=== PATIENT | male | born 1935 | race Caucasian/White ===

== ENCOUNTER → 2018-04-27 13:09 | Outpatient (CLI) | payer OTHER, SELFPAY ==
--- NOTE | 2018-04-27 | DI.RAD.S_ITS ---
PROCEDURE: XR CERVICAL SPINE 4V OR 5V INDICATIONS: PARASTHESISA OF SKIN TECHNIQUE: 5 views of the cervical spine acquired. COMPARISON: None. FINDINGS: Bones: No fractures or dislocations to the C7-T1 level. Degenerative endplate changes are noted at C4-5, C5-6 and C6-7 levels. Oblique images demonstrate bilateral neuroforaminal narrowing at C4-5 level. Soft tissues: No prevertebral soft tissue swelling. IMPRESSION: Degenerative disc disease in mid to lower cervical spine with suggestion of bilateral neuroforaminal narrowing at C4-5 level. No compression fracture or spondylolisthesis. Dictated by: Miah Gaines M.D. on 04/27/2018 at 14:23 Approved by: Miah Gaines M.D. on 04/27/2018 at 14:23
== END ==
PROVIDERS: PCP Internal Medicine; Visit Provider Student in an Organized Health Care Education/Training Program
DX: R20.2 Paresthesia of skin (principal); M50.321 Other cervical disc degeneration at C4-C5 level
CPT/HCPCS: 72050

== ENCOUNTER → 2018-05-25 09:37 | Outpatient (CLI) | payer OTHER, SELFPAY ==
--- NOTE | 2018-05-25 | DI.MRI.S_ITS ---
PROCEDURE: MR CERVICAL SPINE WO CON INDICATIONS: Cervical disc disorder with radiculopathy TECHNIQUE: Noncontrast sagittal T1 spin echo and T2 fast spin echo, sagittal STIR, foraminal oblique sagittal T2 fast spin echo, and axial gradient echo or T2 fast spin echo through the cervical spine. COMPARISON: None. FINDINGS: Image quality: Excellent. Alignment and Curvature: There is loss of normal cervical lordosis. There is mild grade 1 retrolisthesis of C4 on C5. Bone Marrow: Marrow demonstrates normal overall signal. There is mild reactive signal within the endplates adjacent to the C4-C5 and C5-C6 intervertebral discs. Spinal Cord: Visualized spinal cord has normal size and signal. No cerebellar tonsillar herniation. Paraspinous Soft Tissues: No paravertebral masses. Prevertebral soft tissues are normal in thickness. C2-C3: Normal appearance. C3-C4: Congenital canal stenosis. Mild disc desiccation and diffuse disc bulge. Central annular tear. Mild facet and uncovertebral hypertrophy bilaterally. Mild canal stenosis. Mild left and moderate right foraminal stenosis. C4-C5: Congenital canal stenosis. Moderate disc height loss and desiccation. Moderate diffuse disc bulge with superimposed broad-based central protrusion. Mild facet and uncovertebral hypertrophy bilaterally. Moderate to severe canal stenosis. Minimal anterior cord flattening. Mild right and moderate left foraminal stenosis. C5-C6: Congenital canal stenosis. Moderate disc height loss and desiccation. Mild diffuse disc bulge. Mild facet and uncovertebral hypertrophy. Moderate to severe canal stenosis. Mild anterior cord flattening. Moderate left and mild right foraminal stenosis. C6-C7: Mild disc desiccation and diffuse disc bulge with superimposed right paracentral broad-based protrusion. Mild facet and uncovertebral hypertrophy. Mild canal stenosis. Mild foraminal stenosis bilaterally. C7-T1: Normal appearance. IMPRESSION: 1. Multilevel degenerative disc and facet disease, as well as uncovertebral hypertrophy. 2. Multilevel canal stenoses, worst at C4-C5 and C5-C6, where there is mild cord flattening present. 3. Multilevel foraminal stenoses, worst on the right at C3-C4, on the left at C4-C5, and on the left at C5-C6, where there are moderate foraminal stenoses. Dictated by: Reza Caldwell M.D. on 05/25/2018 at 11:00 Approved by: Reza Caldwell M.D. on 05/25/2018 at 11:04
== END ==
PROVIDERS: PCP Internal Medicine; Visit Provider Student in an Organized Health Care Education/Training Program
DX: M50.10 Cervical disc disorder with radiculopathy, unspecified cervical region (principal); M50.11 Cervical disc disorder with radiculopathy, high cervical region; M48.02 Spinal stenosis, cervical region
CPT/HCPCS: 72141

== ENCOUNTER → 2018-12-11 11:48 | Outpatient (CLI) | payer OTHER, SELFPAY ==
[2018-12-11 12:27] LABS: Add Manual Diff / Slide Review NO; Basophils Absolute Auto 100 /uL (0-100); Basophils Percent Auto 0.8 % (0-2); Eosinophils Absolute Auto 200 /uL (0-450); Eosinophils Percent Auto 2.3 % (2-4); Hemoglobin 13.3 g/dL (13.5-17.5); Lymphocytes Absolute Auto 1600 /uL (1100-4500); Lymphocytes Percent Auto 23.5 % (25-40); Mean Corpuscular HGB Conc 33.3 % (30-36); Mean Corpuscular Hemoglobin 35.1 PG (26-34); Mean Corpuscular Volume 105.4 fL (80-100); Monocytes Absolute Auto 700 /uL (0-900); Monocytes Percent Auto 9.7 % (3-14); Neutrophils Absolute Auto 4300 /uL (1500-7000); Neutrophils Percent Auto 63.7 % (50-75); Platelet Count 202 X10^3/uL (150-400); Red Blood Cell Count 3.79 X10^6/uL (4.5-5.9); Red Cell Distribution Width 13.7 % (11.6-14.8); White Blood Cell Count 6.7 X10^3/uL (4.5-11.0)
[2018-12-11 13:44] LABS: Blood Urea Nitrogen 21 mg/dL (9-20); Calcium 9.1 mg/dL (8.4-10.2); Carbon Dioxide 28 mmol/L (22-32); Chloride 103 mmol/L (98-107); Estimated Glomerular Filt Rate > 60.0 mL/min (>60); Glucose 94 mg/dL (80-110); HEMOLYSIS < 15 (0-50); Potassium 4.9 mmol/L (3.4-5.1); Sodium 137 mmol/L (137-145)
== END ==
PROVIDERS: PCP Internal Medicine; Visit Provider Orthopaedic Surgery
DX: Z01.818 Encounter for other preprocedural examination (principal); R73.9 Hyperglycemia, unspecified; E61.1 Iron deficiency; Z51.81 Encounter for therapeutic drug level monitoring
CPT/HCPCS: 36415; 80048; 85025

== ENCOUNTER 2018-12-19 09:15 | Day surgery (SDC) | payer OTHER, SELFPAY ==
[2018-12-15 09:59] VITALS: BMI 26.1
[2018-12-19] VITALS (21 sets, daily range): BP systolic 116–178; BP diastolic 69–103; PULSE 57–102; RESP 8–18; TEMP 35.6–37; O2SAT 93–99; BMI 26.1
--- NOTE | 2018-12-19 | DI.RAD.S_ITS ---
PROCEDURE: XR CERVICAL SPINE 2V OR 3V INDICATIONS: C4-5, 5-6 BRYANNA C ACDF TECHNIQUE: AP and lateral operative view(s) of the cervical spine were acquired. COMPARISON: [facility], , XR CERVICAL SPINE 4V OR 5V, 04/27/2018, 13:19. FINDINGS: Images provided demonstrate presence placement of disc prostheses at C4-C5 and C5-C6. No radiographic evidence of complications. IMPRESSION: Operative imaging utilized for placement of disc prostheses at C4-C5 and C5-C6. Dictated by: German Nix M.D. on 12/19/2018 at 14:04 Approved by: German Nix M.D. on 12/19/2018 at 14:05
[2018-12-19] MEDS: LACTATED RINGERS 1,000 ML 84 ML IV ×2 (09:45→14:06)
--- NOTE | 2018-12-19 10:43 | PM.PREOP ---
Pre-operative Note Interval Note History & Physical reviewed/Exam performed by Physician: Yes Changes to H&P: No
--- NOTE | 2018-12-19 11:19 | SUR.OPER ---
Supine on padded OR bed, head on donut, arm padded and tucked at side, legs uncrossed, safety belt at thigh, tape over blanket over lower legs .
[2018-12-19] MEDS: CEFAZOLIN 2 GM/100 ML FROZ.PIGGY IV ×2 (11:40→17:04)
[2018-12-19] MEDS: SODIUM CHLORIDE 0.9% 1,000 ML, GENTAMICIN 80 MG IRR (12:14)
[2018-12-19] MEDS: BUPIVACAINE 0.25% W/ EPI 30 ML VIAL 60 ML INJ (12:15)
[2018-12-19] MEDS: THROMBIN (RECOMBINANT) 5,000 UNIT VIAL 5000 UNIT TOP (12:15)
--- NOTE | 2018-12-19 12:58 | P.OP_ITS ---
Operative Date/Time/Diagnoses Date of procedure: 12/19/18 Time of procedure: 12:58 Pre-op diagnosis: Cervical stenosis with myelopathy Post-op diagnosis: same Procedure & Clinicians Procedure: C4-5, C5-6 anterior diskectomy an artificial disc replacements Use of microscope Same procedure as scheduled: Yes Indications: [age] year old male with cervical stenosis and myelopathy. They had failed conservative management and requested operative intervention. Risks and benefits of surgery were discussed and appropriate consents were obtained. Surgeon: Arnol Palacio Event Marketing Coordinator: Cheli Ring Anesthesia Type: General Operative Notes Findings: None Closure Type: primary Specimen(s): none sent Prosthetic devices, grafts, tissues, transplants, or devices: Smitha Mobi-C Estimated Blood Loss (mL): 5 Blood products transfused: none Procedure in detail: Patient was brought to the operating room and intubated on the table. A time-out was performed. Preoperative antibiotics were given. The neck was prepped and draped in the standard sterile fashion. Using a skin fold, we made a 3 cm oblique incision on the left side. We used Bovie to go through the platysma and then did a standard anterolateral blunt dissection down to the precervical fascia. Fascia was nicked and elevated up. A marker was placed and x-ray was taken for localization. We then subperiosteally elevated up the longus colli muscles. Self-retaining retractors were placed. Bethesda pins were placed under x-ray guidance to be parallel to the endplates. We then brought in the microscope. A scalpel used to perform an annulotomy. We then used a combination of pituitaries and curettes and Kerrison to perform a complete anterior diskectomy at C5-6. We took down the PLL and used Kerrison to remove any posterior disc material and osteophytes. At the end we could from the nerve hook cephalad caudally and out the foramen and everything was opened. We distracted open with the parallel teacher aide clerical. We then used the horseshoes for sizing. We then used the trials. We then inserted a 17 x 17 x 5 mm size Mobi-C artificial disc replacement under fluoroscopic guidance for positioning. The traction was released and x-ray was checked again. We then went up to C4-5. Again a complete diskectomy was performed with the scalpel, pituitaries, curettes, and Kerrisons. We took down the PLL. Posterior osteophytes were removed until everything was open. We spread with the paddle distractor. We trialed and then inserted a 15 x 15 x 5 mm size Mobi-C ADR under fluoroscopic guidance for positioning. The traction was released. The self- retaining retractors and Bethesda pins were removed and final x-rays taken. The wound was irrigated. There was no bleeding. The carotid was beating nicely. The platysma was closed. The superficial was closed. The skin was closed. A sterile dressing was placed. They were then extubated and brought to recovery room with no complications. Complications: none Post-operative Condition: stable Disposition: PACU Plan for aftercare: Inpatient. Mobilize with therapy.
[2018-12-19] MEDS: HYDROMORPHONE 2 MG INJ 0.5 MG IV ×4 (13:20→14:07)
--- NOTE | 2018-12-19 13:59 | SUR.PHASEI ---
Patient arrived in PACU awake with c/o discomfort. Medicated, repositioned and applied ice bag. Patient currently appears comfortable and states pain has decreased. Will continue to monitor.
--- NOTE | 2018-12-19 15:03 | PC.NURSE ---
Addendum entered by Sole Rangel R.N. 12/19/18 15:35: Patient with bilat skin tears to cheeks, report from Pacu nurse is that the skin tears were from the tape that was used to hold the oxygen tubing in place in the OR. Skin tears currently open to air, with scabbed areas, no drainage, no discomfort per patient. Original Note: Patient alert,oriented, rates pain to neck 3/10, no pain meds given at this time. CMS+, sats on RA97%. Pt oriented to room and call light, alarm on.
[2018-12-19] MEDS: LACTATED RINGERS 1,000 ML 125 ML IV ×2 (15:12→23:41)
--- NOTE | 2018-12-19 16:15 | PT.IIE ---
Current Diagnoses Disease of spinal cord, unspecified (12/19/18) Spinal stenosis, cervical region (12/19/18) Surgery Performed Operation Date: 12/19/18 11:15 Actual Procedures p C45 & C56 anterior discectomy & artificial disc replacement - Arnol Palacio MD Surgical History (Last Updated 12/15/18 @ 10:22 by Marni Loevtt RN) H/O: vasectomy (Acute) History of colonoscopy with polypectomy (Acute ~2016) Hx of arthroscopy of left knee (Acute) Hx of arthroscopy of right knee (Acute) Hx of bilateral cataract extraction (Acute) Status post left unicompartmental knee replacement (Acute ~2011) Status post right unicompartmental knee replacement (Acute ~2015) Medical History (Last Updated 12/15/18 @ 10:37 by Marni Lovett RN) Acid reflux (Acute) Anemia of chronic disease (Acute) BPH (benign prostatic hyperplasia) (Acute) Fragile skin (Acute) Hearing impaired (Acute) Microscopic colitis (Acute ~06/2008) Osteoarthritis (Acute) PSVT (paroxysmal supraventricular tachycardia) (Acute ~2004) RBBB (right bundle branch block) (Acute) Rheumatoid arthritis (Acute) RLS (restless legs syndrome) (Acute) Seasonal allergic rhinitis (Acute) Physical Therapy Inpatient Evaluation/Re-Eval M1 PT/OT-IP Prior Functional Status Start: 12/19/18 17:00 Freq: NEEDED Status: Active Protocol: Document 12/19/18 16:15 AB (Rec: 12/19/18 17:17 AB [id number]) Medical Review Prior Functional Status Medical History Reviewed Yes Communication able to make needs known Mobility and Gait pt stated that he is independent with all mobilities and ambulation without AD Social History Household Members spouse Living Arrangements Apartment/Condo Number of Floors (Floors) Two Floors Number of Stairs To Enter/Railing? 2 steps with L rail to enter has 14 steps with L rail to get to bedroom level Home Environment High Toilet,Walk in Shower Home Equipment Straight Cane,Grab Bars In Shower Additional Social History Comment pt also stated that he has 2 hiking poles M2 PT-IP Current Condition Start: 12/19/18 17:00 Freq: NEEDED Status: Active Protocol: Document 12/19/18 16:15 AB (Rec: 12/19/18 17:17 AB [id number]) Physical Therapy Current Condition Current Condition Evaluation Date 12/19/18 Treatment Diagnosis s/p C4-5, C5-6 ACDF; difficulty in walking Onset Date 12/19/18 Precautions Cervical Spine Precautions Soft Collar for Comfort,No Heavy Lifting,Log Roll M3 PT-IP Subjective Start: 12/19/18 17:00 Freq: NEEDED Status: Active Protocol: Document 12/19/18 16:15 AB (Rec: 12/19/18 17:17 AB [id number]) Subjective Physical Therapy Visit Type Type Initial Evaluation Visit Start Time 16:15 Visit Stop Time 16:53 Total Visit Minutes 43 Number of CENTRAL OFFICE INSPECTOR Visits 0 Physical Therapy Visit Comments Patient Comments pt agreeable to do PT Therapy Pain Assessment Pain When Pain Assessed At Rest Pain Present Pain Present Pain Reported Location Posterior Neck Intensity 3 Scale Used increased with mobility Pain Management Techniques Apply Cold,Re-positioning, Timing of Activity with Medications M4 PT-IP Mobility and Gait Start: 12/19/18 17:00 Freq: NEEDED Status: Active Protocol: Document 12/19/18 16:15 AB (Rec: 12/19/18 17:17 AB [id number]) PT-Bed Mobility Assessment Rolling Type of Rolling Log Rolling Level of Assist Standby Assistance Supine to Sit Supine to Sit Standby Assistance Sit to Supine Sit to Supine Standby Assistance PT-Transfer Assessment Sit to and From Stand Sit to and from Stand Contact Guard Assistance Equipment Transfer Assistive Device None,Gait Belt Orthotic/Prosthetic Devices or Brace: Yes Transfers Transfer Destination Toilet Transfer Technique pt ambulated without AD Transfer Ability Level of Assist Contact Guard Assistance Comments Mobility Comments pt completed bed mobility supine to sit log roll SBA with cues for techniques. BP: 147/79 . pt c/o dizziness. BP in sittin/90. pt completed sit to stand CGA and ambulated towards the sink without AD CGA. educated on soft collar management and completed. pt requested to use the toilet and ambulated without AD CGA. pt was able to do sit to stand using grab bar SBA and pt ambulated towards the sink SBA without AD and was able to maintain standing while doing handwashing SBA. pt requested to go back to bed. ambulated without AD CGA. completed log roll sit to supine SBA and cues. positioned pt in bed. call light and table placed within reach. ice pack provided. Gait Assessment Gait Gait Assistance Required: Contact Guard Assist Distance (Feet) 20 Able to Maintain Weight Bearing Status Yes During Gait Assistive Devices Assistive Device None,Gait Belt Orthotic/Prosthetic Devices or Brace: Yes Gait Deviations General Gait Pattern Antalgic Factors Limiting Gait Function Factors Limiting Gait Function Decreased Activity Tolerance, Decreased Sensation,Decreased Strength,Limited Range of Motion,Pain,Poor Balance,Poor Safety Awareness Comments Gait Comments pt ambulated in room. pls refer to mobility section for details. pt presents with unstead antalgic gait. pt also has chronic numbness on all toes affecting balance. PT-Balance Assessment Sitting Balance and Reactions Static Sitting Balance Ability Normal Dynamic Sitting Balance Ability Good Standing Balance and Reactions Static Standing Balance Ability Good Dynamic Standing Balance Ability Fair Device Used without AD M5 PT-IP Objective Assessments Start: 12/19/18 17:00 Freq: NEEDED Status: Active Protocol: Document 12/19/18 16:15 AB (Rec: 12/19/18 17:17 AB [id number]) Orientation Orientation/Cognition Level of Alertness Alert Orientation Name,Place,Situation Language Function Ability Hard of Hearing Safety Awareness Understands Safety Issues Memory Description No Deficits Noted Gross Range of Motion Lower Extremity ROM Assessment Within Functional Limits Strength Lower Extremity Strength Hip 4-/5 Knee 4-/5 Ankle 4-/5 Coordination Assessment Gross Coordination Gross Coordination WNL Sensation Assessment Sensation Gross Sensation Right LE Impaired,Left LE Impaired Light Touch Impaired Proprioception (Position) Impaired Sensation Description Numbness Comments Sensation Comments numbness on all toes Muscle Tone Muscle Tone WNL Yes M6 PT-IP Treatment Start: 12/19/18 17:00 Freq: NEEDED Status: Active Protocol: Document 12/19/18 16:15 AB (Rec: 12/19/18 17:17 AB [id number]) Physical Therapy Treatment Education Education Provided Precautions,Weight Bearing Status,Post-Op Packet,Safety Brace Education [place],Patient M7 PT-IP Assessment and Plan Start: 12/19/18 17:00 Freq: NEEDED Status: Active Protocol: Document 12/19/18 16:15 AB (Rec: 12/19/18 17:17 AB [id number]) PT Summary Assessment and Plan Potential Rehabilitation Potential Good Status of Condition at Evaluation Stable Summary Impairments Pain,ROM,Strength,Balance, Sensation,Bed Mobility, Transfers,Gait,Activity Tolerance Assessment Summary pt requiring CGA with mobility . pt just had surgery today and will likely improve mobility during hospital stay. pt presents with unsteady gait and will assess further on next tx session and if appropriate will assess safety with use of SPC. pt plans to go home and has his spouse to assist him at home. will also complete stair climbing training prior to d/c. Goals Bed Mobility Goal Independent Transfer Goal Independent,Cane Gait Goal Independent,Cane Gait Distance 250 Other Goals improve ambulation without AD ~ 300 ft SBA up/down 14 steps with L rails ascending SBA Days to Meet Goals 3 Frequency of Treatment Frequency Of Treatment Twice a Day Treatment Plan Physical Therapy Treatment Plan Bed Mobility Training,Transfer Training,Gait Training, Therapeutic Exercise,Balance Retraining,Post Op Education, Discharge Planning,Hot or Cold Pack,Neuromuscular Re-ed, Coordination Retraining,Manual Therapy Other Recommendations and Next Treatment ambulation with SPC if Focus appropriate, stair climbing Recommendations To Nursing Amount of Assist Needed 1 Person Assist Discharge Recommendations PT Discharge Recommendations Home with Assistance
[2018-12-19] MEDS: NAPROXEN 250 MG TABLET 500 MG PO (17:03)
[2018-12-19] MEDS: HYDROCORTISONE 100 MG/2 ML VIAL 25 MG IV (17:03)
[2018-12-19] MEDS: OXYCODONE/ACETAMINOPHEN 5/325 TABLET 1 TAB PO ×2 (17:53→21:10)
[2018-12-19] MEDS: DOCUSATE 100 MG CAPSULE PO (21:09)
[2018-12-19] MEDS: SENNOSIDES 8.6 MG TABLET 17.2 MG PO (21:09)
[2018-12-19] MEDS: GABAPENTIN 300 MG CAPSULE PO (21:10)
[2018-12-19] MEDS: PRAMIPEXOLE 0.25 MG TABLET 0.5 MG PO (21:10)
[2018-12-19] MEDS: INFLUENZA VACCINE 0.5 ML SYRINGE IM (21:41)
[2018-12-20 01:00] VITALS: BP 122/65; PULSE 55; RESP 16; TEMP 36.6; O2SAT 99
[2018-12-20] MEDS: OXYCODONE/ACETAMINOPHEN 5/325 TABLET 1 TAB PO ×2 (01:11→09:00)
[2018-12-20] MEDS: HYDROCORTISONE 100 MG/2 ML VIAL 25 MG IV ×2 (01:13→09:01)
[2018-12-20] MEDS: CEFAZOLIN 2 GM/100 ML FROZ.PIGGY IV (01:14)
--- NOTE | 2018-12-20 05:45 | PC.NURSE ---
Addendum entered by Gisselle Conrad R.N. 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 Soft collar on, gauze dressing with tegaderm CD&I. Original Note: Pt reports mild post surgical neck pain, 4/10. Given 1 tab percocet with good effect. Pt SBA to BTR
[2018-12-20 06:05] VITALS: BP 134/78; PULSE 59; RESP 16; TEMP 36.6; O2SAT 134
[2018-12-20 08:00] VITALS: BP 129/69; PULSE 55; RESP 16; TEMP 36.3; O2SAT 99
--- NOTE | 2018-12-20 08:17 | PM.PNPO.1 ---
Subjective Subjective Date Patient Seen: 12/20/18 Time Patient Seen: 08:17 Interval history: He is doing well. A little bit of ache in the back of the neck. No difficulty swallowing. Exam Vital Signs (past 8 hours): - 12/20/18 01:00 12/20/18 06:05 Temperature 97.8 F 97.9 F Pulse Rate 55 L 59 L Respiratory Rate 16 16 Blood Pressure 122/65 134/78 Pulse Oximetry 99 134 H Oxygen Delivery Method Nasal Cannula Oxygen Flow Rate 2 Const Orientation: alert and oriented x3 Back/Spine/Pelvis Other: CDI. 5/5 motor both upper extremities Assessment & Plan Post-op Postoperative Procedures: Procedures Operation Date: 12/19/18 11:15 Actual Procedures Side Surgeon p C45 & C56 anterior discectomy & artificial disc replacement Arnol Palacio MD he is doing very well. He can be discharged home today after his last dose of IV steroids. He then will switch back to his regular 10 mg prednisone daily. Quality VTE Deep Vein Thrombosis/Pulmonary Embolism Present on Admission: No
[2018-12-20] MEDS: NAPROXEN 250 MG TABLET 500 MG PO (08:59)
[2018-12-20] MEDS: CHOLECALCIFEROL (VITAMIN D3) 1,000 UNIT TABLET 2000 UNIT PO (09:00)
[2018-12-20] MEDS: ASPIRIN EC 81 MG TABLET PO (09:00)
[2018-12-20] MEDS: predniSONE 10 MG TABLET PO (09:00)
[2018-12-20] MEDS: DOCUSATE 100 MG CAPSULE PO (09:01)
[2018-12-20] MEDS: FISH OIL 1,000 MG CAPSULE 1000 MG PO (09:02)
[2018-12-20] MEDS: ATENOLOL 50 MG TABLET PO (09:02)
[2018-12-20] MEDS: ALLOPURINOL 300 MG TABLET 150 MG PO (09:02)
--- NOTE | 2018-12-20 09:06 | PT.IPTN ---
Current Diagnoses Disease of spinal cord, unspecified (12/19/18) Spinal stenosis, cervical region (12/19/18) Surgery Performed Operation Date: 12/19/18 11:15 Actual Procedures p C45 & C56 anterior discectomy & artificial disc replacement - Arnol Palacio MD Physical Therapy Treatment Note M2 PT-IP Current Condition Start: 12/19/18 17:00 Freq: NEEDED Status: Active Protocol: Document 12/19/18 16:15 AB (Rec: 12/19/18 17:17 AB [id number]) Physical Therapy Current Condition Current Condition Evaluation Date 12/19/18 Treatment Diagnosis s/p C4-5, C5-6 ACDF; difficulty in walking Onset Date 12/19/18 Precautions Cervical Spine Precautions Soft Collar for Comfort,No Heavy Lifting,Log Roll M3 PT-IP Subjective Start: 12/19/18 17:00 Freq: NEEDED Status: Active Protocol: Document 12/20/18 09:06 AB (Rec: 12/20/18 11:01 AB [id number]) Subjective Physical Therapy Visit Type Type Treatment Note Visit Start Time 09:06 Visit Stop Time 09:25 Total Visit Minutes 19 Number of ENTERTAINMENT AGENT Visits 0 Physical Therapy Visit Comments Patient Comments pt agreeable to do PT Therapy Pain Assessment Pain When Pain Assessed At Rest Pain Present Pain Present Pain Reported Location Posterior Neck Intensity 2 Scale Used Numeric (1 - 10) Pain Management Techniques Timing of Activity with Medications M4 PT-IP Mobility and Gait Start: 12/19/18 17:00 Freq: NEEDED Status: Active Protocol: Document 12/20/18 09:06 AB (Rec: 12/20/18 11:01 AB [id number]) PT-Bed Mobility Assessment Rolling Type of Rolling Log Rolling Level of Assist Standby Assistance Supine to Sit Supine to Sit Standby Assistance Scooting Scooting to Edge of Bed Standby Assistance PT-Transfer Assessment Sit to and From Stand Sit to and from Stand Standby Assistance Equipment Transfer Assistive Device None,Gait Belt Orthotic/Prosthetic Devices or Brace: Yes Transfers Transfer Destination Chair Transfer Technique pt ambulated without AD Transfer Ability Level of Assist Standby Assistance Gait Assessment Gait Gait Assistance Required: Standby Assistance Distance (Feet) 350 Able to Maintain Weight Bearing Status Yes During Gait Assistive Devices Assistive Device None,Gait Belt Orthotic/Prosthetic Devices or Brace: Yes Gait Deviations General Gait Pattern Lateral Trunk Lean Factors Limiting Gait Function Factors Limiting Gait Function Decreased Sensation,Decreased Strength,Limited Range of Motion,Pain,Poor Balance Comments Gait Comments pt continues to present with antalgic gait but without LOB. increase trunk lean to the L . Stair Climbing Assessment Evaluation Level of Assist On Stairs Standby Assistance Devices Stair Climbing Assistive Devices Left Railing Technique/Endurance Stair Climbing Direction Ascend and Descend Stair Climbing Technique Step Over Step Number of Steps Climbed 3 Stair Climbing Set # Repetitions (reps) 5 M5 PT-IP Objective Assessments Start: 12/19/18 17:00 Freq: NEEDED Status: Active Protocol: Document 12/19/18 16:15 AB (Rec: 12/19/18 17:17 AB [id number]) Orientation Orientation/Cognition Level of Alertness Alert Orientation Name,Place,Situation Language Function Ability Hard of Hearing Safety Awareness Understands Safety Issues Memory Description No Deficits Noted Gross Range of Motion Lower Extremity ROM Assessment Within Functional Limits Strength Lower Extremity Strength Hip 4-/5 Knee 4-/5 Ankle 4-/5 Coordination Assessment Gross Coordination Gross Coordination WNL Sensation Assessment Sensation Gross Sensation Right LE Impaired,Left LE Impaired Light Touch Impaired Proprioception (Position) Impaired Sensation Description Numbness Comments Sensation Comments numbness on all toes Muscle Tone Muscle Tone WNL Yes M6 PT-IP Treatment Start: 12/19/18 17:00 Freq: NEEDED Status: Active Protocol: Document 12/20/18 09:06 AB (Rec: 12/20/18 11:01 [id number]) Physical Therapy Treatment Education Education Provided Precautions,Safety M7 PT-IP Assessment and Plan Start: 12/19/18 17:00 Freq: NEEDED Status: Active Protocol: Document 12/20/18 09:06 AB (Rec: 12/20/18 11:01 [id number]) PT Summary Assessment and Plan Potential Rehabilitation Potential Good Summary Impairments Pain,ROM,Strength,Balance, Sensation,Bed Mobility, Transfers,Gait,Activity Tolerance Progress Towards Goals Progressing Toward Goals Assessment Summary pt is doing well with mobility and requiring SBA for safety. pt is steadier with ambulation today compared to yesterday. pt plans to go home today and spouse will be able to assist him. pt may go home when medically stable. Goals Bed Mobility Goal Independent Transfer Goal Independent,Cane Gait Goal Independent,Cane Gait Distance 250 Other Goals improve ambulation without AD ~ 300 ft SBA up/down 14 steps with L rails ascending SBA Days to Meet Goals 3 Frequency of Treatment Frequency Of Treatment Twice a Day Treatment Plan Physical Therapy Treatment Plan Bed Mobility Training,Transfer Training,Gait Training, Therapeutic Exercise,Balance Retraining,Post Op Education, Discharge Planning,Hot or Cold Pack,Neuromuscular Re-ed, Coordination Retraining,Manual Therapy Other Recommendations and Next Treatment ambulation with SPC if Focus appropriate, stair climbing Recommendations To Nursing Amount of Assist Needed 1 Person Assist Discharge Recommendations PT Discharge Recommendations Home with Assistance
--- NOTE | 2018-12-20 10:02 | OT.IP.EVAL ---
Current Diagnoses Disease of spinal cord, unspecified (12/19/18) Spinal stenosis, cervical region (12/19/18) Surgery Performed Operation Date: 12/19/18 11:15 Actual Procedures p C45 & C56 anterior discectomy & artificial disc replacement - Arnol Palacio MD Past Medical History (Last Updated 12/15/18 @ 10:37 by Marni Lovett, RN) Acid reflux (Acute) Anemia of chronic disease (Acute) BPH (benign prostatic hyperplasia) (Acute) Fragile skin (Acute) Hearing impaired (Acute) Microscopic colitis (Acute ~06/2008) Osteoarthritis (Acute) PSVT (paroxysmal supraventricular tachycardia) (Acute ~2004) RBBB (right bundle branch block) (Acute) Rheumatoid arthritis (Acute) RLS (restless legs syndrome) (Acute) Seasonal allergic rhinitis (Acute) Surgical History (Last Updated 12/15/18 @ 10:22 by Marni Lovett RN) H/O: vasectomy (Acute) History of colonoscopy with polypectomy (Acute ~2016) Hx of arthroscopy of left knee (Acute) Hx of arthroscopy of right knee (Acute) Hx of bilateral cataract extraction (Acute) Status post left unicompartmental knee replacement (Acute ~2011) Status post right unicompartmental knee replacement (Acute ~2015) Occupational Therapy Inpatient Evaluation/Re-Eval M1 PT/OT-IP Prior Functional Status Start: 12/19/18 17:00 Freq: NEEDED Status: Active Protocol: Document 12/20/18 10:02 ROCK (Rec: 12/20/18 16:13 DENISE [id number]) Medical Review Prior Functional Status Medical History Reviewed Yes Diet/Fluid Consistency Regular Communication WNL Mobility and Gait Pt stated that he is independent with ambulation without AD. Activities of Daily Living and IADL's Pt stated he is independent with all self care, shares IADLS with , drives. Social History Household Members spouse Living Arrangements Apartment/Condo Number of Floors (Floors) Two Floors Number of Stairs To Enter/Railing? 2 steps with L rail to enter has 14 steps with L rail to get to bedroom level Home Environment High Toilet,Walk in Shower Home Equipment Straight Cane,Long Handled Sponge,Long Handled Shoe Horn, Moving Van Driver,Grab Bars In Shower Employment Status Retired Additional Social History Comment Pt also stated that he has 2 hiking poles. M2 OT-IP Current Condition Start: 12/20/18 08:24 Freq: Status: Active Protocol: Document 12/20/18 10:02 PJM (Rec: 12/20/18 16:13 PJ [id number]) Occupational Therapy Current Condition Current Condition Evaluation Date 12/20/18 Treatment Diagnosis decreased self care s/p C4-5, C5-6 diskectomy with artificial disks placed Diagnosis Onset Date 12/19/18 Post Operative Precautions Cervical Spine Precautions Soft Collar for Comfort,No Heavy Lifting,Log Roll Other Precautions no lifting >10# for 6 weeks per MD M3 OT- IP Subjective and Pain Start: 12/20/18 08:24 Freq: Status: Active Protocol: Document 12/20/18 10:02 PJM (Rec: 12/20/18 16:13 PJ [id number]) OT- Subjective Occupational Therapy Visit Type Type Initial Evaluation Visit Start Time 09:38 Visit Stop Time 10:02 Total Visit Minutes 24 Occupational Therapy Visit Comments Patient Comments My arms and hands are not numb at all today and I slept last night. Patient/Caregiver Goals to go home today, resume independence in ADLS without numbness in BUE's/hands OT Pain Assessment Pain When Pain Assessed After Treatment Pain Present Pain Present Pain Reported Location Posterior Neck Intensity 2 Scale Used Numeric (1 - 10) Description Aching,Acute M4 OT- IP ADL's Start: 12/20/18 08:24 Freq: Status: Active Protocol: Document 12/20/18 10:02 PJM (Rec: 12/20/18 16:13 PJ [id number]) OT RRV-Rayh-Wdbgomy General Evaluation Self-Feeding Ability Independent Comments OT Self-Feeding Comments pt denies any swallowing difficulties OT ADL-Grooming General Evaluation Grooming Ability Independent Comments OT Grooming Comments after education re: body mechanics OT ADL-Oral Care General Eval Oral Care Ability Independent Comments Oral Care Comments after education re: body mechanics OT ADL-Dressing General Eval Upper Body Dressing Ability Independent Lower Body Dressing Ability Independent Areas Needing Assistance Button-Up Shirt/Blouse, Underpants/Brief,Pants/Shorts, Socks,Shoes Comments OT Dressing Comments after education re: body mechanics OT ADL-Toileting General Evaluation Toileting Ability Independent OT ADL-Bathing Bathing Type Bathing Type Shower Devices Bathing Equipment Long Handled Sponge or Weaver, Grab Bars,Rinse Free Shampoo Cap Comments OT Bathing Comments pt plans to stand to shower, has appropriate AED, provided shampoo cap M5 OT- IP IADL's Start: 12/20/18 08:24 Freq: Status: Active Protocol: Document 12/20/18 10:02 PJM (Rec: 12/20/18 16:13 [facility] [id number]) OT-Instrumental Activities of Daily Living Deficits IADL Deficits Identified Deficits Home Safety Awareness Awareness of Need for Assistance at Home Good Awareness Ability to Problem Solve Emergency Able to Problem Solve Situations Home Safety Comments can assist with all IADLS until pt able Medication Management Medication Management No Deficits Identified Money Management Money Management No Deficits Identified Meal Preparation Meal Preparation Caregiver Provides Assist Pearl Maker Pearl Maker Caregiver Provides Assist Driving Driving Caregiver Provides Assist M6 OT- IP Functional Cognition Start: 12/20/18 08:24 Freq: Status: Active Protocol: Document 12/20/18 10:02 PJM (Rec: 12/20/18 16:13 [facility] [id number]) Cognitive Factors Limiting Selfcare Function Cognitive Ability Level of Alertness Alert Patient Orientation Name,Age,Birthday,Month,Date, Year,Day of Week,Place, Situation Attention Span Ability Capable of Focused Attention, Capable of Sustained Attention Ability to Follow Commands Able to Follow Multi-Step Commands Memory Description No Deficits Noted Safety Awareness No Deficits Noted Problem Solving Ability No deficits Noted Executive Function Ability No Deficits Noted Cognitive Comments Cognitive Assessment Comments Pt verbalizes and demonstrates understanding of all education and C spine precautions. OT- Vision and Hearing OT- Hearing Assessment OT- Hearing Assessment WFL OT- Vision Assessment Visual Acuity WFL M7 OT- IP Mobility and Balance Start: 12/20/18 08:24 Freq: Status: Active Protocol: Document 12/20/18 10:02 PJM (Rec: 12/20/18 16:13 [facility] [id number]) OT-Transfer Assessment Sit to and From Stand Sit to and from Stand Independent Transfers Transfer Ability Independent Technique Transfer Destination Car Transfer Technique Stand Step Pivot Devices Transfer Assistive Devices None OT- Gait Assessment Gait Gait Assistance Required: Independent Distance (Feet) 20 Assistive Devices Assistive Device None Comments Gait Ability Comments pt up ad jone in room this session OT- Balance Assessment Sitting Balance and Reactions Static Sitting Balance Ability Good Dynamic Sitting Balance Ability Good Standing Balance and Reactions Static Standing Balance Ability Good Dynamic Standing Balance Ability Good M8 OT- IP Objective Assessments Start: 12/20/18 08:24 Freq: Status: Active Protocol: Document 12/20/18 10:02 PJM (Rec: 12/20/18 16:13 [facility] [id number]) OT Gross Range of Motion Upper Extremity Range of Motion Assessment Within Functional Limits ROM Impairments end ranges of shoulder motion NT due to recent C spine surgery OT Strength Upper Extremity Strength Assessment Within Functional Limits 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 Strength Hand Dominance Right Comments Strength Comments resistance not given at shoulders due to recent C spine surgery OT- Coordination Assessment Comments Coordination Comments BUE WNL OT-Muscle Tone Assessment Muscle Tone WNL Yes OT Sensation Assessment Comments Summary Comments Pt denies any sensory deficits this session Edema Edema Absent M9 OT- IP Assessment and Plan Start: 12/20/18 08:24 Freq: Status: Active Protocol: Document 12/20/18 10:02 PJM (Rec: 12/20/18 16:13 [facility] [id number]) OT Summary Assessment and Plan Potential Rehabilitation Potential Excellent Analytic Complexity at Evaluation Low Summary Progress Towards Goals Safe For Discharge Assessment Summary Low complexity OT assessment and brief education completed re: adapted ADL techniques and C spine precautions as noted above. Pt independent in self care tasks and functional mobility in room. He has 24 hr assist from supportive, capable at d/c for IADLS. No further OT services needed. Pt plans to d/c home today. Frequency of Treatment Frequency Of Treatment Discharge Discharge Recommendations OT Discharge Recommendations Home with Assistance Home Equipment Needs none
--- NOTE | 2018-12-20 14:23 | PC.NURSE ---
Discharge: Pt feels ready to d/c home. Seen by PT/OT and received there instructions. Seen by MD and received his instructions. Vds w/out diff. Has been up and amb w/PT and had no dizziness or problems. Diet tolerated w/out problems. Po pain meds have been effective for pain. Discussed wound care, ice to the back of the neck, use of cool/cold fluids may be soothing to throat. Denies any problems chewing or swallowing, throat is sore but is eating and no choking seen. Questions answered. D/c home via auto w/spouse. Pt had no concerns when he left.
--- NOTE | 2018-12-20 14:31 | CM.IDA ---
Initial DCP Assessment Note: Pt is an 83 yo male, resident of [place], now POD#1 from spinal surgery w/ Dr Palacio PCP: Dr Ariel Poe: Moris MARKS Reviewed chart, pt discussed in multidisciplinary rounds this morning. Therapy has cleared pt for return home w/family to assist and pt has planned for home, pending stair training, DC order from Ortho PA has already been initiated this morning. Met w/pt very briefly, he was dressed and up in his chair, had his DC instructions and was awaiting his 's arrival for transport home. No needs expected from DC planning team. MAT Rodriguez
== END 2018-12-20 13:20 | disposition home or self-care (01) ==
LOC: OR 09:17 → AC 09:19
PROVIDERS: PCP Internal Medicine; Visit Provider Orthopaedic Surgery
PROC: (CPT 22856; principal; 2018-12-19 11:15)
DX: M48.02 Spinal stenosis, cervical region (principal); G95.9 Disease of spinal cord, unspecified; Z79.52 Long term (current) use of systemic steroids; M06.00 Rheumatoid arthritis without rheumatoid factor, unspecified site
CPT/HCPCS: 22856; 22858; 72040; 76000; 90471; 90656; 97116; 97161; 97165; 97530; C1776; A9270; J0690; J1100; J1170; J1720; J2405; J2704; J3010; Q2038

== ENCOUNTER 2019-03-29 16:18 | Observation (INO) | payer OTHER, SELFPAY ==
[2018-12-19 15:15] VITALS: BMI 26.1
[2019-03-29 16:22] VITALS: BP 122/71; PULSE 65; RESP 16; TEMP 35.9; O2SAT 99; BMI 26.4
--- NOTE | 2019-03-29 16:59 | DI.CT.S_ITS ---
PROCEDURE: CT HEAD/BRAIN WO CON INDICATIONS: stroke symptoms resolved TECHNIQUE: Noncontrast 4.5 mm thick angled axial sections acquired from the foramen magnum to the vertex, with coronal and sagittal reformats. For radiation dose reduction, the following was used: automated exposure control, adjustment of mA and/or kV according to patient size. COMPARISON: None. FINDINGS: Image quality: Excellent. CSF spaces: Basal cisterns are patent. No extra-axial fluid collections. The ventricles are symmetric in size and shape. Brain: No intracranial bleeds or masses. There is cerebral volume loss for age, with resultant ventricular and sulcal prominence. There are periventricular and deep white matter chronic small vessel ischemic changes. There is intracranial internal carotid artery atherosclerosis. Skull and face: Calvarium and visualized facial bones appear intact, without suspicious lesions. Sinuses: Visualized sinuses and mastoids are clear. IMPRESSION: Normal intracranial noncontrast examination for age, without findings of acute hemorrhage. Note is made of age-appropriate brain parenchymal volume loss and chronic small vessel ischemic changes. Dictated by: Johnny Oviedo M.D. on 03/29/2019 at 16:19 Approved by: Johnny Oviedo M.D. on 03/29/2019 at 16:20
--- NOTE | 2019-03-29 17:15 | ED.NEUROSD ---
HPI - Neuro Symptoms/Deficit General Chief Complaint: Neuro Symptoms/Deficit Stated Complaint: episode of talking jibberish Time Seen by Provider: 03/29/19 16:52 Source: patient Mode of arrival: Ambulatory Limitations: no limitations History of Present Illness HPI Narrative: 83-year-old former smoker with history of gout presents with a chief complaint of a 5-10 minute episode of word salad that was witnessed by a neighbor at about 3:30 p.m. today. It has been resolved any denies any other neurologic symptoms such as numbness, tingling or weakness he had an episode of blurred vision along with it. He denies any history of stroke or AFib. He denies any injury or fever. On Anticoagulants: No (1 baby ASA) Related Data Home Medications Medication Instructions Recorded Confirmed cholecalciferol (vitamin D3) 2,000 unit PO DAILY #0 05/13/17 03/29/19 [Vitamin D3] diazepam 2 mg PO QDAYP PRN #0 05/13/17 03/29/19 allopurinol 300 mg PO QAM PRN 12/15/18 03/29/19 aspirin 81 mg PO DAILY 12/15/18 03/29/19 atenolol 50 mg PO DAILY 12/15/18 03/29/19 pramipexole 0.5 mg PO BEDTIME 12/15/18 03/29/19 Fish Oil Capsule 500 mg PO DAILY 03/29/19 03/29/19 cyanocobalamin (vitamin B-12) 1,000 mcg PO DAILY 03/29/19 03/29/19 [Vitamin B-12] fexofenadine [Vivi Allergy] 180 mg PO DAILY PRN 03/29/19 03/29/19 meloxicam 15 mg PO DAILY 03/29/19 03/29/19 potassium chloride 99 mg PO DAILY 03/29/19 03/29/19 prednisone 5 mg PO QPM 03/29/19 03/29/19 Allergies Allergy/AdvReac Type Severity Reaction Status Date / Time No Known Drug Allergies Allergy Verified 03/29/19 16:27 Review of Systems Constitutional Constitutional: Denies chills, Denies fatigue, Denies fever(s), Denies frequent falls, Denies lethargy and Denies weakness Eyes Eyes: Denies change in vision, Denies eye discharge, Denies irritation and Reports loss of vision ENT Ears, Nose, Mouth, and Throat: Denies change in voice, Denies dizziness, Denies neck pain, Denies sore throat and Denies throat swelling Cardiovascular Cardiovascular: Denies chest pain, Denies irregular heart rhythm, Denies lightheadedness, Denies palpitations, Denies dyspnea, Denies dyspnea on exertion and Denies orthopnea Respiratory Respiratory: Denies cough, Denies dyspnea, Denies dyspnea on exertion and Denies wheezing Gastrointestinal Gastrointestinal: Denies abdominal pain, Denies change in bowel habits, Denies diarrhea, Denies nausea and Denies vomiting Genitourinary Genitourinary: Denies hematuria, Denies flank pain, Denies urinary incontinence and Denies urinary urgency Musculoskeletal Musculoskeletal: Denies back pain, Denies muscle weakness, Denies neck pain, Denies numbness and Denies tingling Integumentary/Breasts Skin/Breast: Denies pruritus, Denies erythema, Denies rash and Denies wounds Neurologic Neurologic: Reports abnormal speech, Denies behavioral changes, Denies confusion, Denies dizziness, Denies frequent falls, Reports loss of vision, Denies numbness, Denies tingling and Denies weakness Psychiatric Psychiatric: Denies anxiety, Denies behavioral changes, Denies confusion, Denies depression, Denies homicidal ideation and Denies suicidal ideation Endocrine Endocrine: Denies fatigue, Denies flushing and Denies palpitations Hematologic/Lymphatic Hematologic/Lymphatic: Denies easy bruising Allergic/Immunologic Allergic/Immunologic: Denies urticaria, Denies throat swelling and Denies wheezing Patient History Medical History (Updated 03/29/19 @ 17:50 by Scottie Dia DO) Acid reflux (Acute) Anemia of chronic disease (Acute) BPH (benign prostatic hyperplasia) (Acute) Fragile skin (Acute) Hearing impaired (Acute) Microscopic colitis (Acute ~06/2008) Osteoarthritis (Acute) PSVT (paroxysmal supraventricular tachycardia) (Acute ~2004) RBBB (right bundle branch block) (Acute) Rheumatoid arthritis (Acute) RLS (restless legs syndrome) (Acute) Seasonal allergic rhinitis (Acute) Surgical History (Updated 12/15/18 @ 10:22 by Marni Lovett RN) H/O: vasectomy (Acute) History of colonoscopy with polypectomy (Acute ~2017) Hx of arthroscopy of left knee (Acute) Hx of arthroscopy of right knee (Acute) Hx of bilateral cataract extraction (Acute) Status post left unicompartmental knee replacement (Acute ~2011) Status post right unicompartmental knee replacement (Acute ~2015) Social History household members: spouse Smoking Status: Former smoker alcohol intake: current Smoking Status: Former smoker alcohol intake frequency: 0-2 drinks per day Alcohol type: wine Substance Use Type: does not use Exam Narrative Exam Narrative: GENERAL: [83] year old patient appears stated age. Well-nourished, well-developed patient, in mild distress. HEAD: Atraumatic. Normocephalic. EYES: Pupils equal round and reactive. Extraocular motions intact. No scleral icterus. No injection or drainage. ENT: Nose without bleeding, purulent drainage. Throat without erythema, tonsillar hypertrophy or exudate. Airway patent. NECK: Trachea midline. Non tender CARDIOVASCULAR: Regular rate and rhythm without murmurs, gallops, or rubs. RESPIRATORY: Clear to auscultation. Breath sounds equal bilaterally. No wheezes, rales, or rhonchi. GASTROINTESTINAL: Abdomen soft, non-tender, nondistended. EXTREMITIES: No edema or joint tenderness. BACK: Nontender without deformity or crepitance. No flank tenderness. NEURO: AOx3. SKIN: No rash or erythema of visible areas NIH Stroke Scale 1a. LOC: Patient is alert and keenly responsive (0) 1b. LOC Questions: Patient answers both LOC questions accurately (0) 1c. LOC Commands: Patient performs both tasks correctly (0) 2. Best Gaze: Normal (0) 3. Visual: No visual loss (0) 4. Facial palsy: Normal symmetrical movements (0) 5. Motor arm: No drift (0) 6. Motor leg: No drift (0) 7. Limb ataxia: Absent (0) 8. Sensory: Normal (0) 9. Best language: No aphasia; normal (0) 10. Dysarthria: Normal (0) 11. Extinction and inattention: No abnormality (0) NIHSS: 0 Initial Vital Signs Initial Vital Signs: Vital Signs Temperature 96.6 F L 03/29/19 16:22 Pulse Rate 65 03/29/19 16:22 Respiratory Rate 16 03/29/19 16:22 Blood Pressure 122/71 03/29/19 16:22 Pulse Oximetry 99 03/29/19 16:22 Course Course Course Narrative: Patient had neurologic symptoms concerning for TIA which lasted about 10 minutes. Ongoing NIH is 0. EKG is sinus and notes what may be a new right bundle branch block. He denies any chest pain shortness of breath or other cardiac symptoms. Head CT is unremarkable Orders Ordered: ED Orders 03/29/19 16:59 CT head/brain wo con Stat Urine Drug Screen, Rapid Stat EKG-12 Lead Stat 03/29/19 17:25 Basic Metabolic Panel Stat Complete Blood Count AUTO DIFF Stat Partial Thromboplastin Time Stat Prothrombin Time INR Stat Sodium Chloride (Normal Saline 0.9%) 1,000 mls @ 150 mls/hr IV CONT GERMAN Last Admin: 03/29/19 17:39 Dose: 150 mls/hr Documented by: ASHLEY Vital Signs Vital signs: Vital Signs - 8 hr 03/29/19 16:22 Temperature 96.6 F L Pulse Rate 65 Respiratory Rate 16 Blood Pressure 122/71 Pulse Oximetry 99 MDM - Neuro Symptoms/Deficit Lab Data Result diagrams: 03/29/19 17:25 03/29/19 17:25 Labs: Lab Results 03/29/19 03/29/19 03/29/19 Range/Units 17:25 17:25 17:25 WBC 8.0 (4.5-11.0) X10^3/uL RBC 4.44 L (4.5-5.9) X10^6/uL Hgb 15.0 (13.5-17.5) g/dL Hct 44.5 (41-53) % MCV 100.3 H (80-100) fL MCH 33.9 (26-34) PG MCHC 33.8 (30-36) % RDW 14.9 H (11.6-14.8) % Plt Count 216 (150-400) X10^3/uL Neut % (Auto) 63.2 (50-75) % Lymph % (Auto) 23.9 L (25-40) % Troup % (Auto) 7.9 (3-14) % Eos % (Auto) 4.0 (2-4) % Baso % (Auto) 1.0 (0-2) % Neut # (Auto) 5100 (2160-9115) /uL Lymph # (Auto) 1900 (7140-4146) /uL Troup # (Auto) 600 (0-900) /uL Eos # (Auto) 300 (0-450) /uL Baso # (Auto) 100 (0-100) /uL PT 9.1 L (10.1-12.7) SECONDS INR 0.8 L (0.9-1.3) APTT 31 (26.4-36.2) SECONDS Sodium 138 (137-145) mmol/L Potassium 4.9 (3.4-5.1) mmol/L Chloride 100 (98-107) mmol/L Carbon Dioxide 31 (22-32) mmol/L BUN 23 H (9-20) mg/dL Creatinine 1.00 (0.66-1.25) mg/dL Estimated GFR > 60.0 (>60) mL/min BUN/Creatinine Ratio 23.0 H (6-22) Glucose 100 (80-110) mg/dL Calcium 10.0 (8.4-10.2) mg/dL Point of Care Testing Glucose POC [address] scan - head: Radiologist's Impression: Chart Viewer Diagnostics DATE TYPE STATUS AUTHOR Hx 03/29/19 16:59 Johnny Oviedo 12/19/18 00:00 German Nix 05/25/18 00:00 Reza Caldwell 04/27/18 00:00 Soraya Gainesng Rafal Villalobosankur Thomas 83, [id number] ADM [facility], Main ED R06 185.42cm 90.718kg BMI: 26.4kg/m? Search Chart No Data to Display NF - Not included in interaction checking ONSET Today 18:12 WilfredoJanesVinnie William 83 M 1935 [place] [address] CT Scan Report Signed Patient: Vinnie Villalobos EMR#: [id number] : 7Acct:[id number] Age/Sex: 83 / MDate of Service: 03/29/19 Loc: ED Accession Number: [id number] Procedure: CT head/brain wo con Ordering Provider: Scottie Dia D.O. PROCEDURE: CT HEAD/BRAIN WO CON INDICATIONS: stroke symptoms resolved TECHNIQUE: Noncontrast 4.5 mm thick angled axial sections acquired from the foramen magnum to the vertex, with coronal and sagittal reformats. For radiation dose reduction, the following was used: automated exposure control, adjustment of mA and/or kV according to patient size. COMPARISON: None. FINDINGS: Image quality: Excellent. CSF spaces: Basal cisterns are patent. No extra-axial fluid collections. The ventricles are symmetric in size and shape. Brain: No intracranial bleeds or masses. There is cerebral volume loss for age, with resultant ventricular and sulcal prominence. There are periventricular and deep white matter chronic small vessel ischemic changes. There is intracranial internal carotid artery atherosclerosis. Skull and face: Calvarium and visualized facial bones appear intact, without suspicious lesions. Sinuses: Visualized sinuses and mastoids are clear. IMPRESSION: Normal intracranial noncontrast examination for age, without findings of acute hemorrhage. Note is made of age-appropriate brain parenchymal volume loss and chronic small vessel ischemic changes. Dictated by: Johnny Oviedo M.D. on 03/29/2019 at 16:19 Approved by: Johnny Oviedo M.D. on 03/29/2019 at 16:20 ECG Data Attestation: I personally reviewed and interpreted this ECG as follows: Prior ECG tracings: available for review Interpretation: Sinus rhythm, rate 63. P are 172, QRS 134. No ST segmental elevation or depression. Right bundle branch block noted Discharge Plan Departure Patient Disposition: Admitted as Observation Clinical Impression: Brain TIA Referrals: Nish George MD [Primary Care Provider] - Admit Date/Time: 03/29/19 17:59 Admit Provider: Iris Curry
[2019-03-29 17:36] LABS: Add Manual Diff / Slide Review NO; Basophils Absolute Auto 100 /uL (0-100); Eosinophils Absolute Auto 300 /uL (0-450); Hematocrit 44.5 % (41-53); Lymphocytes Absolute Auto 1900 /uL (1100-4500); Lymphocytes Percent Auto 23.9 % (25-40); Mean Corpuscular HGB Conc 33.8 % (30-36); Mean Corpuscular Hemoglobin 33.9 PG (26-34); Mean Corpuscular Volume 100.3 fL (80-100); Monocytes Absolute Auto 600 /uL (0-900); Monocytes Percent Auto 7.9 % (3-14); Neutrophils Absolute Auto 5100 /uL (1500-7000); Neutrophils Percent Auto 63.2 % (50-75); Platelet Count 216 X10^3/uL (150-400); Red Blood Cell Count 4.44 X10^6/uL (4.5-5.9); Red Cell Distribution Width 14.9 % (11.6-14.8)
[2019-03-29] MEDS: SODIUM CHLORIDE 0.9% 1,000 ML 150 ML IV (17:39)
[2019-03-29 17:43] LABS: INR 0.8 (0.9-1.3); Prothrombin Time 9.1 SECONDS (10.1-12.7)
[2019-03-29 17:46] LABS: PTT Partial Thromboplastin Tim 31 SECONDS (26.4-36.2)
[2019-03-29 17:57] LABS: Blood Urea Nitrogen 23 mg/dL (9-20); Carbon Dioxide 31 mmol/L (22-32); Chloride 100 mmol/L (98-107); Estimated Glomerular Filt Rate > 60.0 mL/min (>60); Glucose 100 mg/dL (80-110); Potassium 4.9 mmol/L (3.4-5.1); Sodium 138 mmol/L (137-145)
[2019-03-29 17:59] LABS: HEMOLYSIS 81 (0-50)
[2019-03-29 18:12] VITALS: BP 115/52; PULSE 62; RESP 18; O2SAT 100
[2019-03-29 18:51] VITALS: BP 116/60; PULSE 66; RESP 16; O2SAT 98
[2019-03-29] MEDS: ASPIRIN 81 MG CHEW TAB 324 MG PO (18:52)
[2019-03-29 19:25] VITALS: BP 135/73; PULSE 59; RESP 18; TEMP 36.6; O2SAT 98
[2019-03-29 19:25] LABS: Creatine Kinase 37 U/L (55-170)
[2019-03-29 19:27] VITALS: BMI 26.4
[2019-03-29 19:37] LABS: Troponin I < 0.012 ng/mL (0.01-0.034)
--- NOTE | 2019-03-29 19:37 | PC.ADMIT ---
[address] Admission Note: The patient,Vinnie Villalobos,83 y/o, was given written information regarding hospital policies, unit procedures and contact persons. Patient's smoking status: Former smoker. Vital Signs - 8 hr 03/29/19 16:22 03/29/19 18:12 03/29/19 18:51 Temperature 96.6 F L Pulse Rate 65 62 66 Respiratory Rate 16 18 16 Blood Pressure 122/71 Blood Pressure [Right Arm] 115/52 L 116/60 Pulse Oximetry 99 100 98 Patient up from ED via stretcher, was able to get off of the stretcher and ambulate on own, gait steady. Patient A&O, calm and cooperative. Tele in place by ED.
[2019-03-29 20:00] VITALS: BP 128/58; PULSE 60; RESP 18; TEMP 36.3; O2SAT 99
--- NOTE | 2019-03-29 20:14 | P.HP_ITS ---
History of Present Illness History of Present Illness Date Patient Seen: 03/29/19 Time Patient Seen: 20:14 Chief complaint: episode of talking jibberish Narrative: The patient is an 83-year-old male with PMH of RA (seronegative, with history of prednisone dependence), osteoarthritis, inflammatory bowel disease, paroxysmal supraventricular tachycardia, R-BBB, RLS, hyperuricemia / gout, BPH, anemia of chronic disease, and cervical stenosis w/ myelopathy. Patient presented to the ED via EMS out of concern for an acute neurological change. Specifically, he was witnessed (by a neighbor) to have indiscernable speech (approximately 5-10 minutes). The event was noted on 03/29/2019 at 3:30 pm. Associated symptoms included change in vision black spots in peripheral vision (brief duration). There was no associated headache, chest pain, palpitations, dyspnea, dizziness, lightheadedness, paresthesia of extremities, unilateral weakness, or facial droop. Patient reports feeling well and did not feel any different from his baseline. No similar events in the past. No prior known history of TIA or CVA. Patient has a history of paroxysmal supraventr icular tachycardia, diagnosed 18 years ago. This was initially felt to be AFib, but then the diagnosis was changed to PSVT. Patient is on ASA 81 mg daily. Symptoms resolved on EMS arrival. Patient reports SBP of 78 mmHg, but he is not entirely sure. He did not endorse any symptoms of hypotension at the time. On presentation to the ED he has had a stable blood pressure. Patient is on atenolol 50 mg daily for PSVT. Notes baseline heart rate to range between 50 and 60 beats per minute. Patient has a history of rheumatoid arthritis for which he was on prednisone for number of years and was weaned off. Patient has been having issues with his cervical spine (stenosis and myelopathy) with associated paresthesia of bilateral upper extremities (right worse than left) and in December of 2018 had C4-5 and C5-C6 anterior diskectomy and artificial disc replacement. His symptoms did not entirely resolve after surgery. Patient continues to have paresthesia in his upper extremities which is worse at night and according to his description seems to be position dependent. At some point he was treated with a tapering course of prednisone. Patient reports discomfort and trouble sleeping. For this reason, in the past 3 weeks, patient (on his own accord) decided to restart the prednisone at a 10 mg daily dose. Patient has done so without discussing this with his PCP or orthopedic surgeon. ED Presentation & Work-Up Patient was triaged in the ED at 4:22 pm. Initial VS unremarkable, T 96.6F BP 122/71 HR 65 RR 16 SpO2 99% on RA. Initial NIHSS score was 0. CT HEAD was negative for intracranial bleeds or masses. Age appropriate brain parenchymal volume loss and chronic small vessel ischemic changes noted. Intracranial internal carotid artery atherosclerosis noted. EKGs EKG #1, 03/29/19 1728. SR (v-rate 63). R-BBB, ST elevation, consider inferior in jury (ST elevation w/o normally inflected T wave in leads II / aVF). QTc 435. EKG #2, 03/29/19 1905. SR (v-rate 64). R-BBB. QTc 431. Initial labs... WBC 8.0 Hgb 15 Hct 44.5 Plt 216 PT 9.1 INR 0.8 aPTT 31 Na 138 K 4.9 Cl 100 Ca 10.0 BUN 23 Cr 1.0 CK 37 Trop < 0.012 In ED patient was given ASA 324 mg and 1L of NS. Patient History Medical History Acid reflux (Acute) Anemia of chronic disease (Acute) BPH (benign prostatic hyperplasia) (Acute) Fragile skin (Acute) Hearing impaired (Acute) Microscopic colitis (Acute ~06/2008) Osteoarthritis (Acute) PSVT (paroxysmal supraventricular tachycardia) (Acute ~2004) RBBB (right bundle branch block) (Acute) Rheumatoid arthritis (Acute) RLS (restless legs syndrome) (Acute) Seasonal allergic rhinitis (Acute) Surgical History H/O: vasectomy (Acute) History of colonoscopy with polypectomy (Acute ~2017) Hx of arthroscopy of left knee (Acute) Hx of arthroscopy of right knee (Acute) Hx of bilateral cataract extraction (Acute) Status post left unicompartmental knee replacement (Acute ~2011) Status post right unicompartmental knee replacement (Acute ~2016) Family & Social History Social History: household members spouse Prior Living Arrangements Apartment/Condo Safety & Behavioral: Feels Safe in Current Yes Environment Been Physically Hurt or No Threatened By a Person Suicidal Ideation Description None Suicide Plan Description No Plan Tobacco & Substance use: Tobacco type cigarettes Smoking Status Former smoker alcohol intake current alcohol intake frequency 1 glass of wine daily w/ dinner Substance Use Type does not use Meds Home Medications and Allergies Home Medications Medication Instructions Recorded Confirmed Type cholecalciferol (vitamin D3) 2,000 unit PO DAILY #0 05/13/17 03/29/19 History [Vitamin D3] diazepam 2 mg PO QDAYP PRN #0 05/13/17 03/29/19 History allopurinol 300 mg PO QAM PRN 12/15/18 03/29/19 History aspirin 81 mg PO DAILY 12/15/18 03/29/19 History atenolol 50 mg PO DAILY 12/15/18 03/29/19 History pramipexole 0.5 mg PO BEDTIME 12/15/18 03/29/19 History Fish Oil Capsule 500 mg PO DAILY 03/29/19 03/29/19 History cyanocobalamin (vitamin B-12) 1,000 mcg PO DAILY 03/29/19 03/29/19 History [Vitamin B-12] fexofenadine [Vivi Allergy] 180 mg PO DAILY PRN 03/29/19 03/29/19 History meloxicam 15 mg PO DAILY 03/29/19 03/29/19 History potassium chloride 99 mg PO DAILY 03/29/19 03/29/19 History prednisone 5 mg PO QPM 03/29/19 03/29/19 History Allergies Allergy/AdvReac Type Severity Reaction Status Date / Time No Known Drug Allergies Allergy Verified 03/29/19 16:27 Review of Systems Review of Systems ROS Unobtainable: All systems reviewed & are unremarkable except as noted in HPI and below Exam Vital Signs (past 8 hours): - 03/29/19 16:22 03/29/19 18:12 03/29/19 18:51 Temperature 96.6 F L Pulse Rate 65 62 66 Respiratory Rate 16 18 16 Blood Pressure 122/71 Blood Pressure [Right Arm] 115/52 L 116/60 Pulse Oximetry 99 100 98 03/29/19 19:25 Temperature 97.9 F Pulse Rate 59 L Respiratory Rate 18 Blood Pressure 135/73 Blood Pressure [Right Arm] Pulse Oximetry 98 Oxygen Delivery Method Room Air Oxygen Flow Rate 0 Narrative Exam Narrative: Constitutional: NAD Neurologic: AOx3, no focal neurological deficits Head: NC, AT Eyes: PERRL, EOMI, Ears: external ears normal, no otorrhea Nose: external nose normal, no rhinorrhea or epistaxis Throat: MMM, oropharynx w/o exudate Neck: no masses, lymphadenopathy, or JVD Chest / Respiratory: equal chest rise, unlabored respiratory effort, no tachypnea CTAB no rrw Heart / CV: S1S2, no murmur Abdomen / GI: round, NT, ND, + BS, no organomegaly : no suprapubic tenderness, no CVA Peripheral / Vascular: warm to touch, DP and PT pulses palpable, no edema Musc: full ROM of upper and lower extremities, adequate muscle tone and bulk Skin: no ecchymosis or suspicious lesions / ulcers Objective Labs Result Diagrams: 03/29/19 17:25 03/29/19 17:25 Labs: Laboratory Results - last 24 hr 03/29/19 03/29/19 03/29/19 17:25 17:25 17:25 WBC 8.0 RBC 4.44 L Hgb 15.0 Hct 44.5 MCV 100.3 H MCH 33.9 MCHC 33.8 RDW 14.9 H Plt Count 216 Neut % (Auto) 63.2 Lymph % (Auto) 23.9 L [place] % (Auto) 7.9 Eos % (Auto) 4.0 Baso % (Auto) 1.0 Neut # (Auto) 5100 Lymph # (Auto) 1900 [place] # (Auto) 600 Eos # (Auto) 300 Baso # (Auto) 100 PT 9.1 L INR 0.8 L APTT 31 Sodium 138 Potassium 4.9 Chloride 100 Carbon Dioxide 31 BUN 23 H Creatinine 1.00 Estimated GFR > 60.0 BUN/Creatinine Ratio 23.0 H Glucose 100 Calcium 10.0 Total Creatine Kinase CK-MB (CK-2) CK-MB (CK-2) Rel Index Troponin I 03/29/19 19:08 WBC RBC Hgb Hct MCV MCH MCHC RDW Plt Count Neut % (Auto) Lymph % (Auto) [place] % (Auto) Eos % (Auto) Baso % (Auto) Neut # (Auto) Lymph # (Auto) [place] # (Auto) Eos # (Auto) Baso # (Auto) PT INR APTT Sodium Potassium Chloride Carbon Dioxide BUN Creatinine Estimated GFR BUN/Creatinine Ratio Glucose Calcium Total Creatine Kinase 37 L CK-MB (CK-2) TNP CK-MB (CK-2) Rel Index TNP Troponin I < 0.012 Assessment & Plan Assessment & Plan narrative: Patient is being admitted to the acute care floor under observation status for a TIA work-up TIA, acute, present on admission, active - NIHSS on presentation to unit, then QShift until discontinued. Neuro checks per protocol. - Telemetry monitoring to monitor for an arrhythmia - MR Stroke Protocol - Echo w/ bubble study to assess PFO / cardiac shunting - Received ASA 325 in ED, continue 81 mg daily - Risk Stratify: A1C, FLP (goal LDL < 70) - Additional Labs: trend troponin, TSH, Mg - Received 1L IVF bolus in ED, no need for further hydration, will re-evaluate hydration status in am - Stroke education - DVT prophylaxis: SCDs, heparin extermination inspector systemic steroid use, subacute, present on admission, active - h/o seronegative RA, steroid dependent on number of years, but was weaned - patient recently restarted steroids 3 weeks ago (prednisone) due to issues w/ cervical spine - will continue prednisone 10 mg daily w/ plan to wean Discussed with patient in details need to discuss with PCP prior to starting and stopping any prescribed medication, specifically steroids. Risks associated wi th steroid use discussed in detail. Paroxysmal ventricular tachycardia, chronic condition, present on admission, active - No PSVT events - Continue atenolol 50 mg daily Restless Leg, chronic condition, present on admission, active / controlled - continue - patient would benefit from an outpatient sleep study Full Code. Spouse is the designated DPOA. VTE prophylaxis: SCDs Heparin Home medications reviewed and reconciled accordingly Quality VTE Deep Vein Thrombosis/Pulmonary Embolism Present on Admission: No
--- NOTE | 2019-03-29 21:14 | DI.MRI.S_ITS ---
PROCEDURE: MR STROKE Pre- and post-contrast brain MRI, non-contrast brain MR angiogram, pre- and postcontrast neck MR angiogram INDICATIONS: TIA event TECHNIQUE: Brain: Noncontrast axial T1 spin echo, axial T2 fast spin echo, sagittal and axial FLAIR, coronal T2 fast spin echo, axial gradient echo, axial diffusion and ADC through the brain. After the administration of contrast, axial 3D VIBE of the cranial vasculature and brain. Brain MRA: Non-contrast 3-D time of flight MR angiogram, with multiple koarqdi-ovymnfoks-ptxwuulpfs (MIP) reformats performed. Neck MRA: Axial and sagittal TruFISP through the neck. Coronal dynamic MR angiogram during administration of contrast in the arterial and venous phases, with 3-dimenstional uezemct-ocfvxbpks-lxwducrtso (MIP) reformats constructed from subtraction images. COMPARISON: None. FINDINGS: Image quality: Excellent. BRAIN: CSF spaces: Ventricles are normal in size and shape. Basal cisterns are patent. No extra-axial fluid collections. Brain: No intracranial bleeds or mass effects. Cloud-white matter interface is normal. Diffusion weighted images show no acute ischemic insults. Brainstem appears normal. Normal intravascular flow voids are present. No abnormal intracranial enhancement. Skull and face: Calvarial marrow signal is normal. Orbits appear normal. Note is made of bilateral lens replacements. Sinuses: Sinuses and mastoids are clear. The right rishi bullosa is incidentally noted. Mild rightward nasal septal deviation can be seen. BRAIN MR ANGIOGRAM: Anterior circulation: Intracranial internal carotid arteries are normal in size and enhancement. The flow within the paired anterior cerebral arteries is considered to be within normal limits. The right anterior cerebral artery is larger than the left. The flow within the middle cerebral arteries is normal and symmetric. The anterior communicating artery is only faintly seen. No stenoses, occlusions, or aneurysms. Posterior circulation: The right vertebral artery is dominant to the left. The left vertebral artery largely terminates in the left. There is cerebral artery, although a portion of the joints with the left vertebral artery to form a normal appearing basilar artery. The flow within the posterior cerebral arteries is normal and symmetric. No stenoses, occlusions, or aneurysms. NECK MR ANGIOGRAM: Carotids: Incidental note is made of a common origin of the right brachiocephalic artery and the left common carotid artery (bovine type arch). This is considered to be a developmental variant of no clinical consequence. The origins of the common carotid arteries appear patent. The calibers and courses of both common carotid arteries are normal. The bifurcation regions appear normal bilaterally. The internal carotid arteries demonstrate normal course and caliber. Posterior circulation: The origins of the vertebral arteries appear patent. More superior portions of both vertebral arteries demonstrate normal course and caliber, with a right vertebral artery dominance of the left. Miscellaneous: Subclavian arteries appear patent. Pre-contrast images through the neck show no soft tissue abnormalities. IMPRESSION: BRAIN MRI: No findings of acute or subacute infarction can be seen. Note is made of age-appropriate brain parenchymal volume loss and chronic small vessel ischemic changes. No masses or abnormal enhancement can be seen. BRAIN MR ANGIOGRAM: The distal left vertebral artery largely terminates in the left posterior inferior cerebellar artery. The right anterior cerebral artery is larger than the left. NECK MR ANGIOGRAM: Within the arteries of the neck, no hemodynamically significant stenosis can be seen. The right vertebral artery is dominant to the left. 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 Dictated by: Johnny Oviedo M.D. on 03/30/2019 at 8:16 Approved by: Johnny Oviedo M.D. on 03/30/2019 at 8:22
[2019-03-29 22:16] LABS: Magnesium 1.8 mg/dL (1.6-2.3)
[2019-03-29 22:16] LABS: TSH w/ Reflex to FT4 2.87 uIU/mL (0.47-4.68)
[2019-03-29 22:28] LABS: Troponin I < 0.012 ng/mL (0.01-0.034)
--- NOTE | 2019-03-29 22:51 | PC.NURSE ---
NIH=0. No focal or gross deficits noted. Passed bedside swallow eval. Given foods and fluids as requested. IV heplocked as ordered. Standby assistance to bathroom and returned to bed. Oriented to bed and call light and pt encouraged to call for needs.
[2019-03-29 23:30] VITALS: BP 114/62; PULSE 60; RESP 16; TEMP 36.4; O2SAT 97
[2019-03-30 00:22] LABS: Hemoglobin A1C% w Est Avg Glu 5.1 % (4.0-6.0)
--- NOTE | 2019-03-30 01:26 | PC.NURSE ---
Addendum entered by Deja Mauro R.N. 03/30/19 06:23: Slept at intervals. Up to bathroom earlier with SBA and urine sent to lab for tox screen. Denies any pain. Second telemetry reading was SB w/1st degree AVB + BBB. Original Note: Patient is alert and oriented. NIH is 0. Breath sounds CTA with RA sat of 97%; on continuous oximetry. HRR with telemetry reading of SR w/BBB. Do note that HR drops frequently into 50's and per monitor in room had 1 reading of 48; patient states HR is normally in 50's. Denies nausea. BT present and abdomen is soft; passing flatus. Denies dysuria, frequency or urgency. Able to turn self in bed. Request patient to call for assistance when needing to get out of bed; verbalizes understanding. Reports no weakness or balance problems. Denies pain. Fall risk score is moderate; bed alarm is activated.
[2019-03-30 03:00] VITALS: BP 136/75; PULSE 69; RESP 16; TEMP 36.7; O2SAT 99
[2019-03-30 03:12] LABS: Ur Creatinine 20 (Normal); Ur Specific Gravity 20 (Normal); Urine pH 5 (Normal)
[2019-03-30 03:13] LABS: UR Morphine/Opiate cutoff 300 Negative (Negative); Urine Amphetamines Negative (Negative); Urine Barbiturates Negative (Negative); Urine Benzodiazepines Positive (Negative); Urine Cocaine Negative (Negative); Urine MDMA Negative (Negative); Urine Methadone Negative (Negative); Urine Methamphetamines Negative (Negative); Urine Phencyclidine Negative (Negative); Urine Tetrahydrocannabinol Negative (Negative); Urine Tricyclic Antidepressant Negative (Negative)
[2019-03-30 04:32] VITALS: BMI 26.4
[2019-03-30 05:30] LABS: Urine Oxycodone Negative (Negative)
[2019-03-30 06:41] LABS: Add Manual Diff / Slide Review NO; Basophils Absolute Auto 100 /uL (0-100); Basophils Percent Auto 0.9 % (0-2); Eosinophils Absolute Auto 400 /uL (0-450); Eosinophils Percent Auto 5.9 % (2-4); Hematocrit 39.3 % (41-53); Hemoglobin 13.1 g/dL (13.5-17.5); Lymphocytes Absolute Auto 1700 /uL (1100-4500); Lymphocytes Percent Auto 26.8 % (25-40); Mean Corpuscular HGB Conc 33.3 % (30-36); Mean Corpuscular Hemoglobin 33.6 PG (26-34); Mean Corpuscular Volume 101.1 fL (80-100); Monocytes Absolute Auto 600 /uL (0-900); Monocytes Percent Auto 9.2 % (3-14); Neutrophils Absolute Auto 3700 /uL (1500-7000); Neutrophils Percent Auto 57.2 % (50-75); Platelet Count 170 X10^3/uL (150-400); Red Blood Cell Count 3.89 X10^6/uL (4.5-5.9); Red Cell Distribution Width 14.9 % (11.6-14.8); White Blood Cell Count 6.4 X10^3/uL (4.5-11.0)
[2019-03-30 06:48] LABS: Cholesterol 185 mg/dL (140-199); HDL Cholesterol 68 mg/dL (40-60); LDL Cholesterol Calculated 102 mg/dL (<100); Triglycerides 75 mg/dL (35-150)
[2019-03-30 06:49] LABS: BUN Creatinine Ratio 21.1 (6-22); Blood Urea Nitrogen 19 mg/dL (9-20); Calcium 8.8 mg/dL (8.4-10.2); Carbon Dioxide 30 mmol/L (22-32); Chloride 100 mmol/L (98-107); Estimated Glomerular Filt Rate > 60.0 mL/min (>60); Glucose 101 mg/dL (80-110); HEMOLYSIS < 15 (0-50); Potassium 4.5 mmol/L (3.4-5.1); Sodium 135 mmol/L (137-145)
[2019-03-30 07:00] LABS: Troponin I < 0.012 ng/mL (0.01-0.034)
[2019-03-30 07:49] VITALS: BP 136/70; PULSE 57; RESP 16; TEMP 36.2; O2SAT 99
[2019-03-30] MEDS: LORazepam 2 MG/ML INJ 0.5 MG IV (08:21)
[2019-03-30] MEDS: CHOLECALCIFEROL (VITAMIN D3) 1,000 UNIT TABLET 2000 UNIT PO (08:22)
[2019-03-30] MEDS: ASPIRIN EC 81 MG TABLET PO (08:22)
[2019-03-30] MEDS: CYANOCOBALAMIN (VITAMIN B-12) 500 MCG TABLET 1000 MCG PO (08:22)
[2019-03-30] MEDS: SODIUM CHLORIDE 0.9% FLUSH 10 ML IV (08:25)
[2019-03-30] MEDS: ATENOLOL 50 MG TABLET PO (08:27)
--- NOTE | 2019-03-30 08:31 | ST.IPIE ---
ST IP Initial Evaulation Report MARKETING AND COMMUNICATIONS OFFICER Language Evaluation Start: 03/30/19 08:20 Freq: Status: Active Protocol: Document 03/30/19 08:20 TLC (Rec: 03/30/19 08:31 TLC [email or web address]) Language Evaluation Session Time Visit Start Time 08:00 Visit Stop Time 08:20 Total Visit Minutes 20 Visit Information Visit Number 1 Next Note Type Next Note Type Treatment Note Referral Referring Physician IZAIAH Lee Reason for Referral TIA Past Medical History Patient History Patient was brought in by EMS after experience 5-6 minute episode of word salad yesterday afternoon. Stroke protocol was activated. CT was negative for acute hemorrhage . Occupational Status Occupation Status Retired Previous Therapy Previous Speech-Language Therapy No Oral Motor Examination Oral Motor Exam Completed No - Informal Assessment Receptive Language Normal Yes Expressive Language Normal Yes Articulation Normal Yes Assessment Findings Patient's receptive and expressive language were within normal limits for answering questions related to recent medical events and in conversation. Speech was intelligible without signs of dysarthria. Patient scored 21/ 30 on the SLUMs this am indicated mild neurocognitive impairments. He lost 1 point for divergent naming, 3 points for short term recall, 1 point for reverse digit span and 4 points for answering questions about details from a short story read aloud. When discussing results, patient reports he has some short term memory impairments at baseline, but functions normally at home and is involved in the community. He reports this score is consistent with his baseline and does not feel he has had changes to cognition since yesterday's events. He lives at home with his . Recommendations No apparent acute changes to speech, language or cognition. Discharge from speech therapy at this time. Provided education regarding memory class offered by the hospital for the community and recommended patient look into this. He verbalized understanding.
--- NOTE | 2019-03-30 11:09 | PT.IIE ---
Surgical History (Last Reviewed 03/30/19 @ 03:41 by IZAIAH Lee) H/O: vasectomy (Acute) History of colonoscopy with polypectomy (Acute ~2016) Hx of arthroscopy of left knee (Acute) Hx of arthroscopy of right knee (Acute) Hx of bilateral cataract extraction (Acute) Status post left unicompartmental knee replacement (Acute ~2011) Status post right unicompartmental knee replacement (Acute ~2015) Medical History (Last Reviewed 03/30/19 @ 03:41 by IZAIAH Lee) Acid reflux (Acute) Anemia of chronic disease (Acute) BPH (benign prostatic hyperplasia) (Acute) Fragile skin (Acute) Hearing impaired (Acute) Microscopic colitis (Acute ~06/2008) Osteoarthritis (Acute) PSVT (paroxysmal supraventricular tachycardia) (Acute ~2004) RBBB (right bundle branch block) (Acute) Rheumatoid arthritis (Acute) RLS (restless legs syndrome) (Acute) Seasonal allergic rhinitis (Acute) Physical Therapy Inpatient Evaluation/Re-Eval M1 PT/OT-IP Prior Functional Status Start: 03/30/19 08:18 Freq: NEEDED Status: Active Protocol: Document 03/30/19 09:50 HH (Rec: 03/30/19 11:09 [email or web address]) Medical Review Prior Functional Status Medical History Reviewed Yes Diet/Fluid Consistency Regular Communication no deficits noted. able to make needs known Mobility and Gait independent at all time without AD. Participate stregnth and balance class at [facility] few times a week . Activities of Daily Living and IADL's independent for all ADLs and IADLs. able to drive as well Social History Household Members spouse Living Arrangements Apartment/Condo Number of Floors (Floors) Two Floors Number of Stairs To Enter/Railing? 2 GARY to front door with L rail 16 steps to 2nd floor with L rail Home Environment High Toilet,Walk in Shower Home Equipment Straight Cane,Hand Held Shower Employment Status Retired Additional Social History Comment Pt lives with his spouse in [facility]. 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 Pt had a cervical disk replacement in Dec. M2 PT-IP Current Condition Start: 03/30/19 08:18 Freq: NEEDED Status: Active Protocol: Document 03/30/19 09:50 HH (Rec: 03/30/19 11:09 [email or web address]) Physical Therapy Current Condition Current Condition Evaluation Date 03/30/19 Treatment Diagnosis Possible TIA, difficulties finding words and vision loss Onset Date 03/29/19 Weight Bearing Status Weight Bearing Status Full Weight Bearing M3 PT-IP Subjective Start: 03/30/19 08:18 Freq: NEEDED Status: Active Protocol: Document 03/30/19 09:50 (Rec: 03/30/19 11:09 [email or web address]) Subjective Physical Therapy Visit Type Type Initial Evaluation Visit Start Time 09:50 Visit Stop Time 10:05 Total Visit Minutes 15 Notes Pt went to have MRI screen early this morning. Result pending. CT scan =-ve Number of MOTORCYCLE MECHANIC APPRENTICE Visits 0 Physical Therapy Visit Comments Patient Comments I feel normal right now Patient Goals to return home Therapy Pain Assessment Pain Present Pain Present Denied Pain M4 PT-IP Mobility and Gait Start: 03/30/19 08:18 Freq: NEEDED Status: Active Protocol: Document 03/30/19 09:50 (Rec: 03/30/19 11:09 [email or web address]) PT-Bed Mobility Assessment Rolling Type of Rolling Roll to Left Level of Assist Independent Supine to Sit Supine to Sit Independent Sit to Supine Sit to Supine Independent Scooting Scooting to Edge of Bed Independent PT-Transfer Assessment Sit to and From Stand Sit to and from Stand Independent Equipment Transfer Assistive Device None Orthotic/Prosthetic Devices or Brace: No Transfers Transfer Destination Bed,Chair Transfer Technique Stand Step Pivot Transfer Ability Level of Assist Independent Comments Mobility Comments Pt was in bed upon assessment. Able to roll and sit up at EOB I without using UEs. He completed STS from low level bed I as well. He then amb with PT to half AC unit without AD and returned to bedside chair. no signs of LOB / weakness. Gait Assessment Gait Gait Assistance Required: Independent Distance (Feet) 200 Able to Maintain Weight Bearing Status Yes During Gait Assistive Devices Assistive Device None Orthotic/Prosthetic Devices or Brace: Yes Gait Deviations General Gait Pattern Within Normal Limits Comments Gait Comments no deficits noted. Stair Climbing Assessment Evaluation Level of Assist On Stairs Independent Devices Stair Climbing Assistive Devices Left Railing Technique/Endurance Stair Climbing Direction Ascend and Descend Stair Climbing Technique Step Over Step Number of Steps Climbed 12 Query Text: Stair Climbing Set # Repetitions (reps) 2 Comments Stair Climbing Comments no deficits noted. PT-Balance Assessment Sitting Balance and Reactions Static Sitting Balance Ability Normal Dynamic Sitting Balance Ability Normal Standing Balance and Reactions Static Standing Balance Ability Normal Dynamic Standing Balance Ability Normal Balance Tests Single Limb Standing 3s M5 PT-IP Objective Assessments Start: 03/30/19 08:18 Freq: NEEDED Status: Active Protocol: Document 03/30/19 09:50 (Rec: 03/30/19 11:09 [email or web address]) Orientation Orientation/Cognition Level of Alertness Alert Orientation Name,Age,Birthday,Month,Date, Year,Day of Week,Place, Situation Language Function Ability No Deficits Noted Safety Awareness Understands Safety Issues Memory Description No Deficits Noted Gross Range of Motion Upper Extremity ROM Assessment Within Functional Limits Lower Extremity ROM Assessment Within Functional Limits Strength Upper Extremity Strength Assessment Within Functional Limits Shoulder 5/5 Elbow 5/5 Wrist 5/5 Hand 5/5 Lower Extremity Strength Assessment Within Functional Limits Hip 5/5 Knee 5/5 Ankle 5/5 Coordination Assessment Gross Coordination Gross Coordination WNL Assessment Finger to Nose Test Normal Performance Pronation/Supination Test Normal Performance Foot Tapping Test Normal Performance Heel on Grant Test Normal Performance Sensation Assessment Sensation Gross Sensation WNL Light Touch Intact Proprioception (Position) Intact Muscle Tone Muscle Tone WNL Yes Other Assessments Other Other Assessments peripheral field = intact M7 PT-IP Assessment and Plan Start: 03/30/19 08:18 Freq: NEEDED Status: Active Protocol: Document 03/30/19 09:50 (Rec: 03/30/19 11:09 [email or web address]) PT Summary Assessment and Plan Potential Rehabilitation Potential Excellent Status of Condition at Evaluation Stable Summary Progress Towards Goals Safe For Discharge Assessment Summary Pt is a 83 yo male admitted to ER for possible TIA due to sudden visual field loss and word finding difficulties yesterday but it was resolved within minutes. PT order received for further evaluation. upon assessment, pt's visual field, VOR, vestibular, sensation to LT and pressure, coordination, gross/ fine motor skills, ROM and strength are intact. He was able to perform all mobility independently. He is currently safe to be d/c from PT. Frequency of Treatment Frequency Of Treatment Discharge Recommendations To Nursing Amount of Assist Needed Independent Discharge Recommendations PT Discharge Recommendations Home
--- NOTE | 2019-03-30 11:16 | PC.NURSE ---
Day Shift- Pt A&OX4, able to make needs known using call light, low to moderate fall risk, bed alarm on, pt aware ot call, steady gait with ambulation. NIH score is 0. Pt agrees with assessment, no deficit noted. Pt given IV Ativan 0.5mg X1 at 0820 prior to MRI. Pt left for MRI via wheelchair at 0830 and back at 0935. Pt stated MRI went well, no ill side effects from previous given Ativan. Awaiting ECHO study. No other voiced concerns by pt at this time
[2019-03-30] MEDS: HEPARIN 5,000 UNIT/ML VIAL 5000 UNIT SUBCUT (11:31)
--- NOTE | 2019-03-30 11:53 | OT.IP.EVAL ---
Past Medical History (Last Reviewed 03/30/19 @ 03:41 by IZAIAH Lee) Acid reflux (Acute) Anemia of chronic disease (Acute) BPH (benign prostatic hyperplasia) (Acute) Fragile skin (Acute) Hearing impaired (Acute) Microscopic colitis (Acute ~06/2008) Osteoarthritis (Acute) PSVT (paroxysmal supraventricular tachycardia) (Acute ~2004) RBBB (right bundle branch block) (Acute) Rheumatoid arthritis (Acute) RLS (restless legs syndrome) (Acute) Seasonal allergic rhinitis (Acute) Surgical History (Last Reviewed 03/30/19 @ 03:41 by IZAIAH Lee) H/O: vasectomy (Acute) History of colonoscopy with polypectomy (Acute ~2016) Hx of arthroscopy of left knee (Acute) Hx of arthroscopy of right knee (Acute) Hx of bilateral cataract extraction (Acute) Status post left unicompartmental knee replacement (Acute ~2011) Status post right unicompartmental knee replacement (Acute ~2015) Occupational Therapy Inpatient Evaluation/Re-Eval M1 PT/OT-IP Prior Functional Status Start: 03/30/19 08:18 Freq: NEEDED Status: Active Protocol: Document 03/30/19 13:36 CGR (Rec: 03/30/19 13:46 CGR [id number]) Medical Review Prior Functional Status Medical History Reviewed Yes Diet/Fluid Consistency Regular Communication no deficits noted. able to make needs known Mobility and Gait independent at all time without AD. Participate stregnth and balance class at [facility] few times a week . Activities of Daily Living and IADL's independent for all ADLs and IADLs. able to drive as well Social History Household Members spouse Living Arrangements Apartment/Condo Number of Floors (Floors) Two Floors Number of Stairs To Enter/Railing? 2 GARY to front door with L rail 16 steps to 2nd floor with L rail Home Environment High Toilet,Walk in Shower Home Equipment Straight Cane,Hand Held Shower Employment Status Retired Additional Social History Comment Pt lives with his spouse in [facility]. 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 Pt had a cervical disk replacement in Dec. M2 OT-IP Current Condition Start: 03/30/19 13:35 Freq: Status: Active Protocol: Document 03/30/19 13:36 CGR (Rec: 03/30/19 13:46 CGR [id number]) Occupational Therapy Current Condition Current Condition Evaluation Date 03/30/19 Treatment Diagnosis CVA vs TIA Diagnosis Onset Date 03/29/19 M3 OT- IP Subjective and Pain Start: 03/30/19 13:35 Freq: Status: Active Protocol: Document 03/30/19 13:36 CGR (Rec: 03/30/19 13:46 CGR [id number]) OT- Subjective Occupational Therapy Visit Type Type Initial Evaluation Visit Start Time 11:35 Visit Stop Time 11:53 Total Visit Minutes 18 Occupational Therapy Visit Comments Patient Comments I feel much better. OT Pain Assessment Pain When Pain Assessed At Rest Pain Present Pain Present Denied Pain M4 OT- IP ADL's Start: 03/30/19 13:35 Freq: Status: Active Protocol: Document 03/30/19 13:36 CGR (Rec: 03/30/19 13:46 CGR [id number]) OT [id number] Comments OT Self-Feeding Comments Not meal time OT ADL-Grooming General Evaluation Grooming Ability Independent Areas Needing Assistance Combing/Brushing Hair,Face Washing Comments OT Grooming Comments Standing at sink OT ADL-Oral Care General Eval Oral Care Ability Independent Areas of Assistance Brushing Teeth Comments Oral Care Comments Standing at sink OT ADL-Dressing General Eval Lower Body Dressing Ability Independent Areas Needing Assistance Socks Comments OT Dressing Comments seated in chair without difficulty OT ADL-Toileting General Evaluation Toileting Ability Independent Comments OT Toileting Comments seated on toilet OT ADL-Bathing Comments OT Bathing Comments not performed in this session. M5 OT- IP IADL's Start: 03/30/19 13:35 Freq: Status: Active Protocol: Document 03/30/19 13:36 CGR (Rec: 03/30/19 13:46 CGR [id number]) OT-Instrumental Activities of Daily Living Deficits IADL Deficits Identified No Deficits Home Safety Awareness Awareness of Need for Assistance at Home Good Awareness Ability to Problem Solve Emergency Able to Problem Solve Situations Medication Management Medication Management No Deficits Identified Money Management Money Management Caregiver Provides Assistance Meal Preparation Meal Preparation No Deficits Identified Database Report Writer Database Report Writer No Deficits Identified Driving Driving Comments 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 M6 OT- IP Functional Cognition Start: 03/30/19 13:35 Freq: Status: Active Protocol: Document 03/30/19 13:36 CGR (Rec: 03/30/19 13:46 CGR [id number]) Cognitive Factors Limiting Selfcare Function Cognitive Ability Level of Alertness Alert Patient Orientation Name,Age,Birthday,Month,Date, Year,Day of Week,Place, Situation Attention Span Ability Capable of Focused Attention, Capable of Sustained Attention Ability to Follow Commands Able to Follow Multi-Step Commands OT- Vision and Hearing OT- Hearing Assessment OT- Hearing Assessment WFL OT- Vision Assessment Visual Acuity WFL Visual Attentiveness WFL Occular Pursuits WFL Visual Convergence WFL Visual Castillo WFL M7 OT- IP Mobility and Balance Start: 03/30/19 13:35 Freq: Status: Active Protocol: Document 03/30/19 13:36 CGR (Rec: 03/30/19 13:46 CGR [id number]) OT- Bed Mobility Assessment Rolling Level of Assistance Independent Supine to Sit Supine to Sit Assist Independent Sit to Supine Sit to Supine Assist Independent Scooting Scooting to Edge of Bed Independent Scooting Up and Down in Bed Independent OT-Transfer Assessment Sit to and From Stand Sit to and from Stand Independent Transfers Transfer Ability Independent Technique Transfer Destination Bed,Chair,Toilet Transfer Technique Stand Step Pivot Devices Transfer Assistive Devices Gait Belt OT- Gait Assessment Gait Gait Assistance Required: Independent Assistive Devices Assistive Device Gait Belt OT- Balance Assessment Sitting Balance and Reactions Static Sitting Balance Ability Normal Dynamic Sitting Balance Ability Normal M8 OT- IP Objective Assessments Start: 03/30/19 13:35 Freq: Status: Active Protocol: Document 03/30/19 13:36 CGR (Rec: 03/30/19 13:46 CGR [id number]) OT Gross Range of Motion Upper Extremity Range of Motion Assessment Within Functional Limits OT Strength Upper Extremity Strength Assessment Within Functional Limits OT- Coordination Assessment Upper Extremity Finger to Nose Test Within Functional Limits Finger Tapping Test Within Functional Limits OT-Muscle Tone Assessment Muscle Tone WNL Yes OT Sensation Assessment Edema Edema Absent M9 OT- IP Assessment and Plan Start: 03/30/19 13:35 Freq: Status: Active Protocol: Document 03/30/19 13:36 CGR (Rec: 03/30/19 13:46 CGR [id number]) OT Summary Assessment and Plan Potential Rehabilitation Potential Excellent Analytic Complexity at Evaluation Low Summary Progress Towards Goals Goals Met Assessment Summary Pt presents as a low complexity evaluation. Pt appears at his baseline. No further OT needs at this time. Frequency of Treatment Frequency Of Treatment Discharge Discharge Recommendations OT Discharge Recommendations Home
[2019-03-30 12:20] VITALS: BP 130/75; PULSE 58; RESP 16; TEMP 36.7; O2SAT 99
--- NOTE | 2019-03-30 13:54 | CM.DPNOTE ---
Initial Discharge Planning Assessment Note: SCREEN EXAMINER reviewed EMR and information obtained during team rounds. PCP: Dr. George. Payor: Moris Reddy. Pt presented to the ED yesterday with a chief complaint of acute neurological change and vision changes. He was noted by his neighbor to have an episode of about 10-minutes where pt was only able to speak jibberish, was seeing black spots, which resolved by the time EMS arrived. CT head was negative for intracranial bleeds or masses. He was admitted for TIA work-up. Pt states that he is feeling much improved, and is waiting for pending results of MR and echo prior to discharge, which is anticipated for later today. He declines the need for any in-home services, resources or community based support. Dischage planning will continue to monitor. Discharge Planning/Care Management CM Discharge Assessment Start: 03/30/19 13:32 Freq: Status: Active Protocol: Document 03/30/19 13:47 DPL (Rec: 03/30/19 13:54 DPL [id number]) Discharge Planning Assessment Assigned Java Oracle Developer Milka Tomas [facility] DPOA/Assigned Designee Name Merissa Villalobos Contact Information in EMR Advance Directives? Yes: on file Advance Directives on File Yes History Provided By Patient Expected Length of Stay 1 Has Patient been admitted in last 30 No days? Prior Living Arrangements Apartment/Condo Household Members spouse Type of transporation used prior to Drives own vehicle admit Independent with ADL's Yes Is patient alert and oriented? Yes Comment N/A. Pt remains independent in all ADL's. Caregiver for Another No Comment N/A Comment N/A Comment Pt is anticipated to be discharged today, pending results of the echo and MR. Pt declines the need for any in- home support, resources or services post-discharge. Barriers to Discharge No Discharge Plan Home Transportation Arrangement Pt's will be driving pt home. Additional Comment N/A
[2019-03-30 16:10] VITALS: BP 148/58; PULSE 55; RESP 18; TEMP 36.6; O2SAT 99
--- NOTE | 2019-03-30 17:39 | PC.NURSE ---
At beginning of evening shift, pt calls automatic typewriter inspector into room to request discharge to home prior to darkness when spouse can no longer drive. States will follow up as outpatient as needed for echo. Dr. Torres was informed and states acceptable and will discharge to home tonight. it field technician was informed. Dr. Torres in to see patient and provide discharge discussion to pt and pt's spouse. Pt fully dressed and waiting at doorway of room 210 for discharge. States all personal belongings accounted for. Pt given scripts and written and verbal discharge instructions. Offered to print teaching information on new meds, but pt states will receive detailed information on new meds from pharmacist when these are picked up. Tele dc'd after informing ICU of discharge. Heplock removed by [employer] student nurse, with this automatic typewriter inspector's oversight. Pt prefers to ambulate to private vehicle where spouse awaits behind the wheel. Was escorted in stable condition by [employer] student nurse, to private vehicle.
--- NOTE | 2019-03-30 18:25 | PM.DS.1 ---
History of Present Illness History of Present Illness Date Patient Seen: 03/29/19 Chief complaint: episode of talking jibberish Narrative: Written Shivani BLISS: The patient is an 83-year-old male with PMH of RA (seronegative, with history of prednisone dependence), osteoarthritis, inflammatory bowel disease, paroxysmal supraventricular tachycardia, R-BBB, RLS, hyperuricemia / gout, BPH, anemia of chronic disease, and cervical stenosis w/ myelopathy. Patient presented to the ED via EMS out of concern for an acute neurological change. Specifically, he was witnessed (by a neighbor) to have indiscernable speech (approximately 5-10 minutes). The event was noted on 03/29/2019 at 3:30 pm. Associated symptoms included change in vision black spots in peripheral vision (brief duration). There was no associated headache, chest pain, palpitations, dyspnea, dizziness, lightheadedness, paresthesia of extremities, unilateral weakness, or facial droop. Patient reports feeling well and did not feel any different from his baseline. No similar events in the past. No prior known history of TIA or CVA. Patient has a history of paroxysmal supraventricular tachycardia, diagnosed 18 years ago. This was initially felt to be AFib, but then the diagnosis was changed to PSVT. Patient is on ASA 81 mg daily. Symptoms resolved on EMS arrival. Patient reports SBP of 78 mmHg, but he is not entirely sure. He did not endorse any symptoms of hypotension at the time. On presentation to the ED he has had a stable blood pressure. Patient is on atenolol 50 mg daily for PSVT. Notes baseline heart rate to range between 50 and 60 beats per minute. Patient has a history of rheumatoid arthritis for which he was on prednisone for number of years and was weaned off. Patient has been having issues with his cervical spine (stenosis and myelopathy) with associated paresthesia of bilateral upper extremities (right worse than left) and in December of 2018 had C4-5 and C5-C6 anterior diskectomy and artificial disc replacement. His symptoms did not entirely resolve after surgery. Patient continues to have paresthesia in his upper extremities which is worse at night and according to his description seems to be position dependent. At some point he was treated with a tapering course of prednisone. Patient reports discomfort and trouble sleeping. For this reason, in the past 3 weeks, patient (on his own accord) decided to restart the prednisone at a 10 mg daily dose. Patient has done so without discussing this with his PCP or orthopedic surgeon. ED Presentation & Work-Up Patient was triaged in the ED at 4:22 pm. Initial VS unremarkable, T 96.6F BP 122/71 HR 65 RR 16 SpO2 99% on RA. Initial NIHSS score was 0. CT HEAD was negative for intracranial bleeds or masses. Age appropriate brain parenchymal volume loss and chronic small vessel ischemic changes noted. Intracranial internal carotid artery atherosclerosis noted. EKGs EKG #1, 03/29/19 1728. SR (v-rate 63). R-BBB, ST elevation, consider inferior injury (ST elevation w/o normally inflected T wave in leads II / aVF). QTc 435. EKG #2, 03/29/19 1905. SR (v-rate 64). R-BBB. QTc 431. Initial labs... WBC 8.0 Hgb 15 Hct 44.5 Plt 216 PT 9.1 INR 0.8 aPTT 31 Na 138 K 4.9 Cl 100 Ca 10.0 BUN 23 Cr 1.0 CK 37 Trop < 0.012 In ED patient was given ASA 324 mg and 1L of NS. Discharge Providers Provider Date of admission: 03/29/19 17:59 Discharge Date: 03/30/19 Primary care physician: Nish George MD Consults: 03/29/19 21:14 Consult to Discharge Planning Routine Comment: Consult to Occupational Therapy Evaluate & Treat Comment: Physician Instructions: Evaluate and treat Consult to Physical Therapy Evaluate & Treat Comment: Physician Instructions: Evaluate and Treat Consult to Speech Therapy Evaluate & Treat Comment: Physician Instructions: Evaluate and treat Discharge provider: Marietta Torres DO Summary Hospital Course Discharge Diagnosis: 1. Acute TIA, present on admission. Resolved. 2. custodial systemic steroid use, subacute, present on admission, active 3. Paroxysmal ventricular tachycardia, chronic, present on admission. Stable. 4. Restless leg, chronic, present on admission. Stable. 5. Gout, chronic, present on admission. Stable. Hospital Course: Vinnie Villalobos is an 83-year-old male with past medical history significant for RA (seronegative, with history of prednisone dependence), osteoarthritis, inflammatory bowel disease, paroxysmal supraventricular tachycardia, R-BBB, RLS, hyperuricemia / gout, BPH, anemia of chronic disease, and cervical stenosis w/ myelopathy who presented to the ED via EMS out of concern for dysarthria. 1. Acute TIA, present on admission. Resolved. -Patient presented with less than 10 minute episode of dysarthria with word salad. -Initial and repeat NIH 0. Continued to monitor neuro status closely. -CT brain without contrast did not demonstrate any acute intracranial abnormalities. -EKG demonstrated sinus rhythm with right bundle branch block and nonspecific ST elevation in inferior leads. Repeat EKG demonstrated sinus rhythm with right bundle-branch block and resolution of ST changes. Trended troponin which was normal at < 0.012 x 3. TSH normal at 2.87. Continued to monitor closely on telemetry. Patient remained in normal sinus rhythm/bradycardia (50's) without abberancy. -Risk stratified with hemoglobin A1c normal at 5.1% and asting lipid panel demonstrated fair lipid control: Total cholesterol 185, triglycerides 75, LDL 102 (goal < 70), and HDL 68. -Received 1L NS bolus in ED. No need for further hydration. -Allowed for permissive hypertension for 24 hours. -MR stroke protocol demonstrated no findings of acute or subacute infarction can be seen. Note is made of age-appropriate brain parenchymal volume loss and chronic small vessel ischemic changes. No masses or abnormal enhancement can be seen. The distal left vertebral artery largely terminates in the left posterior inferior cerebellar artery. The right anterior cerebral artery is larger than the left. No hemodynamically significant stenosis in arteries of the neck. The right vertebral artery is dominant to the left. 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 -Patient would like to defer echocardiogram to outpatient per PCP due to exam not being able to be performed until late in the evening and he did not want his to drive in the dark. -Received ASA 325 mg x1 in ED. Continued aspirin 81 mg daily and added Plavix 75 mg daily x 30 days and rosuvastatin 20 mg daily at bedtime for stroke prophylaxis. 2. superintendent terminal systemic steroid use, subacute, present on admission, active -Patient has a history of seronegative RA that was steroid dependent for a number of years then he was weaned off successfully. -Patient reports recently restarting prednisone 5-10 mg daily at bedtime from previous prescription (not currently prescribed by PCP and not under direct MD supervision) several weeks ago due to issues with cervical spine. -Recommended discontinuing prednisone as BP stable throughout hospitalization and instructed him to continue to monitor BP closely for next several days with at least 4 measurements a day in which he was taught correct BP technique. If his BP is trending down with SBP < 100 mmHg recommended he take a dose of prednisone and seek medical attention or call 911. Discussed with patient in details need to discuss with PCP prior to starting and stopping any prescribed medication, specifically steroids. Risks associated with steroid use discussed in detail. 3. Paroxysmal ventricular tachycardia, chronic, present on admission. Stable. -Continued to monitor closely on telemetry. Patient remained in normal sinus rhythm/bradycardia (50's) without abberancy. -Continued atenolol 50 mg daily. 4. Restless leg, chronic, present on admission. Stable. -Continued pramipexole 0.5 mg daily at bedtime. -Recommended outpatient sleep study per PCP. 5. Gout, chronic, present on admission. Stable. -Patient reports he intermittently takes his allopurinol and recommended he take this continuously to prevent uric acid accumulation and gout flares. -Discussed joint pain in detail and recommended rheumatology evaluation for possible gouty arthritis versus previous seronegative rheumatoid arthritis versus osteoarthritis. Discussed pain management and recommended further discussion with invasive manager if inflammatory joint pain and/or PCP if not inflammatory joint pain. Exam Vital Signs (past 8 hours): - 03/30/19 12:20 03/30/19 16:10 Temperature 98.0 F 97.8 F Pulse Rate 58 L 55 L Respiratory Rate 16 18 Blood Pressure 130/75 148/58 H Pulse Oximetry 99 99 Oxygen Delivery Method Room Air Oxygen Flow Rate 0 Narrative Exam Narrative: General: Elderly gentleman sitting in bed and in no acute distress, well-developed, well-nourished, appropriately interactive. HEENT: Normocephalic, atraumatic. External ears without defect. Pupils equal, round, and reactive to light. Anicteric sclerae, moist conjunctivae, and no lid lag. Oropharynx free of erythema and cobble stoning with moist mucosa. Neck: Supple with full range of motion. No jugular venous distension. No bruits. No lymphadenopathy or thyromegaly. Cardiovascular: Regular rate and rhythm without murmurs, rubs, or gallops appreciated. Pulmonary: Clear to auscultation bilaterally without crackles, wheezes, or rhonchi. Normal respiratory effort with no use of accessory muscles. Abdomen: Soft, bowel sounds present, nontender, nondistended. No hepatosplenomegaly or masses appreciated. Extremities: No clubbing, cyanosis, or edema. Skin: Normal temperature, turgor, and texture; no rash, ulcers, or subcutaneous nodules appreciated. Neurological: Cranial nerves grossly intact. Normal muscle strength, tone, and bulk. Reflexes, coordination, and sensory function within normal limits. No known gait impairment. No slurred speech or facial droop. Psychiatric: Normal mood and affect. Alert and oriented to person, place, and time. Objective Labs Result Diagrams: 03/30/19 05:55 03/30/19 05:55 Labs: Laboratory Results - last 24 hr 03/29/19 03/29/19 03/29/19 17:25 19:08 21:55 WBC RBC Hgb Hct MCV MCH MCHC RDW Plt Count Neut % (Auto) Lymph % (Auto) [place] % (Auto) Eos % (Auto) Baso % (Auto) Neut # (Auto) Lymph # (Auto) [place] # (Auto) Eos # (Auto) Baso # (Auto) Sodium Potassium Chloride Carbon Dioxide BUN Creatinine Estimated GFR BUN/Creatinine Ratio Glucose Hemoglobin A1c 5.1 Calcium Magnesium Total Creatine Kinase 37 L CK-MB (CK-2) TNP CK-MB (CK-2) Rel Index TNP Troponin I < 0.012 Triglycerides Cholesterol LDL Cholesterol, Calc HDL Cholesterol TSH 2.87 U Opiates 300ng/mL cut Ur Oxycodone Screen Urine Methadone Screen Ur Barbiturates Screen U Tricyclic Antidepress Ur Phencyclidine Scrn Ur Amphetamines Screen U Methamphetamines Scrn Ur MDMA Scrn (Ecstasy) U Benzodiazepines Scrn Urine Cocaine Screen U Marijuana (THC) Screen 03/29/19 03/29/19 03/30/19 21:55 21:55 02:25 WBC RBC Hgb Hct MCV MCH MCHC RDW Plt Count Neut % (Auto) Lymph % (Auto) [place] % (Auto) Eos % (Auto) Baso % (Auto) Neut # (Auto) Lymph # (Auto) [place] # (Auto) Eos # (Auto) Baso # (Auto) Sodium Potassium Chloride Carbon Dioxide BUN Creatinine Estimated GFR BUN/Creatinine Ratio Glucose Hemoglobin A1c Calcium Magnesium 1.8 Total Creatine Kinase CK-MB (CK-2) CK-MB (CK-2) Rel Index Troponin I < 0.012 Triglycerides Cholesterol LDL Cholesterol, Calc HDL Cholesterol TSH U Opiates 300ng/mL cut Negative Ur Oxycodone Screen Negative Urine Methadone Screen Negative Ur Barbiturates Screen Negative U Tricyclic Antidepress Negative Ur Phencyclidine Scrn Negative Ur Amphetamines Screen Negative U Methamphetamines Scrn Negative Ur MDMA Scrn (Ecstasy) Negative U Benzodiazepines Scrn Positive H Urine Cocaine Screen Negative U Marijuana (THC) Screen Negative 03/30/19 03/30/19 03/30/19 05:55 05:55 05:55 WBC 6.4 RBC 3.89 L Hgb 13.1 L Hct 39.3 L MCV 101.1 H MCH 33.6 MCHC 33.3 RDW 14.9 H Plt Count 170 Neut % (Auto) 57.2 Lymph % (Auto) 26.8 [place] % (Auto) 9.2 Eos % (Auto) 5.9 H Baso % (Auto) 0.9 Neut # (Auto) 3700 Lymph # (Auto) 1700 [place] # (Auto) 600 Eos # (Auto) 400 Baso # (Auto) 100 Sodium 135 L Potassium 4.5 Chloride 100 Carbon Dioxide 30 BUN 19 Creatinine 0.90 Estimated GFR > 60.0 BUN/Creatinine Ratio 21.1 Glucose 101 Hemoglobin A1c Calcium 8.8 Magnesium Total Creatine Kinase CK-MB (CK-2) CK-MB (CK-2) Rel Index Troponin I Triglycerides 75 Cholesterol 185 LDL Cholesterol, Calc 102 H HDL Cholesterol 68 H TSH U Opiates 300ng/mL cut Ur Oxycodone Screen Urine Methadone Screen Ur Barbiturates Screen U Tricyclic Antidepress Ur Phencyclidine Scrn Ur Amphetamines Screen U Methamphetamines Scrn Ur MDMA Scrn (Ecstasy) U Benzodiazepines Scrn Urine Cocaine Screen U Marijuana (THC) Screen 03/30/19 05:55 WBC RBC Hgb Hct MCV MCH MCHC RDW Plt Count Neut % (Auto) Lymph % (Auto) [place] % (Auto) Eos % (Auto) Baso % (Auto) Neut # (Auto) Lymph # (Auto) [place] # (Auto) Eos # (Auto) Baso # (Auto) Sodium Potassium Chloride Carbon Dioxide BUN Creatinine Estimated GFR BUN/Creatinine Ratio Glucose Hemoglobin A1c Calcium Magnesium Total Creatine Kinase CK-MB (CK-2) CK-MB (CK-2) Rel Index Troponin I < 0.012 Triglycerides Cholesterol LDL Cholesterol, Calc HDL Cholesterol TSH U Opiates 300ng/mL cut Ur Oxycodone Screen Urine Methadone Screen Ur Barbiturates Screen U Tricyclic Antidepress Ur Phencyclidine Scrn Ur Amphetamines Screen U Methamphetamines Scrn Ur MDMA Scrn (Ecstasy) U Benzodiazepines Scrn Urine Cocaine Screen U Marijuana (THC) Screen Discharge Plan Discharge Plan Patient Disposition: Home Discharge comment: You are being discharged home. Your MRI was normal and did not show any evidence of stroke. You likely had a TIA. You have been prescribed aspirin 81 mg daily, Plavix 75 mg daily, and rosuvastatin 20 mg daily at bedtime to help prevent stroke. Please do not take prednisone unless prescribed by and under the supervision of a physician. Please keep track of your blood pressure very closely for the next 2-3 days since discontinuing prednisone. If your blood pressure is trending low and/or you top number is less than 100 or you are symptomatic i.e. lightheaded, dizzy, faint, pass out, word salad, etc. call 911 immediately. Please follow-up with your primary care provider, Dr. George, in the next 1 week regarding your hospitalization. Recommend you be referred to rheumatology to assure you have no inflammatory joint disease. If there is no inflammatory joint disease present then you may discuss continued treatment for your osteoarthritis joint pain with your PCP. You may have an echocardiogram completed as an outpatient by your PCP to check for a hole in your heart that would predispose you to blood clot driven stroke. However, you did not have any evidence of abnormal heartbeat during your hospitalization that would predispose you to blood clots and may not be necessary. Discharge orders & Medications Prescriptions: New clopidogrel 75 mg Tablet 75 mg PO DAILY Qty: 30 RF: 0 rosuvastatin 20 mg tablet 20 mg PO DAILY Qty: 30 RF: 0 Continued cholecalciferol (vitamin D3) [Vitamin D3] 2,000 unit Capsule 2,000 unit PO DAILY Qty: 0 RF: 0 diazepam 2 MG tablet 2 mg PO QDAYP PRN (Reason: Muscle cramping) Qty: 0 RF: 0 prednisone 5 mg Tablet 5 mg PO QPM RF: 0 cyanocobalamin (vitamin B-12) [Vitamin B-12] 1,000 mcg Tablet 1,000 mcg PO DAILY RF: 0 fexofenadine [Vivi Allergy] 180 mg Tablet 180 mg PO DAILY PRN (Reason: Allergy Symptoms) RF: 0 Fish Oil Capsule 500 mg 500 mg PO DAILY RF: 0 potassium chloride 99 mg 99 mg PO DAILY RF: 0 pramipexole 0.5 mg Tablet 0.5 mg PO BEDTIME RF: 0 allopurinol 300 mg Tablet 300 mg PO QAM PRN (Reason: Gout flare-up) RF: 0 atenolol 50 mg Tablet 50 mg PO DAILY RF: 0 aspirin 81 MG tablet,delayed release (DR/EC) 81 mg PO DAILY RF: 0 Discontinued meloxicam 15 mg Tablet 15 mg PO DAILY RF: 0 Follow up/Referrals: Nish George MD [Primary Care Provider] - 1 Week Diet/Activity/Treatments Diet: Diet as Tolerated, Low-fat, Low-sodium and Low-cholesterol Activity: Activity as tolerated Visit Report/Discharge Packet Instructions: The Mediterranean Diet and Good Health, Adrenal Crisis, DI for Transient Ischemic Attack, How to Prevent Falls Discharge Data Primary Care Provider: Nish George Attending Provider: Iris Curry Admit Date/Time: 03/29/19 17:59 Discharges patient from system. Discharge Date/Time: 03/30/19 17:47 Quality VTE Deep Vein Thrombosis/Pulmonary Embolism Present on Admission: No
== END 2019-03-30 17:47 | disposition home or self-care (01) ==
LOC: ED 17:50 → AC 17:59
PROVIDERS: Nurse Practitioner Gerontology; Admitting Provider Internal Medicine; Emergency Provider Emergency Medicine; Family Provider Internal Medicine; PCP Internal Medicine; Visit Provider Internal Medicine
DX: G45.9 Transient cerebral ischemic attack, unspecified (principal); R29.818 Other symptoms and signs involving the nervous system; R47.1 Dysarthria and anarthria; Z87.891 Personal history of nicotine dependence; Z79.52 Long term (current) use of systemic steroids; I47.2 Ventricular tachycardia; M1A.9XX0 Chronic gout, unspecified, without tophus (tophi); G25.81 Restless legs syndrome
CPT/HCPCS: 36415; 70450; 70548; 70553; 80048; 80061; 80305; 82550; 82962; 83036; 83735; 84443; 84484; 85025; 85610; 85730; 92522; 93005; 96361; 96372; 96374; 97161; 97165; 99285; G0378; J1644; J2060

== ENCOUNTER → 2019-05-08 08:18 | Outpatient (CLI) | payer OTHER, SELFPAY ==
[2019-05-08 10:37] LABS: Alanine Aminotransferase 18 IU/L (<50); Albumin 3.7 g/dL (3.5-5.0); Albumin Globulin Ratio 1.1 (1.0-2.8); Alkaline Phosphatase 84 U/L (38-126); Aspartate Aminotransferase 34 IU/L (17-59); Bilirubin Total 0.6 mg/dL (0.2-1.3); Blood Urea Nitrogen 18 mg/dL (9-20); Calcium 9.3 mg/dL (8.4-10.2); Carbon Dioxide 27 mmol/L (22-32); Chloride 96 mmol/L (98-107); Cholesterol 110 mg/dL (140-199); Estimated Glomerular Filt Rate > 60.0 mL/min (>60); Globulin 3.3 g/dL (1.7-4.1); Glucose 93 mg/dL (80-110); HDL Cholesterol 44 mg/dL (40-60); HEMOLYSIS < 15 (0-50); LDL Cholesterol Calculated 50 mg/dL (<100); Potassium 4.9 mmol/L (3.4-5.1); Sodium 130 mmol/L (137-145); Triglycerides 78 mg/dL (35-150)
== END ==
PROVIDERS: Family Provider Internal Medicine; PCP Internal Medicine; Referring Provider Internal Medicine; Visit Provider Internal Medicine
DX: E78.2 Mixed hyperlipidemia (principal)
CPT/HCPCS: 36415; 80053; 80061

== ENCOUNTER → 2019-05-30 10:50 | Outpatient (CLI) | payer OTHER, SELFPAY ==
--- NOTE | 2019-05-30 | DI.CT.S_ITS ---
PROCEDURE: CT CERVICAL SPINE WO CON INDICATIONS: Disease of spinal cord, unspecified TECHNIQUE: Noncontrast 3 mm thick sections acquired from the skull base to the T4 level. Sagittal and coronal reformats were then constructed. For radiation dose reduction, the following was used: automated exposure control, adjustment of mA and/or kV according to patient size. COMPARISON: [facility], CR, XR CERVICAL SPINE 2V OR 3V, 12/19/2018, 12:04. [facility], CR, XR CERVICAL SPINE 4V OR 5V, 04/27/2018, 13:19. [facility], CR, XR CERVICAL SPINE 2 OR 3 VIEWS, 01/01/2019, 15:05. [facility], CR, XR CERVICAL SPINE 2 OR 3 VIEWS, 03/06/2019, 10:37. [facility], CR, XR CERVICAL SPINE 2 OR 3 VIEWS, 05/23/2019, 10:42. FINDINGS: Image quality: Excellent. Bones: No fractures or dislocations. Straightening of the normal lordotic curvature. Post surgical changes related to prosthetic discs at C4-C5 and C5-C6. Hardware appears intact. There is expected postoperative alignment. No evidence of hardware loosening. Trace residual anterolisthesis of C4 on C5 and C5 on C6. Mild bilateral diffuse facet arthropathy. Visualized superior ribs are intact. No definite bony canal or foraminal stenosis seen although partially obscured by hardware artifact from prosthetic discs. Soft tissues: Prevertebral soft tissues are normal in thickness. No paravertebral hematomas. No apical pneumothoraces. Mild left maxillary sinus disease. Ill-defined patchy groundglass opacities within the upper lobes, technically non-specific. Carotid atherosclerotic plaques incidentally noted. IMPRESSION: Postsurgical changes at C4-C5 and C5-C6 related to prosthetic discs. Unchanged, expected postoperative alignment. No evidence of hardware failure or loosening. Dictated by: Leonard Tanner M.D. on 05/30/2019 at 13:56 Approved by: Leonard Tanner M.D. on 05/30/2019 at 14:05
[2019-05-30 12:15] LABS: BUN Creatinine Ratio 19.6 (6-22); Blood Urea Nitrogen 18 mg/dL (9-20); Calcium 9.1 mg/dL (8.4-10.2); Carbon Dioxide 28 mmol/L (22-32); Chloride 96 mmol/L (98-107); Estimated Glomerular Filt Rate > 60.0 mL/min (>60); Glucose 72 mg/dL (80-110); HEMOLYSIS < 15 (0-50); Potassium 4.5 mmol/L (3.4-5.1); Sodium 130 mmol/L (137-145)
== END ==
PROVIDERS: Family Provider Internal Medicine; PCP Internal Medicine; Referring Provider Orthopaedic Surgery; Visit Provider Orthopaedic Surgery
DX: G95.9 Disease of spinal cord, unspecified (principal); M47.812 Spondylosis without myelopathy or radiculopathy, cervical region; M54.2 Cervicalgia; E87.1 Hypo-osmolality and hyponatremia; J32.0 Chronic maxillary sinusitis; I65.29 Occlusion and stenosis of unspecified carotid artery
CPT/HCPCS: 36415; 72125; 80048

== ENCOUNTER → 2019-06-20 11:40 | Outpatient (CLI) | payer OTHER, SELFPAY ==
[2019-06-20 13:35] LABS: Add Manual Diff / Slide Review NO; Basophils Absolute Auto 100 /uL (0-100); Basophils Percent Auto 0.8 % (0-2); Eosinophils Absolute Auto 100 /uL (0-450); Eosinophils Percent Auto 1.4 % (2-4); Hematocrit 39.3 % (41-53); Hemoglobin 13.1 g/dL (13.5-17.5); Lymphocytes Absolute Auto 1900 /uL (1100-4500); Lymphocytes Percent Auto 21.5 % (25-40); Mean Corpuscular HGB Conc 33.2 % (30-36); Mean Corpuscular Hemoglobin 32.8 PG (26-34); Mean Corpuscular Volume 98.8 fL (80-100); Monocytes Absolute Auto 800 /uL (0-900); Monocytes Percent Auto 9.3 % (3-14); Neutrophils Absolute Auto 5900 /uL (1500-7000); Platelet Count 203 X10^3/uL (150-400); Red Blood Cell Count 3.98 X10^6/uL (4.5-5.9); Red Cell Distribution Width 13.7 % (11.6-14.8); White Blood Cell Count 8.7 X10^3/uL (4.5-11.0)
[2019-06-20 13:51] LABS: HEMOLYSIS < 15 (0-50); Iron 83 ug/dL (49-181)
[2019-06-20 13:54] LABS: BUN Creatinine Ratio 22.1 (6-22); Blood Urea Nitrogen 21 mg/dL (9-20); Calcium 9.2 mg/dL (8.4-10.2); Carbon Dioxide 27 mmol/L (22-32); Chloride 105 mmol/L (98-107); Estimated Glomerular Filt Rate > 60.0 mL/min (>60); Glucose 93 mg/dL (80-110); HEMOLYSIS < 15 (0-50); Potassium 4.5 mmol/L (3.4-5.1); Sodium 137 mmol/L (137-145)
[2019-06-20 14:02] LABS: Percent Iron Saturation 26 % (20-50); Total Iron Binding Capacity 319 ug/dL (261-462); Transferrin 254 mg/dL (206-381)
== END ==
PROVIDERS: Family Provider Internal Medicine; PCP Internal Medicine; Referring Provider Internal Medicine; Visit Provider Internal Medicine
DX: M50.10 Cervical disc disorder with radiculopathy, unspecified cervical region (principal); E87.1 Hypo-osmolality and hyponatremia; G47.00 Insomnia, unspecified; D64.9 Anemia, unspecified
CPT/HCPCS: 36415; 80048; 83540; 83550; 85025

== ENCOUNTER → 2019-08-15 13:48 | Outpatient (CLI) | payer OTHER, SELFPAY ==
--- NOTE | 2019-08-15 | DI.RAD.S_ITS ---
PROCEDURE: XR CHEST 2V INDICATIONS: Cough TECHNIQUE: 2 views of the chest were acquired. COMPARISON: [facility], , CHEST 2 VIEW, 04/09/2016, 10:31. FINDINGS: Surgical changes and devices: None. Lungs and pleura: Lungs are clear. No pleural effusions or pneumothorax. Mediastinum: Mediastinal contours are normal. Heart size is normal. Bones and chest wall: No suspicious bony abnormalities. Soft tissues appear unremarkable. IMPRESSION: No acute cardiopulmonary findings. Dictated by: Erum Melendez M.D. on 08/15/2019 at 17:10 Approved by: Erum Melendez M.D. on 08/15/2019 at 17:10
[2019-08-15 14:57] LABS: Add Manual Diff / Slide Review NO; Basophils Absolute Auto 100 /uL (0-100); Basophils Percent Auto 0.7 % (0-2); Eosinophils Absolute Auto 200 /uL (0-450); Eosinophils Percent Auto 1.9 % (2-4); Hematocrit 39.4 % (41-53); Hemoglobin 13.4 g/dL (13.5-17.5); Lymphocytes Absolute Auto 2600 /uL (1100-4500); Lymphocytes Percent Auto 26.6 % (25-40); Mean Corpuscular HGB Conc 34.1 % (30-36); Mean Corpuscular Hemoglobin 33.5 PG (26-34); Mean Corpuscular Volume 98.4 fL (80-100); Monocytes Absolute Auto 700 /uL (0-900); Monocytes Percent Auto 7.5 % (3-14); Neutrophils Absolute Auto 6300 /uL (1500-7000); Neutrophils Percent Auto 63.3 % (50-75); Platelet Count 196 X10^3/uL (150-400); Red Cell Distribution Width 14.5 % (11.6-14.8); White Blood Cell Count 9.9 X10^3/uL (4.5-11.0)
[2019-08-15 15:31] LABS: BUN Creatinine Ratio 15.2 (6-22); Blood Urea Nitrogen 17 mg/dL (9-20); Calcium 9.3 mg/dL (8.4-10.2); Carbon Dioxide 28 mmol/L (22-32); Chloride 100 mmol/L (98-107); Estimated Glomerular Filt Rate > 60.0 mL/min (>60); Glucose 105 mg/dL (80-110); HEMOLYSIS < 15 (0-50); Magnesium 1.8 mg/dL (1.6-2.3); Potassium 4.2 mmol/L (3.4-5.1); Sodium 135 mmol/L (137-145)
== END ==
PROVIDERS: Family Provider Internal Medicine; PCP Internal Medicine; Referring Provider Internal Medicine; Visit Provider Internal Medicine
DX: I47.1 Supraventricular tachycardia (principal); R05 Cough
CPT/HCPCS: 36415; 71046; 80048; 83735; 85025

== ENCOUNTER → 2019-09-03 12:01 | Outpatient (CLI) | payer OTHER, SELFPAY ==
[2019-09-04 08:53] LABS: COVID19 Sendout Not Detected (Not Detect)
== END ==
PROVIDERS: Family Provider Internal Medicine; PCP Internal Medicine; Visit Provider Physician Assistant
DX: Z01.812 Encounter for preprocedural laboratory examination (principal)
CPT/HCPCS: 87635

== ENCOUNTER → 2019-09-06 13:40 | Outpatient (CLI) | payer OTHER, SELFPAY ==
--- NOTE | 2019-09-12 09:49 | PM.PFT.1 ---
Pulmonary Function Test Referral & Results Date Patient Seen: 09/06/19 Requesting provider: Nish George Results: The spirometry demonstrates an FVC of 4.04 L which is 90% of predicted. The FEV1 was measured at 2.79 L which is 87% of predicted. The FEV1/FVC ratio was 69 which is 97% of predicted. Following the administration of bronchodilator there was a 45% improvement in FEF 25-75%. Lung volumes show an SVC of 4.10 L which is 85% of predicted. The diffusing capacity was measured at 16.57 which is 45% of predicted. The maximum voluntary ventilation was normal Interpretation: This study demonstrates probably normal spirometry. There may be very minimal obstructive lung disease based on very minimal reduction in FEV1 and improvement in small airway flow based on improvement in FEF 25-75% after bronchodilator. Shape of flow volume loop also suggests very minimal obstructive lung disease Diffusing capacity is more severely affected suggesting more significant disease at the capillary alveolar level Clinical correlation suggested
== END ==
PROVIDERS: Family Provider Internal Medicine; PCP Internal Medicine; Referring Provider Internal Medicine; Visit Provider Internal Medicine
DX: R05 Cough (principal); J98.8 Other specified respiratory disorders
CPT/HCPCS: 94060; 94726; 94729

== ENCOUNTER → 2019-09-24 11:38 | Outpatient (CLI) | payer OTHER, SELFPAY ==
--- NOTE | 2019-09-24 | DI.CT.S_ITS ---
PROCEDURE: CT CHEST HIGH RESOLUTION INDICATIONS: Dyspnea TECHNIQUE: Noncontrast 1.0 and 5.0 mm thick contiguous axial sections from the pulmonary apex to the posterior costophrenic angles, with 7 mm thick coronal and sagittal MIP reformats. 1 mm thick dynamic expiratory images acquired through the upper, mid, and lower lungs. 1.0 mm thick axial sections acquired from the eas to the posterior costophrenic angles in the prone end-inspiration position. For radiation dose reduction, the following was used: automated exposure control, adjustment of mA and/or kV according to patient size. COMPARISON: [facility], CR, XR CHEST 2V, 08/15/2019, 13:46. FINDINGS: Image quality: Excellent. Lungs: There is mild subpleural septal thickening bilaterally, predominantly involving upper lobes. Multiple small subpleural nodules is noted in the right middle lobe. For instance, there is a 3 mm nodule , which is partially calcified (series 3 image 203). A 6 mm groundglass nodule is seen (series 3 image 174). Another groundglass density measures 8 mm (series 3 image 178). There is a former nodule in the right lower lobe (series 3 image 248). There is mild centrilobular emphysema. No acute airspace opacity. Pleura: No pleural effusions or pneumothorax. Mediastinum: Heart size is normal. No pericardial effusion. Mild coronary artery calcification. Thoracic aorta and central pulmonary arteries are normal in size. Esophagus is normal in caliber. Bones and chest wall: No suspicious bony lesions. No vertebral body compression fractures. Abdomen: Small indeterminate low density nodule is noted in liver. Visualized upper abdominal solid organs and bowel loops appear normal. IMPRESSION: 1. Multiple pulmonary nodules. A similar followup CT is suggested. 2. Mild centrilobular emphysema. 3. Subpleural septal thickening suggests mild interstitial lung disease. 4. Small indeterminate hepatic hypodensities are most likely cysts. Fleischner Society criteria for SOLID lung nodule followup. Nodule size (mm)Low-risk patientHigh-risk patient?4No follow-up neededFollow-up at 12 mo; if no change, no further follow-up>6-2Fibiqa-nt CT at 12 mo; if no change, no further follow-up needed.Initial follow-up CT at 6-12 mo, then 18-24 mo if no change. >6-8Initial follow-up CT at 6-12 mo, then 18-24 mo if no change. Initial follow-up CT at 3-6 mo, then 9-12 mo and 24 mo if no change. >8Follow-up CT at 3, 9, 24 mo. Or PET and/or biopsy.Same as for low-risk pts. Fleischner Society criteria for SUB-SOLID lung nodule followup. Solitary pure ground-glass nodules5 mm or lessNo followup needed. >5 mm3 mo follow-up CT to confirm persistence. Then annual CT for 3 years. Part-solid nodules3 mo follow-up CT to confirm persistence. If persistent with solid component <5 mm, annual CT for at least 3 years. If solid component is 5 mm or more, biopsy or surgical resection. Consider PET-CT for lesions > 10 mm. Multiple sub-solid nodulesPure ground glass nodules [address] at 2 and 4 years. Pure ground glass nodules >5 mm without dominant lesion. [address] to confirm persistence, then annual followup CT for at least 3 years. Dominant nodule(s) with part-solid or solid component. [address] to confirm persistence. If persistent, consider biopsy or surgical resection, teodora if lesions have >5 mm solid component. Dictated by: Nidhi Delarosa M.D. on 09/24/2019 at 17:26 Approved by: Nidhi Delarosa M.D. on 09/24/2019 at 18:38
== END ==
PROVIDERS: Family Provider Internal Medicine; PCP Internal Medicine; Referring Provider Internal Medicine; Visit Provider Internal Medicine
DX: R06.00 Dyspnea, unspecified (principal); R91.8 Other nonspecific abnormal finding of lung field; J43.2 Centrilobular emphysema; I25.10 Atherosclerotic heart disease of native coronary artery without angina pectoris
CPT/HCPCS: 71250

== ENCOUNTER → 2019-10-12 09:20 | Outpatient (CLI) | payer OTHER, SELFPAY ==
[2019-10-13 23:10] LABS: COVID19 Sendout Not Detected (Not Detect)
== END ==
PROVIDERS: Family Provider Internal Medicine; PCP Internal Medicine; Visit Provider Physician Assistant
DX: Z01.818 Encounter for other preprocedural examination (principal)
CPT/HCPCS: 87635

== ENCOUNTER → 2019-10-15 13:00 | Outpatient (CLI) | payer OTHER, SELFPAY ==
--- NOTE | 2019-10-15 | DI.CT.S_ITS ---
PROCEDURE: CT CHEST WO CON INDICATIONS: DYSPNEA, UNSPECIFIED TECHNIQUE: Noncontrast 5 mm thick sections acquired from the pulmonary apices to the posterior costophrenic angles. 1 mm lung window, 5 mm thick coronal and sagittal and 7 mm axial MIP reformats were then acquired. For radiation dose reduction, the following was used: automated exposure control, adjustment of mA and/or kV according to patient size. COMPARISON: [facility], CT, ABDOMEN/PELVIS WITH CONTRAST, 07/12/2011, 12:14. [facility], CT, CT CHEST HIGH RESOLUTION, 09/24/2019, 11:55. FINDINGS: Image quality: Excellent. Lungs and pleura: No acute air space opacities. Previously present small pulmonary nodules are again seen within the lung parenchyma, generally peripheral, and no change has occurred with reference to the high-resolution chest CT scan performed 09/24/19, only 21 days ago. No pleural effusions or pneumothorax. Central and peripheral airways are patent and normal in caliber. Mediastinum: Heart size is normal. No pericardial effusion. No mediastinal adenopathy by size criteria. Thoracic aorta and central pulmonary arteries are normal in size. Esophagus is normal in caliber. No hiatal hernia. Bones and chest wall: No suspicious bony lesions. No vertebral body compression fractures. No axillary or supraclavicular adenopathy by size criteria. Thyroid gland appears normal where well seen. . Abdomen: Visualized upper abdominal solid organs and bowel loops appear normal in the absence of contrast. IMPRESSION: This follow-up CT is performed only 21 days after a high-resolution CT was performed which identified several small pulmonary nodules. One of these nodules at the right lung base laterally was included on a prior CT of the abdomen from 2011 and has not changed. A follow-up noncontrast pulmonary nodule CT scan should be obtained in 6 months to assess for interval chemical cell changer time. By appearance these small areas of nodule and/or scarring most likely represent sequela of old granulomatous disease. Dictated by: Shekhar Hebert M.D. on 10/15/2019 at 14:07 Approved by: Shekhar Hebert M.D. on 10/15/2019 at 15:28
== END ==
PROVIDERS: Family Provider Internal Medicine; PCP Internal Medicine; Referring Provider Internal Medicine; Visit Provider Internal Medicine
DX: R06.00 Dyspnea, unspecified (principal); R91.8 Other nonspecific abnormal finding of lung field; G47.33 Obstructive sleep apnea (adult) (pediatric)
CPT/HCPCS: 71250; 95810

== ENCOUNTER → 2019-11-13 09:29 | Outpatient (CLI) | payer OTHER, SELFPAY ==
[2019-11-14 09:53] LABS: COVID19 Sendout Not Detected (Not Detect)
== END ==
PROVIDERS: Family Provider Internal Medicine; PCP Internal Medicine; Visit Provider Physician Assistant
DX: Z11.59 Encounter for screening for other viral diseases (principal)
CPT/HCPCS: 87635

== ENCOUNTER → 2020-10-02 09:05 | Outpatient (CLI) | payer OTHER, SELFPAY ==
--- NOTE | 2020-10-02 | DI.MRI.S_ITS ---
PROCEDURE: MR ANKLE LT WO CON INDICATIONS: Strain of left Achilles tendon, initial encounter TECHNIQUE: Noncontrast sagittal T1 spin echo and T2 fast spin echo with fat saturation, axial proton density fast spin echo and T2 fast spin echo with fat saturation, coronal T1 spin echo and T2 fast spin echo with fat saturation through the ankle/hindfoot. COMPARISON: [facility], CR, XR ANKLE 1 OR 2 VIEWS WEIGHT BEARING LEFT, 09/18/2020, 14:01. FINDINGS: Image quality: Excellent. Bones and joints: No bone marrow contusions or fractures. No hindfoot coalitions. No osteochondral injuries of the talar dome. No pathologic joint effusions. Medial structures: The deep and superficial layers of the deltoid ligament appear intact. The spring ligament components are intact. The posterior tibialis, flexor digitorum longus, and flexor hallucis longus tendons are intact. The posterior tibial neurovascular bundle appears normal within the tarsal tunnel, without extrinsic mass effect. Lateral structures: Mild thickening of the anterior talofibular ligament is compatible with a remote prior low-grade sprain. The calcaneofibular and posterior talofibular ligaments are intact. The anterior and posterior tibiofibular ligaments appear intact. The peroneus longus and brevis tendons demonstrate normal location and morphology. The sinus tarsi demonstrates normal fatty signal, without edema, fibrosis, or cyst formation. Anterior structures: The tibialis anterior, extensor hallucis longus, and extensor digitorum longus tendons appear intact. The dorsal talonavicular ligament appears intact. Posterior and plantar structures: There is complete tearing of the Achilles tendon located approximately 5.5 cm above the calcaneal insertion with proximal retraction of the proximal tendon stump by up to 5.8 cm. A small amount of fluid or hemorrhage is seen within the tendon sheath and overlying soft tissues. The plantaris tendon is not well visualized. There is thickening of the proximal plantar fascia without associated edema, compatible with chronic moderate plantar fasciitis. No abductor digiti quinti muscle atrophy to suggest Morocho neuropathy. IMPRESSION: 1. Complete tearing of the Achilles tendon approximately 5-6 cm above the calcaneal insertion with proximal tendon retraction and separation of tendon stumps by up to 5.8 cm. 2. Moderate chronic plantar fasciitis. 3. Remote prior low-grade sprain of the anterior talofibular ligament. Dictated by: Efrem Olvera M.D. on 10/02/2020 at 13:09 Approved by: Efrem Olvera M.D. on 10/02/2020 at 13:17
== END ==
PROVIDERS: Family Provider Internal Medicine; PCP Internal Medicine; Referring Provider Orthopaedic Surgery Foot and Ankle Surgery; Visit Provider Orthopaedic Surgery Foot and Ankle Surgery
DX: S86.012A Strain of left Achilles tendon, initial encounter (principal); S93.492A Sprain of other ligament of left ankle, initial encounter; M72.2 Plantar fascial fibromatosis
CPT/HCPCS: 73721

== ENCOUNTER → 2020-12-03 10:24 | Outpatient (CLI) | payer OTHER, SELFPAY ==
[2020-12-03 13:10] LABS: COVID19 -Nasal RAPID Negative (Negative)
== END ==
PROVIDERS: Family Provider Internal Medicine; PCP Internal Medicine; Visit Provider Nurse Practitioner Family
DX: Z20.822 Contact with and (suspected) exposure to COVID-19 (principal)
CPT/HCPCS: 87635

== ENCOUNTER 2020-12-06 10:20 | Observation (INO) | payer OTHER, SELFPAY ==
[2020-12-04 07:28] VITALS: BMI 26.9
[2020-12-05] VITALS (18 sets, daily range): BP systolic 104–148; BP diastolic 59–85; PULSE 60–88; RESP 10–21; TEMP 35.4–37.1; O2SAT 94–100; BMI 26.9
[2020-12-05] MEDS: LACTATED RINGERS 1,000 ML 42 ML IV ×2 (12:15→16:13)
[2020-12-05] MEDS: ACETAMINOPHEN 325 MG TABLET 975 MG PO ×2 (12:19→20:16)
--- NOTE | 2020-12-05 12:20 | PM.PREOP ---
Pre-operative Note COVID-19 COVID-19 status: Negative Result date/Date tested (Pos, Neg/Pending): 12/03/20 Interval Note History & Physical reviewed/Exam performed by Physician: Yes Changes to H&P: No
--- NOTE | 2020-12-05 12:29 | P.OP_ITS ---
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 Left Achilles tendon reconstruction, secondary CPT code 59467 2. FHL transfer CPT code 10932 left 3. V-Y lengthening Achilles tendon left Same procedure as scheduled: Yes Indications: Patient is a 85-year-old male that presents with a chronic left Achilles tendon rupture. He has continued dysfunction and weakness and is unhappy with his leg. He has been indicated for surgery to repair his chronic rupture we discussed this will require debridement and likley V-Y lengthening and flexor hallucis longus transfer. We discussed the recovery with the patient. We discussed alternatives to surgery including bracing. He has elected to proceed with surgery. He does not smoke he does not have diabetes he is otherwise healthy. The risks and benefits of the procedure have been discussed with the patient even opportunity to ask questions. The risks of surgery include but are not limited to infection, re-rupture, persistence of pain, damage to nerves and blood vessels, posttraumatic arthritis, amputation, need for additioanl procedures, DVT, PE, cardiopulmonary complications and . The patient expressed a thorough understanding of the risks and benefits of surgery and has elected to proceed. Consent was signed in the office. Surgeon: Amy Cooney Click Yes if Unassisted: Yes Anesthesia Type: General, Peripheral nerve block and Local Operative Notes Findings: There is a chronic midsubstance rupture of the left Achilles tendon that was encountered approximately 3 cm above the insertion. There was thick scar tissue present after debridement a gap of 5 cm was present. Due to the poor quality of the tissue presence of gap and length of time fracture and FA EHL transfer was performed. Additionally to bridge the gap V-Y lengthening was performed. Closure Type: primary Specimen(s): none sent Prosthetic devices, grafts, tissues, transplants, or devices: 7 x 23 mm peek tenodesis screw Arthrex Estimated Blood Loss (mL): 20 Blood products transfused: none Tourniquet time (min): 93 Procedure in detail: Procedure in detail: The patient was seen in the preoperative area informed consent was confirmed and the patient's side and site of surgery was marked. patient was then brought to the operating room and a regional block was placed by the anesthesia team for postoperative pain control- Patient was then placed under general anesthesia in the supine position. tourniquet was placed on the upper aspect of the left leg and was well-padded. Patient was then moved into the prone position on the operative table. Left lower extremities prepped in the standard sterile fashion. Formal time-out procedure was performed confirming the patient's side and site of surgery administration of appropriate preoperative antibiotics. All were in agreement. After exsanguination with an Esmarch the tourniquet was inflated to 250 mm of mercury and stayed there for 93 minutes. At that time a longitudinal incision was made over the Achilles tendon had curving medially to stay just off the Achilles tendon distally. no dissection was carried out superficial to the paratenon. The paratenon was then incised and the tendon was explored. There is noted to be a chronic tear with large amount of scar tissue at the rupture site. rupture site was approximately 3 cm from the calcaneal insertion. The tendon was mobilized in the scar tissue was excised there was noted to be approximately 5.5 cm gap between the tendon ends. Based on the poor quality of the tendon and size of the gap and patient's age it was decided that would be necessary to perform the FHL transfer. Additionally this gap remained after longitudinal traction on the proximal tendon for muscle relaxation therefore a V-Y gastrocsoleus lengthening was also determined necessary to bridge the gap. The incision was extended proximally in the calf with care to protect the sural nerve to the myotendinous junction. An inverted V shaped incision was drawn out on the myotendinous junction with approximately 8 cm limbs for 1-1/2 times the length of the gap. FHL transfer: Posterior fascia was incised deep in the calf and the FHL muscle belly and tendon were isolated the FHL was traced deep medially and retracted. isolation of the tendon was tested with mobilization of the great toe. Then the tendon was cut deep into the tunnel and brought out of the wound. This was sized to be a 7 and the fiber loop was placed in the tendon end. Next is the Beath pin was placed just anterior to the Achilles surgeon in the calcaneus and was drilled through the calcaneus in line with the Achilles insertion. Pin position was confirmed on fluoroscopy. This was then overdrilled with the 4mm Reamer then the 7 mm Reamer. Tendon was passed out the calcaneus with the Beath pin out the plantar foot. next the ankle was held in approximately 20? of plantar flexion to match the resting tension on the contralateral side and the FHL was brought into the tunnel and secured with the 7 x 23 mm Arthrex bio tenodesis screw. this achieved excellent fixation and held the ankle in the appropriate resting tension equal to the contralateral side. Attention was then returned to the Achilles tendon repair. The V-Y lengthening was mobilized to allow the tendon ends to be approximated maintaining the pre establish the resting tension with the FHL transfer. The tendon ends were then repaired in a standard fashion using 2. Fibertape Krackow sutures for a 2 strand repair. this was oversewn with 0 Vicryl sutures. next the V-Y tendon lengthening was repaired with 2-0 fiber tape adn 0-Vicryl sutures. once this was completed the tourniquet was let down and hemostasis was obtained and irrigation was performed. there was good tension on the Achilles and a [place] test restored plantar flexion. at this time the paratenon was repaired with 4 0 Monocryl suture. skin was then closed with 4 0 Monocryl and 3 O nylon suture. 10 cc of local was infiltrated. bulky dressing and splint were applied in plantar flexion. patient was awoken from anesthesia and taken to the recovery room. there were no immediate complications from this procedure. All counts were correct. Plan for aftercare: Patient will be strict elevation and strict nonweightbearing. He will be on aspirin 325 mg daily for DVT prophylaxis and encouraged to wiggle his toes and mobilized the other extremity to help with blood flow. Patient will follow up in 2 weeks time for suture removal. Patient will then be placed into a boot with heel lifts or cast based on wound healing. once in a boot the patient will be instructed to do gentle active range of motion exercises. Complications: none Post-operative Condition: stable Disposition: PACU Plan for aftercare: Plan for aftercare: Patient will be strict elevation and strict nonweightbearing. He will be on aspirin 325 mg daily for DVT prophylaxis and encouraged to wiggle his toes and mobilized the other extremity to help with blood flow. Patient will follow up in 2 weeks time for suture removal. Patient will then be placed into a boot with heel lifts or cast based on wound healing. once in a boot the patient will be instructed to do gentle active range of motion exercises. Prescriptions for oxycodone, Zofran and the higher dose of aspirin have been sent to his pharmacy. Encouraged to supervisor opening and picking [id number] Colace for a stool softener to prevent constipation. May also take Tylenol up to 3000 mg a 24 hour.
[2020-12-05] MEDS: CEFAZOLIN 1 GM VIAL 2 GM IV ×2 (14:09→18:06)
--- NOTE | 2020-12-05 14:14 | SUR.OPER ---
Prone on padded OR bed, head in foam head support, gel chest rolls, gel pad under knees, pillow under lower legs, toes free of pressure, arms secured on padded arm boards at <90 degrees abduction. Safety belt across back. Nonoperative leg secured to bed with tape.
[2020-12-05] MEDS: BUPIVACAINE 0.25% (PF) VIAL 30 ML INJ (14:20)
[2020-12-05] MEDS: EPINEPHrine 1 MG/ML 0.15 MG INJ (14:21)
--- NOTE | 2020-12-05 16:58 | P.PN_ITS ---
Subjective Subjective Date Patient Seen: 12/05/20 Time Patient Seen: 16:58 Interval history: Postop day 0 left chronic Achilles rupture repair with FHL transfer and V-Y lengthening Exam Vital Signs (past 8 hours): - 12/05/20 11:53 12/05/20 13:12 Temperature 98.2 F 98.7 F Pulse Rate 64 69 Respiratory Rate 18 16 Blood Pressure 135/81 114/64 Pulse Oximetry 97 100 Oxygen Delivery Method Room Air [facility] Medical History Acid reflux Anemia of chronic disease BPH (benign prostatic hyperplasia) Centrilobular emphysema Cervical radiculopathy COPD (chronic obstructive pulmonary disease) Fragile skin Hearing impaired Hx of transient ischemic attack (TIA) Impaired fasting glucose Insomnia Interstitial lung disease Microscopic colitis (~06/2008) SUSAN on CPAP Osteoarthritis PSVT (paroxysmal supraventricular tachycardia) (~2004) RBBB (right bundle branch block) Rheumatoid arthritis 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 RLS (restless legs syndrome) Seasonal allergic rhinitis Surgical History H/O: vasectomy History of colonoscopy with polypectomy (~2016) Hx of arthroscopy of left knee Hx of arthroscopy of right knee Hx of bilateral cataract extraction 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 Nonweightbearing left lower extremity. Stay in plantar flexion splint. Keep splint dry. Discharge home on postoperative day 1. Prescriptions for oxycodone and Zofran were sent to his pharmacy as well as a prescription for aspirin. He will take aspirin 325 mg daily starting postop day 1 for DVT prophylaxis. Follow-up in 2 weeks as scheduled in Orthopedic Clinic with Dr. Cooney 12/18/20 11AM [facility] Can also take [id number] Colace for a stool softener Continue your other medications. May take Tylenol up to 3000 mg per day in divided doses. May also take anti-inflammatories Postoperative day: 0 Time Spent With Patient Time with patient: less than 15 minutes
[2020-12-05] MEDS: OXYCODONE IR 5 MG TABLET PO (17:08)
[2020-12-05] MEDS: LACTATED RINGERS 1,000 ML 84 ML IV (18:07)
[2020-12-05] MEDS: predniSONE 5 MG TABLET 10 MG PO (18:07)
--- NOTE | 2020-12-05 18:11 | SUR.PHASEI ---
[id number] Pt transferred to room 220 in bed by this RN. SBAR report at bedside given to Tolu HATCH. Warm blankets given on arrival. Bed in low position, Call light in reach. Pt alert and oriented and stating pain is improving.
[2020-12-05] MEDS: ALBUTEROL 2.5 MG/3 ML NEB (ADULT) INH (18:23)
[2020-12-05] MEDS: BUDESONIDE 0.5 MG/2 ML NEB INH (18:24)
[2020-12-05] MEDS: FISH OIL 1,000 MG CAPSULE 1000 MG PO (18:31)
[2020-12-05] MEDS: OXYCODONE IR 10 MG TABLET PO (19:31)
[2020-12-05] MEDS: PRAMIPEXOLE 0.25 MG TABLET 0.5 MG PO (20:16)
[2020-12-05] MEDS: DOCUSATE 100 MG CAPSULE PO (20:16)
[2020-12-05] MEDS: ZOLPIDEM 5 MG TABLET 10 MG PO (23:04)
[2020-12-06] MEDS: CEFAZOLIN 1 GM VIAL 2 GM IV (01:40)
[2020-12-06 04:15] VITALS: BP 108/67; PULSE 72; RESP 18; TEMP 36.4; O2SAT 97
[2020-12-06] MEDS: LACTATED RINGERS 1,000 ML 84 ML IV (06:21)
[2020-12-06 07:07] VITALS: BP 117/69; PULSE 58; RESP 16; TEMP 36.1; O2SAT 99
[2020-12-06] MEDS: OXYCODONE IR 10 MG TABLET PO ×2 (07:19→13:01)
[2020-12-06] MEDS: ALBUTEROL 2.5 MG/3 ML NEB (ADULT) INH ×2 (08:41→13:19)
[2020-12-06] MEDS: BUDESONIDE 0.5 MG/2 ML NEB INH (08:41)
[2020-12-06 08:43] VITALS: PULSE 88; RESP 18; O2SAT 99
[2020-12-06] MEDS: atenoloL 50 MG TABLET 25 MG PO (09:22)
[2020-12-06] MEDS: ASPIRIN EC 81 MG TABLET 325 MG PO (09:22)
[2020-12-06] MEDS: ACETAMINOPHEN 325 MG TABLET 975 MG PO ×2 (09:25→14:29)
[2020-12-06] MEDS: LORATADINE 10 MG TABLET PO (09:25)
[2020-12-06] MEDS: CYANOCOBALAMIN (VITAMIN B-12) 500 MCG TABLET 1000 MCG PO (09:25)
[2020-12-06] MEDS: CHOLECALCIFEROL (VITAMIN D3) 1,000 UNIT TABLET 2000 UNIT PO (09:25)
[2020-12-06] MEDS: ATORVASTATIN 20 MG TABLET 40 MG PO (09:25)
[2020-12-06] MEDS: VERAPAMIL 120 MG TABLET PO (09:26)
[2020-12-06] MEDS: DOCUSATE 100 MG CAPSULE PO (09:26)
--- NOTE | 2020-12-06 09:28 | CM.DANOTE ---
DCP: Case received, EMR reviewed and met with patient. Introduced self and role. Was able to obtain information from patient regarding his baseline activity level prior to his surgery. DCP assessment completed with information currently available. Patient is an 85 year old male who admitted yesterday morning to the care of the orthopedic team. PCP: Dr. George. Payer: confirmed: [facility] Ad[facility]age. Patient came to the hospital via private vehicle for a surgical procedure. He had left achilles tendon reconstruction. Patient had chronic achilles tendon rupture. He had also been given a prescription for a knee scooter, and will be wearing a boot, since he will need elevation and non weight bearing to the extremity. Met with patient in his room. He was sitting up in bed, pleasant. He resides with his , Merissa, in [facility]. At baseline, he has been using a cane, and has been driving. He indicated that his injury occurred in Apr, when he was exercising. Patient indicated that he has the boot, and purchased a knee scooter, in hopes of getting reimbursed once his primary care provider puts in the referral. He will be working with P.T. P: DCP to continue to follow. Plan is for home when stable, and cleared by P.T. He indicated that his should be able to assist him when he goes home. Discharge Planning/Care Management Pre-Anesthesia Assessment Start: 12/03/20 15:10 Freq: Status: Complete Protocol: Document 12/04/20 07:28 [facility] (Rec: 12/03/20 15:23 [facility] [id number]) Pre-Anesthesia Assessment Preferred Name Janes Patient Information Reviewed Via Chart Review Primary Care Provider Nish George Medical Clearance Received Yes Seen Specialist in Last 12 Months Yes Specialist Seen Horse Doctor,Orthopedist, Military Personnel Specialist Comment PCP pre-op 11/04/20 & clearance , Pulmonary visit, CT scanned Primary Language Latvian Preferred Language Latvian Studio Operations Engineer In Charge Required No Height 6 ft 1 in Weight 204 lb Body Mass Index (BMI) 26.9 Hearing Ability Hard of Hearing,Use of Hearing Aid Visual Assist Contacts Dentition Type Teeth, Natural Present Barriers to Learning None Comment Contact left eye only for reading Hx Anesthesia Reactions No Hx Family Anesthesia Reaction No Hx Malignant Hyperthermia No Hx Blood Transfusions No Anesthesia Review Requested No Android Platform Developer No alcohol intake current alcohol intake frequency 0-2 drinks per day Smoking Status Former smoker Tobacco type cigarettes how long ago did patient quit smoking Quit 1977 Substance Use Type does not use Musculoskeletal Symptoms Difficulty Walking,Limited Range of Motion,Muscle Cramps, Muscle Weakness History of Falling (Recent or History of No ) Patient is completely paralyzed or No completely immobile Mental Status Oriented to own ability Is patient on oxygen? No Does patient have PROCTOR/SOB Yes: PROCTOR Hx Sleep Apnea No Comment Hx COPD, ILD. cough Currently Taking a Beta Jamin Yes: Atenolol for PSVT Can You Climb a Flight of Stairs Without Yes SOB Hx Chest Pain No Hx SOB Yes: PROCTOR Hx Syncope or Dizziness No Anti-Coagulant Therapy Yes: Plavix-on med list in computer, not on PCP or Cardio list-unknown if taking Has a Horse Doctor Yes: Dr. Toledo-last visit Cardiac Testing No: Echo 01/14/20, Zio patch @ [facility] Hx Pacemaker/ICD No Pacemaker Rep Required? No Comment Cardiac records scanned Diet Type At Home Regular dysphagia No Genitourinary Symptoms Non-Menses Vaginal Bleeding Urinary Catheter Present No Hx Urinary Self Catheterization No Diabetes No Hx Drug Resistant Organism No Presence of External or Internal Medical Yes: Knee prosthesis, bilat Devices eye IOLs, Marital Status Lives With spouse Prior Living Arrangements Apartment/Condo Patient Discharge Plan Description Return Home Do You Have Any Spiritual Beliefs That No May Affect Your HC Choices? Do You Have Any Cultural Practices That No May Affect Your HC Choices? Emergency Contact Name Merissa () Emergency Contact Advance Directives? Yes: on file Advance Directives on File Yes Power of Pelt Inspector Yes Power of Pelt Inspector Name Merissa Villalobos Power of Pelt Inspector
--- NOTE | 2020-12-06 09:36 | P.DS_ITS ---
History of Present Illness History of Present Illness Date Patient Seen: 12/06/20 Time Patient Seen: 09:36 Chief complaint: Left leg pain Narrative: Patient states pain is mild. Denies fever or chills. No nausea or vomiting. Patient has his home to assist him. Discharge Providers Provider Discharge Date: 12/06/20 Primary care physician: Nish George MD Consults: 12/05/20 17:36 Consult to Physical Therapy Evaluate & Treat Comment: nwb LLE (has knee scooter at home) Physician Instructions: Evaluate and Treat Consult to Respiratory Therapy Evaluate & Treat Comment: Physician Instructions: Evaluate and treat Discharge provider: Rashid Munoz PA-C Summary Hospital Course Discharge Diagnosis: Chronic Achilles tendon rupture, left, sequela ICD 10 S86.012s Hospital Course: Procedure:? 1. Left Achilles tendon reconstruction, secondary CPT code 58657 2. FHL transfer CPT code 52928 left 3. V-Y lengthening Achilles tendon left Same procedure as scheduled: Yes Indications: Patient is a 85-year-old male that presents with a chronic left Achilles tendon rupture.? He has continued dysfunction and weakness and is unhappy with his leg.? He has been indicated for surgery to repair his chronic rupture we discussed this will require debridement and likley V-Y lengthening and flexor hallucis longus transfer.? We discussed the recovery with the patient.? We discussed alternatives to surgery including bracing.? He has elected to proceed with surgery.? He does not smoke he does not have diabetes he is otherwise healthy.? The risks and benefits of the procedure have been discussed with the patient even opportunity to ask questions.? The risks of surgery include but are not limited to infection, re-rupture, persistence of pain, damage to nerves and blood vessels, posttraumatic arthritis, amputation, need for additioanl procedures, DVT, PE, cardiopulmonary complications and .? The patient expressed a thorough understanding of the risks and benefits of surgery and has elected to proceed.? Consent was signed in the office. Surgeon: Amy Cooney Click Yes if Unassisted: Yes Anesthesia Type: General, Peripheral nerve block and Local Patient admitted to the hospital for the above-mentioned procedure. Patient consented to the same. Patient taken to the operating room underwent procedure on December 05, 2020. Patient back in his room recovering well as in stable condition. Patient will be discharged home today after physical therapy if safe for home environment. Status at Discharge Cognitive/behavioral status at discharge: at baseline, oriented Functional status at discharge: uses cane/walker Overall status at discharge: patient is progressing back to baseline Exam Vital Signs (past 8 hours): - 12/06/20 04:15 12/06/20 07:07 12/06/20 08:43 Temperature 97.5 F L 97.0 F L Pulse Rate 72 58 L 88 Respiratory Rate 18 16 18 Blood Pressure 108/67 117/69 Pulse Oximetry 97 99 99 Oxygen Delivery Method Room Air Oxygen Flow Rate 0 Narrative Exam Narrative: 85-year-old male sitting up in bed in no apparent distress. Splint is in place. Good capillary refill to the left toes. The toes are warm. 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 Stay in plantar flexion splint.? Keep splint dry. Discharge home today after physical therapy if safe for home environment. Prescriptions for oxycodone and Zofran were sent to his pharmacy as well as a prescription for aspirin.? He will take aspirin 325 mg daily starting postop day 1 for DVT prophylaxis. Follow-up in 2 weeks as scheduled in [facility] with Dr. Cooney 12/18/20 11AM [facility] Can also take diay-gdr-wpxyxwi Colace for a stool softener Continue your other medications.? May take Tylenol up to 3000 mg per day in divided doses.? Discharge Plan Discharge Plan Patient Disposition: Home Discharge orders & Medications Discharge Orders: Discharge (Order); Ordered 12/06/20 Ordered By: Rashid Munoz Prescriptions: New oxycodone 5 mg tablet 5 - 10 mg PO Q4H PRN (Reason: pain) Qty: 42 RF: 0 ondansetron HCl [Zofran] 4 mg tablet 4 mg PO Q8H PRN (Reason: nausea and vomiting) Qty: 7 RF: 0 aspirin 325 mg tablet 325 mg PO DAILY Qty: 42 RF: 0 Continued cholecalciferol (vitamin D3) [Vitamin D3] 2,000 unit Capsule 2,000 unit PO DAILY Qty: 0 RF: 0 diazepam 2 MG tablet 2 mg PO QDAYP PRN (Reason: Muscle cramping) Qty: 0 RF: 0 prednisone 5 mg Tablet 10 mg PO QPM RF: 0 cyanocobalamin (vitamin B-12) [Vitamin B-12] 1,000 mcg Tablet 1,000 mcg PO DAILY RF: 0 fexofenadine [Vivi Allergy] 180 mg Tablet 180 mg PO DAILY PRN (Reason: Allergy Symptoms) RF: 0 omega-3 fatty acids-vitamin E 1,000 mg Capsule 1 cap PO DAILY Qty: 0 RF: 0 rosuvastatin 20 mg tablet 20 mg PO DAILY Qty: 30 RF: 0 pramipexole 0.5 mg Tablet 0.5 mg PO BEDTIME RF: 0 allopurinol 300 mg Tablet 300 mg PO QAM PRN (Reason: Gout flare-up) RF: 0 atenolol 50 mg Tablet 25 mg PO DAILY RF: 0 verapamil 120 mg Tablet 120 mg PO DAILY RF: 0 fluticasone propion-salmeterol [Advair Diskus] 100-50 mcg/dose Blister With Device 1 inh INHALATION BID RF: 0 zolpidem 10 mg Tablet 10 mg PO BEDTIME PRN (Reason: Sleep) RF: 0 Discontinued aspirin 81 MG tablet,delayed release (DR/EC) 81 mg PO DAILY RF: 0 Follow up/Referrals: Amy Cooney MD [Physician] - Nish George MD [Primary Care Provider] - Diet/Activity/Treatments Diet: Diet as Tolerated Activity: NWB LLE Other treatments: At-Home Instructions - Dr. Cooney Surgery: left Achilles repair Cast/Splint/Dressing Care Instructions 1) Keep cast/dressing clean and dry. 2) May bathe - but cast/dressing must remain dry. 3) Should the cast become wet, you need to come into emergency department or call your physician's clinic immediately for cast removal and replacement. Moisture can cause skin breakdown and lead to infection if left untreated. 4) Do not stick any sharp object down the cast to itch, as this can cause scrapes/cuts/punctures which can lead to infection. 6) Observe for increasing pain in the extremity with the cast, finger/toe-tips turning blue/purple, or numbness and tingling in your toes/fingers. Should any of these symptoms arise, you need to be seen immediately for evaluation of swelling and increasing compartment pressures within your affected extremity. 7) Keep your affected extremity elevated - Toes Above your Nose? - This is membreno in the first two weeks after surgery to minimize swelling. 8) You may ice your extremity, being careful to prevent melting ice from saturating into the splint/cast. Activity No heavy lifting greater than 10 pounds. No [address] while on narcotic pain medication. Do not get your dressing/cast/splint wet! You must remain non-weight bearing on your operative extremity. Use crutches or a walker for ambulation. No driving until you are otherwise instructed by your physician. This will be addressed at your first follow-up appointment. Discharge Pain Medications You will be given a prescription for pain medication. You should start taking this the same day after your surgery. Wean off as tolerated. Do not wait to take the pain medication until the pain is severe, as it will be difficult to catch up once this occurs. The pain medication usually reaches its full effect ~1 hour after ingesting. If you have been sent home on Colace, this medication should be taken until you are off all narcotic (i.e. Vicodin, Percocet, Oxycodone, etc) pain medications, to prevent constipation. You may also obtain this or another stool softener over the counter to prevent or alleviate constipation. Percocet or Vicodin have Tylenol in their ingredient lists. You must be careful not to exceed 3,000mg (3 grams) of Tylenol, from all sources, within a single 24-hr period. This means that you may not take more than 10 pills within a 24- hr period. Do NOT take Regular or Extra Strength Tylenol when taking your Percocet or Vicodin medications. -IF you have been given a Toradol/ketorolac prescription, this is a very strong anti-inflammatory. Do not take llcc-uut-eshhudk anti-inflammatories (ibuprofen, Aleve, Advil, Motrin) while taking the Toradol/ketorolac. Once you are finished with this prescription, then you can resume xuqo-ocr-imzeupv anti- inflammatories. You can still take your narcotic pain medication and Tylenol while taking the Toradol/ketorolac. -Some common side effects of the narcotic pain medications (Percocet, Oxycodone, Vicodin, etc.) include nausea and itching. Benadryl is a great over the counter medication that helps calm your stomach, decreases your anxiety levels, and minimizes the itching. You can easily purchase this at your local pharmacy as an vrza-nhm-eyxlzwg medication. Please abide by the instructions as printed on the bottle. If your nausea persists, make sure to take small amounts of cracker s or other patient centered care specialist foods. Follow-Up/Emergency Contacts Please call for an appointment in either [place] or [place], if one has not been scheduled. Follow up 2 weeks after surgery. [phone] Contact the office if you have any of the following: ? Painful swelling or numbness ? Unrelenting pain ? Fever (over 101?- it is normal to have a low grade fever for the first day or two following surgery) or chills ? Redness around the incisions ? Color changes ? Continuous bleeding or drainage from the incision (a small amount is expected) ? Excessive nausea or vomiting ? Difficulty breathing If you have an emergency that requires immediate attention, proceed to the nearest emergency room. Blood Clot Prophylaxis You will need to complete a total 6-week (42 days) course of Aspirin (325 mg daily) after surgery, to minimize the risk of blood clots following surgery. You may alternatively purchase or use yduc-kne-ohkfiks generic equivalent Aspirin. If you already have ?baby? Aspirin (81mg) at home, you can take 4 ?baby? Aspirin to total 324mg for the equivalent dose. Pain Medications: It is the policy of [facility] that narcotic medications will only be refilled during office hours. Additionally, due to the alarming rate of narcotic pain medication abuse/dependence, it has become necessary for physician practices to closely manage patient use of prescription narcotic pain relievers, such as Vicodin ([place]), Percocet, and Oxycodone products. Narcotic pain management in the postoperative period may not exceed 6 weeks. If narcotic pain management is required beyond 90 days, then a referral to a Chronic Pain Specialist will be made. If a request for a medication prescription has been made, the physician must review your chart prior to authorizing the request. Please be patient with office staff. If you call during patient hours, your call may not be returned until the end of the day. Dr. Amy Cooney [address] [email or web address] Skin/Wound/Dressing Care Report to your healthcare provider any signs of infection, such as:: chills, fever, night sweats, increased pain, unusual drainage and unusual redness Dressing: keep in place Visit Report/Discharge Packet Stand Alone Forms: Surgery Discharge Discharge Data Primary Care Provider: Nish George Attending Provider: Amy Cooney VTE Deep Vein Thrombosis/Pulmonary Embolism Present on Admission: No
--- NOTE | 2020-12-06 09:51 | PC.NURSE ---
Patient has a cast to his l.leg. 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 Given two percolone earlier for discomfort and he states that this has been helpful. Patient is non weight bearing at this time. He is going to work with physical therapy and then will be able to be discharged home if everything goes well after his therapy session. Patients pulse to l.foot is wnl, and foot is not swollen, cant fit two fingers for feeling.
--- NOTE | 2020-12-06 10:41 | PT.IIE ---
Current Diagnoses Strain of left Achilles tendon, initial encounter (12/05/20) Surgery Performed Operation Date: 12/05/20 12:45 Actual Procedures p Achilles Tendon Repair, flexor hallucis longus transfer, VY lengthening(Left) - Amy Cooney MD Medical History (Last Reviewed 12/05/20 @ 11:50 by Stewart Mendoza RN) Acid reflux Anemia of chronic disease BPH (benign prostatic hyperplasia) Centrilobular emphysema Cervical radiculopathy COPD (chronic obstructive pulmonary disease) Fragile skin Hearing impaired Hx of transient ischemic attack (TIA) Impaired fasting glucose Insomnia Interstitial lung disease Microscopic colitis (~06/2008) SUSAN on CPAP Osteoarthritis PSVT (paroxysmal supraventricular tachycardia) (~2004) RBBB (right bundle branch block) Rheumatoid arthritis 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 RLS (restless legs syndrome) Seasonal allergic rhinitis Physical Therapy Inpatient Evaluation/Re-Eval M1 PT/OT-IP Prior Functional Status Start: 12/06/20 12:47 Freq: NEEDED Status: Active Protocol: Document 12/06/20 10:41 AB (Rec: 12/06/20 13:07 [email or web address]) Medical Review Prior Functional Status Medical History Reviewed Yes Communication able to make needs known Mobility and Gait pt stated that he si independent with all mobilities and ambulation without AD Social History Household Members spouse Living Arrangements Apartment/Condo Number of Floors (Floors) Two Floors Number of Stairs To Enter/Railing? 2 steps with L rail to enter has 16 steps to get to bedroom level house: has first 2 steps without rails and then has a chair lift to use Home Environment High Toilet,Walk in Shower Home Equipment Front Wheel Walker,Four Wheel Walker,Quad Cane,Crutches, Raised Toilet Seat Without Armrests,Shower Seat without Backrest,Hand Held Shower,Grab Bars In Shower Additional Social History Comment pt has an adjustable bed pt has a knee scooter stated that spouse will not be able to assist him much with lifting M2 PT-IP Current Condition Start: 12/06/20 12:47 Freq: NEEDED Status: Active Protocol: Document 12/06/20 10:41 AB (Rec: 12/06/20 13:07 AB [email or web address]) Physical Therapy Current Condition Current Condition Evaluation Date 12/06/20 Treatment Diagnosis s/p L achilles tendon reconstruction; difficulty in walking Onset Date 12/05/20 Weight Bearing Status Weight Bearing Status Non-Weight Bearing Allowed Weight Bearing Amount (enter % LLE NWB or #) (%) M3 PT-IP Subjective Start: 12/06/20 12:47 Freq: NEEDED Status: Active Protocol: Document 12/06/20 10:41 AB (Rec: 12/06/20 13:07 AB [email or web address]) Subjective Physical Therapy Visit Type Type Initial Evaluation Visit Start Time 10:41 Visit Stop Time 12:05 Total Visit Minutes 65 Number of [employer] SETTER Visits 0 Physical Therapy Visit Comments Patient Comments agreeable to do PT M4 PT-IP Mobility and Gait Start: 12/06/20 12:47 Freq: NEEDED Status: Active Protocol: Document 12/06/20 10:41 AB (Rec: 12/06/20 13:07 AB [email or web address]) PT-Bed Mobility Assessment Supine to Sit Supine to Sit Standby Assistance,Head of Bed Elevated Sit to Supine Sit to Supine Standby Assistance,Head of Bed Elevated PT-Transfer Assessment Sit to and From Stand Sit to and from Stand Minimal Assistance,Moderate Assistance,1 Person Assistance ,Use of Upper Extremities Equipment Transfer Assistive Device Gait Belt,Front Wheeled Walker Orthotic/Prosthetic Devices or Brace: Yes Transfers Transfer Destination Bed,Chair Transfer Technique ambulated using FWW Transfer Ability Level of Assist Minimal Assistance,Moderate Assistance,1 Person Assistance ,Use of Upper Extremities Comments Mobility Comments educated on NWB on LLE. completed supine to sit HOB elevated SBA. pt was able to sit on EOB SBA. completed sit to stand mod A and cues and ambulated ~ 3 ft using FWW mod A and cues and has to sit back down. pt agreed to stand again and completed mod A and ambulated towards [facility] chair using FWW mod A and cues. pt rested. educated on equipement needs. informed pt that he will need a w/c for long distance mobility. pt stated that he has a knee scooter but prefers FWW. pt completed ambulated out in the hallway ~ 15 ft using FWW CGA to min A and cues. pt sat on chair. educated on options to be able to do stairs while maintaining NWB on LLE. attempted to use crutches. pt completed sit to stand max A and unable to maintain standing balance using crutches needed max A for standing balance with crutches . pt stated that he will not be able to go up the stairs. informed pt that he will need a ramp for the 2 steps to enter the townhouse. pt stated that he has 2 person lined up to assist him to enter the house. informed pt to rent a w/c or get a w/c and the 2 persons he has can be able to assist him up the 2 steps on a w/c for safety. pt also stated that he might be able to put a foldable bed in the first level of the house for now. pt ambulated back to his room using FWW CGA to min A. completed sit to supine SBA. positioned pt in bed. call light and table placed within reach. caregiver training set up for the afternoon. informed rn field case manager regarding pt's mobility, equipement needs and pt trying to acquire a w/c. le Gait Assessment Gait Gait Assistance Required: Minimum Assistance,Moderate Assistance Distance (Feet) 12 Able to Maintain Weight Bearing Status Yes During Gait Assistive Devices Assistive Device Gait Belt,Front Wheeled Walker Orthotic/Prosthetic Devices or Brace: No Gait Deviations General Gait Pattern Decreased Feet Clearance Factors Limiting Gait Function Factors Limiting Gait Function Decreased Activity Tolerance, Decreased Strength,Limited Range of Motion,Pain,Poor Balance Stair Climbing Assessment Comments Stair Climbing Comments attempted but unable to complete PT-Balance Assessment Sitting Balance and Reactions Static Sitting Balance Ability Normal Dynamic Sitting Balance Ability Normal Standing Balance and Reactions Static Standing Balance Ability Fair Dynamic Standing Balance Ability Fair Device Used FWW M5 PT-IP Objective Assessments Start: 12/06/20 12:47 Freq: NEEDED Status: Active Protocol: Document 12/06/20 10:41 AB (Rec: 12/06/20 13:07 [email or web address]) Orientation Orientation/Cognition Level of Alertness Alert Orientation Name,Age,Birthday,Month,Date, Year,Day of Week,Place, Situation Language Function Ability No Deficits Noted Safety Awareness Understands Safety Issues Memory Description No Deficits Noted Gross Range of Motion Lower Extremity ROM Impairments L ankel NT Strength Lower Extremity Strength Assessment Left Impaired Ankle NT Coordination Assessment Gross Coordination Gross Coordination WNL Sensation Assessment Sensation Light Touch Impaired Sensation Description Numbness Comments Sensation Comments 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 with numbness Muscle Tone Muscle Tone WNL Yes M6 PT-IP Treatment Start: 12/06/20 12:47 Freq: NEEDED Status: Active Protocol: Document 12/06/20 10:41 AB (Rec: 12/06/20 13:07 AB [email or web address]) Physical Therapy Treatment Education Education Provided Precautions,Weight Bearing Status,Safety M7 PT-IP Assessment and Plan Start: 12/06/20 12:47 Freq: NEEDED Status: Active Protocol: Document 12/06/20 10:41 AB (Rec: 12/06/20 13:07 AB [email or web address]) PT Summary Assessment and Plan Potential Rehabilitation Potential Fair Status of Condition at Evaluation Evolving Summary Impairments Pain,ROM,Strength,Balance, Coordination,Sensation,Bed Mobility,Transfers,Gait, Activity Tolerance Assessment Summary pt requiring min to mod A with mobility using FWW. pt is unable to do stair climbing and has steps to enter the house and to get to bedroom level. Pt is NWB on LLE at this time and is the main limiting factor. educated pt on safety and equipement needs : ramp to enter the house and w/c for long distance mobility . caregiver training also set up and will be conducted later this afternoon. informed rn field case manager regarding pt's mobility and needs for safe d/c. will continue to assess pt's progress. Goals Bed Mobility Goal Independent Transfer Goal Independent,Front Wheeled Walker Gait Goal Independent,Front Wheel Walker Gait Distance 50 Other Goals up/down 2 steps L + crutch/[employer] mod A Days to Meet Goals 10 Frequency of Treatment Frequency Of Treatment Twice a Day Treatment Plan Physical Therapy Treatment Plan Bed Mobility Training,Transfer Training,Gait Training, Therapeutic Exercise,Balance Retraining,Post Op Education, Discharge Planning,Hot or Cold Pack,Neuromuscular Re-ed, Coordination Retraining,Manual Therapy Precautions Other Precautions LLE NWB Recommendations To Nursing Amount of Assist Needed 1 Person Assist Discharge Recommendations PT Discharge Recommendations Home with 24/ Assist Available,Home Health Transportation Needs at Discharge Wheelchair/Cabulance
[2020-12-06 11:32] VITALS: BP 125/70; PULSE 60; RESP 16; TEMP 36.2; O2SAT 97
[2020-12-06 13:21] VITALS: O2SAT 93
--- NOTE | 2020-12-06 15:25 | PT.IPTN ---
Current Diagnoses Strain of left Achilles tendon, initial encounter (12/05/20) Surgery Performed Operation Date: 12/05/20 12:45 Actual Procedures p Achilles Tendon Repair, flexor hallucis longus transfer, VY lengthening(Left) - Amy Cooney MD Physical Therapy Treatment Note M2 PT-IP Current Condition Start: 12/06/20 12:47 Freq: NEEDED Status: Discharge Protocol: Document 12/06/20 10:41 AB (Rec: 12/06/20 13:07 AB [id number]) Physical Therapy Current Condition Current Condition Evaluation Date 12/06/20 Treatment Diagnosis s/p L achilles tendon reconstruction; difficulty in walking Onset Date 12/05/20 Weight Bearing Status Weight Bearing Status Non-Weight Bearing Allowed Weight Bearing Amount (enter % LLE NWB or #) (%) M3 PT-IP Subjective Start: 12/06/20 12:47 Freq: NEEDED Status: Discharge Protocol: Document 12/06/20 15:25 AB (Rec: 12/06/20 17:05 AB [id number]) Subjective Physical Therapy Visit Type Type Treatment Note Visit Start Time 15:25 Visit Stop Time 15:51 Total Visit Minutes 26 Number of CAR HOP Visits 0 Physical Therapy Visit Comments Patient Comments agreed to do PT; spouse in room with pt M4 PT-IP Mobility and Gait Start: 12/06/20 12:47 Freq: NEEDED Status: Discharge Protocol: Document 12/06/20 15:25 AB (Rec: 12/06/20 17:05 AB [id number]) PT-Bed Mobility Assessment Supine to Sit Supine to Sit Standby Assistance,Head of Bed Elevated Sit to Supine Sit to Supine Standby Assistance,Head of Bed Elevated PT-Transfer Assessment Sit to and From Stand Sit to and from Stand Contact Guard Assistance, Minimal Assistance,1 Person Assistance,Use of Upper Extremities Equipment Transfer Assistive Device Gait Belt,Front Wheeled Walker Orthotic/Prosthetic Devices or Brace: Yes Comments Mobility Comments spouse in room with pt. pt stated that he was able to get a walker/w/c combo that he can use at this time until they get a manual w/c through a [employer]. stated that they tried that walker/w/c before on the stairs and is safe to get up the steps with him on it and that he has 3 of his friends that will be assisting him to get him into the house. pt will also has HHPT. caregiver training conducted. educated spouse on how to use safety belt and how to assist pt. spouse was able to put safety belt on pt. assisted pt with sit to stand and PT providing instructions on how to assist pt. pt ambulated in room using FWW NWB on LLE and sposue assisting. spouse initially nervous of assisting pt. pt sat on EOB and rested . Pt agreed to walk again with spouse assisting and PT not cuing pt and spouse. spouse was able to assist pt safely. educated on safety and NWB restriction. using manual w/c for mobility and ambulate as tolerated but safely and maintaining NWB restriction. pt and spouse understood and have no further concerns. left pt in bed. call light within reach. informed nurse that pt is awaiting dc. Gait Assessment Gait Gait Assistance Required: Contact Guard Assist,Minimum Assistance Distance (Feet) 12 Able to Maintain Weight Bearing Status Yes During Gait Assistive Devices Assistive Device Gait Belt,Front Wheeled Walker Orthotic/Prosthetic Devices or Brace: Yes Gait Deviations General Gait Pattern Decreased Stride Length, Decreased Feet Clearance Factors Limiting Gait Function Factors Limiting Gait Function Decreased Activity Tolerance, Decreased Strength,Limited Range of Motion,Pain,Poor Balance,Poor Safety Awareness M5 PT-IP Objective Assessments Start: 12/06/20 12:47 Freq: NEEDED Status: Discharge Protocol: Document 12/06/20 10:41 AB (Rec: 12/06/20 13:07 AB [id number]) Orientation Orientation/Cognition Level of Alertness Alert Orientation Name,Age,Birthday,Month,Date, Year,Day of Week,Place, Situation Language Function Ability No Deficits Noted Safety Awareness Understands Safety Issues Memory Description No Deficits Noted Gross Range of Motion Lower Extremity ROM Impairments L ankel NT Strength Lower Extremity Strength Assessment Left Impaired Ankle NT Coordination Assessment Gross Coordination Gross Coordination WNL Sensation Assessment Sensation Light Touch Impaired Sensation Description Numbness Comments Sensation Comments 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 with numbness Muscle Tone Muscle Tone WNL Yes M6 PT-IP Treatment Start: 12/06/20 12:47 Freq: NEEDED Status: Discharge Protocol: Document 12/06/20 15:25 AB (Rec: 12/06/20 17:05 AB [id number]) Physical Therapy Treatment Education Education Provided Weight Bearing Status,Safety M7 PT-IP Assessment and Plan Start: 12/06/20 12:47 Freq: NEEDED Status: Discharge Protocol: Document 12/06/20 15:25 AB (Rec: 12/06/20 17:05 AB [id number]) PT Summary Assessment and Plan Potential Rehabilitation Potential Good Summary Impairments Pain,ROM,Strength,Balance, Coordination,Sensation,Tone, Cognition,Bed Mobility, Transfers,Gait,Activity Tolerance Progress Towards Goals Slow Progress due to Medical Issues,Slow Progress due to Activity Tolerance Assessment Summary caregiver training conducted and spouse was able to assist pt with transfers and ambulation using FWW. pt will have friends to assist him into the house and has a walker/w/c combo to use for now until they can get a manual w/c. pt will need HHPT. Pt and spouse educated on pt 's weight bearing restrictions and use of w/c for mobility for safety and not doing stair climbing until cleared by HHPT. pt and spouse understood. Goals Bed Mobility Goal Independent Transfer Goal Independent,Front Wheeled Walker Gait Goal Independent,Front Wheel Walker Gait Distance 50 Other Goals up/down 2 steps L + crutch/CUSH[employer]KER mod A Days to Meet Goals 10 Frequency of Treatment Frequency Of Treatment Twice a Day Treatment Plan Physical Therapy Treatment Plan Bed Mobility Training,Transfer Training,Gait Training, Therapeutic Exercise,Balance Retraining,Post Op Education, Discharge Planning,Hot or Cold Pack,Neuromuscular Re-ed, Coordination Retraining,Manual Therapy Precautions Other Precautions LLE NWB Recommendations To Nursing Amount of Assist Needed 1 Person Assist Discharge Recommendations PT Discharge Recommendations Home with 11/10 Assist Available,Home Health Transportation Needs at Discharge Wheelchair/Cabulance
== END 2020-12-06 16:14 | disposition home or self-care (01) ==
LOC: OR 12-07 11:18 → AC 12-07 11:18
PROVIDERS: Admitting Provider Orthopaedic Surgery Foot and Ankle Surgery; Family Provider Internal Medicine; PCP Internal Medicine; Referring Provider Orthopaedic Surgery Foot and Ankle Surgery; Visit Provider Orthopaedic Surgery Foot and Ankle Surgery
PROC: (CPT 27650; principal; 2020-12-05 12:45)
DX: S86.012S Strain of left Achilles tendon, sequela (principal); N40.0 Benign prostatic hyperplasia without lower urinary tract symptoms; I47.1 Supraventricular tachycardia; G25.81 Restless legs syndrome; M06.9 Rheumatoid arthritis, unspecified; K21.9 Gastro-esophageal reflux disease without esophagitis; G47.33 Obstructive sleep apnea (adult) (pediatric); J43.2 Centrilobular emphysema; Z86.73 Personal history of transient ischemic attack (TIA), and cerebral infarction without residual deficits; Z87.891 Personal history of nicotine dependence
CPT/HCPCS: 27654; 27691; 94640; 97162; 97530; G0378; A9270; J0171; J0330; J0690; J2250; J2704; J3010; J7613

== ENCOUNTER → 2021-06-30 11:08 | Outpatient (CLI) | payer OTHER, SELFPAY ==
[2020-12-05 17:53] VITALS: BMI 26.9
== END ==
PROVIDERS: Family Provider Internal Medicine; PCP Internal Medicine; Referring Provider Internal Medicine; Visit Provider Internal Medicine
DX: Z79.52 Long term (current) use of systemic steroids (principal); Z13.820 Encounter for screening for osteoporosis
CPT/HCPCS: 77080; 77086

== ENCOUNTER 2022-01-11 11:51 | Inpatient (IN) | payer OTHER, SELFPAY ==
[2020-12-05 17:53] VITALS: BMI 26.9
[2022-01-11] VITALS (10 sets, daily range): BP systolic 120–161; BP diastolic 64–83; PULSE 66–81; RESP 13–25; TEMP 36.6–37.1; O2SAT 97–99; BMI 26.4
--- NOTE | 2022-01-11 12:05 | DI.CT.S_ITS ---
PROCEDURE: CT ANGIO HEAD AND NECK INDICATIONS: Possible stroke TECHNIQUE: Pre-contrast 4.5 mm thick sections acquired from the foramen magnum to the vertex. After the administration of intravenous contrast, 1 mm thick sections acquired from the aortic arch through the [place] of [place]. Post-contrast 4.5 mm thick sections then re-acquired from the foramen magnum to the vertex. 3-dimensional ojimyap-lckickzjc-kwjgfzcfeg (MIP) and/or volume rendering reformats were acquired of the central intracranial vasculature and neck separately. For radiation dose reduction, the following was used: automated exposure control, adjustment of mA and/or kV according to patient size. COMPARISON: [facility], CT, CT CERVICAL SPINE WO CON, 05/30/2019, 11:11. [facility], CR, XR CHEST 1V, 01/11/2022, 12:19. [facility], CT, CT HEAD/BRAIN WO CON, 03/29/2019, 17:05. FINDINGS: Image quality: Mild streak artifact can be seen through the skull base. There is artifact associated with the metallic hardware. BRAIN: CSF spaces: Ventricles are normal in size and shape. Basal cisterns are patent. No extra-axial fluid collections. Brain: No midline shift. No intracranial bleeds or masses. Cloud-white matter interface appears intact. Skull and face: Calvarium and facial bones appear intact, without suspicious lesions. Orbits appear normal. Sinuses: Sinuses and mastoids are clear. HEAD CT ANGIOGRAPHY: Anterior circulation: Intracranial internal carotid arteries are normal in size and flow. The flow within the paired anterior cerebral arteries is normal and symmetric. The flow within the middle cerebral arteries is normal and symmetric. The anterior communicating artery is seen. No aneurysms are seen. Posterior circulation: The left V4 segment largely terminates in the left posterior inferior cerebellar artery. The right V4 segment is within normal limits. There is a normal appearing basilar artery. Flow within the posterior cerebral arteries is normal and symmetric. No aneurysms are seen. NECK CT ANGIOGRAPHY: Carotid system: Incidental note is made of a common origin of the right brachiocephalic artery and the left common carotid artery (bovine type arch). This is considered to be a developmental variant of no clinical consequence. The origins of the common carotid arteries appear patent. The common carotid arteries demonstrate normal caliber and courses. The right bifurcation region demonstrates focal atherosclerotic calcification and irregularity, with approximately 50% narrowing seen involving the origin of the right internal carotid artery. The left carotid bifurcation region is within normal limits, without a significant stenosis. The more distal internal carotid arteries demonstrate normal course and caliber. Posterior circulation: There is focal calcification seen involving the origin left vertebral artery. No significant stenosis can be seen involving the origin of the right vertebral artery. The right vertebral artery is dominant to the left. The more superior extracranial portions of both vertebral arteries also demonstrate normal courses. Soft tissues: Visualized neck soft tissues demonstrate no suspicious abnormalities. Bones: No suspicious bony lesions. Visualized cervical spine appears normally aligned. IMPRESSION: Approximately 50% narrowing seen involving the origin of the right internal carotid artery. No acute intracranial hemorrhage is seen. No acute intracranial process is seen. No significant intracranial arterial abnormality is seen. If there is strong clinical suspicion for an acute stroke, please consider a brain MRI for further evaluation, as it is more sensitive (assuming that there is no contraindication to MRI). Incidental note is made of: Cervical spine fixation hardware Right vertebral artery dominant to the left. Bovine type arch branching pattern Any quantitative measurements of stenosis were performed using NASCET criteria. Dictated by: Johnny Oviedo M.D. on 01/11/2022 at 12:33 Approved by: Johnny Oviedo M.D. on 01/11/2022 at 12:39
--- NOTE | 2022-01-11 12:05 | DI.RAD.S_ITS ---
PROCEDURE: XR CHEST 1V INDICATIONS: Possible stroke TECHNIQUE: One view of the chest was acquired. COMPARISON: [facility], CR, XR CHEST 2V, 08/15/2019, 13:46. FINDINGS: Surgical changes and devices: None. Lungs and pleura: Lungs are clear. No pleural effusions or pneumothorax. Mediastinum: Mediastinal contours appear normal. Heart size is normal. Bones and chest wall: No suspicious bony lesions. Overlying soft tissues appear unremarkable. IMPRESSION: No acute cardiopulmonary abnormality. Dictated by: Franki Mariano M.D. on 01/11/2022 at 12:50 Approved by: Franki Mariano M.D. on 01/11/2022 at 12:51
[2022-01-11 12:22] LABS: Add Manual Diff / Slide Review NO; Basophils Absolute Auto 100 /uL (0-100); Basophils Percent Auto 0.7 % (0-2); Eosinophils Absolute Auto 2600 /uL (0-450); Hematocrit 36.7 % (41-53); Hemoglobin 12.6 g/dL (13.5-17.5); Lymphocytes Absolute Auto 900 /uL (1100-4500); Lymphocytes Percent Auto 9.8 % (25-40); Mean Corpuscular HGB Conc 34.4 % (30-36); Mean Corpuscular Hemoglobin 32.8 PG (26-34); Mean Corpuscular Volume 95.3 fL (80-100); Monocytes Absolute Auto 600 /uL (0-900); Monocytes Percent Auto 6.3 % (3-14); Neutrophils Absolute Auto 5100 /uL (1500-7000); Neutrophils Percent Auto 54.7 % (50-75); Platelet Count 202 X10^3/uL (150-400); Red Blood Cell Count 3.86 X10^6/uL (4.5-5.9); Red Cell Distribution Width 13.7 % (11.6-14.8); White Blood Cell Count 9.2 X10^3/uL (4.5-11.0)
[2022-01-11 12:35] LABS: Alanine Aminotransferase 27 IU/L (<50); Albumin 3.8 g/dL (3.5-5.0); Albumin Globulin Ratio 1.1 (1.0-2.8); Alkaline Phosphatase 79 U/L (38-126); Aspartate Aminotransferase 32 IU/L (17-59); BUN Creatinine Ratio 21.2 (6-22); Bilirubin Total 1.1 mg/dL (0.2-1.3); Blood Urea Nitrogen 18 mg/dL (9-20); Calcium 8.4 mg/dL (8.4-10.2); Carbon Dioxide 23 mmol/L (22-32); Chloride 96 mmol/L (98-107); Creatine Kinase 75 U/L (55-170); Estimated Glomerular Filt Rate > 60 mL/min (>60); Globulin 3.6 g/dL (1.7-4.1); Glucose 104 mg/dL (80-110); HEMOLYSIS 23 (0-50); Potassium 3.9 mmol/L (3.4-5.1); Sodium 129 mmol/L (137-145); Total Protein 7.4 g/dL (6.3-8.2)
[2022-01-11 12:36] LABS: Prothrombin Time 11.4 SECONDS (10.1-12.7)
[2022-01-11 12:42] LABS: Eosinophils Percent Auto 28.5 % (2-4)
[2022-01-11 12:46] LABS: Troponin I < 0.012 ng/mL (0.01-0.034)
--- NOTE | 2022-01-11 12:52 | ED_ITS ---
HPI - Neuro Symptoms/Deficit General Chief Complaint: Neuro Symptoms/Deficit Stated Complaint: TIA Time Seen by Provider: 01/11/22 12:06 Source: patient and EMS Mode of arrival: EMS Limitations: no limitations History of Present Illness HPI Narrative: This is an 86-year-old male with history of SVT, dyslipidemia, cervical radiculopathy gout,, prior TIA on an aspirin 81 mg daily with complaint of right-sided vision loss and expressive aphasia at about 10:00 a.m. this morning that lasted for approximately 5 minutes and then resolved. Patient states approximately 2 years ago he had a TIA with his speech was ?gibberish? and resolved after about 10 or 15 minutes. He denies any new weakness or loss of sensation, he does have some chronic cervical radiculopathy and has chronic tingling in his hands bilaterally but did not appreciate any today and states it is better than it normally is. He denies any issues with gait or ambulation, no facial droop. He states his speech has normalized and his vision as well. He noted that he was reading the newspaper and he could see the 1st half of words but not the 2nd half on the right side. Patient states he has had prior cervical fusion but denies other surgical intervention. Patient has never had any cardiac stents or ablations. He is did not take his aspirin 81 mg today. No allergies to medications. Quit using alcohol in 1977, no current tobacco, no illicit. His primary care is Dr. Michele. On Anticoagulants: No (Aspiring 325mg daily) Related Data Home Medications Medication Instructions Recorded Confirmed cholecalciferol (vitamin D3) 50 2,000 unit PO DAILY PRN other ##0 05/13/17 01/11/22 mcg (2,000 unit) capsule (Vitamin D3) diazepam 2 mg tablet 2 mg PO QDAYP PRN Muscle cramping 05/13/17 01/11/22 ##0 allopurinol 300 mg tablet 300 mg PO QAM 12/15/18 01/11/22 atenolol 50 mg tablet 25 mg PO DAILY 12/15/18 01/11/22 pramipexole 0.5 mg tablet 1 mg PO BEDTIME PRN Restless Leg(S) 12/15/18 01/11/22 cyanocobalamin (vitamin B-12) 1,000 mcg PO DAILY PRN other 03/29/19 01/11/22 1,000 mcg tablet (Vitamin B-12) prednisone 5 mg tablet 5 mg PO QPM 03/29/19 01/11/22 fluticasone 100 mcg-salmeterol 50 1 inh inhalation BID 12/04/20 01/11/22 mcg/dose blistr powdr for inhalation (Advair Diskus) verapamil 120 mg tablet 120 mg PO DAILY 12/04/20 01/11/22 zolpidem 10 mg tablet 10 mg PO BEDTIME PRN Sleep 12/04/20 01/11/22 flunisolide 25 mcg (0.025 %) nasal 1 spray intranasal BID PRN 01/11/22 01/11/22 spray Congestion omega 4-[id number]-fish oil 120 1 cap PO PRN PRN other 01/11/22 01/11/22 mg-180 mg-500 mg capsule (Fish Oil) Previous Rx's Medication Instructions Recorded rosuvastatin 20 mg tablet 20 mg PO DAILY #30 tabs 03/30/19 aspirin 81 mg tablet,delayed 81 mg PO DAILY 90 days #90 tabs 01/12/22 release Allergies Allergy/AdvReac Type Severity Reaction Status Date / Time No Known Drug Allergies Allergy Verified 01/05/22 11:26 Review of Systems Review of Systems ROS Unobtainable: All systems reviewed & are unremarkable except as noted in HPI and below Hematologic/Lymphatic On Anticoagulants: No (Aspiring 325mg daily) Patient History Medical History Acid reflux Anemia of chronic disease BPH (benign prostatic hyperplasia) Centrilobular emphysema Cervical radiculopathy COPD (chronic obstructive pulmonary disease) Fragile skin Hearing impaired Hx of transient ischemic attack (TIA) Impaired fasting glucose Insomnia Interstitial lung disease Microscopic colitis (~06/2008) SUSAN on CPAP Osteoarthritis PSVT (paroxysmal supraventricular tachycardia) (~2004) RBBB (right bundle branch block) Rheumatoid arthritis 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 RLS (restless legs syndrome) Seasonal allergic rhinitis Surgical History H/O: vasectomy History of colonoscopy with polypectomy (~2016) Hx of arthroscopy of left knee Hx of arthroscopy of right knee Hx of bilateral cataract extraction Status post left unicompartmental knee replacement (~2011) Status post right unicompartmental knee replacement (~2016) Social History household members: spouse Smoking Status: Former smoker alcohol intake: current Smoking Status: Former smoker alcohol intake frequency: 0-2 drinks per day Alcohol type: wine Substance Use Type: does not use Exam Narrative Exam Narrative: GEN: well nourished, well appearing male, alert and oriented x 3, patient appears to be in mild distress. HEENT: Atraumatic, pupils are equal round reactive to light, extraocular movements are intact, nares are clear, TMs are clear with no fluid, there is no conjunctival pallor. Throat is clear without any exudates, erythema, tonsillar enlargement or uvular deviation, no facial droop HEART: Regular rate and rhythm without murmur, clicks, rubs. Pulses are equal in upper and lower extremities LUNGS:Lungs clear to auscultation, no wheezes, rales, crackles, chest moves symmetrically, no tachypnea accessory muscle use ABD:bowel sounds normal, soft, non-tender, no guarding, rebound, rigidity, no masses noted, no hepatosplenomegaly :No CVA tenderness MSCL: Non-tender, no muscle atrophy, muscles strength 5/5 upper and lower extremities, full range of motion NEURO:CN 2-12 intact, sensation normal, finger nose finger test normal, heel mcgee test normal, no dysarthria expressive aphasia SKIN: Rash, erythema or other skin changes Initial Vital Signs Initial Vital Signs: Vital Signs Pulse Rate 81 01/11/22 11:57 Pulse Oximetry 99 01/11/22 11:57 Scores NIH Stroke Scale Level of Conciousness: Alert, keenly responsive Ask month/age: Answers both questions correctly. Open/close eyes, close hand: Performs both tasks correctly Best gaze horizontal: Normal Visual euceda: No visual loss Facial palsy: Normal symetrical movement Left arm drift: No drift for full 10 sec Right arm drift: No drift for full 10 sec Left leg drift: No drift for full 5 sec Right leg drift: No drift for full 5 sec Limb ataxia: Absent Sensory on face/arms/legs: Normal, no sensory loss Best language: No aphasia, normal Dysarthria: Normal Extinction or inattention: No abnormality Total NIH Stroke scale score: 0 Course Orders Ordered: ED Orders 01/13/22 05:00 BMP [Basic Metabolic Panel] DAILY CBC Auto Diff [Complete Blood Count AUTO DIFF] DAILY 01/14/22 05:00 BMP [Basic Metabolic Panel] DAILY CBC Auto Diff [Complete Blood Count AUTO DIFF] DAILY Acetaminophen (Acetaminophen 325 Mg Tablet) 650 mg PO Q6H PRN PRN Reason: Fever/Mild Pain (1-3) Allopurinol (Allopurinol 300 Mg Tablet) 300 mg PO DAILY [facility] Last Admin: 01/12/22 08:32 Dose: 300 mg Documented By: FLAKO Atorvastatin Calcium (Atorvastatin 20 Mg Tablet) 40 mg PO BEDTIME [facility] Last Admin: 01/11/22 20:52 Dose: 40 mg Documented By: ORESTES Labetalol HCl (Labetalol 20 Mg/4 Ml Syringe) 10 mg IV Q5H PRN PRN Reason: SBP >220 or DBP >110 Naloxone HCl (Naloxone 0.4 Mg/Ml Vial) 0.2 mg IV Q2MIN PRN PRN Reason: Opiate Reversal Polyethylene Glycol (Polyethylene Glycol 3350 17 Gm Powd.Pack) 17 gm PO DAILY P RN PRN Reason: Constipation Pramipexole Dihydrochloride (Pramipexole 1 Mg Tablet) 1 mg PO BEDTIME [facility] Last Admin: 01/11/22 20:52 Dose: 1 mg Documented By: ORESTES Prednisone (Prednisone 5 Mg Tablet) 5 mg PO QPM [facility] Last Admin: 01/12/22 18:10 Dose: Not Given Documented By: Admin: 01/11/22 16:26 Dose: 5 mg Documented By: SAY Sennosides (Sennosides 8.6 Mg Tablet) 8.6 mg PO BID PRN PRN Reason: Constipation Zolpidem Tartrate (Zolpidem 5 Mg Tablet) 10 mg PO BEDTIME PRN PRN Reason: Sleep Discontinued Medications Aspirin (Aspirin 81 Mg Chew Tab) 324 mg PO NOW ONE Stop: 01/11/22 13:45 Last Admin: 01/11/22 14:06 Dose: 324 mg Documented By: BK Aspirin (Aspirin Ec 81 Mg Tablet) 81 mg PO DAILY [facility] Last Admin: 01/12/22 08:32 Dose: 81 mg Documented By: FLAKO Diazepam (Diazepam 2 Mg Tablet) 2 mg PO NOW ONE Stop: 01/11/22 21:33 Last Admin: 01/11/22 22:01 Dose: 2 mg Documented By: CHANO Enoxaparin Sodium (Enoxaparin 40 Mg/0.4 Ml Syringe) 40 mg SUBCUT DAILY [facility] Last Admin: 01/12/22 08:30 Dose: Not Given Documented By: Admin: 01/11/22 15:19 Dose: 40 mg Documented By: CW Lidocaine HCl (Lidocaine 2% (Glydo) 6 Ml Gel) 6 ml TOP NOW ONE Stop: 01/12/22 12:43 Last Admin: 01/12/22 13:30 Dose: 6 ml Documented By: LDV Lorazepam (Lorazepam 1 Mg Tablet) 1 mg PO NOW ONE Stop: 01/11/22 14:18 Last Admin: 01/11/22 14:26 Dose: 1 mg Documented By: AT Melatonin (Melatonin 3 Mg Tablet) 6 mg PO BEDTIME PRN PRN Reason: Insomnia Vital Signs Vital signs: Vital Signs - 8 hr 01/11/22 12:00 01/11/22 11:57 01/11/22 12:00 Temperature 97.9 F Pulse Rate 76 81 77 Respiratory Rate 18 13 Blood Pressure Pulse Oximetry 99 99 99 Oxygen Delivery Method Room Air Room Air 01/11/22 12:05 01/11/22 12:05 01/11/22 12:30 Temperature Pulse Rate 78 70 Respiratory Rate 15 17 Blood Pressure 142/74 H Pulse Oximetry 99 98 Oxygen Delivery Method Room Air 01/11/22 13:00 01/11/22 13:30 01/11/22 13:31 Temperature Pulse Rate 77 80 81 Respiratory Rate 25 H Blood Pressure Pulse Oximetry 98 97 98 Oxygen Delivery Method Room Air Room Air Room Air 01/11/22 13:31 Temperature Pulse Rate Respiratory Rate Blood Pressure 161/78 H Pulse Oximetry Oxygen Delivery Method MDM - Neuro Symptoms/Deficit Lab Data Result diagrams: 01/12/22 11:40 01/12/22 05:45 Labs: Lab Results 01/11/22 01/11/22 01/11/22 Range/Units 12:10 12:10 12:10 WBC 9.2 (4.5-11.0) X10^3/uL RBC 3.86 L (4.5-5.9) X10^6/uL Hgb 12.6 L (13.5-17.5) g/dL Hct 36.7 L (41-53) % MCV 95.3 (80-100) fL MCH 32.8 (26-34) PG MCHC 34.4 (30-36) % RDW 13.7 (11.6-14.8) % Plt Count 202 (150-400) X10^3/uL Neut % (Auto) 54.7 (50-75) % Lymph % (Auto) 9.8 L (25-40) % Starr % (Auto) 6.3 (3-14) % Eos % (Auto) 28.5 H (2-4) % Baso % (Auto) 0.7 (0-2) % Neut # (Auto) 5100 (6795-1003) /uL Lymph # (Auto) 900 L (2498-6695) /uL Starr # (Auto) 600 (0-900) /uL Eos # (Auto) 2600 H (0-450) /uL Baso # (Auto) 100 (0-100) /uL PT 11.4 (10.1-12.7) SECONDS INR 1.0 (0.9-1.3) APTT 30 (26-36) SECONDS Sodium 129 L (137-145) mmol/L Potassium 3.9 (3.4-5.1) mmol/L Chloride 96 L (98-107) mmol/L Carbon Dioxide 23 (22-32) mmol/L BUN 18 (9-20) mg/dL Creatinine 0.85 (0.66-1.25) mg/dL Estimated GFR > 60 (>60) mL/min BUN/Creatinine Ratio 21.2 (6-22) Glucose 104 (80-110) mg/dL Hemoglobin A1c (4.0-6.0) % Calcium 8.4 (8.4-10.2) mg/dL Magnesium 2.0 (1.6-2.3) mg/dL Total Bilirubin 1.1 (0.2-1.3) mg/dL AST 32 (17-59) IU/L ALT 27 (<50) IU/L Alkaline Phosphatase 79 (38-126) U/L Total Creatine Kinase 75 (55-170) U/L CK-MB (CK-2) TNP CK-MB (CK-2) Rel Index TNP Troponin I < 0.012 (0.01-0.034) ng/mL Total Protein 7.4 (6.3-8.2) g/dL Albumin 3.8 (3.5-5.0) g/dL Globulin 3.6 (1.7-4.1) g/dL Albumin/Globulin Ratio 1.1 (1.0-2.8) Triglycerides (35-150) mg/dL Cholesterol (140-199) mg/dL LDL Cholesterol, Calc (<100) mg/dL HDL Cholesterol (40-60) mg/dL Urine RBC (0-5/HPF) Urine WBC (0-5/HPF) Urine Bacteria (None) Ur Culture Indicated? U Opiates 300ng/mL cut (Negative) Ur Oxycodone Screen (Negative) Urine Methadone Screen (Negative) Ur Barbiturates Screen (Negative) U Tricyclic Antidepress (Negative) Ur Phencyclidine Scrn (Negative) Ur Amphetamines Screen (Negative) U Methamphetamines Scrn (Negative) Ur MDMA Scrn (Ecstasy) (Negative) U Benzodiazepines Scrn (Negative) Urine Cocaine Screen (Negative) U Marijuana (THC) Screen (Negative) SARS-CoV-2 (PCR) (Negative) 01/11/22 01/11/22 01/11/22 Range/Units 12:10 12:10 13:03 WBC (4.5-11.0) X10^3/uL RBC (4.5-5.9) X10^6/uL Hgb (13.5-17.5) g/dL Hct (41-53) % MCV (80-100) fL MCH (26-34) PG MCHC (30-36) % RDW (11.6-14.8) % Plt Count (150-400) X10^3/uL Neut % (Auto) (50-75) % Lymph % (Auto) (25-40) % Starr % (Auto) (3-14) % Eos % (Auto) (2-4) % Baso % (Auto) (0-2) % Neut # (Auto) (0642-2958) /uL Lymph # (Auto) (2678-9558) /uL Starr # (Auto) (0-900) /uL Eos # (Auto) (0-450) /uL Baso # (Auto) (0-100) /uL PT (10.1-12.7) SECONDS INR (0.9-1.3) APTT (26-36) SECONDS Sodium (137-145) mmol/L Potassium (3.4-5.1) mmol/L Chloride (98-107) mmol/L Carbon Dioxide (22-32) mmol/L BUN (9-20) mg/dL Creatinine (0.66-1.25) mg/dL Estimated GFR (>60) mL/min BUN/Creatinine Ratio (6-22) Glucose (80-110) mg/dL Hemoglobin A1c 5.2 (4.0-6.0) % Calcium (8.4-10.2) mg/dL Magnesium (1.6-2.3) mg/dL Total Bilirubin (0.2-1.3) mg/dL AST (17-59) IU/L ALT (<50) IU/L Alkaline Phosphatase (38-126) U/L Total Creatine Kinase (55-170) U/L CK-MB (CK-2) CK-MB (CK-2) Rel Index Troponin I (0.01-0.034) ng/mL Total Protein (6.3-8.2) g/dL Albumin (3.5-5.0) g/dL Globulin (1.7-4.1) g/dL Albumin/Globulin Ratio (1.0-2.8) Triglycerides 113 (35-150) mg/dL Cholesterol 141 (140-199) mg/dL LDL Cholesterol, Calc 59 (<100) mg/dL HDL Cholesterol 59 (40-60) mg/dL Urine RBC (0-5/HPF) Urine WBC (0-5/HPF) Urine Bacteria (None) Ur Culture Indicated? U Opiates 300ng/mL cut (Negative) Ur Oxycodone Screen (Negative) Urine Methadone Screen (Negative) Ur Barbiturates Screen (Negative) U Tricyclic Antidepress (Negative) Ur Phencyclidine Scrn (Negative) Ur Amphetamines Screen (Negative) U Methamphetamines Scrn (Negative) Ur MDMA Scrn (Ecstasy) (Negative) U Benzodiazepines Scrn (Negative) Urine Cocaine Screen (Negative) U Marijuana (THC) Screen (Negative) SARS-CoV-2 (PCR) Negative (Negative) 01/11/22 01/11/22 Range/Units 13:38 13:38 WBC (4.5-11.0) X10^3/uL RBC (4.5-5.9) X10^6/uL Hgb (13.5-17.5) g/dL Hct (41-53) % MCV (80-100) fL MCH (26-34) PG MCHC (30-36) % RDW (11.6-14.8) % Plt Count (150-400) X10^3/uL Neut % (Auto) (50-75) % Lymph % (Auto) (25-40) % Starr % (Auto) (3-14) % Eos % (Auto) (2-4) % Baso % (Auto) (0-2) % Neut # (Auto) (7292-5392) /uL Lymph # (Auto) (6516-3146) /uL Starr # (Auto) (0-900) /uL Eos # (Auto) (0-450) /uL Baso # (Auto) (0-100) /uL PT (10.1-12.7) SECONDS INR (0.9-1.3) APTT (26-36) SECONDS Sodium (137-145) mmol/L Potassium (3.4-5.1) mmol/L Chloride (98-107) mmol/L Carbon Dioxide (22-32) mmol/L BUN (9-20) mg/dL Creatinine (0.66-1.25) mg/dL Estimated GFR (>60) mL/min BUN/Creatinine Ratio (6-22) Glucose (80-110) mg/dL Hemoglobin A1c (4.0-6.0) % Calcium (8.4-10.2) mg/dL Magnesium (1.6-2.3) mg/dL Total Bilirubin (0.2-1.3) mg/dL AST (17-59) IU/L ALT (<50) IU/L Alkaline Phosphatase (38-126) U/L Total Creatine Kinase (55-170) U/L CK-MB (CK-2) CK-MB (CK-2) Rel Index Troponin I (0.01-0.034) ng/mL Total Protein (6.3-8.2) g/dL Albumin (3.5-5.0) g/dL Globulin (1.7-4.1) g/dL Albumin/Globulin Ratio (1.0-2.8) Triglycerides (35-150) mg/dL Cholesterol (140-199) mg/dL LDL Cholesterol, Calc (<100) mg/dL HDL Cholesterol (40-60) mg/dL Urine RBC >100/hpf H (0-5/HPF) Urine WBC None seen (0-5/HPF) Urine Bacteria None seen (None) Ur Culture Indicated? Cult not indicated U Opiates 300ng/mL cut Negative (Negative) Ur Oxycodone Screen Negative (Negative) Urine Methadone Screen Negative (Negative) Ur Barbiturates Screen Negative (Negative) U Tricyclic Antidepress Negative (Negative) Ur Phencyclidine Scrn Negative (Negative) Ur Amphetamines Screen Negative (Negative) U Methamphetamines Scrn Negative (Negative) Ur MDMA Scrn (Ecstasy) Negative (Negative) U Benzodiazepines Scrn Negative (Negative) Urine Cocaine Screen Negative (Negative) U Marijuana (THC) Screen Negative (Negative) SARS-CoV-2 (PCR) (Negative) Point of Care Testing Glucose POC 128 Urine Dip Bedside Urine Glucose Negative Bedside Urine Bilirubin - Negative Bedside Urine Ketone - Negative Urine Specific [place] 1.010 Bedside Urine Occult Blood +++ Bedside Urine pH 7.0 Bedside Urine Protein +/- 15 Bedside Urine Urobilinogen - Negative Bedside Urine Nitrite - Negative Bedside Urine Leukocytes - Negative Esterase Imaging Data CTA - brain/neck: Radiologist's Impression: [place] [address] CT Scan Report Signed Patient: Vinnie Villalobos MR#: [id number] : 1935 Acct:[id number] Age/Sex: 86 / M Date of Service: 01/11/22 Loc: ED Accession Number: [id number] ?? Procedure: CT angio head and neck Ordering Provider: Pushpa Mendez D.O. PROCEDURE:? CT ANGIO HEAD AND NECK ? INDICATIONS:? Possible stroke ? TECHNIQUE:? Pre-contrast 4.5 mm thick sections acquired from the foramen magnum to the vertex.? After the administration of intravenous contrast, 1 mm thick sections acquired from the aortic arch through the [place] of [place].? Post-contrast 4.5 mm thick sections then re- acquired from the foramen magnum to the vertex.? 3-dimensional ajukrsl-tbweczvsp-cxbkbgjfdy (MIP) and/or volume rendering reformats were acquired of the central intracranial vasculature and neck separately. For radiation dose reduction, the following was used:? automated exposure control, adjustment of mA and/or kV according to patient size.? ? COMPARISON:? [facility], CT, CT CERVICAL SPINE WO CON, 05/30/2019, 11:11.? [facility], CR, XR CHEST 1V, 01/11/2022, 12:19.? [facility], CT, CT HEAD/BRAIN WO CON, 03/29/2019, 17:05. ? FINDINGS:? Image quality:? Mild streak artifact can be seen through the skull base. There is artifact associated with the metallic hardware. ? ? BRAIN:? CSF spaces:? Ventricles are normal in size and shape.? Basal cisterns are patent.? No extra-axial fluid collections.? ? Brain:? No midline shift.? No intracranial bleeds or masses.? Cloud-white matter interface appears intact.? ? Skull and face:? Calvarium and facial bones appear intact, without suspicious lesions.? Orbits appear normal.? ? Sinuses:? Sinuses and mastoids are clear.? ? HEAD CT ANGIOGRAPHY:? Anterior circulation:? Intracranial internal carotid arteries are normal in size and flow.? The flow within the paired anterior cerebral arteries is normal and symmetric.? The flow within the middle cerebral arteries is normal and symmetric.? The anterior communicating artery is seen.? No aneurysms are seen.? ? Posterior circulation:? The left V4 segment largely terminates in the left posterior inferior cerebellar artery.? The right V4 segment is within normal limits.? There is a normal appearing basilar artery.? Flow within the posterior cerebral arteries is normal and symmetric.? No aneurysms are seen.? ? NECK CT ANGIOGRAPHY:? Carotid system:? Incidental note is made of a common origin of the right brachiocephalic artery and the left common carotid artery (bovine type arch). This is considered to be a developmental variant of no clinical consequence. ? The origins of the common carotid arteries appear patent.? The common carotid arteries demonstrate normal caliber and courses.? ? The right bifurcation region demonstrates focal atherosclerotic calcification and irregularity, with approximately 50% narrowing seen involving the origin of the right internal carotid artery.? The left carotid bifurcation region is within normal limits, without a significant stenosis. The more distal internal carotid arteries demonstrate normal course and caliber.? ? Posterior circulation:? There is focal calcification seen involving the origin left vertebral artery.? No significant stenosis can be seen involving the origin of the right vertebral artery.? The right vertebral artery is dominant to the left.? The more superior extracranial portions of both vertebral arteries also demonstrate normal courses.? ? Soft tissues:? Visualized neck soft tissues demonstrate no suspicious abnormalities.? ? Bones:? No suspicious bony lesions.? Visualized cervical spine appears normally aligned.? IMPRESSION:? Approximately 50% narrowing seen involving the origin of the right internal carotid artery. ? No acute intracranial hemorrhage is seen.? ? No acute intracranial process is seen.? ? No significant intracranial arterial abnormality is seen.? ? If there is strong clinical suspicion for an acute stroke, please consider a brain MRI for further evaluation, as it is more sensitive (assuming that there is no contraindication to MRI). ? Incidental note is made of: Cervical spine fixation hardware Right vertebral artery dominant to the left. Bovine type arch branching pattern ? ? Any quantitative measurements of stenosis were performed using NASCET criteria.? ? ? Dictated by: Johnny Oviedo M.D. on 01/11/2022 at 12:33 ? ? Approved by: Johnny Oviedo M.D. on 01/11/2022 at 12:39?? ECG Data Attestation: I personally reviewed and interpreted this ECG as follows: Prior ECG tracings: available for review Interpretation: Sinus rhythm, rate of 70 6p are 194, QRS of [address]TC [address] No acute ST elevation patient does have right bundle-branch block. Patient has prior from 03/29/2019 it does not show any acute changes. MDM Narrative Medical decision making narrative: This is an 86-year-old male with TIA symptoms that have resolved, patient is not tPA candidate, CT angio shows 50% stenosis but node code IR changes. Patient has mild hyponatremia. Had aspirin 324 mg here in the emergency department spoke with hospitalist who accepts for TIA workup. Discharge Plan Departure Patient Disposition: Admitted as Observation Clinical Impression: TIA (transient ischemic attack), Hyponatremia Admit Date/Time: 01/11/22 14:16 Admit Provider: Dinesh Thomas
[2022-01-11 12:59] LABS: PTT Partial Thromboplastin Tim 30 SECONDS (26-36)
[2022-01-11 13:32] LABS: COVID19 -Nasal RAPID Negative (Negative)
[2022-01-11 13:51] LABS: UR Morphine/Opiate cutoff 300 Negative (Negative); Ur Creatinine Normal (Normal); Ur Specific Gravity Normal (Normal); Urine Amphetamines Negative (Negative); Urine Barbiturates Negative (Negative); Urine Benzodiazepines Negative (Negative); Urine Cocaine Negative (Negative); Urine MDMA Negative (Negative); Urine Methadone Negative (Negative); Urine Methamphetamines Negative (Negative); Urine Oxycodone Negative (Negative); Urine Phencyclidine Negative (Negative); Urine Tetrahydrocannabinol Negative (Negative); Urine Tricyclic Antidepressant Negative (Negative); Urine pH Normal (Normal)
[2022-01-11 13:53] LABS: Bacteria Urine None Seen; Culture Indicated Urine Cult Not Indicated; RBC Urine >100/HPF (0-5/HPF); WBC Urine None Seen (0-5/HPF)
[2022-01-11] MEDS: ASPIRIN 81 MG CHEW TAB 324 MG PO (14:06)
--- NOTE | 2022-01-11 14:07 | DI.MRI.S_ITS ---
PROCEDURE: MR HEAD/BRAIN WO CON INDICATIONS: TIA workup TECHNIQUE: Non-contrast axial T1 spin echo, axial T2 fast spin echo, sagittal and axial FLAIR, coronal T2 fast spin echo, axial gradient echo, axial diffusion and ADC through the brain. COMPARISON: [facility], MR, MR STROKE, 03/30/2019, 8:26. [facility], CT, CT ANGIO HEAD AND NECK, 01/11/2022, 12:35. FINDINGS: Image quality: Excellent. CSF spaces: Ventricles appear symmetric in size and shape. Basal cisterns are patent. No extra-axial fluid collections. Brain: No intracranial bleeds or mass effects. There is cerebral volume loss for age. There are periventricular and deep white matter chronic small vessel ischemic changes. Linear changes of increased FLAIR signal are noted within the leo suggestive of chronic microvascular ischemic change. Diffusion-weighted images show no acute ischemic insults. No chronic ischemic insults. Normal intravascular flow voids are present. Skull and face: Calvarial bone marrow is normal in signal. Orbits are normal. Sinuses: Sinuses demonstrate a mucous retention cyst vs polyp in the left maxillary sinus. Mild fluid is present in the left mastoid air cells. IMPRESSION: 1. No acute intracranial process. No acute ischemia. 2. Moderate atrophy and chronic microvascular ischemic changes. Dictated by: Rosalba Luna M.D. on 01/11/2022 at 14:59 Approved by: Rosalba Luna M.D. on 01/11/2022 at 15:04
--- NOTE | 2022-01-11 14:07 | DI.ECHO.S_ITS ---
[place] [facility]---------+ [facility] +---------+ : : [address] : [address] : : : : [id number] : : : : Phone: [phone]+ Echocardiogram Report + + :Name: MEGAN SALGUERO Study Date: 01/11/2022 Height: 72 in : :[facility] ReadingLocation: Weight: 195 lb : : Gender: Male BSA: 2.1 m2 : :: 1935 Age: 86 yrs BP: 154/83 mmHg: :Reason For Study: TIA : :Ordering Physician: JAM ZAVALETA : :Robyn Campos Performed By: Meena Collado : :Referring: JAM ZAVALETA D.O. : + + Interpretation Summary Normal left ventricle size with ejection fraction 60-65%. Borderline dilated right ventricle with normal right ventricular systolic function. Mild biatrial enlargement. The aortic valve is mildly calcified. Mild aortic regurgitation. Moderate mitral annular calcification. Mild mitral regurgitation. The ascending aorta is mild-moderately enlarged. Comparison is made with the echocardiogram of 01/14/2020, there has been no significant change. Procedure: A two-dimensional transthoracic echocardiogram with color flow and Doppler was performed. The study quality was technically adequate. Comparison is made with the echocardiogram of 01/14/2020. The patient was in sinus rhythm with heart rates between 64-76 bpm during the exam. Left Ventricle: The left ventricle is normal in size and wall thickness. The ejection fraction is estimated to be 60-65%. There are no focal wall motion abnormalities. Diastolic function could not be accurately assessed due to confounding valvular disease. Right Ventricle: The right ventricle is borderline dilated. The right ventricular systolic function is normal. Atria: There is mild biatrial enlargement. There is no Doppler evidence for an interatrial shunt. Mitral Valve: The mitral valve leaflets appear mildly thickened, but open well. There is moderate mitral annular calcification. There is mild mitral regurgitation. Aortic Valve: The aortic valve is trileaflet. The aortic valve opens well. The aortic valve is mildly calcified. There is no aortic valve stenosis. There is mild aortic regurgitation. Tricuspid Valve: The tricuspid valve is normal in structure and function. There is mild tricuspid regurgitation. The right ventricular systolic pressure is estimated to be at least 22 mmHg based on an estimated right atrial pressure of 3 mm Hg. Pulmonic Valve: The pulmonic valve is not well visualized. There is trace pulmonic regurgitation. Great Vessels: The aortic root is normal size. The ascending aorta is mild- moderately enlarged. The IVC is of normal diameter and collapses greater than 50% with a sniff. This suggests a low right atrial pressure of 3 mm Hg. Pericardium/ Pleura There is no pericardial effusion. There is no pleural effusion. MMode/2D Measurements & Calculations LVIDd: 4.7 cm LVOT diam: 2.1 cm LVIDs: 2.9 cm Ao root diam: 3.4 cm FS: 39.7 % asc Aorta Diam: 4.2 cm IVSd: 0.90 cm Ao Arch Diam (Prox Trans): 2.7 cm LVPWd: 0.85 cm LV joel. diameter/BSA (cm/m^2): 2.2 LV sys. diameter/BSA (cm/m^2): 1.4 LA A2 area: 28.0 cm2 RA long axis: 6.1 cm LA A4 area: 24.6 cm2 RA area: 23.1 cm2 LA length (vol): 6.5 cm RA vol: 74.4 ml LA vol: 89.8 ml RA : 35.3 ml/m2 LA vol index: 42.6 ml/m2 IVC diam: 1.6 cm RVD1 (basal): 4.1 cm RVD2 (mid): 3.4 cm TAPSE: 2.1 cm Doppler Measurements & Calculations Ao V2 max: 171.7 cm/sec LVOT Max Jeff: 97.8 cm/sec Ao V2 mean: 126.7 cm/sec LV V1 max P.8 mmHg Ao max P.8 mmHg LV V1 VTI: 21.8 cm Ao mean P.0 mmHg GIGI(I,D): 1.8 cm2 Ao V2 VTI: 39.7 cm GIGI(V,D): 1.9 cm2 sev ratio: 0.55 GIGI indexed to BSA (cm^2/m^2): 0.86 MV E max jeff: 107.7 cm/sec TR max jeff: 220.1 cm/sec MV A max jeff: 122.7 cm/sec TR max P.4 mmHg MV E/A: 0.88 PA V2 max: 88.8 cm/sec Med Peak E' Jeff: 4.6 cm/sec PA V2 mean: 62.7 cm/sec E/E' med: 23.5 PA mean P.8 mmHg Lat Peak E' Jeff: 8.5 cm/sec PA pr(Accel): 32.8 mmHg E/E' lat: 12.7 E/e' average: 18.1 MV dec time: 0.33 sec MVA(VTI): 1.6 cm2 MV V2 mean: 81.6 cm/sec SV(LVOT): 72.1 ml MV mean P.1 mmHg MV V2 VTI: 45.2 cm Electronically signed by: Jesus Kaur on Reading Physician:01/11/2022 04:39 PM
--- NOTE | 2022-01-11 14:11 | P.HP_ITS ---
History of Present Illness History of Present Illness Chief complaint: TIA Narrative: Janes Villalobos is an 86 yo M with PMH of TIA, BPH, RLS, SUSAN on CPAP, gout, RA on prednisone, ILD, RLS and microscopic colitis who presents with acute onset hemianopsia and expressive aphasia lasting 5 minutes with the concern for TIA. Was reading and noticed he could not see the right sides of the words and had difficulty speaking to his . Denied any facial droop or extremity weakness. Patient had a similar episode about 2 years ago where he was speaking with his neighbor and suddenly had word salad speech which lasted several minutes. Workup for TIA at that time was negative. He has taken 325 mg aspirin daily since then. Takes 5mg prednisone nightly for his RA. Denies smoking history or alcohol use. No chest pain, SOB, cough, NV, abd pain or diarrhea. Patient History Medical History Acid reflux Anemia of chronic disease BPH (benign prostatic hyperplasia) Centrilobular emphysema Cervical radiculopathy COPD (chronic obstructive pulmonary disease) Fragile skin Hearing impaired Hx of transient ischemic attack (TIA) Impaired fasting glucose Insomnia Interstitial lung disease Microscopic colitis (~06/2008) SUSAN on CPAP Osteoarthritis PSVT (paroxysmal supraventricular tachycardia) (~2004) RBBB (right bundle branch block) Rheumatoid arthritis 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 RLS (restless legs syndrome) Seasonal allergic rhinitis Surgical History H/O: vasectomy History of colonoscopy with polypectomy (~2016) Hx of arthroscopy of left knee Hx of arthroscopy of right knee Hx of bilateral cataract extraction Status post left unicompartmental knee replacement (~2011) Status post right unicompartmental knee replacement (~2015) Family & Social History Social History: household members spouse Safety & Behavioral: Feels Safe in Current Yes Environment Been Physically Hurt or No Threatened By a Person Tobacco & Substance use: Tobacco type cigarettes Smoking Status Former smoker alcohol intake current alcohol intake frequency 0-2 drinks per day Substance Use Type does not use Meds Home Medications and Allergies Home Medications Medication Instructions Recorded Confirmed Type cholecalciferol (vitamin D3) 50 2,000 unit PO DAILY PRN other ##0 05/13/17 01/11/22 History mcg (2,000 unit) capsule (Vitamin D3) diazepam 2 mg tablet 2 mg PO QDAYP PRN Muscle cramping 05/13/17 01/11/22 History ##0 allopurinol 300 mg tablet 300 mg PO QAM 12/15/18 01/11/22 History atenolol 50 mg tablet 25 mg PO DAILY 12/15/18 01/11/22 History pramipexole 0.5 mg tablet 1 mg PO BEDTIME PRN Restless Leg(S) 12/15/18 01/11/22 History cyanocobalamin (vitamin B-12) 1,000 mcg PO DAILY PRN other 03/29/19 01/11/22 History 1,000 mcg tablet (Vitamin B-12) prednisone 5 mg tablet 5 mg PO QPM 03/29/19 01/11/22 History rosuvastatin 20 mg tablet 20 mg PO DAILY #30 tabs 03/30/19 01/11/22 Rx fluticasone 100 mcg-salmeterol 50 1 inh inhalation BID 12/04/20 01/11/22 History mcg/dose blistr powdr for inhalation (Advair Diskus) verapamil 120 mg tablet 120 mg PO DAILY 12/04/20 01/11/22 History zolpidem 10 mg tablet 10 mg PO BEDTIME PRN Sleep 12/04/20 01/11/22 History aspirin 325 mg tablet 325 mg PO DAILY #42 tabs 12/05/20 01/11/22 Rx flunisolide 25 mcg (0.025 %) nasal 1 spray intranasal BID PRN 01/11/22 01/11/22 History spray Congestion omega 0-[id number]-jkt-fish oil 120 1 cap PO PRN PRN other 01/11/22 01/11/22 History mg-180 mg-500 mg capsule (Fish Oil) Allergies Allergy/AdvReac Type Severity Reaction Status Date / Time No Known Drug Allergies Allergy Verified 01/05/22 11:26 Review of Systems Review of Systems Narrative: All other systems reviewed with the patient and are negative unless otherwise stated. Exam Vital Signs (past 8 hours): - 01/11/22 12:00 01/11/22 11:57 01/11/22 12:00 Temperature 97.9 F Pulse Rate 76 81 77 Respiratory Rate 18 13 Blood Pressure Pulse Oximetry 99 99 99 Oxygen Delivery Method Room Air Room Air 01/11/22 12:05 01/11/22 12:05 01/11/22 12:30 Temperature Pulse Rate 78 70 Respiratory Rate 15 17 Blood Pressure 142/74 H Pulse Oximetry 99 98 Oxygen Delivery Method Room Air 01/11/22 13:00 01/11/22 13:30 01/11/22 13:31 Temperature Pulse Rate 77 80 81 Respiratory Rate 25 H Blood Pressure Pulse Oximetry 98 97 98 Oxygen Delivery Method Room Air Room Air Room Air 01/11/22 13:31 Temperature Pulse Rate Respiratory Rate Blood Pressure 161/78 H Pulse Oximetry Oxygen Delivery Method Oxygen Delivery Method Room Air Narrative Exam Narrative: GEN: no acute distress, elderly male HEENT: moist mucous membranes, PERRL NECK: trachea midline, no JVD CV: regular rate and rhythm, no murmurs PULM: clear bilaterally ABD: soft, nontender, nondistended, no organomegaly EXT: warm and well perfused with no edema NEURO: awake, alert, oriented, no focal deficits Objective Labs Result Diagrams: 01/11/22 12:10 01/11/22 12:10 Labs: Laboratory Results - last 24 hr 01/11/22 01/11/22 01/11/22 12:10 12:10 12:10 WBC 9.2 RBC 3.86 L Hgb 12.6 L Hct 36.7 L MCV 95.3 MCH 32.8 MCHC 34.4 RDW 13.7 Plt Count 202 Neut % (Auto) 54.7 Lymph % (Auto) 9.8 L [place] % (Auto) 6.3 Eos % (Auto) 28.5 H Baso % (Auto) 0.7 Neut # (Auto) 5100 Lymph # (Auto) 900 L [place] # (Auto) 600 Eos # (Auto) 2600 H Baso # (Auto) 100 PT 11.4 INR 1.0 APTT 30 Sodium 129 L Potassium 3.9 Chloride 96 L Carbon Dioxide 23 BUN 18 Creatinine 0.85 Estimated GFR > 60 BUN/Creatinine Ratio 21.2 Glucose 104 Calcium 8.4 Magnesium 2.0 Total Bilirubin 1.1 AST 32 ALT 27 Alkaline Phosphatase 79 Total Creatine Kinase 75 CK-MB (CK-2) TNP CK-MB (CK-2) Rel Index TNP Troponin I < 0.012 Total Protein 7.4 Albumin 3.8 Globulin 3.6 Albumin/Globulin Ratio 1.1 Urine RBC Urine WBC Urine Bacteria Ur Culture Indicated? U Opiates 300ng/mL cut Ur Oxycodone Screen Urine Methadone Screen Ur Barbiturates Screen U Tricyclic Antidepress Ur Phencyclidine Scrn Ur Amphetamines Screen U Methamphetamines Scrn Ur MDMA Scrn (Ecstasy) U Benzodiazepines Scrn Urine Cocaine Screen U Marijuana (THC) Screen SARS-CoV-2 (PCR) 01/11/22 01/11/22 01/11/22 13:03 13:38 13:38 WBC RBC Hgb Hct MCV MCH MCHC RDW Plt Count Neut % (Auto) Lymph % (Auto) [place] % (Auto) Eos % (Auto) Baso % (Auto) Neut # (Auto) Lymph # (Auto) [place] # (Auto) Eos # (Auto) Baso # (Auto) PT INR APTT Sodium Potassium Chloride Carbon Dioxide BUN Creatinine Estimated GFR BUN/Creatinine Ratio Glucose Calcium Magnesium Total Bilirubin AST ALT Alkaline Phosphatase Total Creatine Kinase CK-MB (CK-2) CK-MB (CK-2) Rel Index Troponin I Total Protein Albumin Globulin Albumin/Globulin Ratio Urine RBC >100/hpf H Urine WBC None seen Urine Bacteria None seen Ur Culture Indicated? Cult not indicated U Opiates 300ng/mL cut Negative Ur Oxycodone Screen Negative Urine Methadone Screen Negative Ur Barbiturates Screen Negative U Tricyclic Antidepress Negative Ur Phencyclidine Scrn Negative Ur Amphetamines Screen Negative U Methamphetamines Scrn Negative Ur MDMA Scrn (Ecstasy) Negative U Benzodiazepines Scrn Negative Urine Cocaine Screen Negative U Marijuana (THC) Screen Negative SARS-CoV-2 (PCR) Negative Assessment & Plan Assessment & Plan narrative: # possible TIA -patient had 5 minutes of right-sided hemianopsia and expressive aphasia which then resolved -CTA head and neck show no acute stroke but 50% right carotid stenosis, will evaluate further with carotid ultrasound -NIH of 0 in ED, ABCD2 score of 3 -patient takes 325mg aspirin and Crestor daily, will continue but lower to 81mg daily due to patient reported easy bruising -MRI brain and echo ordered -telemetry -check lipids and A1c -labetalol as needed for SBP greater than 220 or DBP greater than 110 # HTN, chronic -hold home BP meds for 24 hours # RLS, chronic -continue home mirapex nightly # RA, chronic -continue home prednisone 5mg daily # insomnia, chronic -continue home ambien nightly PRN # gout, chronic -continue home allopurinol Code status is full code. COVID negative. DVT prophylaxis with Lovenox. Proxy is Merissa. I have reviewed home meds and used all available resources to reconcile the home meds. This patient will be admitted as observation and will require less than 2 midnights of hospital time to treat TIA workup. Time Spent With Patient Critical Care time: I spent a total of [] minutes of critical care time on this patient's care today; this time is exclusive of procedural time.
--- NOTE | 2022-01-11 14:17 | DI.US.S_ITS ---
PROCEDURE: US CAROTID DOPPLER BI INDICATIONS: carotid stenosis on CTA, TIA symptoms TECHNIQUE: Color and pulse Doppler interrogation was performed of both carotid systems, with image documentation and velocity measurements. COMPARISON: [facility], CT, CT ANGIO HEAD AND NECK, 01/11/2022, 12:35. [facility], MR, MR HEAD/BRAIN WO CON, 01/11/2022, 14:17. FINDINGS: Stenosis calculations are based on SRU (Society of Radiologists in Ultrasound) criteria. The flow velocities and the arterial waveforms are normal within both carotid arterial systems. Atherosclerotic plaque is seen on both sides. The estimated degree of internal carotid artery stenosis is less than 50%. Antegrade flow is confirmed within both vertebral arteries. IMPRESSION: No hemodynamically significant stenosis is seen, including at the origin of the right internal carotid artery, where mild stenosis can be seen on the accompanying CT scan. Atherosclerotic plaque is noted bilaterally. Dictated by: Johnny Oviedo M.D. on 01/11/2022 at 17:11 Approved by: Johnny Oviedo M.D. on 01/11/2022 at 17:13
[2022-01-11] MEDS: LORazepam 1 MG TABLET PO (14:26)
[2022-01-11 14:31] LABS: Hemoglobin A1C% w Est Avg Glu 5.2 % (4.0-6.0)
[2022-01-11 14:42] LABS: Cholesterol 141 mg/dL (140-199); HDL Cholesterol 59 mg/dL (40-60); LDL Cholesterol Calculated 59 mg/dL (<100); Triglycerides 113 mg/dL (35-150)
[2022-01-11] MEDS: ENOXAPARIN 40 MG/0.4 ML SYRINGE SUBCUT (15:19)
[2022-01-11] MEDS: predniSONE 5 MG TABLET PO (16:26)
--- NOTE | 2022-01-11 17:04 | PC.NURSE ---
1455 Pt arrived per WC from MRI to rm 228. Admission assessment, skin assessment and initial physical assessment completed. NIHSS =0 - Pt oriented to environment, Swallow screen completed and general diet offered. VSS, IV saline locked.
[2022-01-11 19:16] LABS: Appearance Urine UA CLOUDY; Bilirubin Urine UA NEGATIVE (NEGATIVE); Color Urine UA RED; Glucose Urine UA NEGATIVE (Negative); Ketones Urine UA NEGATIVE (NEGATIVE); Leukocyte Esterase Urine UA NEGATIVE (NEGATIVE); Nitrite Urine UA NEGATIVE (Negative); Occult Blood Urine UA 3+ (Negative); Protein Urine UA TRACE (Negative); Specific Gravity Urine UA <=1.005 (1.000-1.035); Urobilinogen Urine UA 0.2 E.U./dL (0.2); pH Urine UA 6.5 (4.5-8.0)
[2022-01-11 19:19] LABS: Bacteria Urine None Seen; RBC Urine >100/HPF (0-5/HPF); WBC Urine 1-5/HPF (0-5/HPF)
[2022-01-11 19:20] LABS: Culture Indicated Urine Cult Not Indicated
[2022-01-11] MEDS: PRAMIPEXOLE 1 MG TABLET PO (20:52)
[2022-01-11] MEDS: ATORVASTATIN 20 MG TABLET 40 MG PO (20:52)
[2022-01-11] MEDS: diazePAM 2 MG TABLET PO (22:01)
[2022-01-12] VITALS: BP 120/67; PULSE 72; RESP 18; TEMP 37.2; O2SAT 98
[2022-01-12 04:00] VITALS: BP 127/63; PULSE 78; RESP 19; TEMP 37.1; O2SAT 98
[2022-01-12 06:33] LABS: Hemoglobin 13.3 g/dL (13.5-17.5); Mean Corpuscular Hemoglobin 32.4 PG (26-34); Mean Corpuscular Volume 95.3 fL (80-100); Platelet Count 212 X10^3/uL (150-400); Red Cell Distribution Width 13.7 % (11.6-14.8); White Blood Cell Count 9.4 X10^3/uL (4.5-11.0)
[2022-01-12 06:35] LABS: Add Manual Diff / Slide Review YES
[2022-01-12 06:37] LABS: BUN Creatinine Ratio 19.6 (6-22); Blood Urea Nitrogen 18 mg/dL (9-20); Calcium 8.7 mg/dL (8.4-10.2); Carbon Dioxide 29 mmol/L (22-32); Chloride 96 mmol/L (98-107); Estimated Glomerular Filt Rate > 60 mL/min (>60); Glucose 105 mg/dL (80-110); HEMOLYSIS 42 (0-50); Potassium 4.5 mmol/L (3.4-5.1); Sodium 131 mmol/L (137-145)
[2022-01-12 07:11] LABS: Neutrophils Absolute Manual 5452 /uL (3000-5900); RBC Morphology Normal Morphology; Total Cells Counted 100
--- NOTE | 2022-01-12 07:33 | P.DS_ITS ---
History of Present Illness History of Present Illness Date Patient Seen: 01/12/22 Time Patient Seen: 08:00 Chief complaint: TIA Narrative: Janes Villalobos is an 86 yo M with PMH of TIA, BPH, RLS, SUSAN on CPAP, gout, RA on prednisone, ILD, RLS and microscopic colitis who presents with acute onset hemianopsia and expressive aphasia lasting 5 minutes with the concern for TIA. Was reading and noticed he could not see the right sides of the words and had difficulty speaking to his . Denied any facial droop or extremity weakness. Patient had a similar episode about 2 years ago where he was speaking with his neighbor and suddenly had word salad speech which lasted several minutes. Workup for TIA at that time was negative. He has taken 325 mg aspirin daily since then. Takes 5mg prednisone nightly for his RA. Denies smoking history or alcohol use. No chest pain, SOB, cough, NV, abd pain or diarrhea. Discharge Providers Provider Date of admission: 01/11/22 14:16 Discharge Date: 01/12/22 Primary care physician: Nawaf Michele MD Discharge provider: Dinesh Thomas DO Summary Hospital Course Discharge Diagnosis: # possible TIA -patient had 5 minutes of right-sided neglect while reading words on a page and expressive aphasia which then resolved -CTA head and neck show no acute stroke but 50% right carotid stenosis, will evaluate further with carotid ultrasound -NIH of 0 in ED, ABCD2 score of 3 -patient takes 325mg aspirin and Crestor daily, will continue but lower to 81mg daily due to patient reported easy bruising and studies indicating baby aspirin just as effective for stroke prevention as higher dose -MRI brain normal, echo with EF 60-65% and no interatrial shunt -telemetry showed no arrythmias -lipids with LDL 59 and A1c 5.2% -resumed home BP meds on dc after 24 hours of permissive HTN # HTN, chronic -hold home BP meds for 24 hours -resume on dc # RLS, chronic -continue home mirapex nightly # RA, chronic -continue home prednisone 5mg daily # insomnia, chronic -continue home ambien nightly PRN # gout, chronic -continue home allopurinol Hospital Course: Admitted for possible TIA due to inability to read right sides of words and expressive aphasia which lasted 5 minutes then resolved. All workup including MRI brain, echo and carotid US showed no evidence of stroke, shunt or significant stenosis. His home aspirin was changed from 325mg to 81mg daily and crestor continued. ABDC2 score <4 so plavix was not added. Home BP meds held for 24 hours then resumed on discharge. Time Spent with Patient Time spent: Greater than 30 minutes Exam Vital Signs (past 8 hours): - 01/12/22 00:00 01/12/22 04:00 Temperature 98.9 F 98.7 F Pulse Rate 72 78 Respiratory Rate 18 19 Blood Pressure 120/67 127/63 Pulse Oximetry 98 98 Oxygen Delivery Method Room Air Oxygen Flow Rate 0 Narrative Exam Narrative: GEN: no acute distress, elderly male HEENT: moist mucous membranes, PERRL NECK: trachea midline, no JVD CV: regular rate and rhythm, no murmurs PULM: clear bilaterally ABD: soft, nontender, nondistended, no organomegaly EXT: warm and well perfused with no edema NEURO: awake, alert, oriented, no focal deficits Objective Labs Result Diagrams: 01/12/22 05:45 01/12/22 05:45 Labs: Laboratory Results - last 24 hr 01/11/22 01/11/22 01/11/22 12:10 12:10 12:10 WBC 9.2 RBC 3.86 L Hgb 12.6 L Hct 36.7 L MCV 95.3 MCH 32.8 MCHC 34.4 RDW 13.7 Plt Count 202 Neut % (Auto) 54.7 Lymph % (Auto) 9.8 L [place] % (Auto) 6.3 Eos % (Auto) 28.5 H Baso % (Auto) 0.7 Neut # (Auto) 5100 Lymph # (Auto) 900 L [place] # (Auto) 600 Eos # (Auto) 2600 H Baso # (Auto) 100 Total Counted Seg Neutrophils % Band Neutrophils % Lymphocytes % (Manual) Atypical Lymphs % Monocytes % (Manual) Eosinophils % (Manual) Neutrophils # (Manual) RBC Morphology PT 11.4 INR 1.0 APTT 30 Sodium 129 L Potassium 3.9 Chloride 96 L Carbon Dioxide 23 BUN 18 Creatinine 0.85 Estimated GFR > 60 BUN/Creatinine Ratio 21.2 Glucose 104 Hemoglobin A1c Calcium 8.4 Magnesium 2.0 Total Bilirubin 1.1 AST 32 ALT 27 Alkaline Phosphatase 79 Total Creatine Kinase 75 CK-MB (CK-2) TNP CK-MB (CK-2) Rel Index TNP Troponin I < 0.012 Total Protein 7.4 Albumin 3.8 Globulin 3.6 Albumin/Globulin Ratio 1.1 Triglycerides Cholesterol LDL Cholesterol, Calc HDL Cholesterol Urine Color Urine Appearance Urine pH Ur Specific [place] Urine Protein Urine Glucose (UA) Urine Ketones Urine Occult Blood Urine Nitrate Urine Bilirubin Urine Urobilinogen Ur Leukocyte Esterase Urine RBC Urine WBC Urine Bacteria Ur Culture Indicated? Nasal Screen MRSA (PCR) U Opiates 300ng/mL cut Ur Oxycodone Screen Urine Methadone Screen Ur Barbiturates Screen U Tricyclic Antidepress Ur Phencyclidine Scrn Ur Amphetamines Screen U Methamphetamines Scrn Ur MDMA Scrn (Ecstasy) U Benzodiazepines Scrn Urine Cocaine Screen U Marijuana (THC) Screen SARS-CoV-2 (PCR) 01/11/22 01/11/22 01/11/22 12:10 12:10 13:03 WBC RBC Hgb Hct MCV MCH MCHC RDW Plt Count Neut % (Auto) Lymph % (Auto) [place] % (Auto) Eos % (Auto) Baso % (Auto) Neut # (Auto) Lymph # (Auto) [place] # (Auto) Eos # (Auto) Baso # (Auto) Total Counted Seg Neutrophils % Band Neutrophils % Lymphocytes % (Manual) Atypical Lymphs % Monocytes % (Manual) Eosinophils % (Manual) Neutrophils # (Manual) RBC Morphology PT INR APTT Sodium Potassium Chloride Carbon Dioxide BUN Creatinine Estimated GFR BUN/Creatinine Ratio Glucose Hemoglobin A1c 5.2 Calcium Magnesium Total Bilirubin AST ALT Alkaline Phosphatase Total Creatine Kinase CK-MB (CK-2) CK-MB (CK-2) Rel Index Troponin I Total Protein Albumin Globulin Albumin/Globulin Ratio Triglycerides 113 Cholesterol 141 LDL Cholesterol, Calc 59 HDL Cholesterol 59 Urine Color Urine Appearance Urine pH Ur Specific [place] Urine Protein Urine Glucose (UA) Urine Ketones Urine Occult Blood Urine Nitrate Urine Bilirubin Urine Urobilinogen Ur Leukocyte Esterase Urine RBC Urine WBC Urine Bacteria Ur Culture Indicated? Nasal Screen MRSA (PCR) U Opiates 300ng/mL cut Ur Oxycodone Screen Urine Methadone Screen Ur Barbiturates Screen U Tricyclic Antidepress Ur Phencyclidine Scrn Ur Amphetamines Screen U Methamphetamines Scrn Ur MDMA Scrn (Ecstasy) U Benzodiazepines Scrn Urine Cocaine Screen U Marijuana (THC) Screen SARS-CoV-2 (PCR) Negative 01/11/22 01/11/22 01/11/22 13:38 13:38 15:07 WBC RBC Hgb Hct MCV MCH MCHC RDW Plt Count Neut % (Auto) Lymph % (Auto) [place] % (Auto) Eos % (Auto) Baso % (Auto) Neut # (Auto) Lymph # (Auto) [place] # (Auto) Eos # (Auto) Baso # (Auto) Total Counted Seg Neutrophils % Band Neutrophils % Lymphocytes % (Manual) Atypical Lymphs % Monocytes % (Manual) Eosinophils % (Manual) Neutrophils # (Manual) RBC Morphology PT INR APTT Sodium Potassium Chloride Carbon Dioxide BUN Creatinine Estimated GFR BUN/Creatinine Ratio Glucose Hemoglobin A1c Calcium Magnesium Total Bilirubin AST ALT Alkaline Phosphatase Total Creatine Kinase CK-MB (CK-2) CK-MB (CK-2) Rel Index Troponin I Total Protein Albumin Globulin Albumin/Globulin Ratio Triglycerides Cholesterol LDL Cholesterol, Calc HDL Cholesterol Urine Color Urine Appearance Urine pH Ur Specific [place] Urine Protein Urine Glucose (UA) Urine Ketones Urine Occult Blood Urine Nitrate Urine Bilirubin Urine Urobilinogen Ur Leukocyte Esterase Urine RBC >100/hpf H Urine WBC None seen Urine Bacteria None seen Ur Culture Indicated? Cult not indicated Nasal Screen MRSA (PCR) Negative for mrsa U Opiates 300ng/mL cut Negative Ur Oxycodone Screen Negative Urine Methadone Screen Negative Ur Barbiturates Screen Negative U Tricyclic Antidepress Negative Ur Phencyclidine Scrn Negative Ur Amphetamines Screen Negative U Methamphetamines Scrn Negative Ur MDMA Scrn (Ecstasy) Negative U Benzodiazepines Scrn Negative Urine Cocaine Screen Negative U Marijuana (THC) Screen Negative SARS-CoV-2 (PCR) 01/11/22 01/12/22 01/12/22 18:20 05:45 05:45 WBC 9.4 RBC 4.10 L Hgb 13.3 L Hct 39.0 L MCV 95.3 MCH 32.4 MCHC 34.0 RDW 13.7 Plt Count 212 Neut % (Auto) Not Reportable Lymph % (Auto) Not Reportable [place] % (Auto) Not Reportable Eos % (Auto) Not Reportable Baso % (Auto) Not Reportable Neut # (Auto) Lymph # (Auto) Not Reportable [place] # (Auto) Not Reportable Eos # (Auto) Baso # (Auto) Not Reportable Total Counted 100 Seg Neutrophils % 57.0 Band Neutrophils % 1.0 L Lymphocytes % (Manual) 11.0 L Atypical Lymphs % 2.0 H Monocytes % (Manual) 2.0 Eosinophils % (Manual) 27.0 H Neutrophils # (Manual) 5452 RBC Morphology Normal morphology PT INR APTT Sodium 131 L Potassium 4.5 Chloride 96 L Carbon Dioxide 29 BUN 18 Creatinine 0.92 Estimated GFR > 60 BUN/Creatinine Ratio 19.6 Glucose 105 Hemoglobin A1c Calcium 8.7 Magnesium Total Bilirubin AST ALT Alkaline Phosphatase Total Creatine Kinase CK-MB (CK-2) CK-MB (CK-2) Rel Index Troponin I Total Protein Albumin Globulin Albumin/Globulin Ratio Triglycerides Cholesterol LDL Cholesterol, Calc HDL Cholesterol Urine Color Red Urine Appearance Cloudy Urine pH 6.5 Ur Specific [place] <=1.005 Urine Protein Trace H Urine Glucose (UA) Negative Urine Ketones Negative Urine Occult Blood 3+ H Urine Nitrate Negative Urine Bilirubin Negative Urine Urobilinogen 0.2 Ur Leukocyte Esterase Negative Urine RBC >100/hpf H Urine WBC 1-5/hpf Urine Bacteria None seen Ur Culture Indicated? Cult not indicated Nasal Screen MRSA (PCR) U Opiates 300ng/mL cut Ur Oxycodone Screen Urine Methadone Screen Ur Barbiturates Screen U Tricyclic Antidepress Ur Phencyclidine Scrn Ur Amphetamines Screen U Methamphetamines Scrn Ur MDMA Scrn (Ecstasy) U Benzodiazepines Scrn Urine Cocaine Screen U Marijuana (THC) Screen SARS-CoV-2 (PCR) PFSH Medical History Acid reflux Anemia of chronic disease BPH (benign prostatic hyperplasia) Centrilobular emphysema Cervical radiculopathy COPD (chronic obstructive pulmonary disease) Fragile skin Hearing impaired Hx of transient ischemic attack (TIA) Impaired fasting glucose Insomnia Interstitial lung disease Microscopic colitis (~06/2008) SUSAN on CPAP Osteoarthritis PSVT (paroxysmal supraventricular tachycardia) (~2004) RBBB (right bundle branch block) Rheumatoid arthritis 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 All workup including MRI brain, echo of heart and US of carotid arteries were normal. You may continue taking aspirin but at the lower 81mg dose as it has been shown to be just as effective as taking the higher 325mg dose. Your cholesterol numbers l ooked great and you do not have diabetes. Continue the rest of your meds as you take them. Discharge orders & Medications Prescriptions: New aspirin 81 mg Tablet,Delayed Release (Dr/Ec) 81 mg PO DAILY 90 Days Qty: 90 0RF Continued cholecalciferol (vitamin D3) [Vitamin D3] 2,000 unit Capsule 2,000 unit PO DAILY PRN (Reason: other) Qty: 0 diazepam 2 MG tablet 2 mg PO QDAYP PRN (Reason: Muscle cramping) Qty: 0 prednisone 5 mg Tablet 5 mg PO QPM cyanocobalamin (vitamin B-12) [Vitamin B-12] 1,000 mcg Tablet 1,000 mcg PO DAILY PRN (Reason: other) rosuvastatin 20 mg tablet 20 mg PO DAILY Qty: 30 0RF Fish Oil 120-180-500 mg Capsule 1 cap PO PRN PRN (Reason: other) flunisolide 25 mcg (0.025 %) Mack,Non-Aerosol 1 spray INTRANASAL BID PRN (Reason: Congestion) pramipexole 0.5 mg Tablet 1 mg PO BEDTIME PRN (Reason: Restless Leg(S)) allopurinol 300 mg Tablet 300 mg PO QAM atenolol 50 mg Tablet 25 mg PO DAILY verapamil 120 mg Tablet 120 mg PO DAILY fluticasone propion-salmeterol [Advair Diskus] 100-50 mcg/dose Blister With Device 1 inh INHALATION BID zolpidem 10 mg Tablet 10 mg PO BEDTIME PRN (Reason: Sleep) Discontinued aspirin 325 mg tablet 325 mg PO DAILY Qty: 42 0RF Rx Instructions: for dvt prophylaxis postop Follow up/Referrals: Nawaf Michele MD [Primary Care Provider] - 2 Weeks Discharge Data Primary Care Provider: Nawaf Michele Attending Provider: Dinesh Thomas
[2022-01-12 08:05] VITALS: BP 130/77; PULSE 68; RESP 18; TEMP 36.6; O2SAT 98
[2022-01-12] MEDS: allopurinoL 300 MG TABLET PO (08:32)
[2022-01-12] MEDS: ASPIRIN EC 81 MG TABLET PO (08:32)
--- NOTE | 2022-01-12 08:32 | DI.CT.S_ITS ---
PROCEDURE: CT KIDNEY URETER BLADDER (KUB) INDICATIONS: gross hematuria TECHNIQUE: Axial sections were acquired from the lung bases to the pubic symphysis. Coronal and sagittal reformats were performed. For radiation dose reduction, the following was used: automated exposure control, adjustment of mA and/or kV according to patient size. COMPARISON: [facility], CT, CT CHEST WITHOUT CONTRAST, 05/02/2020, 10:06. [facility], CT, CT CHEST WO CON, 10/15/2019, 13:04. FINDINGS: Image quality: Excellent. Lung bases: 7 mm subpleural right posterolateral lower lobe part solid nodule, stable compared to prior study. Otherwise clear lung bases. Heart: Dense mitral annular calcification. Normal size heart. No pericardial effusion. URINARY: Right Kidney: No hydronephrosis. There is no hydronephrosis. Within the collecting system upper pole and pelvis, there is mild relative hyperdensity without mass effect filling calices and pelvis. No calcification. Right Ureter: No hydroureter or ureteral calculi. Left Kidney: Tiny exophytic hyperdense nodule arises from the lateral left upper pole measuring 7 mm, stable. No intrarenal calculi or hydronephrosis. Trace hyperdensity seen in the nondistended renal pelvis. Left Ureter: No hydroureter or ureteral calculi. Bladder: Normal wall thickness. The urinary bladder is distended and contains mildly hyperdense lobulated material, likely hematoma. No calculi. ABDOMEN: Liver: Small stable cysts in the left hepatic lobe. Gallbladder: Decompressed. No calcifications. Biliary ducts: Nondilated. Pancreas: Normal. Spleen: Normal size. Adrenal Glands: No masses. Stomach and Bowel: Mild sigmoid colon diverticulosis. Normal appendix. Stomach, small bowel loops, and colon are otherwise unremarkable. Peritoneum: No abnormal intraperitoneal fluid. No free air. Ventral Wall: No hernia. Abdominal Nodes: No enlarged retroperitoneal or mesenteric lymph nodes. Vessels: Aorta and inferior vena cava are normal in size. Moderate abdominal aortic atherosclerotic calcification. PELVIS: Pelvic Organs: Mild prostatomegaly. Pelvic Nodes: Unremarkable. Miscellaneous: No inguinal hernias are seen. Bones: Multilevel disc degeneration throughout the spine. No suspicious bone lesions. IMPRESSION: 1. Probable hemorrhage in the right (possibly left) renal collecting system without distension or obstruction. No visible calcifications or suspicious mass. 2. No evidence of urinary obstruction. 3. Hyperdense material in the urinary bladder suggestive of clot. 4. Colonic diverticulosis without acute diverticulitis. Dictated by: Joyce Guzman M.D. on 01/12/2022 at 9:01 Approved by: Joyce Guzman M.D. on 01/12/2022 at 9:14
--- NOTE | 2022-01-12 09:18 | PM.PN.1 ---
Subjective Subjective Date Patient Seen: 01/12/22 Exam Vital Signs (past 8 hours): - 01/13/22 04:00 01/13/22 08:05 Temperature 98.6 F 98 F Pulse Rate 104 H 116 H Respiratory Rate 17 17 Blood Pressure 133/75 98/53 L Pulse Oximetry 99 98 Oxygen Flow Rate 0 Oxygen Delivery Method Room Air Oxygen Flow Rate 0 Narrative Exam Narrative: GEN: no acute distress, elderly male HEENT: moist mucous membranes, PERRL NECK: trachea midline, no JVD CV: regular rate and rhythm, no murmurs PULM: clear bilaterally ABD: soft, nontender, nondistended, no organomegaly EXT: warm and well perfused with no edema NEURO: awake, alert, oriented, no focal deficits Objective Labs Result Diagrams: 01/13/22 04:00 01/13/22 04:00 Labs: Laboratory Results - last 24 hr 01/12/22 01/12/22 01/12/22 11:40 19:51 23:45 WBC RBC Hgb 12.3 L 11.1 L 11.1 L Hct 32.6 L MCV MCH MCHC RDW Plt Count Neut % (Auto) Lymph % (Auto) [place] % (Auto) Eos % (Auto) Baso % (Auto) Neut # (Auto) Lymph # (Auto) [place] # (Auto) Eos # (Auto) Baso # (Auto) Sodium Potassium Chloride Carbon Dioxide BUN Creatinine Estimated GFR BUN/Creatinine Ratio Glucose Calcium 01/13/22 01/13/22 04:00 04:00 WBC 13.5 H RBC 3.47 L Hgb 11.0 L Hct 32.7 L MCV 94.1 MCH 31.7 MCHC 33.7 RDW 13.6 Plt Count 197 Neut % (Auto) 70.7 Lymph % (Auto) 5.7 L [place] % (Auto) 6.6 Eos % (Auto) 16.5 H Baso % (Auto) 0.5 Neut # (Auto) 9500 H Lymph # (Auto) 800 L [place] # (Auto) 900 Eos # (Auto) 2200 H Baso # (Auto) 100 Sodium 127 L Potassium 4.6 Chloride 96 L Carbon Dioxide 24 BUN 21 H Creatinine 0.87 Estimated GFR > 60 BUN/Creatinine Ratio 24.1 H Glucose 128 H Calcium 8.4 PFSH Medical History Acid reflux Anemia of chronic disease BPH (benign prostatic hyperplasia) Centrilobular emphysema Cervical radiculopathy COPD (chronic obstructive pulmonary disease) Fragile skin Hearing impaired Hx of transient ischemic attack (TIA) Impaired fasting glucose Insomnia Interstitial lung disease Microscopic colitis (~06/2008) SUSAN on CPAP Osteoarthritis PSVT (paroxysmal supraventricular tachycardia) (~2004) RBBB (right bundle branch block) Rheumatoid arthritis 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 RLS (restless legs syndrome) Seasonal allergic rhinitis Surgical History H/O: vasectomy History of colonoscopy with polypectomy (~2016) Hx of arthroscopy of left knee Hx of arthroscopy of right knee Hx of bilateral cataract extraction Status post left unicompartmental knee replacement (~2011) Status post right unicompartmental knee replacement (~2015) Social History household members: spouse Smoking Status: Former smoker alcohol intake: current Assessment & Plan Assessment & Plan narrative: # Hematuria -Found incidentally on UA with large occult blood and >100 RBC -durring admission, patient then began passing clots and grossly blood urine, only received 1 dose of 40mg lovenox -CT KUB showed bilateral renal hemorrhage without stones or masses -consulted urology who stated to place goodwin, monitor Hgb and if stable can dc for outpatient urology f/u with CT IVP as scanning now would lower sensitivity due to bleeding # Hyponatremia, acute -129 on admission, improved to 131 -previous history of low sodium, not on offending medications -will have patient drink less water and f/u with PCP for recheck # possible TIA -patient had 5 minutes of right-sided neglect while reading words on a page and expressive aphasia which then resolved -CTA head and neck show no acute stroke but 50% right carotid stenosis, will evaluate further with carotid ultrasound -NIH of 0 in ED, ABCD2 score of 3 -patient takes 325mg aspirin and Crestor daily, will continue but lower to 81mg daily due to patient reported easy bruising and studies indicating baby aspirin just as effective for stroke prevention as higher dose -MRI brain normal, echo with EF 60-65% and no interatrial shunt -telemetry showed no arrythmias -lipids with LDL 59 and A1c 5.2% -resumed home BP meds after 24 hours # HTN, chronic -hold home BP meds for 24 hours -resume on dc # RLS, chronic -continue home mirapex nightly # RA, chronic -continue home prednisone 5mg daily # insomnia, chronic -continue home ambien nightly PRN # gout, chronic -continue home allopurinol Time Spent With Patient Critical Care time: I spent a total of [] minutes of critical care time on this patient's care today; this time is exclusive of procedural time.
--- NOTE | 2022-01-12 09:21 | CM.DANOTE ---
DCP Assessment: Payor confirmed: Moris PCP confirmed: Nawaf Michele MD Pt is a 86 y.o. M who presented to the ER with complaints of right sided vision loss and expressive aphasia. Pt being worked up for TIA and hyponatremia. Pt admitted to the ICU under observation for further management and evaluation of symptoms. DCP met with pt this morning to discuss discharge needs. Pt sitting up in chair. DCP introduced herself and role. Pt states he lives in [place] with his spouse, Merissa, in a double story house. Pt states he is independent at baseline and was building a fence just last week. Pt denies DME use but states he owns a walker and cane. Pt states that he still drives POV. Pt confirms that his will pick him up from the hospital when ready. Pt denies any home health use. Pt states he just came back from a CT because he experienced blood and clots in his urine last night. Awaiting those results. No discharge needs at this time. White board updated and instructed to call. Pt thankful for discussion. P: Pt awaiting CT results and further plan from . Once medically stable for discharge, pt to discharge home via spouse POV. Chichi Tse RN/JAGRUTI Discharge Planning/Care Management CM Discharge Assessment Start: 01/12/22 08:24 Freq: Status: Active Protocol: Document 01/12/22 09:13 KD (Rec: 01/12/22 09:14 KD [id number]) Discharge Planning Assessment Assigned Protection Engineer Chichi Tse RN/JAGRUTI Advance Directives? Yes Advance Directives on File Yes History Provided By Patient,Medical Record Prior Living Arrangements House Household Members spouse Type of transporation used prior to Drives own vehicle admit Independent with ADL's Yes Is patient alert and oriented? Yes Caregiver for Another No DME Already Rented / Owned FWW / Walker,Cane Discharge Plan Home Transportation Arrangement Spouse POV Referrals Initiated None needed Whiteboard Updated in Patient Room with Yes name and ext. # of Protection Engineer Comment Instructed to call Review Status In Process Please Provide Date Initial DC 01/12/22 Assessment Was Performed Next Review Type Continued Stay Review
[2022-01-12 12:04] LABS: Hemoglobin 12.3 g/dL (13.5-17.5)
[2022-01-12 13:15] VITALS: BP 130/74; PULSE 100; RESP 18; TEMP 37.1; O2SAT 94
[2022-01-12] MEDS: LIDOCAINE 2% (GLYDO) 6 ML GEL TOP (13:30)
[2022-01-12 17:41] VITALS: BP 103/57; PULSE 98; RESP 16; TEMP 36.5; O2SAT 98
[2022-01-12 20:00] VITALS: BP 107/61; PULSE 91; RESP 18; TEMP 36.7; O2SAT 99
[2022-01-12] MEDS: ATORVASTATIN 20 MG TABLET 40 MG PO (20:10)
[2022-01-12] MEDS: predniSONE 5 MG TABLET PO (20:10)
[2022-01-12] MEDS: PRAMIPEXOLE 1 MG TABLET PO (20:10)
[2022-01-12] MEDS: ZOLPIDEM 5 MG TABLET 10 MG PO (20:11)
[2022-01-12] MEDS: ACETAMINOPHEN 325 MG TABLET 650 MG PO (20:18)
[2022-01-12 20:23] LABS: Hemoglobin 11.1 g/dL (13.5-17.5)
[2022-01-13] VITALS (10 sets, daily range): BP systolic 97–133; BP diastolic 53–75; PULSE 94–126; RESP 10–25; TEMP 36.5–37.1; O2SAT 97–99
--- NOTE | 2022-01-13 | DI.CT.S_ITS ---
PROCEDURE: CT IVP A/P W/WO INDICATIONS: bilateral renal hemorrhage TECHNIQUE: Optional 5 mm thick noncontrast images acquired from the diaphragm to the symphysis pubis. After the administration of intravenous contrast, 5 mm thick images acquired from the diaphragm to the symphysis pubis after a 10-minute delay. 2 mm thick coronal and sagittal reformats were then performed of the kidneys and ureters. For radiation dose reduction, the following was used: automated exposure control, adjustment of mA and/or kV according to patient size. COMPARISON: [facility], CT, CT KIDNEY URETER BLADDER (KUB), 01/12/2022, 8:39. FINDINGS: Image quality: Diagnostic Lung bases: Bibasilar atelectasis. Redemonstration of 7 mm subpleural right posterolateral lower lobe nodule. Heart size is normal. Dense mitral annular calcifications as before. No pericardial effusion. Urinary system: Both kidneys are normal in size, without hydronephrosis or nephrolithiasis on pre-contrast images. Previously seen hyperdense material in the bilateral upper renal collecting system is not appreciated on today's exam. Redemonstration of previously described 7 mm partially exophytic hyperdense nodule in the lateral left upper renal pole. No significant perinephric fat stranding compared to prior study. No ureteral stone identified. No urinary bladder stones seen. There is normal bilateral renal enhancement. Renal calyces appear normal in morphology when filled with contrast. Opacified portions of both ureters demonstrate normal caliber. Bladder wall thickness is normal for degree of distension. No calcified bladder stones. Nonenhancing minimally hyperdense material within the urinary bladder compatible with clots with intervening excreted contrast in the urinary bladder. Multiple locules of air noted throughout the urinary bladder compatible with placement of Biswas catheter. Urinary bladder is not significantly decompressed secondary to presence of multiple clots. No evidence to suggest abnormal wall thickening or enhancement. Other solid organs: Liver is normal in size and enhancement. Multiple scattered hepatic hypodensities compatible with hepatic cysts. These are not significantly changed. Gallbladder is unremarkable . Biliary system is non dilated. Pancreas enhances normally. Spleen is normal in size and enhancement. No adrenal nodules. Peritoneum and bowel: Bowel loops demonstrate normal wall thickness and caliber. Redemonstration of numerous scattered colonic diverticulosis most pronounced in the distal descending and sigmoid colon. No evidence for acute diverticulitis. No free fluid or air. Nodes and vessels: Scattered atherosclerotic calcifications of the abdominal aorta and iliac vessels without aneurysmal dilatation. The inferior vena cava appears patent. No pathologically enlarged lymph nodes. Abdominal wall: Tiny fat containing umbilical hernia without acute inflammation. Pelvis: No pathologic free pelvic fluid. No inguinal hernias or adenopathy. Mild prostatomegaly. Bones: No acute vertebral body compression fractures. Multilevel spondylitic changes throughout the imaged spine. No suspicious osseous lesions. IMPRESSION: 1. Multiple nonenhancing mildly hyperdense material within the urinary bladder compatible with clots. The clots present decompression of the urinary bladder by interval placement of Biswas catheter. No abnormal urinary bladder wall enhancement or asymmetric thickening. No evidence for urolithiasis or obstructive uropathy. No abnormal filling defects identified in the upper renal collecting system to suggest urothelial lesion. 2. Other chronic findings as above. Dictated by: Nader Khan M.D. on 01/13/2022 at 20:49 Approved by: Nader Khan M.D. on 01/13/2022 at 21:06
[2022-01-13 00:03] LABS: Hematocrit 32.6 % (41-53); Hemoglobin 11.1 g/dL (13.5-17.5)
[2022-01-13 04:34] LABS: Add Manual Diff / Slide Review NO; Basophils Absolute Auto 100 /uL (0-100); Basophils Percent Auto 0.5 % (0-2); Eosinophils Absolute Auto 2200 /uL (0-450); Eosinophils Percent Auto 16.5 % (2-4); Hematocrit 32.7 % (41-53); Lymphocytes Absolute Auto 800 /uL (1100-4500); Lymphocytes Percent Auto 5.7 % (25-40); Mean Corpuscular HGB Conc 33.7 % (30-36); Mean Corpuscular Hemoglobin 31.7 PG (26-34); Mean Corpuscular Volume 94.1 fL (80-100); Monocytes Absolute Auto 900 /uL (0-900); Monocytes Percent Auto 6.6 % (3-14); Neutrophils Absolute Auto 9500 /uL (1500-7000); Neutrophils Percent Auto 70.7 % (50-75); Platelet Count 197 X10^3/uL (150-400); Red Blood Cell Count 3.47 X10^6/uL (4.5-5.9); Red Cell Distribution Width 13.6 % (11.6-14.8); White Blood Cell Count 13.5 X10^3/uL (4.5-11.0)
[2022-01-13 04:45] LABS: BUN Creatinine Ratio 24.1 (6-22); Blood Urea Nitrogen 21 mg/dL (9-20); Calcium 8.4 mg/dL (8.4-10.2); Carbon Dioxide 24 mmol/L (22-32); Chloride 96 mmol/L (98-107); Estimated Glomerular Filt Rate > 60 mL/min (>60); Glucose 128 mg/dL (80-110); HEMOLYSIS < 15 (0-50); Potassium 4.6 mmol/L (3.4-5.1); Sodium 127 mmol/L (137-145)
[2022-01-13] MEDS: allopurinoL 300 MG TABLET PO (08:06)
[2022-01-13] MEDS: SODIUM CHLORIDE 0.9% 500 ML IV (09:46)
--- NOTE | 2022-01-13 10:55 | CM.DPC ---
DCP Cont: Spoke to patient. Introduced self and role. Asked him if he was interested in home health services, as he most likely will go home with catheter. Stated, he may be, would like to look over the Medicare Choice List. Explained how home health works, nursing may be able to assess catheter, labs if needed, and if weak, P.T, may also benefit. P: DCP to continue to follow. If patient discharges today, will see if he has decided upon home health agency. Sil Hines RN/Beauty Culturist
--- NOTE | 2022-01-13 12:43 | DI.RAD.S_ITS ---
PROCEDURE: XR CHEST 1V INDICATIONS: new leukocytosis TECHNIQUE: One view of the chest was acquired. COMPARISON: [facility], , XR CHEST 1V, 01/11/2022, 12:19. [facility], CR, XR CHEST 2V, 08/15/2019, 13:46. FINDINGS: Surgical changes and devices: None. Lungs and pleura: Lungs are clear. No pleural effusions or pneumothorax. Mediastinum: Mediastinal contours appear normal. Heart size is normal. Bones and chest wall: No suspicious bony lesions. Overlying soft tissues appear unremarkable. IMPRESSION: No acute radiographic abnormality. Dictated by: Augie Bower M.D. on 01/13/2022 at 13:40 Approved by: Augie Bower M.D. on 01/13/2022 at 13:42
[2022-01-13] MEDS: SODIUM CHLORIDE 0.9% 1,000 ML 1000 ML IV ×2 (12:53→20:27)
[2022-01-13] MEDS: CEFEPIME 2 GM in SODIUM CHLORIDE 0.9% 100 ML IV (12:57)
[2022-01-13 13:19] LABS: Add Manual Diff / Slide Review NO; Basophils Absolute Auto 100 /uL (0-100); Basophils Percent Auto 0.5 % (0-2); Eosinophils Absolute Auto 2500 /uL (0-450); Eosinophils Percent Auto 18.4 % (2-4); Hematocrit 32.5 % (41-53); Hemoglobin 11.3 g/dL (13.5-17.5); Lymphocytes Absolute Auto 900 /uL (1100-4500); Lymphocytes Percent Auto 6.9 % (25-40); Mean Corpuscular HGB Conc 34.6 % (30-36); Mean Corpuscular Hemoglobin 32.5 PG (26-34); Monocytes Absolute Auto 900 /uL (0-900); Monocytes Percent Auto 6.5 % (3-14); Neutrophils Absolute Auto 9300 /uL (1500-7000); Neutrophils Percent Auto 67.7 % (50-75); Platelet Count 231 X10^3/uL (150-400); Red Blood Cell Count 3.46 X10^6/uL (4.5-5.9); Red Cell Distribution Width 13.6 % (11.6-14.8); White Blood Cell Count 13.7 X10^3/uL (4.5-11.0)
[2022-01-13 13:38] LABS: Alanine Aminotransferase 23 IU/L (<50); Albumin 3.7 g/dL (3.5-5.0); Albumin Globulin Ratio 1.1 (1.0-2.8); Alkaline Phosphatase 80 U/L (38-126); Aspartate Aminotransferase 28 IU/L (17-59); BUN Creatinine Ratio 20.9 (6-22); Bilirubin Total 0.8 mg/dL (0.2-1.3); Blood Urea Nitrogen 19 mg/dL (9-20); Calcium 8.5 mg/dL (8.4-10.2); Carbon Dioxide 26 mmol/L (22-32); Chloride 94 mmol/L (98-107); Estimated Glomerular Filt Rate > 60 mL/min (>60); Globulin 3.3 g/dL (1.7-4.1); Glucose 118 mg/dL (80-110); HEMOLYSIS < 15 (0-50); Potassium 4.1 mmol/L (3.4-5.1); Sodium 127 mmol/L (137-145)
[2022-01-13] MEDS: VANCOMYCIN 1,500 MG/300 ML PIGGYBACK 200 MG IV (13:49)
[2022-01-13 14:19] LABS: Bacteria Urine None Seen; Culture Indicated Urine Specimen Cultured; RBC Urine >100/HPF (0-5/HPF); WBC Urine 1-5/HPF (0-5/HPF)
--- NOTE | 2022-01-13 16:32 | PM.PN.1 ---
Subjective Subjective Date Patient Seen: 01/13/22 Time Patient Seen: 09:00 Interval history: Patient now with goodwin and very dark blood filling the bag. He says he feels more tired today. Otherwise no complaints. Exam Vital Signs (past 8 hours): - 01/13/22 12:43 01/13/22 12:43 01/13/22 15:46 Temperature 98.8 F 97.7 F Pulse Rate 104 H 98 H Respiratory Rate 16 17 Blood Pressure 107/67 104/53 L Pulse Oximetry 97 97 Oxygen Flow Rate 0 0 Oxygen Delivery Method Room Air Oxygen Flow Rate 0 Narrative Exam Narrative: GEN: appears fatigued, elderly male HEENT: moist mucous membranes, PERRL NECK: trachea midline, no JVD CV: regular rate and rhythm, no murmurs PULM: clear bilaterally ABD: soft, nontender, nondistended, no organomegaly EXT: warm and well perfused with no edema NEURO: awake, alert, oriented, no focal deficits Goodwin bag with dark bloody urine Objective Labs Result Diagrams: 01/13/22 13:04 01/13/22 13:04 Labs: Laboratory Results - last 24 hr 01/12/22 01/12/22 01/13/22 19:51 23:45 04:00 WBC 13.5 H RBC 3.47 L Hgb 11.1 L 11.1 L 11.0 L Hct 32.6 L 32.7 L MCV 94.1 MCH 31.7 MCHC 33.7 RDW 13.6 Plt Count 197 Neut % (Auto) 70.7 Lymph % (Auto) 5.7 L [place] % (Auto) 6.6 Eos % (Auto) 16.5 H Baso % (Auto) 0.5 Neut # (Auto) 9500 H Lymph # (Auto) 800 L [place] # (Auto) 900 Eos # (Auto) 2200 H Baso # (Auto) 100 Sodium Potassium Chloride Carbon Dioxide BUN Creatinine Estimated GFR BUN/Creatinine Ratio Glucose Calcium Total Bilirubin AST ALT Alkaline Phosphatase Total Protein Albumin Globulin Albumin/Globulin Ratio Urine Color Urine Appearance Urine pH Ur Specific [place] Urine Protein Urine Glucose (UA) Urine Ketones Urine Occult Blood Urine Nitrate Urine Bilirubin Urine Urobilinogen Ur Leukocyte Esterase Urine RBC Urine WBC Urine Bacteria Ur Culture Indicated? 01/13/22 01/13/22 01/13/22 04:00 13:04 13:04 WBC 13.7 H RBC 3.46 L Hgb 11.3 L Hct 32.5 L MCV 94.0 MCH 32.5 MCHC 34.6 RDW 13.6 Plt Count 231 Neut % (Auto) 67.7 Lymph % (Auto) 6.9 L [place] % (Auto) 6.5 Eos % (Auto) 18.4 H Baso % (Auto) 0.5 Neut # (Auto) 9300 H Lymph # (Auto) 900 L [place] # (Auto) 900 Eos # (Auto) 2500 H Baso # (Auto) 100 Sodium 127 L 127 L Potassium 4.6 4.1 Chloride 96 L 94 L Carbon Dioxide 24 26 BUN 21 H 19 Creatinine 0.87 0.91 Estimated GFR > 60 > 60 BUN/Creatinine Ratio 24.1 H 20.9 Glucose 128 H 118 H Calcium 8.4 8.5 Total Bilirubin 0.8 AST 28 ALT 23 Alkaline Phosphatase 80 Total Protein 7.0 Albumin 3.7 Globulin 3.3 Albumin/Globulin Ratio 1.1 Urine Color Urine Appearance Urine pH Ur Specific [place] Urine Protein Urine Glucose (UA) Urine Ketones Urine Occult Blood Urine Nitrate Urine Bilirubin Urine Urobilinogen Ur Leukocyte Esterase Urine RBC Urine WBC Urine Bacteria Ur Culture Indicated? 01/13/22 13:05 WBC RBC Hgb Hct MCV MCH MCHC RDW Plt Count Neut % (Auto) Lymph % (Auto) [place] % (Auto) Eos % (Auto) Baso % (Auto) Neut # (Auto) Lymph # (Auto) [place] # (Auto) Eos # (Auto) Baso # (Auto) Sodium Potassium Chloride Carbon Dioxide BUN Creatinine Estimated GFR BUN/Creatinine Ratio Glucose Calcium Total Bilirubin AST ALT Alkaline Phosphatase Total Protein Albumin Globulin Albumin/Globulin Ratio Urine Color TNP Urine Appearance TNP Urine pH TNP Ur Specific [place] TNP Urine Protein TNP Urine Glucose (UA) TNP Urine Ketones TNP Urine Occult Blood TNP Urine Nitrate TNP Urine Bilirubin TNP Urine Urobilinogen TNP Ur Leukocyte Esterase TNP Urine RBC >100/hpf H Urine WBC 1-5/hpf Urine Bacteria None seen Ur Culture Indicated? 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 RLS (restless legs syndrome) Seasonal allergic rhinitis Surgical History H/O: vasectomy History of colonoscopy with polypectomy (~2016) Hx of arthroscopy of left knee Hx of arthroscopy of right knee Hx of bilateral cataract extraction Status post left unicompartmental knee replacement (~2011) Status post right unicompartmental knee replacement (~2015) Social History household members: spouse Smoking Status: Former smoker alcohol intake: current Assessment & Plan Assessment & Plan narrative: # Hematuria with acute blood loss anemia -Found incidentally on UA with large occult blood and >100 RBC -durring admission, patient then began passing clots and grossly blood urine, only received 1 dose of 40mg lovenox -CT KUB showed bilateral renal hemorrhage without stones or masses -Hgb dropped 13.3 to 11.3, will trend -consulted urology who stated to place goodwin, monitor Hgb and if stable can dc for outpatient urology f/u with CT IVP as scanning now would lower sensitivity due to bleeding -spoke with nephro at [facility] who recommended trending INR, obtaining CT IVP to try to get more information despite bleeding -trend INR's # Hyponatremia, acute -129 on admission, now 127 -previous history of low sodium, not on offending medications -will give IVF # possible TIA -patient had 5 minutes of right-sided neglect while reading words on a page and expressive aphasia which then resolved -CTA head and neck show no acute stroke but 50% right carotid stenosis, will evaluate further with carotid ultrasound -NIH of 0 in ED, ABCD2 score of 3 -patient takes 325mg aspirin and Crestor daily, will continue but lower to 81mg daily due to patient reported easy bruising and studies indicating baby aspirin just as effective for stroke prevention as higher dose -MRI brain normal, echo with EF 60-65% and no interatrial shunt -telemetry showed no arrythmias -lipids with LDL 59 and A1c 5.2% -resumed home BP meds after 24 hours # HTN, chronic -continue home verapemil and atenolol # RLS, chronic -continue home mirapex nightly # RA, chronic -continue home prednisone 5mg daily # insomnia, chronic -continue home ambien nightly PRN # gout, chronic -continue home allopurinol Code status is full code. COVID negative. DVT prophylaxis with SCDs. Proxy is Merissa. I have reviewed home meds and used all available resources to reconcile the home meds. This patient will be admitted as inpatient and will require greater than 2 midnights of hospital time to treat hematuria and blood loss anemia. Time Spent With Patient Critical Care time: I spent a total of [] minutes of critical care time on this patient's care today; this time is exclusive of procedural time.
--- NOTE | 2022-01-13 19:45 | PC.NURSE ---
Patient went into SVT with HR's 150-160's. BILLING AND QUALITY TECHNICIAN Melvin notified. Adenosine ordered, however HR went back to ST with HR 100-110's. Adenosine held at this time.
[2022-01-13] MEDS: ATORVASTATIN 20 MG TABLET 40 MG PO (20:11)
[2022-01-13] MEDS: PRAMIPEXOLE 1 MG TABLET PO (20:11)
[2022-01-14] VITALS: BP 101/57; PULSE 107; RESP 16; TEMP 36.4; O2SAT 99
[2022-01-14] MEDS: CEFEPIME 2 GM in SODIUM CHLORIDE 0.9% 100 ML IV (01:26)
[2022-01-14 04:00] VITALS: BP 101/56; PULSE 96; RESP 12; TEMP 36.6; O2SAT 97
[2022-01-14] MEDS: VANCOMYCIN 1,250 MG/250 ML PIGGYBACK 250 MG IV (05:12)
[2022-01-14 06:00] LABS: Hematocrit 30.5 % (41-53); Hemoglobin 10.5 g/dL (13.5-17.5); Mean Corpuscular HGB Conc 34.3 % (30-36); Mean Corpuscular Hemoglobin 32.5 PG (26-34); Mean Corpuscular Volume 94.6 fL (80-100); Platelet Count 199 X10^3/uL (150-400); Red Blood Cell Count 3.23 X10^6/uL (4.5-5.9); Red Cell Distribution Width 13.8 % (11.6-14.8); White Blood Cell Count 11.5 X10^3/uL (4.5-11.0)
[2022-01-14 06:01] LABS: Add Manual Diff / Slide Review YES
[2022-01-14 06:11] LABS: BUN Creatinine Ratio 18.4 (6-22); Blood Urea Nitrogen 16 mg/dL (9-20); Calcium 8.3 mg/dL (8.4-10.2); Carbon Dioxide 21 mmol/L (22-32); Chloride 102 mmol/L (98-107); Estimated Glomerular Filt Rate > 60 mL/min (>60); Glucose 112 mg/dL (80-110); HEMOLYSIS < 15 (0-50); Potassium 3.7 mmol/L (3.4-5.1); Sodium 130 mmol/L (137-145)
[2022-01-14 08:00] VITALS: BP 103/63; PULSE 97; RESP 16; TEMP 37.2; O2SAT 100
[2022-01-14 08:34] LABS: Neutrophils Absolute Manual 7590 /uL (3000-5900); Total Cells Counted 100
[2022-01-14 08:35] LABS: RBC Morphology Norm
[2022-01-14] MEDS: allopurinoL 300 MG TABLET PO (08:42)
[2022-01-14] MEDS: POTASSIUM CHLORIDE 20 MEQ TAB 40 MEQ PO (08:42)
--- NOTE | 2022-01-14 09:14 | PM.DS.1 ---
History of Present Illness History of Present Illness Date Patient Seen: 01/14/22 Time Patient Seen: 12:00 Chief complaint: TIA Narrative: Janes Villalobos is an 86 yo M with PMH of TIA, BPH, RLS, SUSAN on CPAP, gout, RA on prednisone, ILD, RLS and microscopic colitis who presents with acute onset hemianopsia and expressive aphasia lasting 5 minutes with the concern for TIA. Was reading and noticed he could not see the right sides of the words and had difficulty speaking to his . Denied any facial droop or extremity weakness. Patient had a similar episode about 2 years ago where he was speaking with his neighbor and suddenly had word salad speech which lasted several minutes. Workup for TIA at that time was negative. He has taken 325 mg aspirin daily since then. Takes 5mg prednisone nightly for his RA. Denies smoking history or alcohol use. No chest pain, SOB, cough, NV, abd pain or diarrhea. Discharge Providers Provider Date of admission: 01/11/22 14:16 Discharge Date: 01/13/22 Primary care physician: Nawaf Diego MD Discharge provider: Dinesh Thomas DO Summary Hospital Course Discharge Diagnosis: # Hematuria with acute blood loss anemia -Found incidentally on UA with large occult blood and >100 RBC -durring admission, patient then began passing clots and grossly blood urine, only received 1 dose of 40mg lovenox -CT KUB showed bilateral renal hemorrhage without stones or masses -Hgb dropped 13.3 to 11.3, will trend -consulted urology who stated to place goodwin, monitor Hgb and if stable can dc for outpatient urology f/u with CT IVP as scanning now would lower sensitivity due to bleeding -spoke with nephro at [facility] who recommended trending INR, obtaining CT IVP which came back showing clots in bladder but normal kidneys and no source of bleeding identified -patient's Hgb was stable so he was discharged with folely in place to obtain referral from PCP to [facility] urology for ongoing management # Hyponatremia, acute -129 on admission, now 130 -previous history of low sodium, not on offending medications -improved some with IVF # possible TIA -patient had 5 minutes of right-sided neglect while reading words on a page and expressive aphasia which then resolved -CTA head and neck show no acute stroke but 50% right carotid stenosis, will evaluate further with carotid ultrasound -NIH of 0 in ED, ABCD2 score of 3 -patient takes 325mg aspirin and Crestor daily, will continue but lower to 81mg daily due to patient reported easy bruising and studies indicating baby aspirin just as effective for stroke prevention as higher dose -MRI brain normal, echo with EF 60-65% and no interatrial shunt -telemetry showed no arrythmias -lipids with LDL 59 and A1c 5.2% -resumed home BP meds after 24 hours # SVT, not present on admission -patient has history of SVT and while atenolol and verapamil were held he developed runs of SVT which improved with adenosine -resumed home meds # HTN, chronic -continue home verapamil and atenolol # RLS, chronic -continue home mirapex nightly # RA, chronic -continue home prednisone 5mg daily # insomnia, chronic -continue home ambien nightly PRN # gout, chronic -continue home allopurinol Hospital Course: Admitted for possible TIA due to inability to read right sides of words and expressive aphasia which lasted 5 minutes then resolved. All workup including MRI brain, echo and carotid US showed no evidence of stroke, shunt or significant stenosis. His home aspirin was changed from 325mg to 81mg daily and crestor continued. During the admission he developed gross bloody urine with clots (only received baby aspirin and one dose of [address] KUB showed right and possibly left renal collecting system hemorrage with clots in bladder, but no masses or kidney stones. urology advised placing a goodwin to irrigate and monitoring Hgb and if stable to dc to see outpatient urology for CT IVP. Patient's Hgb trended down from 13 to 10.5 but was stable around 10-11 for a full day. All anticoag was held including aspirin. Spoke with [facility] nephfabricio who advised getting the CT IVP inpatient to see if it shows anything, which was obtained but only showed clots in the bladder and no other findings. Patient felt well, therefore was discharged to f/u with his PCP Dr. Diego the same day for stat outpatient urology referral. Time Spent with Patient Time spent: Greater than 30 minutes Exam Vital Signs (past 8 hours): - 01/13/22 04:00 01/13/22 08:05 Temperature 98.6 F 98 F Pulse Rate 104 H 116 H Respiratory Rate 17 17 Blood Pressure 133/75 98/53 L Pulse Oximetry 99 98 Oxygen Flow Rate 0 Oxygen Delivery Method Room Air Oxygen Flow Rate 0 Narrative Exam Narrative: GEN: no acute distress, elderly male HEENT: moist mucous membranes, PERRL NECK: trachea midline, no JVD CV: regular rate and rhythm, no murmurs PULM: clear bilaterally ABD: soft, nontender, nondistended, no organomegaly EXT: warm and well perfused with no edema NEURO: awake, alert, oriented, no focal deficits Goodwin bag in place with gross dark bloody urine, no visible clots Objective Labs Result Diagrams: 01/14/22 05:50 01/14/22 05:50 Labs: Laboratory Results - last 24 hr 01/12/22 01/12/22 01/12/22 11:40 19:51 23:45 WBC RBC Hgb 12.3 L 11.1 L 11.1 L Hct 32.6 L MCV MCH MCHC RDW Plt Count Neut % (Auto) Lymph % (Auto) [place] % (Auto) Eos % (Auto) Baso % (Auto) Neut # (Auto) Lymph # (Auto) [place] # (Auto) Eos # (Auto) Baso # (Auto) Sodium Potassium Chloride Carbon Dioxide BUN Creatinine Estimated GFR BUN/Creatinine Ratio Glucose Calcium 01/13/22 01/13/22 04:00 04:00 WBC 13.5 H RBC 3.47 L Hgb 11.0 L Hct 32.7 L MCV 94.1 MCH 31.7 MCHC 33.7 RDW 13.6 Plt Count 197 Neut % (Auto) 70.7 Lymph % (Auto) 5.7 L [place] % (Auto) 6.6 Eos % (Auto) 16.5 H Baso % (Auto) 0.5 Neut # (Auto) 9500 H Lymph # (Auto) 800 L [place] # (Auto) 900 Eos # (Auto) 2200 H Baso # (Auto) 100 Sodium 127 L Potassium 4.6 Chloride 96 L Carbon Dioxide 24 BUN 21 H Creatinine 0.87 Estimated GFR > 60 BUN/Creatinine Ratio 24.1 H Glucose 128 H Calcium 8.4 PFSH Medical History Acid reflux Anemia of chronic disease BPH (benign prostatic hyperplasia) Centrilobular emphysema Cervical radiculopathy COPD (chronic obstructive pulmonary disease) Fragile skin Hearing impaired Hx of transient ischemic attack (TIA) Impaired fasting glucose Insomnia Interstitial lung disease Microscopic colitis (~06/2008) SUSAN on CPAP Osteoarthritis PSVT (paroxysmal supraventricular tachycardia) (~2004) RBBB (right bundle branch block) Rheumatoid arthritis 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 All workup including MRI brain, echo of heart and US of carotid arteries were normal. While admitted you developed bloody urine. Scans didn't show a definitive source, but somewhere present in the urinary system possibly near the kidneys. A goodwin catheter was placed to prevent the clots from clogging your urinary system. Your blood counts remained stable so you were deemed safe enough to discharge home with the goodwin to see your PCP and receive a stat referral to urology as outpatient. Discharge orders & Medications Prescriptions: Continued cholecalciferol (vitamin D3) [Vitamin D3] 2,000 unit Capsule 2,000 unit PO DAILY PRN (Reason: other) Qty: 0 diazepam 2 MG tablet 2 mg PO QDAYP PRN (Reason: Muscle cramping) Qty: 0 prednisone 5 mg Tablet 5 mg PO QPM cyanocobalamin (vitamin B-12) [Vitamin B-12] 1,000 mcg Tablet 1,000 mcg PO DAILY PRN (Reason: other) rosuvastatin 20 mg tablet 20 mg PO DAILY Qty: 30 0RF Fish Oil 120-180-500 mg Capsule 1 cap PO PRN PRN (Reason: other) flunisolide 25 mcg (0.025 %) [place],Non-Aerosol 1 spray INTRANASAL BID PRN (Reason: Congestion) pramipexole 0.5 mg Tablet 1 mg PO BEDTIME PRN (Reason: Restless Leg(S)) allopurinol 300 mg Tablet 300 mg PO QAM atenolol 50 mg Tablet 25 mg PO DAILY verapamil 120 mg Tablet 120 mg PO DAILY fluticasone propion-salmeterol [Advair Diskus] 100-50 mcg/dose Blister With Device 1 inh INHALATION BID zolpidem 10 mg Tablet 10 mg PO BEDTIME PRN (Reason: Sleep) Discontinued aspirin 325 mg tablet 325 mg PO DAILY Qty: 42 0RF Rx Instructions: for dvt prophylaxis postop Follow up/Referrals: Nawaf Diego MD [Primary Care Provider] - 01/14/22 2:45 pm (appt: TODAY 01/14 @ 2:[address] DIEGO ) Visit Report/Discharge Packet Instructions: How to Care for Your Goodwin Catheter -- Male, Blood in Urine Discharge Data Primary Care Provider: Nawaf Diego
--- NOTE | 2022-01-14 10:26 | CM.DPC ---
DCP Cont: Spoke to patient, after speaking to the hospitalist, he is opened to home health. Stated, he would like the local one, is ok with [facility]. Patient feels he only needs nursing for the catheter. Called Lucian at [facility] and gave him information on patient, as he can look up on [employer]. Placed the orders for RN. Completed face to face, and gave to Darshana to scan, so this will be in the system as well. P: Patient should be discharging home today with [facility] RN. Patient also has a follow up appointment today at approximately 1400 with primary care provider, for possible urology referral. Sil Hines RN/Computer Software Engineer
[2022-01-14] MEDS: atenoloL 50 MG TABLET 25 MG PO (11:04)
[2022-01-14 11:45] VITALS: BP 101/57; PULSE 90; RESP 16; TEMP 37; O2SAT 99
== END 2022-01-14 14:20 | disposition home health service (06) | DRG 69 ==
LOC: ED 14:00 → AC 14:29 → ICU 01-12 07:35 → AC 01-13 10:42
PROVIDERS: Nurse Practitioner Family; Admitting Provider Student in an Organized Health Care Education/Training Program; Emergency Provider Emergency Medicine; Family Provider Internal Medicine; PCP Internal Medicine; Referring Provider Emergency Medicine; Visit Provider Student in an Organized Health Care Education/Training Program
DX: G45.9 Transient cerebral ischemic attack, unspecified (principal); E87.1 Hypo-osmolality and hyponatremia; D62 Acute posthemorrhagic anemia; I47.1 Supraventricular tachycardia; N28.89 Other specified disorders of kidney and ureter; G25.81 Restless legs syndrome; M06.9 Rheumatoid arthritis, unspecified; F51.04 Psychophysiologic insomnia; M1A.9XX0 Chronic gout, unspecified, without tophus (tophi); I10 Essential (primary) hypertension; Z87.891 Personal history of nicotine dependence; Z20.822 Contact with and (suspected) exposure to COVID-19
CPT/HCPCS: 36415; 70496; 70498; 70551; 71045; 74176; 74178; 80048; 80053; 80061; 80305; 81001; 81003; 81015; 82550; 82962; 83036; 83735; 84484; 85007; 85014; 85018; 85025; 85610; 85730; 87040; 87086; 87635; 87797; 93005; 93306; 93880; 99285; C9803; J0692; J1650; Q9967

== ENCOUNTER 2022-01-15 17:35 | Emergency (ER) | payer OTHER, SELFPAY ==
[2022-01-11 14:19] VITALS: BMI 26.4
[2022-01-15 17:48] VITALS: BP 102/58; PULSE 77; RESP 17; TEMP 36.6; O2SAT 99
--- NOTE | 2022-01-15 19:02 | ED.MALEGU ---
HPI - Male Genitourinary General Chief complaint: Urogenital-Male Stated complaint: Cath passing blood t-1, Now not passing anything Time Seen by Provider: 01/15/22 18:10 Source: patient Mode of arrival: Ambulatory History of Present Illness HPI Narrative: Patient here for painless hematuria. Started 5 days ago. He was seen here on Tuesday and admitted for TIA. After admission later in the day developed some bloody urine. Painless. No dizziness. No abdominal pain. No previous history of renal cancer. No kidney stones. No bladder cancer. I spoke with Dr. Thomas, hospitalist here, he states patient did have CT scan done and noted bleeding in the kidneys. He spoke with [facility] nephrology and was instructed for follow up outpatient. Patient did contact his family doctor for urgent outpatient Urology referral. No contact with Urology and Nephrology has not been done yet. His hemoglobin was stable. He was discharged home. Again, not on any blood thinners Hospital Course: Admitted for possible TIA due to inability to read right sides of words and expressive aphasia which lasted 5 minutes then resolved. All workup including MRI brain, echo and carotid US showed no evidence of stroke, shunt or significant stenosis. His home aspirin was changed from 325mg to 81mg daily and crestor continued. During the admission he developed gross bloody urine with clots (only received baby aspirin and one dose of [address] KUB showed right and possibly left renal collecting system hemorrage with clots in bladder, but no masses or kidney stones. urology advised placing a goodwin to irrigate and monitoring Hgb and if stable to dc to see outpatient urology for CT IVP. Patient's Hgb trended down from 13 to 10.5 but was stable around 10-11 for a full day. All anticoag was held including aspirin. Spoke with [facility] nephro who advised getting the CT IVP inpatient to see if it shows anything, which was obtained but only showed clots in the bladder and no other findings. Patient felt well, therefore was discharged to /u with his PCP Dr. Michele the same day for stat outpatient urology referral. Related Data Home Medications Medication Instructions Recorded Confirmed cholecalciferol (vitamin D3) 50 2,000 unit PO DAILY PRN other ##0 05/13/17 01/11/22 mcg (2,000 unit) capsule (Vitamin D3) diazepam 2 mg tablet 2 mg PO QDAYP PRN Muscle cramping 05/13/17 01/11/22 ##0 allopurinol 300 mg tablet 300 mg PO QAM 12/15/18 01/11/22 atenolol 50 mg tablet 25 mg PO DAILY 12/15/18 01/11/22 pramipexole 0.5 mg tablet 1 mg PO BEDTIME PRN Restless Leg(S) 12/15/18 01/11/22 cyanocobalamin (vitamin B-12) 1,000 mcg PO DAILY PRN other 03/29/19 01/11/22 1,000 mcg tablet (Vitamin B-12) prednisone 5 mg tablet 5 mg PO QPM 03/29/19 01/11/22 fluticasone 100 mcg-salmeterol 50 1 inh inhalation BID 12/04/20 01/11/22 mcg/dose blistr powdr for inhalation (Advair Diskus) verapamil 120 mg tablet 120 mg PO DAILY 12/04/20 01/11/22 zolpidem 10 mg tablet 10 mg PO BEDTIME PRN Sleep 12/04/20 01/11/22 flunisolide 25 mcg (0.025 %) nasal 1 spray intranasal BID PRN 01/11/22 01/11/22 spray Congestion omega 3-[id number]-[id number]-fish oil 120 1 cap PO PRN PRN other 01/11/22 01/11/22 mg-180 mg-500 mg capsule (Fish Oil) Previous Rx's Medication Instructions Recorded rosuvastatin 20 mg tablet 20 mg PO DAILY #30 tabs 03/30/19 Allergies Allergy/AdvReac Type Severity Reaction Status Date / Time No Known Drug Allergies Allergy Verified 01/05/22 11:26 Review of Systems Review of Systems Narrative: GENERAL: Denies chills, fatigue, malaise, fever, sweats. HEENT: Denies sinus pain, ear pain, sore throat RESPIRATORY: Denies dyspnea, cough CARDIOVASCULAR: Denies chest pain, palpitations GASTROINTESTINAL: Denies nausea, vomiting, abdominal pain : Denies dysuria, frequency, positive hematuria MUSCULOSKELETAL: denies muscle or bony pain SKIN: Denies rash, skin lesions NEUROLOGIC: Denies weakness, numbness, negative dizziness ROS Unobtainable: All systems reviewed & are unremarkable except as noted in HPI and below Patient History Medical History Acid reflux Anemia of chronic disease BPH (benign prostatic hyperplasia) Centrilobular emphysema Cervical radiculopathy COPD (chronic obstructive pulmonary disease) Fragile skin Hearing impaired Hx of transient ischemic attack (TIA) Impaired fasting glucose Insomnia Interstitial lung disease Microscopic colitis (~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) SUSAN on CPAP Osteoarthritis PSVT (paroxysmal supraventricular tachycardia) (~2004) RBBB (right bundle branch block) Rheumatoid arthritis 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 RLS (restless legs syndrome) Seasonal allergic rhinitis Surgical History H/O: vasectomy History of colonoscopy with polypectomy (~2016) Hx of arthroscopy of left knee Hx of arthroscopy of right knee Hx of bilateral cataract extraction 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 EYES: Pupils equal round No scleral icterus. No pale conjunctiva ENT: Mucous membranes moist. NECK: Trachea midline. CARDIOVASCULAR: Regular rate and rhythm without murmurs RESPIRATORY: Clear to auscultation. Breath sounds equal bilaterally. No wheezes, rales, or rhonchi. GASTROINTESTINAL: Abdomen soft, non-tender, no suprapubic tenderness. EXTREMITIES: No gross deformities. BACK: No flank tenderness. NEURO: AOx4. SKIN: Warm and dry PSYCH: Not anxious, is cooperative Initial Vital Signs Initial Vital Signs: Vital Signs Temperature 98 F 01/15/22 17:48 Pulse Rate 77 01/15/22 17:48 Respiratory Rate 17 01/15/22 17:48 Blood Pressure 102/58 L 01/15/22 17:48 Pulse Oximetry 99 01/15/22 17:48 Oxygen Delivery Method 01/15/22 17:48 Course Course Course Narrative: No new issues during course of stay Orders Ordered: ED Orders 01/15/22 19:09 CT kidney ureter bladder (KUB) Stat 01/15/22 22:40 Complete Blood Count AUTO DIFF Stat Comprehensive Metabolic Panel Stat PT [Prothrombin Time INR] Stat PTT [Partial Thromboplastin Time] Stat Reevaluation(s) Reevaluation #1: Reviewed results with patient and . They do desire discharge home. He states the blood in the urine bag is much better than previous. He has no concerns at this time regarding pain. No dizziness no syncope no near syncope. Return precautions reviewed with them. They desire discharge home. Time: 23:09 Vital Signs Vital signs: Vital Signs - 8 hr 01/15/22 17:48 01/15/22 23:13 Temperature 98 F Pulse Rate 77 65 Respiratory Rate 17 16 Blood Pressure 102/58 L 142/77 H Pulse Oximetry 99 99 Oxygen Delivery Method Room Air Room Air MDM - Male Genitourinary Differential Diagnosis Differential diagnosis: Likely urinary tract infection, acute retention of urine and other (Clogged Goodwin catheter. Hematuria.) Lab Data Result diagrams: 01/15/22 22:40 01/15/22 22:40 Labs: Lab Results 01/15/22 01/15/22 01/15/22 Range/Units 22:40 22:40 22:40 WBC 9.3 (4.5-11.0) X10^3/uL RBC 2.81 L (4.5-5.9) X10^6/uL Hgb 9.3 L (13.5-17.5) g/dL Hct 26.5 L (41-53) % MCV 94.2 (80-100) fL MCH 33.0 (26-34) PG MCHC 35.0 (30-36) % RDW 13.5 (11.6-14.8) % Plt Count 218 (150-400) X10^3/uL Neut % (Auto) Not Reportable Lymph % (Auto) Not Reportable Wilson % (Auto) Not Reportable Eos % (Auto) Not Reportable Baso % (Auto) Not Reportable Lymph # (Auto) Not Reportable Wilson # (Auto) Not Reportable Baso # (Auto) Not Reportable Total Counted 100 Seg Neutrophils % 58.0 (38-70) % Lymphocytes % (Manual) 10.0 L (25-45) % Monocytes % (Manual) 7.0 (2-11) % Eosinophils % (Manual) 24.0 H (2-4) % Basophils % (Manual) 1.0 (0-1) % Neutrophils # (Manual) 5394 (9723-5495) /uL RBC Morphology Normal morphology PT 11.9 (10.1-12.7) SECONDS INR 1.0 (0.9-1.3) APTT 32 (26-36) SECONDS Sodium 130 L (137-145) mmol/L Potassium 3.9 (3.4-5.1) mmol/L Chloride 101 (98-107) mmol/L Carbon Dioxide 23 (22-32) mmol/L BUN 14 (9-20) mg/dL Creatinine 0.87 (0.66-1.25) mg/dL Estimated GFR > 60 (>60) mL/min BUN/Creatinine Ratio 16.1 (6-22) Glucose 99 (80-110) mg/dL Calcium 8.0 L (8.4-10.2) mg/dL Total Bilirubin 0.5 (0.2-1.3) mg/dL AST 37 (17-59) IU/L ALT 32 (<50) IU/L Alkaline Phosphatase 80 (38-126) U/L Total Protein 6.5 (6.3-8.2) g/dL Albumin 3.3 L (3.5-5.0) g/dL Globulin 3.2 (1.7-4.1) g/dL Albumin/Globulin Ratio 1.0 (1.0-2.8) Imaging Data CT scan - abdomen/pelvis: Radiologist's Impression: [address] [address] [address] Scan Report Signed Patient: Vinnie Villalobos MR#: [id number] : 1935 Acct:[id number] Age/Sex: 86 / M Date of Service: 01/15/22 Loc: ED Accession Number: [id number] ?? Procedure: CT kidney ureter bladder (KUB) Ordering Provider: Arnol Blevins MD PROCEDURE:? CT KIDNEY URETER BLADDER (KUB) ? INDICATIONS:? Hematuria ? TECHNIQUE:? Axial sections were acquired from the lung bases to the pubic symphysis.? Coronal and sagittal reformats were performed.? For radiation dose reduction, the following was used: ?automated exposure control, adjustment of mA and/or kV according to patient size.? ? COMPARISON:? [facility], CT, CT IVP A/P W/WO, 01/13/2022, 17:42.? [facility], CT, CT CHEST WO CON, 10/15/2019, 13:04.? [facility], CT, CT KIDNEY URETER BLADDER (KUB), 01/12/2022, 8:39. ? FINDINGS:? Image quality:? Excellent.? ? Lung bases:? Within the visualized right lower lobe, there is a subpleural nodule measuring 0.6 cm on series 3, image 12 which appears similar in size compared to the prior studies dating back to 10/15/2019.? There is minimal atelectasis and scarring in the lung bases.? ? Heart:? Heart is normal in size.? There is a small hiatal hernia. ? URINARY: Right Kidney and Ureter: ? No stones or hydronephrosis.? There is nonspecific perinephric stranding redemonstrated bilaterally.? No hydroureter.? ? Left Kidney and Ureter: ? No stones or hydronephrosis.? There is nonspecific perinephric stranding redemonstrated bilaterally.? No hydroureter. ? Bladder:? There is a Goodwin catheter within the urinary bladder.? The bladder demonstrates moderate distention with internal high density consistent with blood product. ? ABDOMEN: Liver:? There are a few scattered small hypodense foci redemonstrated within the liver likely representing cysts. Gallbladder:? Within normal limits without calcified gallstones.? ? Biliary ducts:? No biliary ductal dilatation.? ? Pancreas:? Unremarkable.? ? Spleen:? Normal in size.? ? Adrenal Glands:? No adrenal nodules.? ? ? Stomach and Bowel:? Stomach, small bowel loops, and colon are normal in caliber and wall thickness.? The appendix is normal in appearance.? Peritoneum:? No abnormal intraperitoneal fluid.? No free air.? ? Ventral Wall: ? No hernia.? Abdominal Nodes:? No retroperitoneal or mesenteric adenopathy by size criteria.? Vessels:? Aorta and inferior vena cava are normal in size.? ? PELVIS: Pelvic Organs:? Unremarkable.? ? Pelvic Nodes: No enlarged lymph nodes.? Miscellaneous: No inguinal hernias identified. ? ? ? Bones:? Visualized osseous structures demonstrate no suspicious focal lesions. IMPRESSION:? ? 1.? Persistent blood product demonstrated within the bladder, with a Goodwin catheter in place. ? 2. No evidence of hydronephrosis. ? ? Dictated by: Jones Bishop M.D. on 01/15/2022 at 21:41 ? ? Approved by: Jones Bishop M.D. on 01/15/2022 at 21:47 ? MDM Narrative Medical decision making narrative: Appropriate for discharge home. Patient is asymptomatic regarding no dizziness no syncope no fainting no dyspnea no palpitations. Blood count noted on CBC. Slightly lower than previous from discharge from hospital here. However, I did review with patient and and they do desire discharge home and follow up with urgent referral for family doctor to Urology and Nephrology. Return precautions reviewed with them. They do desire discharge home. I did review with hospitalist here today that took care of patient. At this time appropriate for discharge home if no significant change in hemoglobin. As well as CT imaging. Discharge Plan Departure Patient Disposition: Home Clinical Impression: Hematuria Instructions: DI for Hematuria Activity Restrictions/Additional Instructions: Return immediately if any questions or concerns. Return immediately if any dizziness or trouble breathing or any near fainting. Return if increased bleeding and your catheter bag. Please do continue with her family doctor getting urgent referral to Nephrology as well as Urology. Prescriptions: No Action cholecalciferol (vitamin D3) [Vitamin D3] 2,000 unit Capsule 2,000 unit PO DAILY PRN (Reason: other) Qty: 0 diazepam 2 MG tablet 2 mg PO QDAYP PRN (Reason: Muscle cramping) Qty: 0 prednisone 5 mg Tablet 5 mg PO QPM cyanocobalamin (vitamin B-12) [Vitamin B-12] 1,000 mcg Tablet 1,000 mcg PO DAILY PRN (Reason: other) rosuvastatin 20 mg tablet 20 mg PO DAILY Qty: 30 0RF Fish Oil 120-180-500 mg Capsule 1 cap PO PRN PRN (Reason: other) flunisolide 25 mcg (0.025 %) [place],Non-Aerosol 1 spray INTRANASAL BID PRN (Reason: Congestion) pramipexole 0.5 mg Tablet 1 mg PO BEDTIME PRN (Reason: Restless Leg(S)) allopurinol 300 mg Tablet 300 mg PO QAM atenolol 50 mg Tablet 25 mg PO DAILY verapamil 120 mg Tablet 120 mg PO DAILY fluticasone propion-salmeterol [Advair Diskus] 100-50 mcg/dose Blister With Device 1 inh INHALATION BID zolpidem 10 mg Tablet 10 mg PO BEDTIME PRN (Reason: Sleep) Referrals: Nwaaf Michele MD [Primary Care Provider] - Visit Report Forms: Patient Portal/API
--- NOTE | 2022-01-15 19:09 | DI.CT.S_ITS ---
PROCEDURE: CT KIDNEY URETER BLADDER (KUB) INDICATIONS: Hematuria TECHNIQUE: Axial sections were acquired from the lung bases to the pubic symphysis. Coronal and sagittal reformats were performed. For radiation dose reduction, the following was used: automated exposure control, adjustment of mA and/or kV according to patient size. COMPARISON: [facility], CT, CT IVP A/P W/WO, 01/13/2022, 17:42. [facility], CT, CT CHEST WO CON, 10/15/2019, 13:04. [facility], CT, CT KIDNEY URETER BLADDER (KUB), 01/12/2022, 8:39. FINDINGS: Image quality: Excellent. Lung bases: Within the visualized right lower lobe, there is a subpleural nodule measuring 0.6 cm on series 3, image 12 which appears similar in size compared to the prior studies dating back to 10/15/2019. There is minimal atelectasis and scarring in the lung bases. Heart: Heart is normal in size. There is a small hiatal hernia. URINARY: Right Kidney and Ureter: No stones or hydronephrosis. There is nonspecific perinephric stranding redemonstrated bilaterally. No hydroureter. Left Kidney and Ureter: No stones or hydronephrosis. There is nonspecific perinephric stranding redemonstrated bilaterally. No hydroureter. Bladder: There is a Biswas catheter within the urinary bladder. The bladder demonstrates moderate distention with internal high density consistent with blood product. ABDOMEN: Liver: There are a few scattered small hypodense foci redemonstrated within the liver likely representing cysts. Gallbladder: Within normal limits without calcified gallstones. Biliary ducts: No biliary ductal dilatation. Pancreas: Unremarkable. Spleen: Normal in size. Adrenal Glands: No adrenal nodules. Stomach and Bowel: Stomach, small bowel loops, and colon are normal in caliber and wall thickness. The appendix is normal in appearance. Peritoneum: No abnormal intraperitoneal fluid. No free air. Ventral Wall: No hernia. Abdominal Nodes: No retroperitoneal or mesenteric adenopathy by size criteria. Vessels: Aorta and inferior vena cava are normal in size. PELVIS: Pelvic Organs: Unremarkable. Pelvic Nodes: No enlarged lymph nodes. Miscellaneous: No inguinal hernias identified. Bones: Visualized osseous structures demonstrate no suspicious focal lesions. IMPRESSION: 1. Persistent blood product demonstrated within the bladder, with a Biswas catheter in place. 2. No evidence of hydronephrosis. Dictated by: Jones Bishop M.D. on 01/15/2022 at 21:41 Approved by: Jones Bishop M.D. on 01/15/2022 at 21:47
[2022-01-15 22:55] LABS: Prothrombin Time 11.9 SECONDS (10.1-12.7)
[2022-01-15 22:57] LABS: Hematocrit 26.5 % (41-53); Hemoglobin 9.3 g/dL (13.5-17.5); Mean Corpuscular Volume 94.2 fL (80-100); Platelet Count 218 X10^3/uL (150-400); Red Blood Cell Count 2.81 X10^6/uL (4.5-5.9); Red Cell Distribution Width 13.5 % (11.6-14.8); White Blood Cell Count 9.3 X10^3/uL (4.5-11.0)
[2022-01-15 22:58] LABS: Add Manual Diff / Slide Review YES; PTT Partial Thromboplastin Tim 32 SECONDS (26-36)
[2022-01-15 22:59] LABS: Alanine Aminotransferase 32 IU/L (<50); Albumin 3.3 g/dL (3.5-5.0); Alkaline Phosphatase 80 U/L (38-126); Aspartate Aminotransferase 37 IU/L (17-59); BUN Creatinine Ratio 16.1 (6-22); Bilirubin Total 0.5 mg/dL (0.2-1.3); Blood Urea Nitrogen 14 mg/dL (9-20); Carbon Dioxide 23 mmol/L (22-32); Chloride 101 mmol/L (98-107); Estimated Glomerular Filt Rate > 60 mL/min (>60); Globulin 3.2 g/dL (1.7-4.1); Glucose 99 mg/dL (80-110); HEMOLYSIS < 15 (0-50); Potassium 3.9 mmol/L (3.4-5.1); Sodium 130 mmol/L (137-145); Total Protein 6.5 g/dL (6.3-8.2)
[2022-01-15 23:13] VITALS: BP 142/77; PULSE 65; RESP 16; O2SAT 99
[2022-01-15 23:16] LABS: Neutrophils Absolute Manual 5394 /uL (3000-5900); Total Cells Counted 100
[2022-01-15 23:17] LABS: RBC Morphology Normal Morphology
== END 2022-01-15 23:14 | disposition home or self-care (01) ==
PROVIDERS: Emergency Provider Emergency Medicine; Family Provider Internal Medicine; PCP Internal Medicine
DX: R31.9 Hematuria, unspecified (principal); Z86.73 Personal history of transient ischemic attack (TIA), and cerebral infarction without residual deficits
CPT/HCPCS: 51798; 74176; 80053; 85007; 85025; 85610; 85730; 99283; 99284

== ENCOUNTER 2022-01-16 12:32 | Emergency (ER) | payer OTHER, SELFPAY ==
[2022-01-11 14:19] VITALS: BMI 26.4
[2022-01-16 12:35] VITALS: BP 107/55; PULSE 74; RESP 15; TEMP 36.1; O2SAT 100; BMI 27.1
--- NOTE | 2022-01-16 13:28 | PC.NURSE ---
catheter appears to be draining. Bladder scan shows zero in bladder. Pt has been keeping goodwin bag elevated . Pt educated on keeping it lower to drain to gravity.
[2022-01-16] MEDS: LIDOCAINE 2% (GLYDO) 6 ML GEL TOP (14:07)
--- NOTE | 2022-01-16 14:21 | ED.MALEGU ---
HPI - Male Genitourinary <Nilda Lundberg, [facility] - Last Filed: 01/16/22 17:34> General Chief complaint: Urogenital-Male Stated complaint: cath plugged here last night Time Seen by Provider: 01/16/22 12:49 Source: patient Mode of arrival: Ambulatory History of Present Illness HPI Narrative: This is an 86-year-old gentleman who presents to the emergency department for the 2nd time in 24 hours for hematuria, without drainage from his Biswas catheter this morning. He denies any suprapubic pain, fullness, or bladder spasm. He states that he was here last night for complications with his bladder and a Biswas catheter was flushed. Patient's primary care provider is Dr. Michele, he has yet to see Urology, states that his primary care provider has put in a referral. Patient states that he is had hematuria for the last 5 days, states that it was not draining this morning. Patient was admitted to the hospital on 01/11/2022 with hyponatremia, a Biswas catheter was placed at that time. He is not on anticoagulants, taking baby aspirin daily. Patient was seen in the emergency department last evening, his lab work reveals hemoglobin of 9.3, hematocrit 26.5, INR of 1.0. He was admitted on the for hyponatremia, yesterday his sodium was 130 which was stable from his prior level the day before. Patient was discharged on the , return for a clogged catheter last night, had a CT completed which showed blood in his bladder with a Biswas catheter in place, no evidence of hydronephrosis. He has taylor blood in the tubing of his catheter without urine draining currently. Related Data Home Medications Medication Instructions Recorded Confirmed cholecalciferol (vitamin D3) 50 2,000 unit PO DAILY PRN other ##0 05/13/17 01/11/22 mcg (2,000 unit) capsule (Vitamin D3) diazepam 2 mg tablet 2 mg PO QDAYP PRN Muscle cramping 05/13/17 01/11/22 ##0 allopurinol 300 mg tablet 300 mg PO QAM 12/15/18 01/11/22 atenolol 50 mg tablet 25 mg PO DAILY 12/15/18 01/11/22 pramipexole 0.5 mg tablet 1 mg PO BEDTIME PRN Restless Leg(S) 12/15/18 01/11/22 cyanocobalamin (vitamin B-12) 1,000 mcg PO DAILY PRN other 03/29/19 01/11/22 1,000 mcg tablet (Vitamin B-12) prednisone 5 mg tablet 5 mg PO QPM 03/29/19 01/11/22 fluticasone 100 mcg-salmeterol 50 1 inh inhalation BID 12/04/20 01/11/22 mcg/dose blistr powdr for inhalation (Advair Diskus) verapamil 120 mg tablet 120 mg PO DAILY 12/04/20 01/11/22 zolpidem 10 mg tablet 10 mg PO BEDTIME PRN Sleep 12/04/20 01/11/22 flunisolide 25 mcg (0.025 %) nasal 1 spray intranasal BID PRN 01/11/22 01/11/22 spray Congestion omega [id number] oil 120 1 cap PO PRN PRN other 01/11/22 01/11/22 mg-180 mg-500 mg capsule (Fish Oil) Previous Rx's Medication Instructions Recorded rosuvastatin 20 mg tablet 20 mg PO DAILY #30 tabs 03/30/19 cefdinir 300 mg capsule 300 mg PO Q12H 10 days #20 caps 01/16/22 phenazopyridine 200 mg tablet 200 mg PO TID bladder spasm/pain 6 01/16/22 (Pyridium) doses #7 tabs Allergies Allergy/AdvReac Type Severity Reaction Status Date / Time No Known Drug Allergies Allergy Verified 01/16/22 12:37 Review of Systems <IZAIAH Aguirre - Last Filed: 01/16/22 17:34> Review of Systems Narrative: Review of systems is negative for acute abnormalities unless otherwise noted in HPI Patient History <IZAIAH Aguirre - Last Filed: 01/16/22 17:34> Medical History Acid reflux Anemia of chronic disease BPH (benign prostatic hyperplasia) Centrilobular emphysema Cervical radiculopathy COPD (chronic obstructive pulmonary disease) Fragile skin Hearing impaired Hx of transient ischemic attack (TIA) Impaired fasting glucose Insomnia Interstitial lung disease Microscopic colitis (~06/2008) SUSAN on CPAP Osteoarthritis PSVT (paroxysmal supraventricular tachycardia) (~2004) RBBB (right bundle branch block) Rheumatoid arthritis 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 RLS (restless legs syndrome) Seasonal allergic rhinitis Surgical History H/O: vasectomy History of colonoscopy with polypectomy (~2016) Hx of arthroscopy of left knee Hx of arthroscopy of right knee Hx of bilateral cataract extraction 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 General: cooperative, comfortable, in no acute distress, well groomed HEENT: symmetrical facial expressions, dry mucous membranes Cardiovascular: regular rate and rhythm, no peripheral edema, warm extremities GI: abdomen soft, nontender to palpation, no suprapubic tenderness, nondistended, without masses, rebound tenderness or exquisite tenderness with exam. : Biswas catheter with taylor blood in tubing, not currently draining, manipulated and a mild amount of urine started draining again, dark red. Third port with 2 way is clogged with a piece of plastic, this has broke off inside, unable to flush through this, Biswas catheter will need to be removed When RN removed catheter, there was 90 cc in a 30 cc balloon of the catheter the 20 [place] Biswas catheter. This was removed, patient tolerated removal well, glide was used for placement of new 16 [place] Biswas catheter. No draining from urethral meatus at this time. Bladder irrigation started approximately 14 30, currently urine is pink tinged and clear with 1.5 L of irrigation patient complains of mild discomfort. 1700 patient's urine is clearing Skin: brisk capillary refill, without pallor Neuro: normal speech and cognition, A&O x3, ambulatory, clear speech Psych: mental status is grossly normal, congruent mood, normal affect, pleasant and cooperative Initial Vital Signs Initial Vital Signs: Vital Signs Temperature 97.0 F L 10/29/22 12:35 Pulse Rate 74 01/16/22 12:35 Respiratory Rate 15 01/16/22 12:35 Blood Pressure 107/55 L 01/16/22 12:35 Pulse Oximetry 100 01/16/22 12:35 Oxygen Delivery Method 01/16/22 12:35 <Scottie Dia DO - Last Filed: 01/17/22 08:35> Initial Vital Signs Initial Vital Signs: Vital Signs Temperature 97.0 F L 01/16/22 12:35 Pulse Rate 74 01/16/22 12:35 Respiratory Rate 15 01/16/22 12:35 Blood Pressure 107/55 L 01/16/22 12:35 Pulse Oximetry 100 01/16/22 12:35 Oxygen Delivery Method 01/16/22 12:35 Course <IZAIAH Aguirre - Last Filed: 01/16/22 17:34> Orders Ordered: Discontinued Medications Acetaminophen (Acetaminophen 325 Mg Tablet) 650 mg PO NOW ONE Stop: 01/16/22 14:57 Last Admin: 01/16/22 15:09 Dose: 650 mg Documented By: SB Ceftriaxone Sodium 1,000 mg/ (Sodium Chloride) 100 mls @ 200 mls/hr IV NOW ONE Stop: 01/16/22 16:53 Last Infusion: 01/16/22 17:55 Dose: 0 mls/hr Documented By: Admin: 01/16/22 17:19 Dose: 200 mls/hr Documented By: SB Ketorolac Tromethamine (Ketorolac 10 Mg Tablet) 10 mg PO NOW ONE Stop: 01/16/22 14:57 Last Admin: 01/16/22 15:08 Dose: 10 mg Documented By: SB Lidocaine HCl (Lidocaine 2% (Glydo) 6 Ml Gel) 6 ml TOP NOW ONE Stop: 01/16/22 13:49 Last Admin: 01/16/22 14:07 Dose: 6 ml Documented By: NR Oxybutynin (Oxybutynin 5 Mg Tablet) 5 mg PO BID [facility] Reevaluation(s) Reevaluation #1: RN states patient's 20 [place] Biswas catheter with a 30 cc balloon had 90 mL of fluid in the balloon, hematuria remains present, fully was removed due to impaired function, broken piece of plastic in [address] Time: 14:00 Reevaluation #2: RN will place new Biswas catheter, irrigate bladder until clear with normal saline, achieved pink with clear after 1.5 L Reevaluation #3: Rechecked patient's irrigation, urine is mostly clear, slightly pink tinged, patient states he is doing well. Time: 15:50 Vital Signs Vital signs: Vital Signs - 8 hr 01/16/22 12:35 01/16/22 16:15 01/16/22 16:30 Temperature 97.0 F L Pulse Rate 74 70 74 Respiratory Rate 15 18 Blood Pressure 107/55 L 109/61 122/60 Pulse Oximetry 100 99 Oxygen Delivery Method Room Air <Scottie Dia DO - Last Filed: 01/17/22 08:35> Orders Ordered: Discontinued Medications Acetaminophen (Acetaminophen 325 Mg Tablet) 650 mg PO NOW ONE Stop: 01/16/22 14:57 Last Admin: 01/16/22 15:09 Dose: 650 mg Documented By: SB Ceftriaxone Sodium 1,000 mg/ (Sodium Chloride) 100 mls @ 200 mls/hr IV NOW ONE Stop: 01/16/22 16:53 Last Infusion: 01/16/22 17:55 Dose: 0 mls/hr Documented By: Admin: 01/16/22 17:19 Dose: 200 mls/hr Documented By: SB Ketorolac Tromethamine (Ketorolac 10 Mg Tablet) 10 mg PO NOW ONE Stop: 01/16/22 14:57 Last Admin: 01/16/22 15:08 Dose: 10 mg Documented By: SB Lidocaine HCl (Lidocaine 2% (Glydo) 6 Ml Gel) 6 ml TOP NOW ONE Stop: 01/16/22 13:49 Last Admin: 01/16/22 14:07 Dose: 6 ml Documented By: NR Oxybutynin (Oxybutynin 5 Mg Tablet) 5 mg PO BID [facility] Vital Signs Vital signs: Vital Signs - 8 hr 01/16/22 12:35 01/16/22 16:15 01/16/22 16:30 Temperature 97.0 F L Pulse Rate 74 70 74 Respiratory Rate 15 18 Blood Pressure 107/55 L 109/61 122/60 Pulse Oximetry 100 99 Oxygen Delivery Method Room Air MDM - Male Genitourinary <IZAIAH Aguirre - Last Filed: 01/16/22 17:34> Lab Data Result diagrams: 01/16/22 15:40 01/16/22 15:40 Labs: Lab Results 01/16/22 01/16/22 01/16/22 Range/Units 15:40 15:40 15:40 WBC 11.1 H (4.5-11.0) X10^3/uL RBC 2.84 L (4.5-5.9) X10^6/uL Hgb 9.2 L (13.5-17.5) g/dL Hct 27.0 L (41-53) % MCV 95.2 (80-100) fL MCH 32.4 (26-34) PG MCHC 34.1 (30-36) % RDW 13.8 (11.6-14.8) % Plt Count 241 (150-400) X10^3/uL Neut % (Auto) 57.2 (50-75) % Lymph % (Auto) 9.0 L (25-40) % Lyon % (Auto) 7.0 (3-14) % Eos % (Auto) 26.2 H (2-4) % Baso % (Auto) 0.6 (0-2) % Neut # (Auto) 6300 (2318-3604) /uL Lymph # (Auto) 1000 L (2955-5274) /uL Lyon # (Auto) 800 (0-900) /uL Eos # (Auto) 2900 H (0-450) /uL Baso # (Auto) 100 (0-100) /uL Sodium 129 L (137-145) mmol/L Potassium 4.4 (3.4-5.1) mmol/L Chloride 100 (98-107) mmol/L Carbon Dioxide 19 L (22-32) mmol/L BUN 15 (9-20) mg/dL Creatinine 0.88 (0.66-1.25) mg/dL Estimated GFR > 60 (>60) mL/min BUN/Creatinine Ratio 17.0 (6-22) Glucose 105 (80-110) mg/dL Calcium 8.2 L (8.4-10.2) mg/dL Magnesium 2.1 (1.6-2.3) mg/dL Total Bilirubin 0.8 (0.2-1.3) mg/dL AST 47 (17-59) IU/L ALT 33 (<50) IU/L Alkaline Phosphatase 89 (38-126) U/L Total Protein 6.9 (6.3-8.2) g/dL Albumin 3.5 (3.5-5.0) g/dL Globulin 3.4 (1.7-4.1) g/dL Albumin/Globulin Ratio 1.0 (1.0-2.8) Urine Color Yellow Urine Appearance Clear Urine pH 6.5 (4.5-8.0) Ur Specific [place] 1.020 (1.000-1.035) Urine Protein 3+ H (Negative) Urine Glucose (UA) Trace H (Negative) g/dL Urine Ketones Trace H (NEGATIVE) Urine Occult Blood 3+ H (Negative) Urine Nitrate Positive H (Negative) Urine Bilirubin Negative (NEGATIVE) Urine Urobilinogen 1.0 (0.2) E.U./dL Ur Leukocyte Esterase 1+ H (NEGATIVE) Urine RBC 10-30/hpf H (0-5/HPF) Urine WBC None seen (0-5/HPF) Amorphous Sediment 1+ Urine Bacteria Moderate (10-30) H (None) Ur Culture Indicated? Specimen cultured Imaging Data CT scan - abdomen/pelvis: Radiologist's Impression: PROCEDURE:? CT KIDNEY URETER BLADDER (KUB) ? INDICATIONS:? Hematuria ? TECHNIQUE:? Axial sections were acquired from the lung bases to the pubic symphysis.? Coronal and sagittal reformats were performed.? For radiation dose reduction, the following was used: ?automated exposure control, adjustment of mA and/or kV according to patient size.? ? COMPARISON:? [facility], CT, CT IVP A/P W/WO, 01/13/2022, 17:42.? [facility], CT, CT CHEST WO CON, 10/15/2019, 13:04.? [facility], CT, CT KIDNEY URETER BLADDER (KUB), 01/12/2022, 8:39. ? FINDINGS:? Image quality:? Excellent.? ? Lung bases:? Within the visualized right lower lobe, there is a subpleural nodule measuring 0.6 cm on series 3, image 12 which appears similar in size compared to the prior studies dating back to 10/15/2019.? There is minimal atelectasis and scarring in the lung bases.? ? Heart:? Heart is normal in size.? There is a small hiatal hernia. ? URINARY: Right Kidney and Ureter: ? No stones or hydronephrosis.? There is nonspecific perinephric stranding redemonstrated bilaterally.? No hydroureter.? ? Left Kidney and Ureter: ? No stones or hydronephrosis.? There is nonspecific perinephric stranding redemonstrated bilaterally.? No hydroureter. ? Bladder:? There is a Biswas catheter within the urinary bladder.? The bladder demonstrates moderate distention with internal high density consistent with blood product. ? ABDOMEN: Liver:? There are a few scattered small hypodense foci redemonstrated within the liver likely representing cysts. Gallbladder:? Within normal limits without calcified gallstones.? ? Biliary ducts:? No biliary ductal dilatation.? ? Pancreas:? Unremarkable.? ? Spleen:? Normal in size.? ? Adrenal Glands:? No adrenal nodules.? ? ? Stomach and Bowel:? Stomach, small bowel loops, and colon are normal in caliber and wall thickness.? The appendix is normal in appearance.? Peritoneum:? No abnormal intraperitoneal fluid.? No free air.? ? Ventral Wall: ? No hernia.? Abdominal Nodes:? No retroperitoneal or mesenteric adenopathy by size criteria.? Vessels:? Aorta and inferior vena cava are normal in size.? ? PELVIS: Pelvic Organs:? Unremarkable.? ? Pelvic Nodes: No enlarged lymph nodes.? Miscellaneous: No inguinal hernias identified. ? ? ? Bones:? Visualized osseous structures demonstrate no suspicious focal lesions. IMPRESSION:? ? 1.? Persistent blood product demonstrated within the bladder, with a Biswas catheter in place. ? 2. No evidence of hydronephrosis. ? ? Dictated by: Jones Bishop M.D. on 01/15/2022 at 21:41 ? ? Approved by: Jones Bishop M.D. on 01/15/2022 at 21:47 ? MDM Narrative Medical decision making narrative: This is an 86-year-old gentleman who returns to the emergency department for the 2nd time in 24 hours after being discharged from the hospital on 01/14/2022 for hyponatremia, urinary retention, hematuria and presents today with urinary catheter obstruction, tubing was full of taylor blood, was not draining any urine. His catheter was found to have functional problems, the catheter balloon had 90 ml of fluid in a 30 mL balloon, small broken piece of plastic was in the 3 way port. His catheter was removed, it was found to be 20 [place], [address] catheter placed, urinary drainage a new catheter was taylor blood. He was mildly anemic yesterday with a hemoglobin of 9.3 and hematocrit 26.5, today hemoglobin is stable at 9.2, hematocrit 27.0. He has been hyponatremic for the last 5 days, today his sodium is 129, this is improved from 127 on 01/13/2022. He is without any focal neuro deficits, denies dizziness, lightheadedness and ambulates with a steady gait. His urine was taylor blood out of the new catheter, this was sent down for evaluation and was found to have nitrates, blood, leukocyte esterase, bacteria and patient was given 1 g of ceftriaxone in the emergency department. Denies any history of bladder infections in the past. He was prescribed cefdinir 300 mg b.i.d. for the next 10 days, he is expected to follow-up with his PCP Dr. Michele regarding his referral to Urology. Contact information for Dr. Traore was put on his paperwork. Recommend patient stay hydrated, monitor his urinary catheter output, ensure that it is draining. He was given strict return precautions for worsening of his symptoms, blood in his catheter, if it stops draining, if he develops abdominal pain, lightheadedness, dizziness, nausea vomiting. He was encouraged to eat a salty diet for the next few days.. Lab work today shows a mild leukocytosis of 11.1, his WBC yesterday was 9.3 but previously was 13.7 and 11.5. No electrolyte abnormalities, CT abdomen from last night showed previous Biswas catheter in the bladder with blood in the bladder. Patient states understanding to his return precautions, he was prescribed Pyridium for bladder symptoms, cefdinir b.i.d. for the next 10 days and understands to follow-up with Dr. Michele and Dr. Traore. Patient is appropriate and amenable to discharge home. Vital signs are stable on repeat examination is unremarkable. Patient has been informed of results. Patient has been given strict return to ER precautions for any new or worsening symptoms. Patient understands to follow up closely with outpatient providers as instructed. Patient understands plan and agrees to discharge home. All questions and concerns answered at this time. <Scottie Dia, - Last Filed: 01/17/22 08:35> Lab Data Labs: Lab Results 01/16/22 01/16/22 01/16/22 Range/Units 15:40 15:40 15:40 WBC 11.1 H (4.5-11.0) X10^3/uL RBC 2.84 L (4.5-5.9) X10^6/uL Hgb 9.2 L (13.5-17.5) g/dL Hct 27.0 L (41-53) % MCV 95.2 (80-100) fL MCH 32.4 (26-34) PG MCHC 34.1 (30-36) % RDW 13.8 (11.6-14.8) % Plt Count 241 (150-400) X10^3/uL Neut % (Auto) 57.2 (50-75) % Lymph % (Auto) 9.0 L (25-40) % Lyon % (Auto) 7.0 (3-14) % Eos % (Auto) 26.2 H (2-4) % Baso % (Auto) 0.6 (0-2) % Neut # (Auto) 6300 (8671-9754) /uL Lymph # (Auto) 1000 L (8965-0171) /uL Lyon # (Auto) 800 (0-900) /uL Eos # (Auto) 2900 H (0-450) /uL Baso # (Auto) 100 (0-100) /uL Sodium 129 L (137-145) mmol/L Potassium 4.4 (3.4-5.1) mmol/L Chloride 100 (98-107) mmol/L Carbon Dioxide 19 L (22-32) mmol/L BUN 15 (9-20) mg/dL Creatinine 0.88 (0.66-1.25) mg/dL Estimated GFR > 60 (>60) mL/min BUN/Creatinine Ratio 17.0 (6-22) Glucose 105 (80-110) mg/dL Calcium 8.2 L (8.4-10.2) mg/dL Magnesium 2.1 (1.6-2.3) mg/dL Total Bilirubin 0.8 (0.2-1.3) mg/dL AST 47 (17-59) IU/L ALT 33 (<50) IU/L Alkaline Phosphatase 89 (38-126) U/L Total Protein 6.9 (6.3-8.2) g/dL Albumin 3.5 (3.5-5.0) g/dL Globulin 3.4 (1.7-4.1) g/dL Albumin/Globulin Ratio 1.0 (1.0-2.8) Urine Color Yellow Urine Appearance Clear Urine pH 6.5 (4.5-8.0) Ur Specific [place] 1.020 (1.000-1.035) Urine Protein 3+ H (Negative) Urine Glucose (UA) Trace H (Negative) g/dL Urine Ketones Trace H (NEGATIVE) Urine Occult Blood 3+ H (Negative) Urine Nitrate Positive H (Negative) Urine Bilirubin Negative (NEGATIVE) Urine Urobilinogen 1.0 (0.2) E.U./dL Ur Leukocyte Esterase 1+ H (NEGATIVE) Urine RBC 10-30/hpf H (0-5/HPF) Urine WBC None seen (0-5/HPF) Amorphous Sediment 1+ Urine Bacteria Moderate (10-30) H (None) Ur Culture Indicated? Specimen cultured Discharge Plan Departure Patient Disposition: Home Clinical Impression: Acute hyponatremia, Acute UTI Obstructed Biswas catheter Qualifiers: Encounter type: subsequent encounter Qualified Code(s): T83.091D - Other mechanical complication of indwelling urethral catheter, subsequent encounter Hematuria Qualifiers: Hematuria type: unspecified type Qualified Code(s): R31.9 - Hematuria, unspecified Biswas catheter problem Qualifiers: Encounter type: subsequent encounter Qualified Code(s): T83.9XXD - Unspecified complication of genitourinary prosthetic device, implant and graft, subsequent encounter Anemia Qualifiers: Anemia type: unspecified type Qualified Code(s): D64.9 - Anemia, unspecified Instructions: How to Care for Your Biswas Catheter -- Male, Acute Cystitis, DI for Hyponatremia, DI for Hematuria Activity Restrictions/Additional Instructions: *You have been diagnosed with a Biswas catheter problem, a bladder infection, ongoing low-sodium, and received a new catheter today. Please continue taking your other medications as prescribed. Please start this antibiotic tomorrow, on Tuesday please follow-up with Dr. Michele and find out about your referral to Urology. Please have your urine tested again at Dr. Crowell's office if he can get in next week. We will call you if your urine culture grows back bacteria that is not covered on this antibiotic. Thank you for coming in, sorry about your long day, hopefully we have helped resolve your bleeding issue. If you have blood in your catheter tubing again, if you have worsening pain, feel lightheaded or dizzy, please come back to the emergency department for another evaluation. Please remember to change positions slowly, eat salty foods, stay hydrated and check your catheter frequently for drainage. *What to do: *Please continue to take your regular medications as directed. [x ] New medication prescriptions sent to your pharmacy: [[facility]] [ ] New medication written as a paper prescription [ ] No new medications given *Please follow up with your primary care provider in 2-3 days, call for an appointment. Let them know you were seen in the Emergency Department and that we asked that you be seen for follow-up. We will electronically transmit a record of today's note if your PCP is in our system *If you do not have a primary care provider please contact [phone] to establish care with one of [facility] primary care providers. *Return to Emergency Department if you should have any new, worsening, or concerning symptoms, such as [fever greater than 101F, chills, worsening pain, persistent vomiting or other bothersome symptoms]. Prescriptions: New cefdinir 300 mg capsule 300 mg PO Q12H 10 Days Qty: 20 0RF phenazopyridine [Pyridium] 200 mg tablet 200 mg PO TID Qty: 7 0RF No Action cholecalciferol (vitamin D3) [Vitamin D3] 2,000 unit Capsule 2,000 unit PO DAILY PRN (Reason: other) Qty: 0 diazepam 2 MG tablet 2 mg PO QDAYP PRN (Reason: Muscle cramping) Qty: 0 prednisone 5 mg Tablet 5 mg PO QPM cyanocobalamin (vitamin B-12) [Vitamin B-12] 1,000 mcg Tablet 1,000 mcg PO DAILY PRN (Reason: other) rosuvastatin 20 mg tablet 20 mg PO DAILY Qty: 30 0RF Fish Oil 120-180-500 mg Capsule 1 cap PO PRN PRN (Reason: other) flunisolide 25 mcg (0.025 %) [place],Non-Aerosol 1 spray INTRANASAL BID PRN (Reason: Congestion) pramipexole 0.5 mg Tablet 1 mg PO BEDTIME PRN (Reason: Restless Leg(S)) allopurinol 300 mg Tablet 300 mg PO QAM atenolol 50 mg Tablet 25 mg PO DAILY verapamil 120 mg Tablet 120 mg PO DAILY fluticasone propion-salmeterol [Advair Diskus] 100-50 mcg/dose Blister With Device 1 inh INHALATION BID zolpidem 10 mg Tablet 10 mg PO BEDTIME PRN (Reason: Sleep) Referrals: Nawaf Michele MD [Primary Care Provider] - Arnol Traore MD [Physician] - Visit Report Forms: Patient Portal/API <Scottie Dia DO - Last Filed: 01/17/22 08:35> Cosign ED Attending Cosignature Attestation: I was immediately available in the department for consultation. This documentation has been reviewed and I agree with assessment and plan. Supervised by Scottie Dia DO
--- NOTE | 2022-01-16 14:25 | PC.NURSE ---
20F urinary catheter removed from patient. pt did not tolerate well. requests to have a few minutes of rest prior to insertion of new catheter. patient's catheter was a bardex 20fr with a 30cc balloon. balloon was deflated and found to have 90cc. provider notified.
[2022-01-16] MEDS: KETOROLAC 10 MG TABLET PO (15:08)
[2022-01-16] MEDS: ACETAMINOPHEN 325 MG TABLET 650 MG PO (15:09)
--- NOTE | 2022-01-16 15:40 | PC.NURSE ---
3 way urethral Biswas cath in place, patent and draining. Per report new cath placed by MAMIE Albert
[2022-01-16 16:15] VITALS: BP 109/61; PULSE 70; O2SAT 99
[2022-01-16 16:15] LABS: Alanine Aminotransferase 33 IU/L (<50); Albumin 3.5 g/dL (3.5-5.0); Alkaline Phosphatase 89 U/L (38-126); Aspartate Aminotransferase 47 IU/L (17-59); Bilirubin Total 0.8 mg/dL (0.2-1.3); Blood Urea Nitrogen 15 mg/dL (9-20); Calcium 8.2 mg/dL (8.4-10.2); Carbon Dioxide 19 mmol/L (22-32); Chloride 100 mmol/L (98-107); Estimated Glomerular Filt Rate > 60 mL/min (>60); Globulin 3.4 g/dL (1.7-4.1); Glucose 105 mg/dL (80-110); HEMOLYSIS 45 (0-50); Magnesium 2.1 mg/dL (1.6-2.3); Potassium 4.4 mmol/L (3.4-5.1); Sodium 129 mmol/L (137-145); Total Protein 6.9 g/dL (6.3-8.2)
[2022-01-16 16:30] VITALS: BP 122/60; PULSE 74; RESP 18
[2022-01-16 16:35] LABS: Appearance Urine UA CLEAR; Bilirubin Urine UA NEGATIVE (NEGATIVE); Color Urine UA YELLOW; Glucose Urine UA TRACE g/dL (Negative); Ketones Urine UA TRACE (NEGATIVE); Leukocyte Esterase Urine UA 1+ (NEGATIVE); Nitrite Urine UA POSITIVE (Negative); Occult Blood Urine UA 3+ (Negative); Protein Urine UA 3+ (Negative); pH Urine UA 6.5 (4.5-8.0)
[2022-01-16 16:39] LABS: Add Manual Diff / Slide Review NO; Basophils Absolute Auto 100 /uL (0-100); Basophils Percent Auto 0.6 % (0-2); Eosinophils Absolute Auto 2900 /uL (0-450); Eosinophils Percent Auto 26.2 % (2-4); Hemoglobin 9.2 g/dL (13.5-17.5); Lymphocytes Absolute Auto 1000 /uL (1100-4500); Mean Corpuscular HGB Conc 34.1 % (30-36); Mean Corpuscular Hemoglobin 32.4 PG (26-34); Mean Corpuscular Volume 95.2 fL (80-100); Monocytes Absolute Auto 800 /uL (0-900); Neutrophils Absolute Auto 6300 /uL (1500-7000); Neutrophils Percent Auto 57.2 % (50-75); Platelet Count 241 X10^3/uL (150-400); Red Blood Cell Count 2.84 X10^6/uL (4.5-5.9); Red Cell Distribution Width 13.8 % (11.6-14.8); White Blood Cell Count 11.1 X10^3/uL (4.5-11.0)
[2022-01-16 17:00] VITALS: BP 116/62; PULSE 68; RESP 16; O2SAT 99
[2022-01-16] MEDS: cefTRIAXone 1,000 MG in SODIUM CHLORIDE 0.9% 100 ML 200 MG IV (17:19)
[2022-01-16 17:28] LABS: Amorphous Sediment Urine 1+; Bacteria Urine Moderate (10-30); Culture Indicated Urine Specimen Cultured; RBC Urine 10-30/HPF (0-5/HPF); WBC Urine None Seen (0-5/HPF)
[2022-01-16 17:30] VITALS: BP 121/65; PULSE 70; O2SAT 100
[2022-01-16 18:00] VITALS: BP 115/62; PULSE 70; RESP 18; O2SAT 100
== END 2022-01-16 18:15 | disposition home or self-care (01) ==
PROVIDERS: Emergency Provider Nurse Practitioner Critical Care Medicine; Family Provider Internal Medicine; PCP Internal Medicine
DX: E87.1 Hypo-osmolality and hyponatremia (principal); N39.0 Urinary tract infection, site not specified; R31.9 Hematuria, unspecified; D64.9 Anemia, unspecified; T83.091D Other mechanical complication of indwelling urethral catheter, subsequent encounter
CPT/HCPCS: 36415; 51798; 80053; 81001; 83735; 85025; 87086; 96365; 99284; J0696

== ENCOUNTER 2022-01-19 15:36 | Emergency (ER) | payer OTHER, SELFPAY ==
[2022-01-11 14:19] VITALS: BMI 26.4
--- NOTE | 2022-01-19 16:24 | PC.NURSE ---
pt not in waiting room at 1600.
== END 2022-01-19 16:30 | disposition left against medical advice (07) ==
PROVIDERS: Emergency Provider Family Medicine Addiction Medicine; Family Provider Internal Medicine; PCP Internal Medicine

== ENCOUNTER 2022-02-18 07:25 | Inpatient (IN) | payer OTHER, SELFPAY ==
[2022-01-11 14:19] VITALS: BMI 26.4
[2022-02-18] VITALS (34 sets, daily range): BP systolic 85–152; BP diastolic 50–80; PULSE 80–110; RESP 16–22; TEMP 36.8–39.7; O2SAT 87–99; BMI 23.7
--- NOTE | 2022-02-18 07:50 | DI.RAD.S_ITS ---
PROCEDURE: XR CHEST 1V INDICATIONS: fever TECHNIQUE: One view of the chest was acquired. COMPARISON: [facility], CR, XR CHEST 1V, 01/13/2022, 12:50. FINDINGS: Surgical changes and devices: None. Lungs and pleura: Lungs are clear. No pleural effusions or pneumothorax. Mediastinum: Mediastinal contours appear normal. Heart size is normal. Bones and chest wall: No suspicious bony lesions. Overlying soft tissues appear unremarkable. IMPRESSION: No acute pulmonary process. Dictated by: Rosalba Luna M.D. on 02/18/2022 at 8:13 Approved by: Rosalba Luna M.D. on 02/18/2022 at 8:14
--- NOTE | 2022-02-18 08:02 | ED.FEVER ---
HPI - Fever General Chief Complaint: Fever Stated Complaint: Pneumonia/Fever Time Seen by Provider: 02/18/22 07:50 Source: patient and EMS Mode of arrival: EMS Limitations: no limitations History of Present Illness HPI Narrative: This is an 86-year-old male with history of TIA, BPH, restless leg, SUSAN on CPAP, gout, rheumatoid arthritis and history of microscopic colitis who presents for fever, cough with outpatient diagnosis of pneumonia at a [facility]. Patient has been on azithromycin for 2 days. Patient states he woke up this morning at 6:00 a.m. febrile with a temperature of 104? F came down to 102 F but he is not taken anything for his temperature. Patient denies any chest pain, no shortness of breath, he states he felt fatigued and tired, he denies headache or neck pain, known back pain, he felt nauseated this morning but has not had any vomiting. He denies any diarrhea, no black or bloody stools, no abdominal back or flank pain. He denies myalgias, states he is scheduled for bladder surgery for bladder cancer but has not had new urinary changes recently. No rash or skin changes. Patient states he is had prior knee surgery and cervical fusion. Denies history cardiac stents were ablations. Takes aspirin 81 mg daily. No alcohol. No tobacco in the past 50 years, no illicit. His primary care is Dr. Michele. Related Data Home Medications Medication Instructions Recorded Confirmed cholecalciferol (vitamin D3) 50 2,000 unit PO DAILY PRN other ##0 05/13/17 02/18/22 mcg (2,000 unit) capsule (Vitamin D3) diazepam 2 mg tablet 2 mg PO QDAYP PRN Muscle cramping 05/13/17 02/18/22 ##0 allopurinol 300 mg tablet 300 mg PO QAM 12/15/18 02/18/22 atenolol 50 mg tablet 25 mg PO DAILY 12/15/18 02/18/22 pramipexole 0.5 mg tablet 1 mg PO BEDTIME PRN Restless Leg(S) 12/15/18 02/18/22 cyanocobalamin (vitamin B-12) 1,000 mcg PO DAILY PRN other 03/29/19 02/18/22 1,000 mcg tablet (Vitamin B-12) prednisone 5 mg tablet 5 mg PO QPM 03/29/19 02/18/22 fluticasone 100 mcg-salmeterol 50 1 inh inhalation BID 12/04/20 02/18/22 mcg/dose blistr powdr for inhalation (Advair Diskus) verapamil 120 mg tablet 120 mg PO DAILY 12/04/20 02/18/22 zolpidem 10 mg tablet 10 mg PO BEDTIME PRN Sleep 12/04/20 02/18/22 flunisolide 25 mcg (0.025 %) nasal 1 spray intranasal BID PRN 01/11/22 02/18/22 spray Congestion omega 9-dre-ibu-fish oil 120 1 cap PO PRN PRN other 01/11/22 02/18/22 mg-180 mg-500 mg capsule (Fish Oil) Previous Rx's Medication Instructions Recorded rosuvastatin 20 mg tablet 20 mg PO DAILY #30 tabs 03/30/19 phenazopyridine 200 mg tablet 200 mg PO TID bladder spasm/pain 6 01/16/22 (Pyridium) doses #7 tabs Allergies Allergy/AdvReac Type Severity Reaction Status Date / Time No Known Drug Allergies Allergy Verified 01/16/22 12:37 Review of Systems Review of Systems ROS Unobtainable: All systems reviewed & are unremarkable except as noted in HPI and below Patient History Medical History Acid reflux Anemia of chronic disease BPH (benign prostatic hyperplasia) Centrilobular emphysema Cervical radiculopathy COPD (chronic obstructive pulmonary disease) Fragile skin Hearing impaired Hx of transient ischemic attack (TIA) Impaired fasting glucose Insomnia Interstitial lung disease Microscopic colitis (~06/2008) SUSAN on CPAP Osteoarthritis PSVT (paroxysmal supraventricular tachycardia) (~2004) RBBB (right bundle branch block) Rheumatoid arthritis 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 RLS (restless legs syndrome) Seasonal allergic rhinitis Surgical History H/O: vasectomy History of colonoscopy with polypectomy (~2016) Hx of arthroscopy of left knee Hx of arthroscopy of right knee Hx of bilateral cataract extraction Status post left unicompartmental knee replacement (~2011) Status post right unicompartmental knee replacement (~2015) Family History (Updated 02/18/22 @ 16:39 by Azam Solitario DO) Mother No pertinent past medical history Father No pertinent past medical history Social History household members: spouse Smoking Status: Former smoker alcohol intake: current Smoking Status: Former smoker alcohol intake frequency: 0-2 drinks per day Alcohol type: wine Substance Use Type: does not use Exam Narrative Exam Narrative: GEN: well nourished, well appearing male, alert and oriented x 3, patient appears to be in mild distress. Patient feels very warm to touch. HEENT: Atraumatic, pupils are equal round reactive to light, extraocular movements are intact, nares are clear, TMs are clear with no fluid, there is no conjunctival pallor. Throat is clear without any exudates, erythema, tonsillar enlargement or uvular deviation, no meningeal signs. HEART: Regular rate and rhythm without murmur, clicks, rubs. Pulses are equal in upper and lower extremities LUNGS:Lungs clear to auscultation, no wheezes, rales, crackles, chest moves symmetrically ABD:bowel sounds normal, soft, non-tender, no guarding, rebound, rigidity, no masses noted, no hepatosplenomegaly :No CVA tenderness MSCL: Non-tender, no muscle atrophy, muscles strength 5/5 upper and lower extremities, full range of motion, normal gait NEURO:CN 2-12 intact, sensation normal Initial Vital Signs Initial Vital Signs: Vital Signs Temperature 103.5 F H 02/18/22 07:58 Pulse Rate 110 H 02/18/22 07:58 Respiratory Rate 22 02/18/22 07:58 Blood Pressure 152/80 H 02/18/22 07:58 Pulse Oximetry 97 02/18/22 07:58 Oxygen Delivery Method 02/18/22 07:58 Scores CURB-65 Age 65 or Older: Yes Score 0-1 Outpatient care, Score 2 Inpt vs. Obs, Score 3 or over Inpt admit with ICU for score of 4-5 GCS Meet coma scale eye opening: Spontaneous [place] coma scale verbal response: Orientated [place] coma scale motor response: Obey commands Meet coma scale total score: 15 Course Orders Ordered: ED Orders 02/18/22 10:55 Lactate (Lactic Acid) Stat Acetaminophen (Acetaminophen 325 Mg Tablet) 650 mg PO Q6H PRN PRN Reason: Fever/Mild Pain (1-3) Albuterol (Albuterol 2.5 Mg/3 Ml Neb (Adult)) 2.5 mg INH [id number] PRN PRN Reason: Shortness Of Breath Albuterol/Ipratropium (Albuterol/Ipratropium 3 Ml Ampul) 3 ml INH RTBID [facility] Allopurinol (Allopurinol 300 Mg Tablet) 300 mg PO DAILY [facility] Atorvastatin Calcium (Atorvastatin 20 Mg Tablet) 40 mg PO BEDTIME [facility] Diazepam (Diazepam 2 Mg Tablet) 2 mg PO DAILY PRN PRN Reason: muscle cramping Docusate Sodium (Docusate 100 Mg Capsule) 100 mg PO BID [place] Enoxaparin Sodium (Enoxaparin 40 Mg/0.4 Ml Syringe) 40 mg SUBCUT DAILY [facility] Sodium Chloride (Normal Saline 0.9%) 1,000 mls @ 100 mls/hr IV CONT [facility] Last Admin: 02/18/22 12:10 Dose: 100 mls/hr Documented By: ASH Ceftriaxone Sodium 2,000 mg/ (Sodium Chloride) 100 mls @ 200 mls/hr IV Q24H [facility] Stop: 02/25/22 07:59 Ondansetron HCl (Ondansetron 4 Mg/2 Ml Inj) 4 mg IV Q8HR PRN PRN Reason: Nausea And Vomiting Pramipexole Dihydrochloride (Pramipexole 0.25 Mg Tablet) 1 mg PO BEDTIME PRN PRN Reason: Restless Leg(S) Prednisone (Prednisone 5 Mg Tablet) 5 mg PO QPM [facility] Last Admin: 02/18/22 17:35 Dose: 5 mg Documented By: SUNIL Zolpidem Tartrate (Zolpidem 5 Mg Tablet) 10 mg PO BEDTIME PRN PRN Reason: Sleep Discontinued Medications Acetaminophen (Acetaminophen 325 Mg Tablet) 975 mg PO NOW ONE Stop: 02/18/22 07:59 Last Admin: 02/18/22 08:27 Dose: 975 mg Documented By: MARLA Sodium Chloride (Normal Saline 0.9%) 1,000 mls @ 1,000 mls/hr IV BOLUS PRN PRN Reason: Fluid replacement Last Infusion: 02/18/22 09:13 Dose: 0 mls/hr Documented By: Infusion: 02/18/22 09:11 Dose: 999 mls/hr Documented By: Infusion: 02/18/22 08:58 Dose: 0 mls/hr Documented By: Admin: 02/18/22 08:27 Dose: 1,000 mls/hr Documented By: MARLA Ceftriaxone Sodium 2,000 mg/ (Sodium Chloride) 100 mls @ 200 mls/hr IV NOW ONE Stop: 02/18/22 07:59 Last Infusion: 02/18/22 09:10 Dose: 0 mls/hr Documented By: Admin: 02/18/22 08:27 Dose: 200 mls/hr Documented By: MARLA Lactated Ringer's (Lactated Ringers) 2,328 mls @ 776 mls/hr 30 ml/kg infuse over 3 hr (2328 ml) IV NOW ONE Stop: 02/18/22 11:58 Last Infusion: 02/18/22 11:36 Dose: 0 mls/hr Documented By: MARLA(2) Admin: 02/18/22 09:16 Dose: 776 mls/hr Documented By: MARLA(2) Meropenem 1 gm/ Sodium (Chloride) 100 mls @ 200 mls/hr IV Q12H [facility] Last Infusion: 02/18/22 12:00 Dose: 0 mls/hr Documented By: MARLA(2) Admin: 02/18/22 09:44 Dose: 200 mls/hr Documented By: MARLA(2) Ondansetron HCl (Ondansetron 4 Mg Odt) 4 mg SL NOW ONE Stop: 02/18/22 07:59 Last Admin: 02/18/22 08:27 Dose: 4 mg Documented By: MARLA Vital Signs Vital signs: Vital Signs - 8 hr 02/18/22 07:58 02/18/22 08:26 02/18/22 08:46 Temperature 103.5 F H Pulse Rate 110 H 88 98 H Respiratory Rate 22 16 22 Blood Pressure 152/80 H 123/62 Pulse Oximetry 97 87 L Oxygen Delivery Method Room Air Room Air Oxygen Flow Rate 02/18/22 08:32 02/18/22 08:33 02/18/22 08:33 Temperature Pulse Rate 104 H 103 H Respiratory Rate Blood Pressure 104/57 L Pulse Oximetry 94 91 Oxygen Delivery Method Oxygen Flow Rate 02/18/22 08:50 02/18/22 08:50 02/18/22 09:00 Temperature Pulse Rate 98 H Respiratory Rate Blood Pressure 95/54 L 87/52 L Pulse Oximetry 95 Oxygen Delivery Method Nasal Cannula Oxygen Flow Rate 3 02/18/22 09:00 02/18/22 09:10 02/18/22 09:10 Temperature Pulse Rate 98 H 95 H Respiratory Rate Blood Pressure 87/50 L Pulse Oximetry 94 93 Oxygen Delivery Method Oxygen Flow Rate 02/18/22 09:20 02/18/22 09:20 02/18/22 09:43 Temperature Pulse Rate 94 H 91 H Respiratory Rate Blood Pressure 86/52 L Pulse Oximetry 94 97 Oxygen Delivery Method Oxygen Flow Rate 02/18/22 09:44 02/18/22 09:44 02/18/22 09:50 Temperature Pulse Rate 91 H Respiratory Rate Blood Pressure 87/52 L 88/51 L Pulse Oximetry 98 Oxygen Delivery Method Oxygen Flow Rate 02/18/22 09:50 02/18/22 10:00 02/18/22 10:00 Temperature Pulse Rate 90 91 H Respiratory Rate Blood Pressure 90/53 L Pulse Oximetry 99 98 Oxygen Delivery Method Oxygen Flow Rate 02/18/22 10:10 02/18/22 10:10 02/18/22 10:20 Temperature Pulse Rate 88 83 Respiratory Rate Blood Pressure 86/50 L Pulse Oximetry 98 98 Oxygen Delivery Method Oxygen Flow Rate 02/18/22 10:20 Temperature Pulse Rate Respiratory Rate Blood Pressure 85/51 L Pulse Oximetry Oxygen Delivery Method Oxygen Flow Rate MDM - Fever Lab Data Result diagrams: 02/18/22 07:50 02/18/22 07:50 Labs: Lab Results 02/18/22 02/18/22 02/18/22 Range/Units 07:50 07:50 07:50 WBC 8.8 (4.5-11.0) X10^3/uL RBC 3.58 L (4.5-5.9) X10^6/uL Hgb 10.7 L (13.5-17.5) g/dL Hct 32.8 L (41-53) % MCV 91.6 (80-100) fL MCH 29.9 (26-34) PG MCHC 32.7 (30-36) % RDW 14.8 (11.6-14.8) % Plt Count 270 (150-400) X10^3/uL Neut % (Auto) 87.3 H (50-75) % Lymph % (Auto) 3.8 L (25-40) % [place] % (Auto) 3.6 (3-14) % Eos % (Auto) 4.8 H (2-4) % Baso % (Auto) 0.5 (0-2) % Neut # (Auto) 7700 H (1462-1670) /uL Lymph # (Auto) 300 L (9557-0375) /uL [place] # (Auto) 300 (0-900) /uL Eos # (Auto) 400 (0-450) /uL Baso # (Auto) 0 (0-100) /uL Sodium 129 L (137-145) mmol/L Potassium 4.5 (3.4-5.1) mmol/L Chloride 94 L (98-107) mmol/L Carbon Dioxide 26 (22-32) mmol/L BUN 19 (9-20) mg/dL Creatinine 1.05 (0.66-1.25) mg/dL Estimated GFR > 60 (>60) mL/min BUN/Creatinine Ratio 18.1 (6-22) Glucose 99 (80-110) mg/dL Lactate 1.7 (0.7-2.1) mmol/L Calcium 8.5 (8.4-10.2) mg/dL Total Bilirubin 0.9 (0.2-1.3) mg/dL AST 30 (17-59) IU/L ALT 25 (<50) IU/L Alkaline Phosphatase 112 (38-126) U/L Total Creatine Kinase 33 L (55-170) U/L CK-MB (CK-2) TNP CK-MB (CK-2) Rel Index TNP Troponin I 0.013 (0.01-0.034) ng/mL NT-Pro-B Natriuret Pep 617 H (<450) pg/mL Total Protein 7.4 (6.3-8.2) g/dL Albumin 3.7 (3.5-5.0) g/dL Globulin 3.7 (1.7-4.1) g/dL Albumin/Globulin Ratio 1.0 (1.0-2.8) Procalcitonin 0.32 (<0.5) ng/mL Urine Color Urine Appearance Urine pH (4.5-8.0) Ur Specific [place] (1.000-1.035) Urine Protein (Negative) Urine Glucose (UA) (Negative) g/dL Urine Ketones (NEGATIVE) Urine Occult Blood (Negative) Urine Nitrate (Negative) Urine Bilirubin (NEGATIVE) Urine Urobilinogen (0.2) E.U./dL Ur Leukocyte Esterase (NEGATIVE) Urine RBC (0-5/HPF) Urine WBC (0-5/HPF) Ur Squamous Epith Cells (0-5/HPF) Urine Bacteria (None) Ur Culture Indicated? SARS-CoV-2 (PCR) (Negative) Influenza A (RT-PCR) (NEGATIVE) Influenza B (RT-PCR) (NEGATIVE) RSV (PCR) (Negative) 02/18/22 02/18/22 Range/Units 08:02 08:29 WBC (4.5-11.0) X10^3/uL RBC (4.5-5.9) X10^6/uL Hgb (13.5-17.5) g/dL Hct (41-53) % MCV (80-100) fL MCH (26-34) PG MCHC (30-36) % RDW (11.6-14.8) % Plt Count (150-400) X10^3/uL Neut % (Auto) (50-75) % Lymph % (Auto) (25-40) % [place] % (Auto) (3-14) % Eos % (Auto) (2-4) % Baso % (Auto) (0-2) % Neut # (Auto) (2536-3264) /uL Lymph # (Auto) (7956-5813) /uL [place] # (Auto) (0-900) /uL Eos # (Auto) (0-450) /uL Baso # (Auto) (0-100) /uL Sodium (137-145) mmol/L Potassium (3.4-5.1) mmol/L Chloride (98-107) mmol/L Carbon Dioxide (22-32) mmol/L BUN (9-20) mg/dL Creatinine (0.66-1.25) mg/dL Estimated GFR (>60) mL/min BUN/Creatinine Ratio (6-22) Glucose (80-110) mg/dL Lactate (0.7-2.1) mmol/L Calcium (8.4-10.2) mg/dL Total Bilirubin (0.2-1.3) mg/dL AST (17-59) IU/L ALT (<50) IU/L Alkaline Phosphatase (38-126) U/L Total Creatine Kinase (55-170) U/L CK-MB (CK-2) CK-MB (CK-2) Rel Index Troponin I (0.01-0.034) ng/mL NT-Pro-B Natriuret Pep (<450) pg/mL Total Protein (6.3-8.2) g/dL Albumin (3.5-5.0) g/dL Globulin (1.7-4.1) g/dL Albumin/Globulin Ratio (1.0-2.8) Procalcitonin (<0.5) ng/mL Urine Color Yellow Urine Appearance Sl cloudy Urine pH 7.0 (4.5-8.0) Ur Specific [place] 1.015 (1.000-1.035) Urine Protein Trace H (Negative) Urine Glucose (UA) Negative (Negative) g/dL Urine Ketones Negative (NEGATIVE) Urine Occult Blood 3+ H (Negative) Urine Nitrate Positive H (Negative) Urine Bilirubin Negative (NEGATIVE) Urine Urobilinogen 0.2 (0.2) E.U./dL Ur Leukocyte Esterase 3+ H (NEGATIVE) Urine RBC 5-10/hpf H (0-5/HPF) Urine WBC 30-100/hpf H (0-5/HPF) Ur Squamous Epith Cells 0-1 /hpf (0-5/HPF) Urine Bacteria Many (>30) H (None) Ur Culture Indicated? Specimen cultured SARS-CoV-2 (PCR) Negative (Negative) Influenza A (RT-PCR) Flu a negative (NEGATIVE) Influenza B (RT-PCR) Flu b negative (NEGATIVE) RSV (PCR) Negative (Negative) Imaging Data Chest x-ray: Radiologist's Impression: [address] [address] XRay Report Signed Patient: Vinnie Villalobos MR#: [id number] : 1935 Acct:[id number] Age/Sex: 86 / M Date of Service: 02/18/22 Loc: ED Accession Number: [id number] ?? Procedure: XR chest 1V Ordering Provider: Pushpa Mendez D.O. PROCEDURE:? XR CHEST 1V ? INDICATIONS:? fever ? TECHNIQUE:? One view of the chest was acquired.? ? COMPARISON:? [facility], CR, XR CHEST 1V, 01/13/2022, 12:50. ? FINDINGS:? ? Surgical changes and devices:? None.? ? Lungs and pleura:? Lungs are clear.? No pleural effusions or pneumothorax.? ? Mediastinum:? Mediastinal contours appear normal.? Heart size is normal.? ? Bones and chest wall:? No suspicious bony lesions.? Overlying soft tissues appear unremarkable.? ? IMPRESSION:? No acute pulmonary process. ? ? Dictated by: Rosalba Luna M.D. on 02/18/2022 at 8:13 ? ? Approved by: Rosalba Luna M.D. on 02/18/2022 at 8:14?? ECG Data Attestation: I personally reviewed and interpreted this ECG as follows: MDM Narrative Medical decision making narrative: Is an 86-year-old male who is febrile, tachycardic, patient had recent diagnosis of outpatient pneumonia after going [facility] and having a persistent cough the fever and other symptoms are new today. Plan for 4 Plex swab as been a lot of influenza, COVID and RSV in the community. Chest x-ray, septic labs, 30 cc/kilos bolus was held initially as patient is elderly and high-risk through fluid overload initially. Patient was given Tylenol, blood pressure decreased so 30 cc/kilos bolus was initiated and patient was noted to have drop in O2. Four Plex swab is negative, chest x-ray does not show obvious infection and he is nitrite positive on urine. Patient case discussed with Dr. Solitario. Patient accepted but does ask for meropenem to be added on for broad coverage, CT KUB to rule out kidney stone or obstructive process before going upstairs as we do not have urology coverage locally today. Discussed with patient he is full code at this time and is open to pressors and central line if needed. Case discussed with hospitalist, Dr. Mora who accepts for admission. Discussed putting central line in here in the department but he defers as patient has not had his fluid bolus but does ask that we go ahead and call the DI number for PICC line placement if needed as this can take several hours. Critical Care Time Critical Care Time Critical Care Time: Yes Total Critical Care Time: 25 Attestation: The high probability of a clinically significant, sudden or life threatening deterioration of the [cardiac, pulm] system(s) required my full and direct attention, intervention and personal management. The aggregate critical care time was [] minutes. This time is in addition to time spent performing reported procedures but includes the following: [x] Data Review and interpretation [x] Patient assessment and monitoring of vital signs [x] Documentation [x] Medication orders and management Discharge Plan Departure Patient Disposition: Admitted As Inpatient Clinical Impression: Sepsis, Acute UTI, Hyponatremia Admit Date/Time: 02/18/22 10:26 Admit Provider: Azam Solitario
[2022-02-18 08:18] LABS: Add Manual Diff / Slide Review NO; Basophils Absolute Auto 0 /uL (0-100); Basophils Percent Auto 0.5 % (0-2); Eosinophils Absolute Auto 400 /uL (0-450); Eosinophils Percent Auto 4.8 % (2-4); Hematocrit 32.8 % (41-53); Hemoglobin 10.7 g/dL (13.5-17.5); Lymphocytes Absolute Auto 300 /uL (1100-4500); Lymphocytes Percent Auto 3.8 % (25-40); Mean Corpuscular HGB Conc 32.7 % (30-36); Mean Corpuscular Hemoglobin 29.9 PG (26-34); Mean Corpuscular Volume 91.6 fL (80-100); Monocytes Absolute Auto 300 /uL (0-900); Monocytes Percent Auto 3.6 % (3-14); Neutrophils Absolute Auto 7700 /uL (1500-7000); Neutrophils Percent Auto 87.3 % (50-75); Platelet Count 270 X10^3/uL (150-400); Red Blood Cell Count 3.58 X10^6/uL (4.5-5.9); Red Cell Distribution Width 14.8 % (11.6-14.8); White Blood Cell Count 8.8 X10^3/uL (4.5-11.0)
[2022-02-18 08:24] LABS: Alanine Aminotransferase 25 IU/L (<50); Albumin 3.7 g/dL (3.5-5.0); Alkaline Phosphatase 112 U/L (38-126); Aspartate Aminotransferase 30 IU/L (17-59); BUN Creatinine Ratio 18.1 (6-22); Bilirubin Total 0.9 mg/dL (0.2-1.3); Blood Urea Nitrogen 19 mg/dL (9-20); Calcium 8.5 mg/dL (8.4-10.2); Carbon Dioxide 26 mmol/L (22-32); Chloride 94 mmol/L (98-107); Creatine Kinase 33 U/L (55-170); Estimated Glomerular Filt Rate > 60 mL/min (>60); Globulin 3.7 g/dL (1.7-4.1); Glucose 99 mg/dL (80-110); HEMOLYSIS < 15 (0-50); Lactate (Lactic Acid) 1.7 mmol/L (0.7-2.1); Potassium 4.5 mmol/L (3.4-5.1); Sodium 129 mmol/L (137-145); Total Protein 7.4 g/dL (6.3-8.2)
[2022-02-18] MEDS: cefTRIAXone 2,000 MG in SODIUM CHLORIDE 0.9% 100 ML 200 MG IV (08:27)
[2022-02-18] MEDS: ACETAMINOPHEN 325 MG TABLET 975 MG PO (08:27)
[2022-02-18] MEDS: ONDANSETRON 4 MG ODT SL (08:27)
[2022-02-18] MEDS: SODIUM CHLORIDE 0.9% 1,000 ML 1000 ML IV (08:27)
[2022-02-18 08:34] LABS: Appearance Urine UA SL CLOUDY; Bilirubin Urine UA NEGATIVE (NEGATIVE); Color Urine UA YELLOW; Glucose Urine UA NEGATIVE (Negative); Ketones Urine UA NEGATIVE (NEGATIVE); Leukocyte Esterase Urine UA 3+ (NEGATIVE); Nitrite Urine UA POSITIVE (Negative); Occult Blood Urine UA 3+ (Negative); Protein Urine UA TRACE (Negative); Specific Gravity Urine UA 1.015 (1.000-1.035); Urobilinogen Urine UA 0.2 E.U./dL (0.2)
[2022-02-18 08:36] LABS: NT-proBNP (BNP-Adult 18+) 617 pg/mL (<450); Troponin I 0.013 ng/mL (0.01-0.034)
[2022-02-18 08:40] LABS: Procalcitonin 0.32 ng/mL (<0.5)
[2022-02-18 08:40] LABS: Bacteria Urine Many (>30); Culture Indicated Urine Specimen Cultured; RBC Urine 5-10/HPF (0-5/HPF); Squamous Epithelial Cell Urine 0-1 /HPF (0-5/HPF); WBC Urine 30-100/HPF (0-5/HPF)
[2022-02-18 08:53] LABS: Influenza A - CEPHEID Flu A NEGATIVE (NEGATIVE); Influenza B - CEPHEID Flu B NEGATIVE (NEGATIVE); Respiratory Syncytial Virus Negative (Negative)
[2022-02-18 08:54] LABS: COVID-19 CEPHEID 4-PLEX PCR Negative (Negative)
--- NOTE | 2022-02-18 09:12 | DI.CT.S_ITS ---
PROCEDURE: CT KIDNEY URETER BLADDER (KUB) INDICATIONS: uti/sepsis TECHNIQUE: Axial sections were acquired from the lung bases to the pubic symphysis. Coronal and sagittal reformats were performed. For radiation dose reduction, the following was used: automated exposure control, adjustment of mA and/or kV according to patient size. COMPARISON: [facility], CT, CT IVP, 01/27/2022, 15:00. [facility], CT, CT KIDNEY URETER BLADDER (KUB), 01/15/2022, 19:53. FINDINGS: Image quality: Excellent. Lung bases: Unremarkable. Heart: No significant findings. URINARY: Right Kidney: No stones or hydronephrosis. Right Ureter: No hydroureter. Left Kidney: No hydronephrosis. Lateral cortical calcification, unchanged. Left Ureter: No hydroureter. Bladder: Normal wall thickness. No stones. ABDOMEN: Liver: Low attenuation hepatic foci, unchanged. Gallbladder: Unremarkable. Biliary ducts: Unremarkable. Pancreas: Unremarkable. Spleen: Unremarkable. Adrenal Glands: Unremarkable. Stomach and Bowel: Stomach, small bowel loops, and colon are nonobstructive. Diverticula are present without inflammatory change. Moderate colonic stool. Peritoneum: Minimal dependent fluid. No free air. Ventral Wall: Fat containing ventral hernia. Abdominal Nodes: No enlarged retroperitoneal or mesenteric lymph nodes. Vessels: Aorta and inferior vena cava are normal in size. PELVIS: Pelvic Organs: Prostate gland is enlarged. Pelvic Nodes: Unremarkable. Miscellaneous: Fat containing bilateral inguinal hernias are seen. Bones: Unremarkable. IMPRESSION: No acute intra-abdominal or pelvic process. Diverticulosis. Prominent colonic stool. Dictated by: Rosalba Luna M.D. on 02/18/2022 at 10:06 Approved by: Rosalba Luna M.D. on 02/18/2022 at 10:12
[2022-02-18] MEDS: LACTATED RINGERS 2,328 ML 776 ML IV (09:16)
[2022-02-18] MEDS: MEROPENEM 1 GM in SODIUM CHLORIDE 0.9% 100 ML IV (09:44)
[2022-02-18 11:21] LABS: Lactate (Lactic Acid) 1.1 mmol/L (0.7-2.1)
[2022-02-18] MEDS: SODIUM CHLORIDE 0.9% 1,000 ML 100 ML IV ×2 (12:10→21:17)
--- NOTE | 2022-02-18 13:04 | DI.RAD.S_ITS ---
PROCEDURE: XR CHEST FOR PICC 1V INDICATIONS: PICC line verification COMPARISON: [facility], CR, XR CHEST 1V, 02/18/2022, 7:54. FINDINGS: PICC was placed by the intravenous therapy team from the right side. Fluoroscopic spot film demonstrates the tip of PICC projecting to the area of distal SVC. IMPRESSION: Tip of PICC projects to the area of distal SVC. Dictated by: Rosalba Luna M.D. on 02/18/2022 at 13:34 Approved by: Rosalba Luna M.D. on 02/18/2022 at 13:34
--- NOTE | 2022-02-18 15:34 | PC.NURSE ---
PICC ok to use per Dr. Solitario.
--- NOTE | 2022-02-18 16:27 | PM.HP.1 ---
History of Present Illness History of Present Illness Chief complaint: Pneumonia/Fever Narrative: Janes Villalobos is an 86 yo M with PMH of TIA, BPH, RLS, SUSAN on CPAP, gout, RA on prednisone, ILD, RLS and microscopic colitis with recent admission for possible TIA complicated by hematuria with goodwin placement who presents with fever to 104 at home with profound fatigue and weakness. Patient had been on azithromycin with a presumptive outpatient diagnosis of pneumonia and had been on azithromycin for a couple of days but continued to feel ill. He denies chest pain, shortness of breath, but has had a chronic cough. He has had nausea but no emesis. He denies back or groin pain. He had some dysuria but no urinary frequency. He denies any hematuria. In the Emergency room, he was febrile to 103.5 and tachycardic, and he did desaturate to 89% on room air but was improved with minimal supplemental oxygen. Chest x-ray and CT KUB were unremarkable. Laboratory evaluation showed an unremarkable CBC, sodium was low at 129, though this appears chronic based on prior hospitalization. Lactic acid was within normal limits procalcitonin was 0.32. Urinalysis did show 5-10 rbc's and wbc's 30-100 with many bacteria nitrate and leuk esterase positive. He was given ceftriaxone, then meropenem with worsening BP and sepsis. He was given fluid bolus with hypotension, though BP did ultimately improve with fluid administration. He was admitted for further management of sepsis secondary to presumed acute cystitis. Patient History Medical History Acid reflux Anemia of chronic disease BPH (benign prostatic hyperplasia) Centrilobular emphysema Cervical radiculopathy COPD (chronic obstructive pulmonary disease) Fragile skin Hearing impaired Hx of transient ischemic attack (TIA) Impaired fasting glucose Insomnia Interstitial lung disease Microscopic colitis (~06/2008) SUSAN on CPAP Osteoarthritis PSVT (paroxysmal supraventricular tachycardia) (~2004) RBBB (right bundle branch block) Rheumatoid arthritis 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 RLS (restless legs syndrome) Seasonal allergic rhinitis Surgical History H/O: vasectomy History of colonoscopy with polypectomy (~2016) Hx of arthroscopy of left knee Hx of arthroscopy of right knee Hx of bilateral cataract extraction Status post left unicompartmental knee replacement (~2011) Status post right unicompartmental knee replacement (~2015) Family & Social History Family History (Updated 02/18/22 @ 16:39 by Azam Solitario DO) Mother No pertinent past medical history Father No pertinent past medical history Social History: household members spouse Prior Living Arrangements Apartment/Condo Safety & Behavioral: Feels Safe in Current Yes Environment Been Physically Hurt or No Threatened By a Person Tobacco & Substance use: Tobacco type cigarettes Smoking Status Former smoker alcohol intake current alcohol intake frequency 0-2 drinks per day Substance Use Type does not use Meds Home Medications and Allergies Home Medications Medication Instructions Recorded Confirmed Type cholecalciferol (vitamin D3) 50 2,000 unit PO DAILY PRN other ##0 05/13/17 02/18/22 History mcg (2,000 unit) capsule (Vitamin D3) diazepam 2 mg tablet 2 mg PO QDAYP PRN Muscle cramping 05/13/17 02/18/22 History ##0 allopurinol 300 mg tablet 300 mg PO QAM 12/15/18 02/18/22 History atenolol 50 mg tablet 25 mg PO DAILY 12/15/18 02/18/22 History pramipexole 0.5 mg tablet 1 mg PO BEDTIME PRN Restless Leg(S) 12/15/18 02/18/22 History cyanocobalamin (vitamin B-12) 1,000 mcg PO DAILY PRN other 03/29/19 02/18/22 History 1,000 mcg tablet (Vitamin B-12) prednisone 5 mg tablet 5 mg PO QPM 03/29/19 02/18/22 History rosuvastatin 20 mg tablet 20 mg PO DAILY #30 tabs 03/30/19 02/18/22 Rx fluticasone 100 mcg-salmeterol 50 1 inh inhalation BID 12/04/20 02/18/22 History mcg/dose blistr powdr for inhalation (Advair Diskus) verapamil 120 mg tablet 120 mg PO DAILY 12/04/20 02/18/22 History zolpidem 10 mg tablet 10 mg PO BEDTIME PRN Sleep 12/04/20 02/18/22 History flunisolide 25 mcg (0.025 %) nasal 1 spray intranasal BID PRN 01/11/22 02/18/22 History spray Congestion omega 7-ocr-sfy-fish oil 120 1 cap PO PRN PRN other 01/11/22 02/18/22 History mg-180 mg-500 mg capsule (Fish Oil) phenazopyridine 200 mg tablet 200 mg PO TID bladder spasm/pain 6 01/16/22 02/18/22 Rx (Pyridium) doses #7 tabs Allergies Allergy/AdvReac Type Severity Reaction Status Date / Time No Known Drug Allergies Allergy Verified 01/16/22 12:37 Review of Systems Review of Systems Narrative: All other systems reviewed with the patient and are negative unless otherwise stated. Exam Vital Signs (past 8 hours): - 02/18/22 08:46 02/18/22 08:32 02/18/22 08:33 Temperature Pulse Rate 98 H 104 H 103 H Respiratory Rate 22 Blood Pressure Pulse Oximetry 87 L 94 91 Oxygen Delivery Method Room Air Oxygen Flow Rate 02/18/22 08:33 02/18/22 08:50 02/18/22 08:50 Temperature Pulse Rate 98 H Respiratory Rate Blood Pressure 104/57 L 95/54 L Pulse Oximetry 95 Oxygen Delivery Method Nasal Cannula Oxygen Flow Rate 3 02/18/22 09:00 02/18/22 09:00 02/18/22 09:10 Temperature Pulse Rate 98 H 95 H Respiratory Rate Blood Pressure 87/52 L Pulse Oximetry 94 93 Oxygen Delivery Method Oxygen Flow Rate 02/18/22 09:10 02/18/22 09:20 02/18/22 09:20 Temperature Pulse Rate 94 H Respiratory Rate Blood Pressure 87/50 L 86/52 L Pulse Oximetry 94 Oxygen Delivery Method Oxygen Flow Rate 02/18/22 09:43 02/18/22 09:44 02/18/22 09:44 Temperature Pulse Rate 91 H 91 H Respiratory Rate Blood Pressure 87/52 L Pulse Oximetry 97 98 Oxygen Delivery Method Oxygen Flow Rate 02/18/22 09:50 02/18/22 09:50 02/18/22 10:00 Temperature Pulse Rate 90 Respiratory Rate Blood Pressure 88/51 L 90/53 L Pulse Oximetry 99 Oxygen Delivery Method Oxygen Flow Rate 02/18/22 10:00 02/18/22 10:10 02/18/22 10:10 Temperature Pulse Rate 91 H 88 Respiratory Rate Blood Pressure 86/50 L Pulse Oximetry 98 98 Oxygen Delivery Method Oxygen Flow Rate 02/18/22 10:20 02/18/22 10:20 02/18/22 10:30 Temperature Pulse Rate 83 Respiratory Rate Blood Pressure 85/51 L 86/54 L Pulse Oximetry 98 Oxygen Delivery Method Oxygen Flow Rate 02/18/22 10:30 02/18/22 10:40 02/18/22 10:40 Temperature Pulse Rate 84 83 Respiratory Rate Blood Pressure 90/54 L Pulse Oximetry 97 98 Oxygen Delivery Method Oxygen Flow Rate 02/18/22 10:50 02/18/22 10:50 02/18/22 11:00 Temperature Pulse Rate 86 Respiratory Rate Blood Pressure 97/52 L 93/54 L Pulse Oximetry 99 Oxygen Delivery Method Oxygen Flow Rate 02/18/22 11:00 02/18/22 11:10 02/18/22 11:10 Temperature Pulse Rate 82 81 Respiratory Rate Blood Pressure 91/52 L Pulse Oximetry 97 97 Oxygen Delivery Method Oxygen Flow Rate 02/18/22 11:20 02/18/22 11:20 02/18/22 11:30 Temperature Pulse Rate 81 Respiratory Rate Blood Pressure 92/54 L 92/55 L Pulse Oximetry 98 Oxygen Delivery Method Oxygen Flow Rate 02/18/22 11:30 02/18/22 12:07 02/18/22 12:16 Temperature Pulse Rate 80 Respiratory Rate Blood Pressure Pulse Oximetry 98 95 Oxygen Delivery Method Nasal Cannula Nasal Cannula Oxygen Flow Rate 3 02/18/22 12:20 02/18/22 12:30 02/18/22 13:00 Temperature Pulse Rate Respiratory Rate Blood Pressure 95/50 L 89/54 L 100/55 L Pulse Oximetry Oxygen Delivery Method Oxygen Flow Rate 02/18/22 13:15 02/18/22 11:52 02/18/22 13:00 Temperature 98.7 F Pulse Rate 85 Respiratory Rate 20 Blood Pressure 112/53 L 103/56 L Pulse Oximetry 98 95 Oxygen Delivery Method Room Air Oxygen Flow Rate 02/18/22 16:18 Temperature 98.3 F Pulse Rate 81 Respiratory Rate 17 Blood Pressure 130/59 L Pulse Oximetry 95 Oxygen Delivery Method Oxygen Flow Rate Oxygen Delivery Method Room Air Oxygen Flow Rate 3 Narrative Exam Narrative: General:? Patient is well developed and well nourished, in no distress at this time. HEENT:? Normocephalic, atraumatic, extraocular muscles intact, oral pharynx is clear and mucous membranes are moist. Neck: supple and symmetric, trachea is midline, no cervical adenopathy. Negative for JVD Chest:? Normal AP diameter and contour without kyphoscoliosis, no tachypnea, equal chest rise bilaterally. Lungs:? CTA b/l no wheezing rhonchi or rales. Cardio:?RRR no m/r/g. Abdomen: S NT ND. No CVA tenderness. Musculoskeletal:? Muscle strength and tone are equal within normal limits, no deformity. Extremities: No edema or joint effusions. No cyanosis or clubbing. Skin:? Pale,? Warm to touch,dry and intact without rashes, ulcerations or petechiae.? Neuro:? Alert and orientated x3,? sensation to touch intact in all extremities, no gross deficits noted of cranial nerves. Psych:? Patient has a well-kept appearance, appropriate affect, mental status attitude thought context and judgment are appropriate for age. Objective Labs Result Diagrams: 02/18/22 07:50 02/18/22 07:50 Labs: Laboratory Results - last 24 hr 02/18/22 02/18/22 02/18/22 07:50 07:50 07:50 WBC 8.8 RBC 3.58 L Hgb 10.7 L Hct 32.8 L MCV 91.6 MCH 29.9 MCHC 32.7 RDW 14.8 Plt Count 270 Neut % (Auto) 87.3 H Lymph % (Auto) 3.8 L [place] % (Auto) 3.6 Eos % (Auto) 4.8 H Baso % (Auto) 0.5 Neut # (Auto) 7700 H Lymph # (Auto) 300 L [place] # (Auto) 300 Eos # (Auto) 400 Baso # (Auto) 0 Sodium 129 L Potassium 4.5 Chloride 94 L Carbon Dioxide 26 BUN 19 Creatinine 1.05 Estimated GFR > 60 BUN/Creatinine Ratio 18.1 Glucose 99 Lactate 1.7 Calcium 8.5 Total Bilirubin 0.9 AST 30 ALT 25 Alkaline Phosphatase 112 Total Creatine Kinase 33 L CK-MB (CK-2) TNP CK-MB (CK-2) Rel Index TNP Troponin I 0.013 NT-Pro-B Natriuret Pep 617 H Total Protein 7.4 Albumin 3.7 Globulin 3.7 Albumin/Globulin Ratio 1.0 Procalcitonin 0.32 Urine Color Urine Appearance Urine pH Ur Specific [place] Urine Protein Urine Glucose (UA) Urine Ketones Urine Occult Blood Urine Nitrate Urine Bilirubin Urine Urobilinogen Ur Leukocyte Esterase Urine RBC Urine WBC Ur Squamous Epith Cells Urine Bacteria Ur Culture Indicated? Nasal Screen MRSA (PCR) SARS-CoV-2 (PCR) Influenza A (RT-PCR) Influenza B (RT-PCR) RSV (PCR) 02/18/22 02/18/22 02/18/22 08:02 08:29 10:55 WBC RBC Hgb Hct MCV MCH MCHC RDW Plt Count Neut % (Auto) Lymph % (Auto) [place] % (Auto) Eos % (Auto) Baso % (Auto) Neut # (Auto) Lymph # (Auto) [place] # (Auto) Eos # (Auto) Baso # (Auto) Sodium Potassium Chloride Carbon Dioxide BUN Creatinine Estimated GFR BUN/Creatinine Ratio Glucose Lactate 1.1 Calcium Total Bilirubin AST ALT Alkaline Phosphatase Total Creatine Kinase CK-MB (CK-2) CK-MB (CK-2) Rel Index Troponin I NT-Pro-B Natriuret Pep Total Protein Albumin Globulin Albumin/Globulin Ratio Procalcitonin Urine Color Yellow Urine Appearance Sl cloudy Urine pH 7.0 Ur Specific [place] 1.015 Urine Protein Trace H Urine Glucose (UA) Negative Urine Ketones Negative Urine Occult Blood 3+ H Urine Nitrate Positive H Urine Bilirubin Negative Urine Urobilinogen 0.2 Ur Leukocyte Esterase 3+ H Urine RBC 5-10/hpf H Urine WBC 30-100/hpf H Ur Squamous Epith Cells 0-1 /hpf Urine Bacteria Many (>30) H Ur Culture Indicated? Specimen cultured Nasal Screen MRSA (PCR) SARS-CoV-2 (PCR) Negative Influenza A (RT-PCR) Flu a negative Influenza B (RT-PCR) Flu b negative RSV (PCR) Negative 02/18/22 12:00 WBC RBC Hgb Hct MCV MCH MCHC RDW Plt Count Neut % (Auto) Lymph % (Auto) [place] % (Auto) Eos % (Auto) Baso % (Auto) Neut # (Auto) Lymph # (Auto) [place] # (Auto) Eos # (Auto) Baso # (Auto) Sodium Potassium Chloride Carbon Dioxide BUN Creatinine Estimated GFR BUN/Creatinine Ratio Glucose Lactate Calcium Total Bilirubin AST ALT Alkaline Phosphatase Total Creatine Kinase CK-MB (CK-2) CK-MB (CK-2) Rel Index Troponin I NT-Pro-B Natriuret Pep Total Protein Albumin Globulin Albumin/Globulin Ratio Procalcitonin Urine Color Urine Appearance Urine pH Ur Specific [place] Urine Protein Urine Glucose (UA) Urine Ketones Urine Occult Blood Urine Nitrate Urine Bilirubin Urine Urobilinogen Ur Leukocyte Esterase Urine RBC Urine WBC Ur Squamous Epith Cells Urine Bacteria Ur Culture Indicated? Nasal Screen MRSA (PCR) Negative for mrsa SARS-CoV-2 (PCR) Influenza A (RT-PCR) Influenza B (RT-PCR) RSV (PCR) Assessment & Plan Assessment & Plan narrative: #sepsis secondary to acute cystitis with hypotension, acute respiratory failure with hypoxia - BP now improved after initial fluid boluses and antibiotics. - continue IV fluids overnight. - hold home medications - outside urine culture from [facility] urology shows duval-sensitive E. coli, follow up blood and urine cultures here. - continue ceftriaxone. # Hyponatremia, chronic -appears stable from before, no current symptoms. Continue to monitor. # HTN, chronic -hold in setting of sepsis his home medications. # RLS, chronic -continue home mirapex nightly # RA, chronic -continue home prednisone 5mg daily, if hypotensive persistently consider stress dose steroids. # insomnia, chronic -continue home ambien nightly PRN # gout, chronic -continue home allopurinol Code status is full code. COVID negative. DVT prophylaxis with lovenox Proxy is Merissa. I have utilized all available immediate resources to obtain, update, or review the patient's current medications. This patient will be admitted as inpatient and his stay is expected to exceed two midnights. COVID-19 COVID-19 status: Negative Time Spent With Patient Critical Care time: I spent a total of [] minutes of critical care time on this patient's care today; this time is exclusive of procedural time. Quality MIPS - Admit I confirm the patient?s Advance Care Plan is present, Code status is documented, Surrogate decision maker is in patient?s record [If Yes, STOP here]: Yes
--- NOTE | 2022-02-18 16:35 | PC.NURSE ---
Day shift: Pt in room 207 from room 227 at approx 1625. Pt has no complaints. Oriented to room and call light.
--- NOTE | 2022-02-18 16:39 | PC.NURSE ---
Report given to Aditya Rosas, pt moved from room 227 to 207 at 1615.
[2022-02-18] MEDS: predniSONE 5 MG TABLET PO (17:35)
[2022-02-18] MEDS: ALBUTEROL/IPRATROPIUM 3 ML AMPUL INH (19:32)
[2022-02-18] MEDS: ACETAMINOPHEN 325 MG TABLET 650 MG PO (21:17)
[2022-02-18] MEDS: ATORVASTATIN 20 MG TABLET 40 MG PO (21:17)
[2022-02-18] MEDS: DOCUSATE 100 MG CAPSULE PO (21:18)
[2022-02-18] MEDS: ZOLPIDEM 5 MG TABLET 10 MG PO (21:25)
[2022-02-19] VITALS (14 sets, daily range): BP systolic 91–126; BP diastolic 42–75; PULSE 81–102; RESP 14–18; TEMP 36.1–37.2; O2SAT 91–100
[2022-02-19 06:18] LABS: Add Manual Diff / Slide Review NO; Basophils Absolute Auto 0 /uL (0-100); Basophils Percent Auto 0.2 % (0-2); Eosinophils Absolute Auto 800 /uL (0-450); Eosinophils Percent Auto 10.7 % (2-4); Hematocrit 28.3 % (41-53); Hemoglobin 9.6 g/dL (13.5-17.5); Lymphocytes Absolute Auto 700 /uL (1100-4500); Lymphocytes Percent Auto 9.5 % (25-40); Mean Corpuscular HGB Conc 33.7 % (30-36); Mean Corpuscular Hemoglobin 30.6 PG (26-34); Mean Corpuscular Volume 90.7 fL (80-100); Monocytes Absolute Auto 600 /uL (0-900); Monocytes Percent Auto 7.2 % (3-14); Neutrophils Absolute Auto 5600 /uL (1500-7000); Neutrophils Percent Auto 72.4 % (50-75); Platelet Count 218 X10^3/uL (150-400); Red Blood Cell Count 3.12 X10^6/uL (4.5-5.9); Red Cell Distribution Width 14.9 % (11.6-14.8); White Blood Cell Count 7.7 X10^3/uL (4.5-11.0)
[2022-02-19 06:22] LABS: BUN Creatinine Ratio 18.3 (6-22); Blood Urea Nitrogen 17 mg/dL (9-20); Calcium 7.9 mg/dL (8.4-10.2); Carbon Dioxide 26 mmol/L (22-32); Chloride 102 mmol/L (98-107); Estimated Glomerular Filt Rate > 60 mL/min (>60); Glucose 94 mg/dL (80-110); HEMOLYSIS < 15 (0-50); Potassium 4.1 mmol/L (3.4-5.1); Sodium 131 mmol/L (137-145)
[2022-02-19] MEDS: cefTRIAXone 2,000 MG in SODIUM CHLORIDE 0.9% 100 ML 200 MG IV (07:23)
[2022-02-19] MEDS: DOCUSATE 100 MG CAPSULE PO ×2 (08:12→20:17)
[2022-02-19] MEDS: ACETAMINOPHEN 325 MG TABLET 650 MG PO ×2 (08:12→14:31)
[2022-02-19] MEDS: allopurinoL 300 MG TABLET PO (08:12)
--- NOTE | 2022-02-19 10:50 | CM.DANOTE ---
DCP Assessment: Payor confirmed: Moris PCP confirmed: Nawaf Michele MD Pt is a 86 y.o. M who presented to the ER for complaints of fever, and cough who has an outpatient diagnosis of pneumonia. Pt brought up to the AC unit for further management and evaluation of symptoms. DCP met with pt this morning to discuss discharge needs. Pt sitting up in bed. DCP introduced self and role. Pt is independent at baseline and lives with his spouse, Merissa, in a townhouse in [place]. Pt states it is a two level home but they have a stair lift. Pt states that he still drives POV. Pt decline any needs at this time. Whiteboard updated and instructed to call. Pt thankful for discussion. P: Pt to stay another night and anticipate discharge tomorrow 02/20. Pt spouse to transport home once medically ready for discharge. Chichi Tse RN/JAGRUTI Discharge Planning/Care Management CM Discharge Assessment Start: 02/19/22 10:49 Freq: Status: Active Protocol: Document 02/19/22 10:49 KD (Rec: 02/19/22 10:50 KD [id number]) Discharge Planning Assessment Assigned Top Bottom Attaching Machine Operator Chichi Tse RN/JAGRUTI Advance Directives? Yes Advance Directives on File Yes History Provided By Patient,Medical Record Prior Living Arrangements Apartment/Condo Household Members spouse Type of transporation used prior to Drives own vehicle admit Independent with ADL's Yes Is patient alert and oriented? Yes Caregiver for Another No Discharge Plan Home Transportation Arrangement Spouse POV Referrals Initiated None needed Whiteboard Updated in Patient Room with Yes name and ext. # of Top Bottom Attaching Machine Operator Comment Instructed to call Review Status In Process Please Provide Date Initial DC 02/19/22 Assessment Was Performed Next Review Type Continued Stay Review
[2022-02-19] MEDS: SODIUM CHLORIDE 0.9% FLUSH 10 ML IV ×2 (12:06→20:17)
[2022-02-19] MEDS: predniSONE 5 MG TABLET PO (16:21)
--- NOTE | 2022-02-19 16:48 | P.PN_ITS ---
Subjective Subjective Date Patient Seen: 02/19/22 Interval history: Patient feels much improved, still quite weak but denies chest pain shortness of breath, palpitations. Did have return of mild hematuria overnight, but able to urinate without difficulty today. Exam Vital Signs (past 8 hours): - 02/19/22 09:36 02/19/22 12:46 02/19/22 15:56 Temperature Pulse Rate Respiratory Rate Blood Pressure Pulse Oximetry 96 97 97 Oxygen Delivery Method Room Air Room Air Room Air Oxygen Flow Rate 02/19/22 11:50 Temperature 98.6 F Pulse Rate 102 H Respiratory Rate 16 Blood Pressure 117/61 Pulse Oximetry 91 Oxygen Delivery Method Oxygen Flow Rate 0 Fraction of Inspired Oxygen 96 Oxygen Delivery Method Room Air Oxygen Flow Rate 0 Narrative Exam Narrative: General:? Patient is well developed and well nourished, in no distress at this time. HEENT:? Normocephalic, atraumatic, extraocular muscles intact, oral pharynx is clear and mucous membranes are moist. Neck: supple and symmetric, trachea is midline, no cervical adenopathy. Negative for JVD Chest:? Normal AP diameter and contour without kyphoscoliosis, no tachypnea, equal chest rise bilaterally. Lungs:? CTA b/l no wheezing rhonchi or rales. Cardio:?RRR no m/r/g. Abdomen: S NT ND. No CVA tenderness. Musculoskeletal:? Muscle strength and tone are equal within normal limits, no deformity. Extremities: No edema or joint effusions. No cyanosis or clubbing. Skin:? Pale,? Warm to touch,dry and intact without rashes, ulcerations or petechiae.? Neuro:? Alert and orientated x3,? sensation to touch intact in all extremities, no gross deficits noted of cranial nerves. Psych:? Patient has a well-kept appearance, appropriate affect, mental status attitude thought context and judgment are appropriate for age. Objective Labs Result Diagrams: 02/19/22 05:32 02/19/22 05:32 Labs: Laboratory Results - last 24 hr 02/19/22 02/19/22 05:32 05:32 WBC 7.7 RBC 3.12 L Hgb 9.6 L Hct 28.3 L MCV 90.7 MCH 30.6 MCHC 33.7 RDW 14.9 H Plt Count 218 Neut % (Auto) 72.4 Lymph % (Auto) 9.5 L [place] % (Auto) 7.2 Eos % (Auto) 10.7 H Baso % (Auto) 0.2 Neut # (Auto) 5600 Lymph # (Auto) 700 L [place] # (Auto) 600 Eos # (Auto) 800 H Baso # (Auto) 0 Sodium 131 L Potassium 4.1 Chloride 102 Carbon Dioxide 26 BUN 17 Creatinine 0.93 Estimated GFR > 60 BUN/Creatinine Ratio 18.3 Glucose 94 Calcium 7.9 L Magnesium 2.0 PFSH Medical History Acid reflux Anemia of chronic disease BPH (benign prostatic hyperplasia) Centrilobular emphysema Cervical radiculopathy COPD (chronic obstructive pulmonary disease) Fragile skin Hearing impaired Hx of transient ischemic attack (TIA) Impaired fasting glucose Insomnia Interstitial lung disease Microscopic colitis (~06/2008) SUSAN on CPAP Osteoarthritis PSVT (paroxysmal supraventricular tachycardia) (~2004) RBBB (right bundle branch block) Rheumatoid arthritis 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 RLS (restless legs syndrome) Seasonal allergic rhinitis Surgical History H/O: vasectomy History of colonoscopy with polypectomy (~2016) Hx of arthroscopy of left knee Hx of arthroscopy of right knee Hx of bilateral cataract extraction Status post left unicompartmental knee replacement (~2011) Status post right unicompartmental knee replacement (~2015) Family History (Updated 02/18/22 @ 16:39 by Azam Solitario DO) Mother No pertinent past medical history Father No pertinent past medical history Social History household members: spouse Smoking Status: Former smoker alcohol intake: current Assessment & Plan Assessment & Plan narrative: #sepsis secondary to acute cystitis with hypotension, acute respiratory failure with hypoxia - BP now improved after initial fluid boluses and antibiotics. - continued IV fluids overnight, can stop today with improved BP. - hold home medications for now, resume atenolol tomorrow then resume verapamil after. - outside urine culture from [facility] urology shows duval-sensitive E. coli, follow up blood and urine cultures here currently with GNB. - continue ceftriaxone. # Hyponatremia, chronic -appears stable from before, no current symptoms. Continue to monitor. # HTN, chronic -hold in setting of sepsis his home medications. # RLS, chronic -continue home mirapex nightly # RA, chronic -continue home prednisone 5mg daily, if hypotensive persistently consider stress dose steroids. # insomnia, chronic -continue home ambien nightly PRN # gout, chronic -continue home allopurinol #hematuria - no current obstruction signs or symptoms, scheduled for outpatient urology follow up. Continue to monitor. Code status is full code. COVID negative. DVT prophylaxis with lovenox Proxy is Merissa. I have utilized all available immediate resources to obtain, update, or review the patient's current medications. This patient will be admitted as inpatient and his stay is expected to exceed two midnights. COVID-19 COVID-19 status: Negative Time Spent With Patient Critical Care time: I spent a total of [] minutes of critical care time on this patient's care today; this time is exclusive of procedural time.
[2022-02-19] MEDS: ALBUTEROL/IPRATROPIUM 3 ML AMPUL INH (20:12)
[2022-02-19] MEDS: ATORVASTATIN 20 MG TABLET 40 MG PO (20:17)
[2022-02-19] MEDS: ZOLPIDEM 5 MG TABLET 10 MG PO (20:23)
[2022-02-20] VITALS (9 sets, daily range): BP systolic 111–115; BP diastolic 50–71; PULSE 81–130; RESP 18; TEMP 36.3–36.6; O2SAT 92–96
[2022-02-20] MEDS: PRAMIPEXOLE 0.25 MG TABLET 1 MG PO (01:10)
--- NOTE | 2022-02-20 03:47 | PC.NURSE ---
Pt is AxOx4, independent and cooperative. VSS, pt c/o restless leg at night and recieved his PRN Mirapex around 1 a.m with good effect. Pt also requested his PRN Ambien at bedtime with good effect. Pt is on RA and sats mid 90s. Pt has some dry cough sometimes. Otherwise, pt is doing well. Continue monitor.
[2022-02-20] MEDS: ALBUTEROL/IPRATROPIUM 3 ML AMPUL INH (07:42)
[2022-02-20] MEDS: DOCUSATE 100 MG CAPSULE PO (08:55)
[2022-02-20] MEDS: atenoloL 25 MG TABLET PO (08:55)
[2022-02-20] MEDS: allopurinoL 300 MG TABLET PO (08:55)
[2022-02-20] MEDS: cefTRIAXone 2,000 MG in SODIUM CHLORIDE 0.9% 100 ML 200 MG IV (08:56)
[2022-02-20] MEDS: SODIUM CHLORIDE 0.9% FLUSH 10 ML IV (09:06)
--- NOTE | 2022-02-20 11:57 | P.DS_ITS ---
History of Present Illness History of Present Illness Date Patient Seen: 02/20/22 Chief complaint: Pneumonia/Fever Narrative: Per Admitting provider, Janes Villalobos is an 86 yo M with PMH of TIA, BPH, RLS, SUSAN on CPAP, gout, RA on prednisone, ILD, RLS and microscopic colitis with recent admission for possible TIA complicated by hematuria with goodwin placement who presents with fever to 104 at home with profound fatigue and weakness. Patient had been on azithromycin with a presumptive outpatient diagnosis of pneumonia and had been on azithromycin for a couple of days but continued to feel ill. He denies chest pain, shortness of breath, but has had a chronic cough. He has had nausea but no emesis. He denies back or groin pain. He had some dysuria but no urinary frequency. He denies any hematuria. In the Emergency room, he was febrile to 103.5 and tachycardic, and he did desaturate to 89% on room air but was improved with minimal supplemental oxygen. Chest x-ray and CT KUB were unremarkable. Laboratory evaluation showed an unremarkable CBC, sodium was low at 129, though this appears chronic based on prior hospitalization. Lactic acid was within normal limits procalcitonin was 0.32. Urinalysis did show 5-10 rbc's and wbc's 30-100 with many bacteria nitrate and leuk esterase positive. He was given ceftriaxone, then meropenem with worsening BP and sepsis. He was given fluid bolus with hypotension, though BP did ultimately improve with fluid administration. He was admitted for further management of sepsis secondary to presumed acute cystitis. Discharge Providers Provider Date of admission: 02/18/22 10:26 Discharge Date: 02/20/22 Primary care physician: Nawaf Michele MD Consults: 02/18/22 12:29 Consult After Hours PICC Line RN Routine Comment: Discharge provider: Azam Solitario DO Summary Hospital Course Discharge Diagnosis: #sepsis secondary to acute cystitis with hypotension, acute respiratory failure with hypoxia # Hyponatremia, chronic # HTN, chronic # RLS, chronic # RA, chronicds. # insomnia, chronic # gout, chronic #hematuria, with bladder cancer Hospital Course: This is an 86 year old male admitted with sepsis secondary to acute cystitis with acute respiratory failure and hypotension. He improved with IV fluids and antibiotic therapy with ceftriaxone. Urine culture from OSH / urology clinic showed a duval sensitive e. coli which was also demonstrated here. He improved with antibiotic therapy and was discharged home on HD#2 to complete therapy at home with oral antibiotics (augmentin). He can resume home medications at the time of discharge. He also had recurrence of hematuria during his hospital stay which improved. He has known bladder cancer and is scheduled for near term follow up for surgical interventions soon. He was advised to inform them of his infection and treatment recommendations. Time Spent with Patient Time spent: Greater than 30 minutes Exam Vital Signs (past 8 hours): - 02/20/22 04:14 02/20/22 07:42 02/20/22 08:00 Temperature 98 F 97.3 F L Pulse Rate 81 103 H 119 H Respiratory Rate 18 18 18 Blood Pressure 112/68 115/71 Pulse Oximetry 92 96 96 Oxygen Delivery Method Room Air Oxygen Flow Rate 0 02/20/22 08:20 02/20/22 08:55 Temperature Pulse Rate 130 H 116 H Respiratory Rate Blood Pressure Pulse Oximetry Oxygen Delivery Method Oxygen Flow Rate Fraction of Inspired Oxygen 21 SaO2/FiO2 Ratio 476 Oxygen Delivery Method Room Air Oxygen Flow Rate 0 Narrative Exam Narrative: General:? Patient is well developed and well nourished, in no distress at this time. HEENT:? Normocephalic, atraumatic, extraocular muscles intact, oral pharynx is clear and mucous membranes are moist. Neck: supple and symmetric, trachea is midline, no cervical adenopathy. Negative for JVD Chest:? Normal AP diameter and contour without kyphoscoliosis, no tachypnea, equal chest rise bilaterally. Lungs:? CTA b/l no wheezing rhonchi or rales. Cardio:?RRR no m/r/g. Abdomen: S NT ND. No CVA tenderness. Musculoskeletal:? Muscle strength and tone are equal within normal limits, no deformity. Extremities: No edema or joint effusions. No cyanosis or clubbing. Skin:? Pale,? Warm to touch,dry and intact without rashes, ulcerations or petechiae.? Neuro:? Alert and orientated x3,? sensation to touch intact in all extremities, no gross deficits noted of cranial nerves. Psych:? Patient has a well-kept appearance, appropriate affect, mental status attitude thought context and judgment are appropriate for age. Objective Labs Result Diagrams: 02/19/22 05:32 02/19/22 05:32 PFSH Medical History Acid reflux Anemia of chronic disease BPH (benign prostatic hyperplasia) Centrilobular emphysema Cervical radiculopathy COPD (chronic obstructive pulmonary disease) Fragile skin Hearing impaired Hx of transient ischemic attack (TIA) Impaired fasting glucose Insomnia Interstitial lung disease Microscopic colitis (~06/2008) SUSAN on CPAP Osteoarthritis PSVT (paroxysmal supraventricular tachycardia) (~2004) RBBB (right bundle branch block) Rheumatoid arthritis 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 RLS (restless legs syndrome) Seasonal allergic rhinitis Surgical History H/O: vasectomy History of colonoscopy with polypectomy (~2016) Hx of arthroscopy of left knee Hx of arthroscopy of right knee Hx of bilateral cataract extraction Status post left unicompartmental knee replacement (~2011) Status post right unicompartmental knee replacement (~2015) Family History (Updated 02/18/22 @ 16:39 by Azam Solitario DO) Mother No pertinent past medical history Father No pertinent past medical history Social History household members: spouse Smoking Status: Former smoker alcohol intake: current Discharge Plan Discharge Plan Patient Disposition: Home Provider Discharge Comment: You were admitted to the hospital with a urinary tract infection, this improved with antibiotics. Please follow up with your primary care provider as previously scheduled. Discharge orders & Medications Prescriptions: New amoxicillin-pot clavulanate 875-125 mg tablet 1 tab PO BID 5 Days Qty: 10 0RF Continued cholecalciferol (vitamin D3) [Vitamin D3] 2,000 unit Capsule 2,000 unit PO DAILY PRN (Reason: other) Qty: 0 diazepam 2 MG tablet 2 mg PO QDAYP PRN (Reason: Muscle cramping) Qty: 0 prednisone 5 mg Tablet 5 mg PO QPM cyanocobalamin (vitamin B-12) [Vitamin B-12] 1,000 mcg Tablet 1,000 mcg PO DAILY PRN (Reason: other) rosuvastatin 20 mg tablet 20 mg PO DAILY Qty: 30 0RF Fish Oil 120-180-500 mg Capsule 1 cap PO PRN PRN (Reason: other) flunisolide 25 mcg (0.025 %) [place],Non-Aerosol 1 spray INTRANASAL BID PRN (Reason: Congestion) pramipexole 0.5 mg Tablet 1 mg PO BEDTIME PRN (Reason: Restless Leg(S)) allopurinol 300 mg Tablet 300 mg PO QAM atenolol 50 mg Tablet 25 mg PO DAILY verapamil 120 mg Tablet 120 mg PO DAILY fluticasone propion-salmeterol [Advair Diskus] 100-50 mcg/dose Blister With Device 1 inh INHALATION BID zolpidem 10 mg Tablet 10 mg PO BEDTIME PRN (Reason: Sleep) phenazopyridine [Pyridium] 200 mg tablet 200 mg PO TID Qty: 7 0RF Follow up/Referrals: Nawaf Michele MD [Primary Care Provider] - Discharge Health Status Multidrug resistant organism: No MDRO Diet/Activity/Treatments Diet: Diet as Tolerated Activity: As tolerated Visit Report/Discharge Packet Instructions: DI for Heart Failure Discharge Data Primary Care Provider: Nawaf Michele
== END 2022-02-20 15:00 | disposition home or self-care (01) | DRG 871 ==
LOC: ED 10:19 → AC 10:28 → ICU 10:52 → AC 15:54
PROVIDERS: Admitting Provider Internal Medicine; Emergency Provider Emergency Medicine; Family Provider Internal Medicine; PCP Internal Medicine; Referring Provider Emergency Medicine; Visit Provider Internal Medicine
DX: A41.9 Sepsis, unspecified organism (principal); J18.9 Pneumonia, unspecified organism; J96.01 Acute respiratory failure with hypoxia; E87.1 Hypo-osmolality and hyponatremia; N30.01 Acute cystitis with hematuria; G25.81 Restless legs syndrome; M06.9 Rheumatoid arthritis, unspecified; G47.00 Insomnia, unspecified; M1A.9XX0 Chronic gout, unspecified, without tophus (tophi); R65.20 Severe sepsis without septic shock; B96.20 Unspecified Escherichia coli [E. coli] as the cause of diseases classified elsewhere; C67.9 Malignant neoplasm of bladder, unspecified; I95.9 Hypotension, unspecified; I10 Essential (primary) hypertension; Z87.891 Personal history of nicotine dependence; Z20.822 Contact with and (suspected) exposure to COVID-19
CPT/HCPCS: 0241U; 36415; 71045; 74176; 80048; 80053; 81001; 82550; 83605; 83735; 83880; 84145; 84484; 85025; 87040; 87077; 87086; 87186; 87797; 94640; 94760; 96365; 96366; 96367; 99285; J0696; J1642; J2185